=== PATIENT | female | born 1955 | race Caucasian/White ===

== ENCOUNTER 2018-12-02 06:29 | Inpatient (IN) | payer MEDICARE, MEDICAID, SELFPAY ==
[2018-12-02] VITALS (39 sets, daily range): BP systolic 108–224; BP diastolic 66–92; PULSE 63–85; RESP 4–31; TEMP 36.4–36.7; O2SAT 89–99
--- NOTE | 2018-12-02 06:34 | W.ED.GENAD ---
Discharge Plan Disposition Patient Disposition: [facility] INPATIENT Condition: Stable Discharge Details Chief Complaint: SOB Clinical Impression: COPD exacerbation, Hypoxia, Community acquired pneumonia Reason For Visit: PNEUMONIA, COPD, HAMZAH Admit Date/Time: 12/02/18 09:19 Admit Provider: Ryne Tony Attending Provider: Ryne Tony Primary Care Provider: Chacha Wilson ED Provider: Abner Doshi Discharge Instructions Referrals: August Inman [OSTEOPATHIC DOCTOR] - Discharge Data Discharge Date/Time-TO BE ENTERED AT DEPARTURE: 12/02/18 10:05 Medical Decision Making <Vini Gatica MD - Last Filed: 12/05/18 15:11> 63 yo female with hx of copd and continued smoker, who is currently on methadone, who comes in with shortness of breath worsening since yesterday along with productive cough. Denies fevers, chest pain or recent travel or surgeries. She called [facility] and they state she was cyanotic and had oxygen saturations in the 40's on their arrival. She was placed on cpap and given duoneb and on arrival she is tachypneic to the high 20's but appears more comfortable at this time, able to speak in 2-3 word sentences. She has diminished breath sounds at the bases bilateral with apical wheezing bilaterally, suspect copd exacerbation and will treat with nebs and steroids and given increased cough will cover for copd exacerbation and CAP with levofloxacin. She has no jvd, peripheral edema so doubt chf. No evidence of dvt and clinical picture fits with copd so doubt PE at this time. Has no chest pain so doubt acs at this time. pt appearas much better, speaking in 5 word sentences and requesting to come off bipap, will trial her off of this. She has been hypertensie here ,hasn't had her BP med this AM so will order this here. Patient will be signed out to oncoming provider pending lab work and ultimate disposition. Differential Diagnosis copd, pna, acs, chf Lab Data Lab results reviewed: Yes I reviewed the patient's lab results. ECG Data Attestation: I personally reviewed and interpreted this ECG (s) as follows: Prior ECG tracings: available for review Interpretation: sinus rhythm, rate of 80, pr 196, LBBB, left axis, no acute ischemic changes when compared to old ekg <Abner Doshi DO - Last Filed: 12/02/18 09:23> The case is signed out to me my my colleague Dr. Justin Gatica. Patient has been doing well, at time of signout we are pending x-ray results. Clinically x-ray appears to show both a right and left lower lobe infiltrate. And especially in conjunction with her clinical picture I do feel that she certainly fits for COPD exacerbation with pneumonia. The patient does have a prolonged QTC, and so I have canceled the Levaquin that was initially started. And we will transition to a aztreonam, vancomycin and doxycycline as at this time do not feel that she is best fit for simple coverage which is doxycycline. However I do feel that if she improves well this can be quickly titrated down over the next 24-48 hours. Patient's oxygen saturation is notably stabilized. She is feeling improved at this time. I did contact Dr. Tony and discussed the case with him, he agrees with the assessment and plan. Patient will be admitted to [facility] with telemetry for further medical management of COPD exacerbation and pneumonia. I have extensively reviewed the treatment plan with the patient. I have addressed all patient concerns at this time. I have also discussed the plan with the admitting physician and they agree with the current assessment and plan and have agreed to assume responsibility for the patient. All parties demonstrate verbal understanding and agreement with our assessment and plan at this time. HPI <Vini Gatica MD - Last Filed: 12/05/18 15:11> General Mode of arrival: EMS. Date/Time Provider Initiated Documentation: 12/02/18 06:33. Information obtained by: patient. History of Present Illness 63 year old F presents to the emergency department with the chief complaint of shortness of breath, described as severe, Patient started experiencing this day(s) (2) and it has been constant. No relieving factors improve symptom(s), No exacerbating factors reported . Patient notes cough. Patient did receive the following treatments prior to arrival, other (duoneb with ems) Related Data Home Medications Medication Instructions Recorded Confirmed atorvastatin [Lipitor] 10 mg PO DAILY 06/21/17 12/02/18 hydroxyzine HCl 50 mg PO Q8H PRN PRN 06/21/17 12/02/18 methylphenidate HCl [Methylin] 10 mg PO DAILY 06/21/17 12/02/18 metoprolol tartrate 25 mg PO BID 06/21/17 12/02/18 Spiriva with HandiHaler 1 cap INHALATION DAILY #1 marilin 06/24/17 12/02/18 albuterol sulfate [Proventil HFA] 2 puff INHALATION Q4H PRN PRN #1 06/24/17 12/02/18 inh fluticasone-salmeterol [Advair 14 puff INHALATION BID #1 marilin 06/24/17 12/02/18 250/50 Diskus] levothyroxine 25 mcg PO DAILY@0600 #90 tab 06/24/17 12/02/18 gabapentin 100 mg PO TID 12/02/18 12/02/18 methadone 85 mg PO DAILY 12/02/18 12/02/18 Previous Rx's Medication Instructions Recorded Spiriva with HandiHaler 1 cap INHALATION DAILY #1 marilin 06/24/17 albuterol sulfate [Proventil HFA] 2 puff INHALATION Q4H PRN PRN #1 06/24/17 inh fluticasone-salmeterol [Advair 14 puff INHALATION BID #1 marilin 06/24/17 250/50 Diskus] levothyroxine 25 mcg PO DAILY@0600 #90 tab 06/24/17 Allergies Allergy/AdvReac Type Severity Reaction Status Date / Time Penicillins Allergy Unverified 12/02/18 07:13 Review of Systems <Vini Gatica MD - Last Filed: 12/05/18 15:11> Review of Systems All systems reviewed & are unremarkable except as noted in HPI and below Constitutional Denies chills, Denies fever(s) and Denies weakness ENT Denies change in voice Cardiovascular Denies chest pain Gastrointestinal Denies abdominal pain, Denies nausea and Denies vomiting Genitourinary Denies dysuria Musculoskeletal Denies joint swelling Integumentary/Breasts Denies rash Neurologic Denies weakness PFSH <Vini Gatica MD - Last Filed: 12/05/18 15:11> Social History Smoking and Tabacco status: Current every day Exam <Vini Gatica MD - Last Filed: 12/05/18 15:11> Const General: acute distress respiratory Orientation: alert HENMT Head: normal to inspection Ears: external ears normal General nose exam: external nose normal Mouth: moist mucous membranes Eyes General: appearance normal, both eyes and all related structures Neck Neck: normal visual inspection Resp Effort & Inspection: audible wheezes Cardio Rate: regular rate Skin General skin exam: no rashes or lesions noted Neuro General: alert and oriented x3 Extrem General: normal to inspection Psych Mental Status: mental status grossly normal
[2018-12-02] MEDS: Albuterol/Ipratropium 3 ML UPD VIAL UPD ×2 (06:51→18:55)
[2018-12-02] MEDS: Normal Saline 1,000 ML 1000 ML IV (06:52)
[2018-12-02] MEDS: methylPREDNISolone SUCC 125 MG VIAL IVP (06:52)
[2018-12-02 06:58] LABS: Abs Immature Grans 0.17 k/cumm (0.0-0.09); Absolute Basophil Count 0.07 k/cumm (0.0-0.2); Absolute Eosinophil Count 0.19 k/cumm (0.0-0.7); Absolute Lymphocyte Count 5.02 k/cumm (1.2-3.4); Absolute Monocyte Count 0.62 k/cumm (0.11-0.7); Absolute Neutrophil Count 4.44 k/cumm (1.2-6.7); Basophils % 0.7; Eosinophils % 1.8; HCT 37.2 % (36.0-46.0); HGB 11.7 g/dL (12.0-15.5); Immature Grans % 1.6; Lymphocytes % 47.8; Mean Corp. HGB Concentration 31.5 g/dL (32.0-36.0); Mean Corpuscular Hemoglobin 27.6 pg (27.0-33.0); Mean Corpuscular Volume 87.7 fL (80-95); Mean Platelet Volume 11.4 fL (8.0-11.0); Monocytes % 5.9; Neutrophils % 42.2; Platelet Count 261 x1000/uL (130-400); RBC 4.24 m/cumm (4.00-5.20); RBC Distribution Width 14.3 % (11.7-14.6); White Blood Cell Count 10.51 k/cumm (4.4-10.8)
[2018-12-02 07:15] LABS: PTT Activated 20.5 sec (21.0-31.4); Prothrombin Time 9.8 sec (9.3-11.0)
[2018-12-02 07:22] LABS: ALT 69 U/L (12-78); AST 61 U/L (15-37); Alkaline Phosphatase 179 U/L (46-116); Anion Gap 17.5 mmol/L (3-11); BUN 16 mg/dL (7-18); Bilirubin, Total 0.4 mg/dL (0.2-1.0); CO2 21.5 mmol/L (21.0-32.0); CREATININE 1.64 mg/dL (0.55-1.02); Calcium 8.5 mg/dL (8.5-10.1); Chloride 102 mmol/L (98-107); Estimated GFR 31.85 (mL/min/1.73m2); Glucose 323 mg/dL (70-100); NT-proBNP 2386 pg/mL; Potassium 4.2 mmol/L (3.5-5.1); Sodium 141 mmol/L (136-145); Total Protein 7.3 g/dL (6.4-8.2); Troponin I 0.03 ng/mL (0.00-0.06)
[2018-12-02 07:28] LABS: Diff Comment Agrees w/ Instrument
[2018-12-02] MEDS: Metoprolol 25 MG TAB PO ×2 (07:30→19:14)
[2018-12-02] MEDS: LEVOFLOXACIN 750 MG/150 ML BAG 100 MG IVPB (07:32)
[2018-12-02] MEDS: Methadone Liquid 10 MG/ML 85 MG PO (07:36)
--- NOTE | 2018-12-02 07:55 | DI.VRAD_ITS ---
EXAM: XR Chest, 1 View EXAM DATE/TIME: 12/02/2018 6:35 AM CLINICAL HISTORY: 63 years old, female; Signs and symptoms; Other: SOB TECHNIQUE: XR of the chest, 1 view. COMPARISON: CR PORTABLE CHEST ONE VIEW 06/21/2017 2:33 PM FINDINGS: Lungs: New patchy consolidations at the lung bases which may be pneumonia or edema. Pleural space: Unremarkable. No pleural effusion. No pneumothorax. Heart/Mediastinum: Atherosclerotic disease. Mild cardiomegaly, stable. Bones/joints: Unremarkable. IMPRESSION: New patchy consolidations at the lung bases which may be pneumonia or edema. Dictated and Authenticated by: Maryjane De Souza MD. Ordering:AMRQUISE Martini MD
[2018-12-02] MEDS: DOXYCYCLINE 100 MG in Normal Saline 100 ML IVPB ×2 (08:35→19:14)
[2018-12-02] MEDS: AZTREONAM 2,000 MG in Normal Saline 100 ML 200 MG IVPB (08:53)
--- NOTE | 2018-12-02 09:02 | DI.RAD_ITS ---
SYMPTOM/DIAGNOSIS: SOB PORTABLE AP CHEST: Comparison is made with 06/21/17. The heart is enlarged, unchanged. Leads and oxygen tubing are seen over the chest. There are increased interstitial markings which may indicate pulmonary edema. No focal consolidation or effusion is visible. IMPRESSION: The findings are consistent with mild CHF.
[2018-12-02] MEDS: Normal Saline 1,000 ML 150 ML IV ×2 (11:38→19:14)
[2018-12-02] MEDS: methylPREDNISolone SUCC 125 MG VIAL 60 MG IVP ×2 (11:39→19:14)
[2018-12-02] MEDS: hydrOXYzine HCL 50 MG TAB PO ×2 (11:39→20:06)
[2018-12-02] MEDS: Heparin 5,000 UNITS/ML VIAL 5000 UNITS SC ×2 (11:39→19:15)
[2018-12-02] MEDS: Normal Saline Flush 10 ML SYR IVP (11:40)
--- NOTE | 2018-12-02 12:09 | W.PM.HP.N ---
Date of service: 12/02/18 Time of Service: 12:09 Assessment and Plan (1) Acute respiratory failure with hypoxia: Current visit: Yes Status: Acute multifactorial with COPD exacerbation and pneumonia, symptoms markedly improved with duonebs, IV steroids and bipap. Admit to med/surg on telemetry under hospitalist services. will be treated with doxycycline and ceftriaxone. will continue with scheduled duonebs, albuterol as needed, guaifenesin. has been weaned off bipap, will continue oxygen by nasal canula, will wean as able. will continue IV steroids with taper as able. (2) Community acquired pneumonia: Current visit: Yes Status: Acute treatment with ceftriaxone and doxycycline day 15. see #1 (3) Hypertension: Current visit: Yes Status: Chronic did not take her am medications. received home dose of lopressor in the ED. will continue to monitor, continue home medications and adjust medications as needed. (4) Chronic pain: Current visit: Yes Status: Chronic stable, will continue home methadone, gabapentin. no dose changes anticipated (5) Hypothyroidism: Current visit: Yes Status: Chronic stable, continue synthroid (6) HAMZAH (acute kidney injury): Current visit: Yes Status: Acute likely pre-renal. will provide IV fluids overnight. recheck kidney functions in the am. renally dose medications and avoid nephrotoxic drugs. (7) Hyperglycemia: Current visit: Yes Status: Acute blood sugars elevated on admission with glucose over 300. will add hemoglobin A1C to admission labs, diabetic diet and sliding scale coverage ac/hs. anticipate blood sugars to be elevated while on steroids. (8) DVT prophylaxis: Current visit: Yes Status: Acute heparin in setting of HAMZAH. shayy stockings (9) Discharge planning issues: Current visit: Yes Status: Acute anticipate home with no services once medically stable. (10) Tobacco abuse counseling: Current visit: Yes Status: Acute patient reports to smoking 1 pack per day. discussed risk of ongoing tobacco abuse including and not limited to worsening respiratory status, risk of malignancy. states she is motivated to quit. requesting nicotine inhaler while hospitalized. will further consult respiratory for smoking cessation education and assistance. History of Present Illness Chief Complaint: shortness of breath Narrative: 63 yo female with hx of copd and continued smoker, who is currently on methadone, who presents to the emergency department with complaints of shortness of breath worsening since yesterday along with productive cough. She denies fevers, chest pain or recent travel or surgeries. She called EMS and they report she was cyanotic and had oxygen saturations in the 40's on their arrival. She was placed on cpap and given duoneb and on arrival to the ED she was tachypneic to the high 20's but appeared more comfortable, able to speak in 2-3 word sentences. She had diminished breath sounds at the bases bilateral with apical wheezing bilaterally. Clinically x-ray appeared to show both a right and left lower lobe infiltrate, and in conjunction with her clinical picture she was diagnosed with COPD exacerbation and pneumonia. Due to her prolonged QTc she was started on doxycycline and ceftriaxone. She was given solumedrol 125 mg IV. She will be admitted to med/surg on telemetry for inpatient management. Her symptoms and oxygen saturations have stabilized and she has been weaned off bipap and maintaining sats in the 90's on 2 liters. She was also noted to be hypertensive but had not taken her am dose of lopressor. She was administered 25 mg oral lopressor. Review of Systems Constitutional Denies fever(s) and Denies headache(s) ENT Denies dizziness and Denies headache(s) Cardiovascular Denies chest pain, Denies irregular heart rhythm and Reports dyspnea Respiratory Reports cough, Reports dyspnea and Reports wheezing Gastrointestinal Denies abdominal pain Neurologic Denies confusion, Denies dizziness and Denies headache(s) Psychiatric Denies confusion Allergic/Immunologic Reports wheezing PFSH Social History Smoking and Tabacco status: Current every day Meds Home Medications Medication Instructions Recorded Confirmed Type atorvastatin [Lipitor] 10 mg PO DAILY 06/21/17 12/02/18 History hydroxyzine HCl 50 mg PO Q8H PRN PRN 06/21/17 12/02/18 History methylphenidate HCl [Methylin] 10 mg PO DAILY 06/21/17 12/02/18 History metoprolol tartrate 25 mg PO BID 06/21/17 12/02/18 History Spiriva with HandiHaler 1 cap INHALATION DAILY #1 marilin 06/24/17 12/02/18 Rx albuterol sulfate [Proventil HFA] 2 puff INHALATION Q4H PRN PRN #1 06/24/17 12/02/18 Rx inh fluticasone-salmeterol [Advair 14 puff INHALATION BID #1 marilin 06/24/17 12/02/18 Rx 250/50 Diskus] levothyroxine 25 mcg PO DAILY@0600 #90 tab 06/24/17 12/02/18 Rx gabapentin 100 mg PO TID 12/02/18 12/02/18 History methadone 85 mg PO DAILY 12/02/18 12/02/18 History Allergies Allergy/AdvReac Type Severity Reaction Status Date / Time Penicillins Allergy Unverified 12/02/18 07:13 Exam Const General: cooperative, comfortable and no acute distress Nutritional Appearance: overweight Orientation: alert and oriented x3 HENMT Head: normal to inspection, normocephalic and atraumatic Mouth: oral mucosa abnormal (slightly dry, no exudates) Chest Chest: normal inspection of the chest Resp Effort & Inspection: normal respiratory effort and able to speak in complete sentences Auscultation: wheezes (throughout) expiratory wheezes Cardio Rate: regular rate Rhythm: regular rhythm GI Inspection: distended Palpation: soft Auscultation: normal bowel sounds Skin General skin exam: no rashes or lesions noted Neuro General: alert, awake and oriented x3 Cognition: normal cognition Speech: speech normal Motor: muscle tone normal throughout Extrem General: normal to inspection and full ROM Psych Appearance: grossly normal Affect: normal affect Attitude: cooperative Results Labs : 12/02/18 06:40 12/02/18 06:40 Laboratory Results - last 24 hr 12/02/18 12/02/18 12/02/18 06:40 06:40 06:40 WBC 10.51 RBC 4.24 Hgb 11.7 L Hct 37.2 MCV 87.7 MCH 27.6 MCHC 31.5 L RDW 14.3 Plt Count 261 MPV 11.4 H Immature Gran % 1.6 Neutrophils % 42.2 Lymphocytes % 47.8 Monocytes % 5.9 Eosinophils % 1.8 Basophils % 0.7 Absolute Neutrophils 4.44 Absolute Lymphocytes 5.02 H Absolute Monocytes 0.62 Absolute Eosinophils 0.19 Absolute Basophils 0.07 Differential Comment Agrees w/ instrument PT 9.8 INR 1.0 APTT 20.5 L Sodium 141 Potassium 4.2 Chloride 102 Carbon Dioxide 21.5 Anion Gap 17.5 H BUN 16 Creatinine 1.64 H Estimated GFR/1.73 m2 31.85 Glucose 323 H Calcium 8.5 Total Bilirubin 0.4 AST 61 H ALT 69 Alkaline Phosphatase 179 H Troponin I 0.03 NT-Pro-B Natriuret Pep 2386 H Total Protein 7.3 Albumin 3.0 L Last Vital Signs Temp 36.7 C 12/02/18 10:32 Pulse 75 12/02/18 10:32 Resp 20 12/02/18 10:32 BP 199/89 H 12/02/18 10:32 Pulse Ox 93 L 12/02/18 10:32
[2018-12-02] MEDS: Gabapentin 100 MG CAP PO ×2 (14:05→19:14)
[2018-12-02] MEDS: Benzonatate 100 MG CAP PO ×2 (14:05→19:14)
[2018-12-02 16:00] LABS: Hemoglobin A1C 6.2 % (4.5-6.2)
[2018-12-02] MEDS: Insulin Aspart 300 UNITS/3 ML PEN SC (17:03)
[2018-12-02] MEDS: Budesonide 0.5 MG/2 ML UPD VIAL UPD (21:22)
[2018-12-03] VITALS (17 sets, daily range): BP systolic 98–109; BP diastolic 58–73; PULSE 64–78; RESP 1–19; TEMP 36.4–37.4; O2SAT 95–99
[2018-12-03] MEDS: Normal Saline 1,000 ML 150 ML IV ×2 (01:58→09:57)
[2018-12-03] MEDS: Heparin 5,000 UNITS/ML VIAL 5000 UNITS SC ×3 (03:30→19:19)
[2018-12-03] MEDS: methylPREDNISolone SUCC 125 MG VIAL 60 MG IVP ×2 (03:30→12:09)
[2018-12-03] MEDS: Levothyroxine 25 MCG TAB PO (05:53)
[2018-12-03] MEDS: Acetaminophen 325 MG TAB PO ×3 (05:53→17:43)
[2018-12-03 07:28] LABS: Abs Immature Grans 0.02 k/cumm (0.0-0.09); Absolute Basophil Count 0.01 k/cumm (0.0-0.2); Absolute Lymphocyte Count 1.12 k/cumm (1.2-3.4); Absolute Monocyte Count 0.28 k/cumm (0.11-0.7); Absolute Neutrophil Count 8.38 k/cumm (1.2-6.7); Basophils % 0.1; HCT 31.9 % (36.0-46.0); HGB 10.2 g/dL (12.0-15.5); Immature Grans % 0.2; Lymphocytes % 11.4; Mean Corpuscular Hemoglobin 27.3 pg (27.0-33.0); Mean Corpuscular Volume 85.3 fL (80-95); Mean Platelet Volume 11.9 fL (8.0-11.0); Monocytes % 2.9; Neutrophils % 85.4; Platelet Count 182 x1000/uL (130-400); RBC 3.74 m/cumm (4.00-5.20); RBC Distribution Width 14.2 % (11.7-14.6); White Blood Cell Count 9.81 k/cumm (4.4-10.8)
[2018-12-03 07:36] LABS: Anion Gap 8.2 mmol/L (3-11); BUN 20 mg/dL (7-18); CO2 27.8 mmol/L (21.0-32.0); CREATININE 1.03 mg/dL (0.55-1.02); Calcium 8.6 mg/dL (8.5-10.1); Chloride 104 mmol/L (98-107); Estimated GFR 54.48 (mL/min/1.73m2); Glucose 155 mg/dL (70-100); Magnesium 1.5 mg/dL (1.8-2.4); Potassium 3.8 mmol/L (3.5-5.1); Sodium 140 mmol/L (136-145)
[2018-12-03] MEDS: Methylphenidate 10 MG TAB PO (07:50)
[2018-12-03] MEDS: Atorvastatin 10 MG TAB PO (07:50)
[2018-12-03] MEDS: Gabapentin 100 MG CAP PO ×3 (07:50→19:19)
[2018-12-03] MEDS: Metoprolol 25 MG TAB PO ×2 (07:50→19:19)
[2018-12-03] MEDS: Benzonatate 100 MG CAP PO ×3 (07:50→19:19)
[2018-12-03] MEDS: Insulin Aspart 300 UNITS/3 ML PEN SC ×3 (07:50→17:03)
[2018-12-03] MEDS: DOXYCYCLINE 100 MG in Normal Saline 100 ML IVPB ×2 (07:50→19:19)
[2018-12-03] MEDS: Methadone Liquid 10 MG/ML 85 MG PO (07:51)
[2018-12-03] MEDS: Albuterol/Ipratropium 3 ML UPD VIAL UPD ×4 (09:05→19:19)
[2018-12-03] MEDS: Budesonide 0.5 MG/2 ML UPD VIAL UPD ×2 (09:11→21:40)
[2018-12-03] MEDS: MAGNESIUM SULFATE 4 GM/100 ML BAG IVPB (11:04)
--- NOTE | 2018-12-03 11:41 | PDOC.CMIN ---
- If Service Date Differs Date of service: 12/03/18 Time of Service: 11:41 Care Management Initial Assess REASON FOR HOSPITALIZATION:: Pneumonia, COPD PAST MEDICAL HISTORY/PAST SURGICAL HISTORY:: Hypothyroidism, Chornic pain, Hypertension PREVIOUS FUNCTIONAL STATUS/SOCIAL/FAMILY SUPPORTS:: Carolin resides with her daughter Emma, and her SO Zander at the [facility] in [facility]. She states that she was residing in [place], and roughly a year ago moved to [facility]. Carolin was renting a room in a trailer, however states that she has been residing with her daughter at the hotel for the past 5 months. Carolin reports being independent at baseline, and is able to Manage ADL's. She states that she does not drive, and uses [facility] for transportation. CURRENT FUNCTIONAL STATUS:: Currently Carolin is lying in bed when this creative writer visits. She is pleasant and receptive to discussion. ADVANCE DIRECTIVES:: None on file Has patient been provided with information about the portal?: Yes Did the patient sign up for the portal?: No CODE STATUS:: Full Code INSURANCE COVERAGE / FINANCIAL ISSUES:: Medicare, Medicaid CURRENT HOME/COMMUNITY SERVICES/EQUIPMENT:: Currently Carolin has no services or medical equipment in the community. PRIMARY CARE PHYSICIAN:: Chacha Wilson POTENTIAL DISCHARGE NEEDS:: F/U appointment with PCP PATIENT/FAMILY EDUCATION NEEDS:: Review DC instructions, any limitations, and ongoing DC planning discussion. Discuss 'Ask Me Three' ANTICIPATED BARRIERS TO DISCHARGE:: None identified at this time. TRANSPORTATION:: [facility] PLAN:: Carolin to return home with no anticipated services once medically cleared. She will F/U with PCP and plan of care as prescribed. [facility] to transport when ready.
--- NOTE | 2018-12-03 11:46 | INITIAL_ITS ---
- If Service Date Differs Date of service: 12/03/18 Time of Service: 11:41 Care Management Initial Assess REASON FOR HOSPITALIZATION:: Pneumonia, COPD PAST MEDICAL HISTORY/PAST SURGICAL HISTORY:: Hypothyroidism, Chornic pain, Hypertension PREVIOUS FUNCTIONAL STATUS/SOCIAL/FAMILY SUPPORTS:: Carolin resides with her daughter Emma, and her SO Zander at the [facility]. She states that she was residing in [place], and roughly a year ago moved to [facility]. Carolin was renting a room in a trailer, however states that she has been residing with her daughter at the hotel for the past 5 months. Caroiln rep orts being independent at baseline, and is able to Manage ADL's. She states that she does not drive, and uses [facility] for transportation. CURRENT FUNCTIONAL STATUS:: Currently Carolin is lying in bed when this health underwriter visits. She is pleasant and receptive to discussion. ADVANCE DIRECTIVES:: None on file Has patient been provided with information about the portal?: Yes Did the patient sign up for the portal?: No CODE STATUS:: Full Code INSURANCE COVERAGE / FINANCIAL ISSUES:: Medicare, Medicaid CURRENT HOME/COMMUNITY SERVICES/EQUIPMENT:: Currently Carolin has no services or medical equipment in the community. PRIMARY CARE PHYSICIAN:: Chacha Wilson POTENTIAL DISCHARGE NEEDS:: F/U appointment with PCP PATIENT/FAMILY EDUCATION NEEDS:: Review DC instructions, any limitations, and ongoing DC planning discussion. Discuss 'Ask Me Three' ANTICIPATED BARRIERS TO DISCHARGE:: None identified at this time. TRANSPORTATION:: [facility] PLAN:: Carolin to return home with no anticipated services once medically cleared. She will F/U with PCP and plan of care as prescribed. [facility] to transport when ready.
--- NOTE | 2018-12-03 12:05 | PHARADMIT ---
Admission Pharmacy Clinical Review PNEUMONIA, COPD, HAMZAH Code Status Full Code Current Weight Wgt- 62 kg Renally Cleared and Narrow Therapeutic Index Meds CrCl~ 41.1 mL/min Meds-OK QTc Value / Action Taken QTc-497 BP Control, Fever BP- 109/73 Tmax- 37.4C Electrolytes reviewed Na- 140 K+3.8 Mag-1.5 DVT Prophylaxis Heparin SC Opiate Usage / Scheduled Bowel Regimen Ordered Yes Yes Plt/SCr for Heparin / Enoxaparin Plts-182 SCr-1.03 INR for Warfarin inr-1.0 H/H stable, WBC/Bands H&H- 10.2/31.9 WBC- 9.81 Antibiotic appropriateness Rocephin, Doxycycline IV Cultures and Sensitivities Blood-No growth/24hrs Surgical ABX d/c within 24 hr na DM control / Insulin Dosing BG-155 AuD8y-3.2 Aspart Heart Failure (Check EF%) (NABIL's, B-Block, Diuretics) Lopressor, IV to PO Switch No Home Meds Reviewed Yes Home Meds Not Ordered AdvJerry lawleriva Comments Receives daily Methadone Solution (8.5mL)
[2018-12-03] MEDS: Normal Saline Flush 10 ML SYR IVP (12:09)
[2018-12-03] MEDS: Ibuprofen 400 MG TAB PO ×2 (13:07→17:42)
[2018-12-03] MEDS: Lidocaine 5% Patch 1 PATCH TP (13:07)
--- NOTE | 2018-12-03 15:21 | PGE_ITS ---
Date of Service Date of service: 12/03/18 Time of Service: 15:19 Assessment and Plan (1) Acute respiratory failure with hypoxia: Current visit: Yes Status: Acute multifactorial with COPD exacerbation and pneumonia as well as a likely component of diastolic CHF. Improved/resolving, currently on room air. Continue treatment of infection with doxycycline and ceftriaxone, steroids, nebs, antitussives. D/c IVF and add lasix. Repeat echo. (2) Community acquired pneumonia: Current visit: Yes Status: Acute treatment with ceftriaxone and doxycycline day 2/5. see #1. Obtain sputum culture. (3) COPD with acute exacerbation: Current visit: Yes Status: Acute As above (4) Acute diastolic CHF (congestive heart failure): Current visit: Yes Status: Acute D/C IVF. Obtain echo. Monitor on tele. Monitor I/O's and daily weights. Check pro BNP (5) Hypertension: Current visit: Yes Status: Chronic Normotensive. IV hydralazine d/c'ed. (6) Chronic pain: Current visit: Yes Status: Chronic Continue home methadone, gabapentin. I added a lidoderm patch and prn ibuprofen as the patient reports back pain today. We also added an aqua K pack. (7) Hypothyroidism: Current visit: Yes Status: Chronic stable, continue synthroid (8) HAMZAH (acute kidney injury): Current visit: Yes Status: Acute Resolving. At this point, the risks of continuing IVF outweight the benefits, so IVF have been stopped; giving one time dose of PO lasix. (9) Hyperglycemia: Current visit: Yes Status: Acute A1c indicative of prediabetes. Continue SSI. Diabetes education ordered. (10) Prediabetes: Current visit: Yes Status: Acute As above (11) DVT prophylaxis: Current visit: Yes Status: Acute heparin in setting of HAMZAH. shayy stockings (12) Discharge planning issues: Current visit: Yes Status: Acute anticipate home with no services once medically stable. (13) Tobacco abuse counseling: Current visit: Yes Status: Acute Tobacco cessation advised. Nicotine inhaler while hospitalized. Subjective Interval history since last seen: States she feels better, specifically, about her breathing. Her cough is productive of brownish sputum. She thinks she is getting too much IVF. She denies dizziness, chest pain, nausea, vomiting. Exam Narrative Exam Narrative: General: very pleasant middle-aged female, laying c omfortably in bed at about a 30 degree angle, not short of breath HEENT: EOMI, MMM Heart: RRR, no m/r/g Lungs: quiet rhonchi and rales on expiration B GI: abdomen is soft, nontender, nondistended Extremities no e/c/c BLE's, +1 pedal pulses bilaterally, wearing TEDs Objective Objective Clinical Data: Abnormal lab results 12/03/18 12/03/18 Range/Units 06:35 06:35 RBC 3.74 L (4.00-5.20) m/cumm Hgb 10.2 L (12.0-15.5) g/dL Hct 31.9 L (36.0-46.0) % MPV 11.9 H (8.0-11.0) fL Absolute Neutrophils 8.38 H (1.2-6.7) k/cumm Absolute Lymphocytes 1.12 L (1.2-3.4) k/cumm BUN 20 H (7-18) mg/dL Creatinine 1.03 H D (0.55-1.02) mg/dL Glucose 155 H D (70-100) mg/dL Magnesium 1.5 L (1.8-2.4) mg/dL Vital Signs Temperature 36.4 C L 12/03/18 11:55 Temperature Source Tympanic 12/03/18 11:55 Pulse 68 12/03/18 11:55 Pulse Rhythm Regular 12/02/18 20:53 Pulse 66 12/02/18 09:40 Respiratory Rate 18 12/03/18 11:55 Respiratory Effort Non-Labored 12/02/18 20:53 Respiratory Depth Normal 12/02/18 20:53 Respiratory Pattern Normal 12/02/18 20:53 Blood Pressure 98/58 L 12/03/18 11:55 Blood Pressure Mean 94 12/02/18 09:31 Blood Pressure Position Supine 12/02/18 06:45 Pulse Oximetry 97 12/03/18 11:55 Oxygen Delivery Method Room Air 12/03/18 11:55 Oxygen Flow Rate 0 12/03/18 11:55 Pain Level 5 12/03/18 14:07 Comment 12/03/18 10:30 Intake & Output 12/02/18 12/03/18 12/03/18 23:59 11:59 23:59 Intake Total 2727.5 / 4631.667 2392.5 / 3250.0 857.5 / 3250.0 Output Total 225 / 875 Balance 2502.5 / 3756.667 2392.5 / 3250.0 857.5 / 3250.0 Intake: IV 1147.5 / 2691.667 2152.5 / 2610.0 457.5 / 2610.0 Oral 1580 / 1940 240 / 640 400 / 640 Output: Urine 225 / 875 Other: Urine Color Yellow Urine Appearance Clear Urine Odor Normal Comment UOP x 1 Voiding Methods Toilet Toilet Laboratory Results WBC 9.81 k/cumm (4.4-10.8) 12/03/18 06:35 RBC 3.74 m/cumm (4.00-5.20) L 12/03/18 06:35 Hgb 10.2 g/dL (12.0-15.5) L 12/03/18 06:35 Hct 31.9 % (36.0-46.0) L 12/03/18 06:35 MCV 85.3 fL (80-95) 12/03/18 06:35 MCH 27.3 pg (27.0-33.0) 12/03/18 06:35 MCHC 32.0 g/dL (32.0-36.0) 12/03/18 06:35 RDW 14.2 % (11.7-14.6) 12/03/18 06:35 Plt Count 182 x1000/uL (130-400) 12/03/18 06:35 MPV 11.9 fL (8.0-11.0) H 12/03/18 06:35 Immature Gran % 0.2 12/03/18 06:35 Neutrophils % 85.4 12/03/18 06:35 Lymphocytes % 11.4 12/03/18 06:35 Monocytes % 2.9 12/03/18 06:35 Eosinophils % 0.0 12/03/18 06:35 Basophils % 0.1 12/03/18 06:35 Absolute Neutrophils 8.38 k/cumm (1.2-6.7) H 12/03/18 06:35 Absolute Lymphocytes 1.12 k/cumm (1.2-3.4) L 12/03/18 06:35 Absolute Monocytes 0.28 k/cumm (0.11-0.7) 12/03/18 06:35 Absolute Eosinophils 0.00 k/cumm (0.0-0.7) 12/03/18 06:35 Absolute Basophils 0.01 k/cumm (0.0-0.2) 12/03/18 06:35 Differential Comment Agrees w/ instrument 12/02/18 06:40 PT 9.8 sec (9.3-11.0) 12/02/18 06:40 INR 1.0 (0.9-1.1) 12/02/18 06:40 APTT 20.5 sec (21.0-31.4) L 12/02/18 06:40 Sodium 140 mmol/L (136-145) 12/03/18 06:35 Potassium 3.8 mmol/L (3.5-5.1) 12/03/18 06:35 Chloride 104 mmol/L (98-107) 12/03/18 06:35 Carbon Dioxide 27.8 mmol/L (21.0-32.0) 12/03/18 06:35 Anion Gap 8.2 mmol/L (3-11) 12/03/18 06:35 BUN 20 mg/dL (7-18) H 12/03/18 06:35 Creatinine 1.03 mg/dL (0.55-1.02) H D 12/03/18 06:35 Estimated GFR/1.73 m2 54.48 (mL/min/1.73m2) 12/03/18 06:35 Glucose 155 mg/dL (70-100) H D 12/03/18 06:35 Hemoglobin A1c 6.2 % (4.5-6.2) 12/02/18 06:40 Calcium 8.6 mg/dL (8.5-10.1) 12/03/18 06:35 Magnesium 1.5 mg/dL (1.8-2.4) L 12/03/18 06:35 Total Bilirubin 0.4 mg/dL (0.2-1.0) 12/02/18 06:40 AST 61 U/L (15-37) H 12/02/18 06:40 ALT 69 U/L (12-78) 12/02/18 06:40 Alkaline Phosphatase 179 U/L (46-116) H 12/02/18 06:40 Troponin I 0.03 ng/mL (0.00-0.06) 12/02/18 06:40 NT-Pro-B Natriuret Pep 2386 pg/mL (-299) H 12/02/18 06:40 Total Protein 7.3 g/dL (6.4-8.2) 12/02/18 06:40 Albumin 3.0 g/dL (3.4-5.0) L 12/02/18 06:40
[2018-12-03] MEDS: Furosemide 20 MG TAB PO (15:40)
[2018-12-03 15:57] LABS: NT-proBNP 8785 pg/mL
[2018-12-03 16:08] LABS: Troponin I 0.14 ng/mL (0.00-0.06)
[2018-12-03] MEDS: methylPREDNISolone SUCC 125 MG VIAL 40 MG IVP (19:19)
[2018-12-03] MEDS: Patch Removal 1 EACH TP (23:32)
[2018-12-04] VITALS (17 sets, daily range): BP systolic 98–149; BP diastolic 64–87; PULSE 51–74; RESP 1–19; TEMP 36–37.2; O2SAT 93–100
[2018-12-04] MEDS: Heparin 5,000 UNITS/ML VIAL 5000 UNITS SC ×3 (03:47→19:47)
[2018-12-04] MEDS: methylPREDNISolone SUCC 125 MG VIAL 40 MG IVP ×3 (03:47→19:46)
[2018-12-04] MEDS: Levothyroxine 25 MCG TAB PO (05:20)
[2018-12-04] MEDS: Ibuprofen 400 MG TAB PO ×2 (05:20→14:51)
[2018-12-04 07:02] LABS: HCT 32.7 % (36.0-46.0); HGB 10.8 g/dL (12.0-15.5); Mean Corpuscular Hemoglobin 28.1 pg (27.0-33.0); Mean Corpuscular Volume 85.2 fL (80-95); Mean Platelet Volume 11.8 fL (8.0-11.0); Platelet Count 212 x1000/uL (130-400); RBC 3.84 m/cumm (4.00-5.20); RBC Distribution Width 14.4 % (11.7-14.6); White Blood Cell Count 12.35 k/cumm (4.4-10.8)
[2018-12-04 07:42] LABS: Anion Gap 9.4 mmol/L (3-11); BUN 28 mg/dL (7-18); CO2 27.6 mmol/L (21.0-32.0); CREATININE 1.13 mg/dL (0.55-1.02); Chloride 102 mmol/L (98-107); Cholesterol 192 mg/dL (50-200); Estimated GFR 48.95 (mL/min/1.73m2); Glucose 145 mg/dL (70-100); HDL Cholesterol 46 mg/dL (40-60); LDL CHOLESTEROL 122 mg/dL (<100); Magnesium 2.1 mg/dL (1.8-2.4); Potassium 3.1 mmol/L (3.5-5.1); Sodium 139 mmol/L (136-145); Triglyceride 193 mg/dL (30-150)
[2018-12-04] MEDS: Polyethylene Glycol 3350 17 GM PACKET PO (08:44)
[2018-12-04] MEDS: Methadone Liquid 10 MG/ML 85 MG PO (08:44)
[2018-12-04] MEDS: Gabapentin 100 MG CAP PO ×3 (08:45→19:47)
[2018-12-04] MEDS: Benzonatate 100 MG CAP PO ×3 (08:45→19:47)
[2018-12-04] MEDS: Atorvastatin 10 MG TAB PO (08:45)
[2018-12-04] MEDS: Docusate Sodium 100 MG CAP PO ×2 (08:45→19:52)
[2018-12-04] MEDS: DOXYCYCLINE 100 MG in Normal Saline 100 ML IVPB ×2 (08:45→19:52)
[2018-12-04] MEDS: Methylphenidate 10 MG TAB PO (08:45)
[2018-12-04] MEDS: Metoprolol 25 MG TAB PO ×2 (08:45→19:47)
[2018-12-04] MEDS: Normal Saline 500 ML 200 ML IV (08:45)
[2018-12-04] MEDS: Acetaminophen 325 MG TAB PO ×2 (08:46→14:51)
[2018-12-04] MEDS: Aspirin 81 MG CHEW PO (08:46)
[2018-12-04] MEDS: Insulin Aspart 300 UNITS/3 ML PEN SC ×2 (08:46→12:29)
[2018-12-04] MEDS: hydrOXYzine HCL 50 MG TAB PO (09:19)
[2018-12-04] MEDS: Albuterol/Ipratropium 3 ML UPD VIAL UPD ×4 (09:24→19:46)
[2018-12-04] MEDS: Budesonide 0.5 MG/2 ML UPD VIAL UPD ×2 (09:33→21:55)
[2018-12-04] MEDS: Potassium Chloride 20 MEQ TABCR 40 MEQ PO ×2 (11:01→19:47)
[2018-12-04] MEDS: Furosemide 20 MG/2 ML VIAL IVP (11:01)
[2018-12-04] MEDS: Normal Saline Flush 10 ML SYR IVP ×3 (11:02→19:47)
[2018-12-04] MEDS: Lidocaine 5% Patch 1 PATCH TP (12:29)
--- NOTE | 2018-12-04 13:31 | PDOC.CMPRO ---
- If Service Date Differs Date of service: 12/04/18 Time of Service: 13:32 Care Management Progress Note S/O: Carolin is sitting up in bed this morning, she is pleasant and receptive to discussion. Carolin states that she is feeling alright this morning. She states that her daughter may be in to visit her, however it is difficult as they do not have transportation at home other than [facility]. No change in DC plan at this time. A: 63 y/o female admitted 12/02/18 for pneumonia, COPD P: Carolin will return to the [facility] when medically cleared. She will F/U with PCP and plan of care as prescribed. Carolin to transport via [facility] when ready.
--- NOTE | 2018-12-04 17:53 | W.PM.PROGNOT ---
Date of Service Date of service: 12/04/18 Time of Service: 16:40 Assessment and Plan (1) Acute respiratory failure with hypoxia: Current visit: Yes Status: Acute multifactorial with COPD exacerbation and pneumonia as well as a likely component of diastolic CHF. Resolved, currently on room air. Continue treatment of infection with doxycycline and ceftriaxone, weaning of steroids, nebs, antitussives. Continue lasix. Repeat echo tomorrow. May need a stress test as outpatient. (2) Community acquired pneumonia: Current visit: Yes Status: Acute treatment with ceftriaxone and doxycycline day 3/5. see #1. (3) COPD with acute exacerbation: Current visit: Yes Status: Acute Improved. Decrease steroids. (4) Acute diastolic CHF (congestive heart failure): Current visit: Yes Status: Acute Obtain echo. Monitor on tele. Monitor I/O's and daily weights. May need a stress test. (5) Hypertension: Current visit: Yes Status: Chronic Normotensive. IV hydralazine d/c'ed. (6) Chronic pain: Current visit: Yes Status: Chronic Hold methadone in light of QT prolongation (obtaining official EKG), continue gabapentin, lidoderm patch and prn ibuprofen, aqua K pack. (7) Hypothyroidism: Current visit: Yes Status: Chronic stable, continue synthroid (8) HAMZAH (acute kidney injury): Current visit: Yes Status: Acute resolved/stable. Monitor while diuresing. (9) Hyperglycemia: Current visit: Yes Status: Acute A1c indicative of prediabetes. Continue SSI. Diabetes education ordered. (10) Prediabetes: Current visit: Yes Status: Acute As above (11) DVT prophylaxis: Current visit: Yes Status: Acute heparin in setting of HAMZAH. shayy stockings (12) Discharge planning issues: Current visit: Yes Status: Acute anticipate home with no services once medically stable. (13) Tobacco abuse counseling: Current visit: Yes Status: Acute Tobacco cessation advised. Nicotine inhaler while hospitalized. Subjective Interval history since last seen: Feels a lot better today and thinks it's because she is off of IV fluids. Denies dizziness, chest pain, nausea, vomiting. Breathing is better and cough is almost none. Borderline QT prolongation was again reported on tele. Exam Narrative Exam Narrative: General: very pleasant middle-aged female, laying comfortably in bed, no shortness of breath HEENT: EOMI, MMM Heart: RRR, no m/r/g Lungs: CTAB GI: abdomen is soft, nontender, nondistended Extremities no e/c/c BLE's, +1 pedal pulses bilaterally, wearing TEDs Objective Objective Clinical Data: Abnormal lab results 12/04/18 12/04/18 Range/Units 06:30 06:30 WBC 12.35 H (4.4-10.8) k/cumm RBC 3.84 L (4.00-5.20) m/cumm Hgb 10.8 L (12.0-15.5) g/dL Hct 32.7 L (36.0-46.0) % MPV 11.8 H (8.0-11.0) fL Potassium 3.1 L (3.5-5.1) mmol/L BUN 28 H (7-18) mg/dL Creatinine 1.13 H (0.55-1.02) mg/dL Glucose 145 H (70-100) mg/dL Troponin I 0.10 H* (0.00-0.06) ng/mL Triglycerides 193 H (30-150) mg/dL LDL Cholesterol Direct 122 H (<100) mg/dL Vital Signs Temperature 37.1 C 12/04/18 16:07 Temperature Source Tympanic 12/04/18 16:07 Pulse 69 12/04/18 16:07 Pulse Rhythm Regular 12/03/18 20:34 Pulse 66 12/02/18 09:40 Respiratory Rate 18 12/04/18 16:07 Respiratory Effort Non-Labored 12/03/18 20:34 Respiratory Depth Normal 12/03/18 20:34 Respiratory Pattern Normal 12/03/18 20:34 Blood Pressure 107/64 12/04/18 16:07 Blood Pressure Mean 94 12/02/18 09:31 Blood Pressure Position Supine 12/02/18 06:45 Pulse Oximetry 93 L 12/04/18 16:07 Oxygen Delivery Method Room Air 12/04/18 16:07 Oxygen Flow Rate 0 12/04/18 16:07 Pain Level 8 12/04/18 14:51 Comment 12/03/18 10:30 Intake & Output 12/03/18 12/04/18 12/04/18 23:59 11:59 23:59 Intake Total 1689.167 / 4081.667 1013.333 / 2063.333 1050 / 2062.333 Output Total 1650 / 1650 2875 / 4275 1400 / 4275 Balance 39.167 / 2431.667 -1861.667 / -2211.667 -350 / -2211.667 Weight 63.8 kg Intake: IV 809.167 / 2961.667 223.333 / 243.333 20 / 243.333 Oral 880 / 1120 790 / 1820 1030 / 1820 Output: Urine 1650 / 1650 2875 / 4275 1400 / 4275 Other: Urine Color Yellow Yellow Yellow Urine Appearance Clear Clear Clear Urine Odor None None None Comment Void x3 in the toilet thus far throughout the day. RN unsure if pt. missed the hat or if [employer] accidentally forgot to document urine amount. Pt. informed that the RN wants to have pt. void in the hat and then ring so that the RN can measure urine output. Pt. agreed to do so. Void x1 in the toilet. Void x1 in the toilet. Voiding Methods Toilet Toilet Toilet Laboratory Results WBC 12.35 k/cumm (4.4-10.8) H 12/04/18 06:30 RBC 3.84 m/cumm (4.00-5.20) L 12/04/18 06:30 Hgb 10.8 g/dL (12.0-15.5) L 12/04/18 06:30 Hct 32.7 % (36.0-46.0) L 12/04/18 06:30 MCV 85.2 fL (80-95) 12/04/18 06:30 MCH 28.1 pg (27.0-33.0) 12/04/18 06:30 MCHC 33.0 g/dL (32.0-36.0) 12/04/18 06:30 RDW 14.4 % (11.7-14.6) 12/04/18 06:30 Plt Count 212 x1000/uL (130-400) 12/04/18 06:30 MPV 11.8 fL (8.0-11.0) H 12/04/18 06:30 Immature Gran % 0.2 12/03/18 06:35 Neutrophils % 85.4 12/03/18 06:35 Lymphocytes % 11.4 12/03/18 06:35 Monocytes % 2.9 12/03/18 06:35 Eosinophils % 0.0 12/03/18 06:35 Basophils % 0.1 12/03/18 06:35 Absolute Neutrophils 8.38 k/cumm (1.2-6.7) H 12/03/18 06:35 Absolute Lymphocytes 1.12 k/cumm (1.2-3.4) L 12/03/18 06:35 Absolute Monocytes 0.28 k/cumm (0.11-0.7) 12/03/18 06:35 Absolute Eosinophils 0.00 k/cumm (0.0-0.7) 12/03/18 06:35 Absolute Basophils 0.01 k/cumm (0.0-0.2) 12/03/18 06:35 Differential Comment Agrees w/ instrument 12/02/18 06:40 PT 9.8 sec (9.3-11.0) 12/02/18 06:40 INR 1.0 (0.9-1.1) 12/02/18 06:40 APTT 20.5 sec (21.0-31.4) L 12/02/18 06:40 Sodium 139 mmol/L (136-145) 12/04/18 06:30 Potassium 3.1 mmol/L (3.5-5.1) L 12/04/18 06:30 Chloride 102 mmol/L (98-107) 12/04/18 06:30 Carbon Dioxide 27.6 mmol/L (21.0-32.0) 12/04/18 06:30 Anion Gap 9.4 mmol/L (3-11) 12/04/18 06:30 BUN 28 mg/dL (7-18) H 12/04/18 06:30 Creatinine 1.13 mg/dL (0.55-1.02) H 12/04/18 06:30 Estimated GFR/1.73 m2 48.95 (mL/min/1.73m2) 12/04/18 06:30 Glucose 145 mg/dL (70-100) H 12/04/18 06:30 Hemoglobin A1c 6.2 % (4.5-6.2) 12/02/18 06:40 Calcium 9.0 mg/dL (8.5-10.1) 12/04/18 06:30 Magnesium 2.1 mg/dL (1.8-2.4) 12/04/18 06:30 Total Bilirubin 0.4 mg/dL (0.2-1.0) 12/02/18 06:40 AST 61 U/L (15-37) H 12/02/18 06:40 ALT 69 U/L (12-78) 12/02/18 06:40 Alkaline Phosphatase 179 U/L (46-116) H 12/02/18 06:40 Troponin I 0.10 ng/mL (0.00-0.06) H* 12/04/18 06:30 NT-Pro-B Natriuret Pep 8785 pg/mL (-299) H 12/03/18 06:35 Total Protein 7.3 g/dL (6.4-8.2) 12/02/18 06:40 Albumin 3.0 g/dL (3.4-5.0) L 12/02/18 06:40 Triglycerides 193 mg/dL (30-150) H 12/04/18 06:30 Total Cholesterol 192 mg/dL (50-200) 12/04/18 06:30 LDL Cholesterol Direct 122 mg/dL (<100) H 12/04/18 06:30 HDL Cholesterol 46 mg/dL (40-60) 12/04/18 06:30
[2018-12-04] MEDS: Patch Removal 1 EACH TP (23:01)
[2018-12-05] VITALS (11 sets, daily range): BP systolic 122–130; BP diastolic 75–88; PULSE 58–74; RESP 1–20; TEMP 36.6–37.1; O2SAT 94–100
[2018-12-05] MEDS: Heparin 5,000 UNITS/ML VIAL 5000 UNITS SC ×3 (03:19→20:06)
[2018-12-05] MEDS: Acetaminophen 325 MG TAB PO (03:22)
[2018-12-05] MEDS: hydrOXYzine HCL 50 MG TAB PO (03:22)
[2018-12-05] MEDS: Ibuprofen 400 MG TAB PO (03:24)
[2018-12-05] MEDS: Levothyroxine 25 MCG TAB PO (05:39)
[2018-12-05] MEDS: Normal Saline Flush 10 ML SYR IVP ×3 (05:40→20:05)
[2018-12-05] MEDS: methylPREDNISolone SUCC 125 MG VIAL 40 MG IVP ×2 (05:40→17:15)
[2018-12-05 07:11] LABS: Abs Immature Grans 0.12 k/cumm (0.0-0.09); Absolute Basophil Count 0.01 k/cumm (0.0-0.2); Absolute Lymphocyte Count 1.61 k/cumm (1.2-3.4); Absolute Monocyte Count 0.69 k/cumm (0.11-0.7); Absolute Neutrophil Count 9.92 k/cumm (1.2-6.7); Basophils % 0.1; HCT 34.1 % (36.0-46.0); HGB 11.1 g/dL (12.0-15.5); Mean Corp. HGB Concentration 32.6 g/dL (32.0-36.0); Mean Corpuscular Hemoglobin 27.6 pg (27.0-33.0); Mean Corpuscular Volume 84.8 fL (80-95); Mean Platelet Volume 11.7 fL (8.0-11.0); Monocytes % 5.6; Neutrophils % 80.3; Platelet Count 208 x1000/uL (130-400); RBC 4.02 m/cumm (4.00-5.20); RBC Distribution Width 14.7 % (11.7-14.6); White Blood Cell Count 12.35 k/cumm (4.4-10.8)
[2018-12-05 07:22] LABS: BUN 30 mg/dL (7-18); CREATININE 1.17 mg/dL (0.55-1.02); Calcium 8.7 mg/dL (8.5-10.1); Chloride 101 mmol/L (98-107); Estimated GFR 47.03 (mL/min/1.73m2); Glucose 167 mg/dL (70-100); Magnesium 1.8 mg/dL (1.8-2.4); Sodium 139 mmol/L (136-145)
--- NOTE | 2018-12-05 08:30 | MERGE_ITS ---
*[facility]* *[facility]* [address] [place] [address] Date of study: 12/05/2018 Transthoracic Echocardiography M-mode, complete 2D, complete spectral Doppler, and color Doppler *STUDY CONCLUSIONS* Summary: 1. Left ventricle: The cavity size was normal. Systolic function was mildly reduced. The estimated ejection fraction was 45-50%. Diffuse hypokinesis. Findings consistent with diastolic dysfunction. Doppler parameters are consistent with high ventricular filling pressure. 2. Aortic valve: There was mild regurgitation. 3. Mitral valve: There was moderate to severe regurgitation, with multiple jets directed posteriorly. L wave noted. 4. Left atrium: The atrium was mildly dilated. 5. Right ventricle: The cavity size was normal. Wall thickness was normal. Systolic function was normal. 6. Right atrium: The atrium was mildly dilated. 7. Atrial septum: No defect or patent foramen ovale was identified. 8. Pulmonary arteries: Pulmonary systolic pressure was in the range of 35mm Hg to 45mm Hg. 9. Inferior vena cava: The vessel was patent and normal in size. The respirophasic diameter changes were in the normal range (greater than or equal to 50%), consistent with normal central venous pressure. *PATIENT PRESENTATION* Height: 149.9cm ((59in) ) S/D Pressure: 128 / 83 Weight: 63.5kg ((139.7lb) ) BSA: 1.65m^2 Test start time: 09:20 AM. Test stop time: 10:15 AM. PERFORMING Unknown CONSULTING Chacha Wilson PERFORMING [facility] DIELECTRIC EMBOSSING MACHINE OPERATOR RT Fletcher (R)(CT), [facility] ORDERING Jaen Angelavishal RollinsBurt rawlsvishal Johnson *PROCEDURE DATA* Procedure information: The patient was identified by two identifiers. This study was interpreted by [facility]. Pertinent images and digital data are archived for permanent storage and are available for subsequent review. Comparison was made to the study of 06/22/2017. Study status: Routine. Transthoracic echocardiography. M-mode, complete 2D, complete spectral Doppler, and color Doppler. A Transthoracic Echocardiogram was performed. Scanning was performed from the parasternal, apical, subcostal, and suprasternal notch acoustic windows. Images were obtained using an [id number] cardiac ultrasound machine. Image quality was adequate. Study completion: The patient tolerated the procedure well. History: PMH: CHF. *CARDIAC ANATOMY* Left ventricle: The cavity size was normal. Systolic function was mildly reduced. The estimated ejection fraction was 45-50%. Diffuse hypokinesis. The tissue Doppler parameters were normal. Findings consistent with diastolic dysfunction. Doppler parameters are consistent with high ventricular filling pressure. Aortic valve: Trileaflet. Doppler: There was no stenosis. There was mild regurgitation. VTI ratio of LVOT to aortic valve: 0.69. Valve area (VTI): 2cm^2. Indexed valve area (VTI): 1.2cm^2/m^2. Peak velocity ratio of LVOT to aortic valve: 0.63. Valve area (Vmax): 1.8cm^2. Indexed valve area (Vmax): 1.1cm^2/m^2. Mean velocity ratio of LVOT to aortic valve: 0.78. Valve area (Vmean): 2.2cm^2. Indexed valve area (Vmean): 1.4cm^2/m^2. Mean gradient (S): 6.7mm Hg. Peak gradient (S): 15.7mm Hg. Aorta: Aortic root: The aortic root was normal in size. Ascending aorta: The ascending aorta was normal in size. Mitral valve: No echocardiographic evidence for prolapse. There was nothing to suggest chordal rupture or a flail leaflet. Doppler: There was no evidence for stenosis. There was moderate to severe regurgitation, with multiple jets directed posteriorly. Valve area by pressure half-time: 5.5cm^2. Indexed valve area by pressure half-time: 3.3cm^2/m^2. Peak gradient (D): 4.9mm Hg. Left atrium: The atrium was mildly dilated. Atrial septum: No defect or patent foramen ovale was identified. Right ventricle: The cavity size was normal. Wall thickness was normal. Systolic function was normal. Pulmonic valve: Doppler: There was no evidence for stenosis. There was mild regurgitation. Peak gradient (S): 8.1mm Hg. Tricuspid valve: Doppler: There was mild regurgitation. Pulmonary artery: Poorly visualized. Pulmonary systolic pressure was in the range of 35mm Hg to 45mm Hg. Right atrium: The atrium was mildly dilated. Pericardium: There was no pericardial effusion. Systemic veins: Inferior vena cava: Well visualized. The vessel was patent and normal in size. The respirophasic diameter changes were in the normal range (greater than or equal to 50%), consistent with normal central venous pressure. Measurements Left ventricle Value 06/22/2017 Reference LV ID, ED, PLAX 5.1 cm 4.7 3.5 - 6.0 LV ID, ES, PLAX 3.9 cm 3.3 2.1 - 4.0 LV PW thickness, ED, PLAX 0.9 cm 0.8 LV end-diastolic volume, 112 ml 94 1-p A2C LV ejection fraction, 1-p 49 % 65 A2C LV end-diastolic volume, 107 ml 78 1-p A4C LV ejection fraction, 1-p 53 % 57 A4C LV e', lateral 0.068 m/sec LV E/e', lateral 16 LV e', medial 0.054 m/sec LV E/e', medial 21 LV e', average 0.061 m/sec LV E/e', average 18 Ventricular septum Value 06/22/2017 Reference IVS thickness, ED, PLAX 1.1 cm 1.1 LVOT Value 06/22/2017 Reference LVOT ID, A-P 1.9 cm 1.9 LVOT area 2.9 cm^2 2.8 LVOT peak velocity, S 1.25 m/sec 1.29 LVOT mean velocity, S 0.93 m/sec LVOT VTI, S 29.1 cm 26.2 LVOT peak gradient, S 6.3 mm Hg 6.6 LVOT mean gradient, S 3.8 mm Hg 3.1 Stroke volume (SV), LVOT 84 ml DP Stroke index (SV/bsa), 51 ml/m^2 LVOT DP Aortic valve Value 06/22/2017 Reference Aortic valve peak 2 m/sec velocity, S Aortic valve mean 1.2 m/sec velocity, S Aortic valve VTI, S 42.0 cm Aortic mean gradient, S 6.7 mm Hg 9 Aortic peak gradient, S 15.7 mm Hg 24 VTI ratio, LVOT/AV 0.69 Aortic valve area, VTI 2 cm^2 1.7 Velocity ratio, peak, 0.63 0.52 LVOT/AV Aortic valve area, peak 1.8 cm^2 1.5 velocity Velocity ratio, mean, 0.78 LVOT/AV Aortic valve area, mean 2.2 cm^2 velocity Aortic valve area/bsa, 1.4 cm^2/m^2 mean velocity Aorta Value 06/22/2017 Reference Aortic root ID, ED 2.5 cm 2.5 Ascending aorta ID, A-P, S 2.6 cm 2.6 Left atrium Value 06/22/2017 Reference LA ID, A-P, ES 3.5 cm LA ID/bsa, A-P 2.1 cm/m^2 <=2.2 LA area, ES, A4C (H) 23.5 cm^2 17.8 8.8 - 23.4 LA area, ES, A2C 18 cm^2 LA volume/bsa, ES, 1-p A4C 53 ml/m^2 33 LA volume, ES, 2-p 65 ml LA volume/bsa, ES, 2-p 40 ml/m^2 LA/aortic root ratio 1.43 Mitral valve Value 06/22/2017 Reference Mitral E-wave peak 1.1 m/sec 1.05 velocity Mitral A-wave peak 0.79 m/sec 1.1 velocity Mitral deceleration time (L) 138 ms 150 - 230 Mitral pressure half-time 40 ms 48 Mitral peak gradient, D 4.9 mm Hg 4.4 Mitral E/A ratio, peak 1.4 0.96 Mitral valve area, PHT, DP 5.5 cm^2 4.6 Tricuspid valve Value 06/22/2017 Reference Tricuspid regurg peak 3 m/sec 2.9 velocity Tricuspid peak RV-RA 35.2 mm Hg 33.7 gradient Right atrium Value 06/22/2017 Reference RA area, ES, A4C (H) 19.6 cm^2 16 8.3 - 19.5 Pulmonic valve Value 06/22/2017 Reference Pulmonic peak gradient, S 8.1 mm Hg 2.4 Legend: (L) and (H) anastacia values outside specified reference range. I have personally reviewed the images and have reviewed and edited the reported findings. Electronically signed by Vini De Los Santos MD 12/05/2018 10:52
[2018-12-05] MEDS: Gabapentin 100 MG CAP PO ×3 (09:09→20:06)
[2018-12-05] MEDS: Insulin Aspart 300 UNITS/3 ML PEN SC ×3 (09:09→17:15)
[2018-12-05] MEDS: Benzonatate 100 MG CAP PO ×3 (09:10→20:06)
[2018-12-05] MEDS: DOXYCYCLINE 100 MG in Normal Saline 100 ML IVPB ×2 (09:10→20:01)
[2018-12-05] MEDS: Potassium Chloride 20 MEQ TABCR 40 MEQ PO (09:10)
[2018-12-05] MEDS: Aspirin 81 MG CHEW PO (09:10)
[2018-12-05] MEDS: Furosemide 20 MG TAB PO (09:10)
[2018-12-05] MEDS: Metoprolol 25 MG TAB PO ×2 (09:10→20:06)
[2018-12-05] MEDS: Methylphenidate 10 MG TAB PO (09:10)
[2018-12-05] MEDS: Lidocaine 5% Patch 1 PATCH TP (12:11)
[2018-12-05] MEDS: Albuterol/Ipratropium 3 ML UPD VIAL UPD ×2 (13:24→17:39)
[2018-12-05] MEDS: Budesonide 0.5 MG/2 ML UPD VIAL UPD ×2 (13:40→22:23)
--- NOTE | 2018-12-05 14:46 | PDOC.CMPRO ---
- If Service Date Differs Date of service: 12/05/18 Time of Service: 14:46 Care Management Progress Note S/O: Carolin is lying in bed this morning, pleasant and receptive to discussion. Carolin states that she is feeling okay as of this morning. She is scheduled to have an Echo and Stress test this admission. Carolin continues to require telemetry at this time. A: 63 y/o female admitted 12/02/18 for pneumonia, COPD P: Carolin will return to the [facility] when medically cleared. She will F/U with PCP and plan of care as prescribed. Carolin to transport via [facility] when ready.
[2018-12-05] MEDS: Methadone Liquid 10 MG/ML 85 MG PO (15:12)
--- NOTE | 2018-12-05 15:12 | CHAPLAIN ---
Carolin was in bed when I visited. She was pleasant, but not interested in further conversation.
--- NOTE | 2018-12-05 18:41 | PGE_ITS ---
Date of Service Date of service: 12/05/18 Time of Service: 15:30 Assessment and Plan (1) QT prolongation: Current visit: Yes Status: Acute better after discontinuing hydroxyzine and holding methadone. Patient would like for us to occasional caregiver her methadone one more try without hydroxyzine, which we will do on telemetry. (2) Acute respiratory failure with hypoxia: Current visit: Yes Status: Acute multifactorial with COPD exacerbation and pneumonia as well as acute CHF, both mild systolic and diastolic - EF is 45-50% on echo. Resolved, currently on room air. Continue treatment of infection with doxycycline and ceftriaxone, weaning of steroids, nebs, antitussives. Continue lasix. Will need a stress test once QT prolongation resolves. (3) Community acquired pneumonia: Current visit: Yes Status: Acute treatment with ceftriaxone and doxycycline day 4/. see #1. (4) COPD with acute exacerbation: Current visit: Yes Status: Acute Improved. Transition steroids to PO. (5) Acute diastolic CHF (congestive heart failure): Current visit: Yes Status: Acute Both systolic (EF 45-50%) and diastolic. Will need a stress test - either as inpatient or outpatient. (6) Hypertension: Current visit: Yes Status: Chronic Normotensive. IV hydralazine d/c'ed. (7) Chronic pain: Current visit: Yes Status: Chronic Resume methadone with careful monitoring of QT prolongation on tele, continue gabapentin, lidoderm patch and prn ibuprofen, aqua K pack. (8) Hypothyroidism: Current visit: Yes Status: Chronic stable, continue synthroid (9) HAMZAH (acute kidney injury): Current visit: Yes Status: Acute resolved/stable. Monitor while diuresing. (10) Hyperglycemia: Current visit: Yes Status: Acute A1c indicative of prediabetes. Continue SSI. Diabetes education ordered. (11) Prediabetes: Current visit: Yes Status: Acute As above (12) DVT prophylaxis: Current visit: Yes Status: Acute heparin in setting of HAMZAH. shayy stockings (13) Discharge planning issues: Current visit: Yes Status: Acute anticipate home with no services once medically stable. May need an inpatient stress test on 01/07. (14) Tobacco abuse counseling: Current visit: Yes Status: Acute Tobacco cessation advised. Nicotine inhaler while hospitalized. Subjective Interval history since last seen: Feels a little upset because her methadone was held today because of QT prolongation, which resolved by the am of her EKG. We spoke about the fact that both methadone and hydroxyzine can cause QT prolongation. I told her she can't be on both. She agreed to trying methadone again without hydroxyzine to see if it causes QT prolongation and she accepts that we might have to stop methadone completely. She just wants to make sure that we communicate with the [facility] about any changes we make to her regimen and that her pain symptoms are not being ignored. She denies dizziness, chest pain, her breathing/cough are much better, she denies nausea/vomiting. Exam Narrative Exam Narrative: General: very pleasant middle-aged female, tearful, but consolabe in bed, no shortness of breath HEENT: EOMI, MMM Heart: RRR, no m/r/g Lungs: CTAB GI: abdomen is soft, nontender, nondistended Extremities no e/c/c BLE's, +1 pedal pulses bilaterally, wearing TEDs Objective Objective Clinical Data: Abnormal lab results 12/05/18 12/05/18 Range/Units 06:48 06:48 WBC 12.35 H (4.4-10.8) k/cumm Hgb 11.1 L (12.0-15.5) g/dL Hct 34.1 L (36.0-46.0) % RDW 14.7 H (11.7-14.6) % MPV 11.7 H (8.0-11.0) fL Absolute Neutrophils 9.92 H (1.2-6.7) k/cumm BUN 30 H (7-18) mg/dL Creatinine 1.17 H (0.55-1.02) mg/dL Glucose 167 H (70-100) mg/dL Vital Signs Temperature 37.1 C 12/05/18 16:10 Temperature Source Tympanic 12/05/18 16:10 Pulse 64 12/05/18 16:10 Pulse Rhythm Regular 12/05/18 16:53 Pulse 66 12/02/18 09:40 Respiratory Rate 18 12/05/18 16:10 Respiratory Effort 12/05/18 16:53 Respiratory Depth Normal 12/05/18 16:53 Respiratory Pattern Normal 12/05/18 16:53 Blood Pressure 130/88 12/05/18 16:10 Blood Pressure Mean 94 12/02/18 09:31 Blood Pressure Position Supine 12/02/18 06:45 Pulse Oximetry 94 L 12/05/18 16:10 Oxygen Delivery Method Room Air 12/05/18 16:10 Oxygen Flow Rate 0 12/05/18 16:10 Pain Level 8 12/05/18 11:50 Comment 12/03/18 10:30 Intake & Output 12/04/18 12/05/18 12/05/18 23:59 11:59 23:59 Intake Total 1760 / 2773.333 350 / 590 240 / 590 Output Total 1750 / 4625 300 / 300 Balance 10 / -1851.667 50 / 290 240 / 290 Weight 63 kg Intake: IV 130 / 353.333 100 / 100 Oral 1630 / 2420 250 / 490 240 / 490 Output: Urine 1750 / 4625 300 / 300 Other: Urine Color Yellow Straw Urine Appearance Clear Clear Clear Urine Odor None Comment Void x1 in the toilet. Voiding Methods Toilet Toilet Laboratory Results WBC 12.35 k/cumm (4.4-10.8) H 12/05/18 06:48 RBC 4.02 m/cumm (4.00-5.20) 12/05/18 06:48 Hgb 11.1 g/dL (12.0-15.5) L 12/05/18 06:48 Hct 34.1 % (36.0-46.0) L 12/05/18 06:48 MCV 84.8 fL (80-95) 12/05/18 06:48 MCH 27.6 pg (27.0-33.0) 12/05/18 06:48 MCHC 32.6 g/dL (32.0-36.0) 12/05/18 06:48 RDW 14.7 % (11.7-14.6) H 12/05/18 06:48 Plt Count 208 x1000/uL (130-400) 12/05/18 06:48 MPV 11.7 fL (8.0-11.0) H 12/05/18 06:48 Immature Gran % 1.0 12/05/18 06:48 Neutrophils % 80.3 12/05/18 06:48 Lymphocytes % 13.0 12/05/18 06:48 Monocytes % 5.6 12/05/18 06:48 Eosinophils % 0.0 12/05/18 06:48 Basophils % 0.1 12/05/18 06:48 Absolute Neutrophils 9.92 k/cumm (1.2-6.7) H 12/05/18 06:48 Absolute Lymphocytes 1.61 k/cumm (1.2-3.4) 12/05/18 06:48 Absolute Monocytes 0.69 k/cumm (0.11-0.7) 12/05/18 06:48 Absolute Eosinophils 0.00 k/cumm (0.0-0.7) 12/05/18 06:48 Absolute Basophils 0.01 k/cumm (0.0-0.2) 12/05/18 06:48 Differential Comment Agrees w/ instrument 12/02/18 06:40 PT 9.8 sec (9.3-11.0) 12/02/18 06:40 INR 1.0 (0.9-1.1) 12/02/18 06:40 APTT 20.5 sec (21.0-31.4) L 12/02/18 06:40 Sodium 139 mmol/L (136-145) 12/05/18 06:48 Potassium 4.0 mmol/L (3.5-5.1) D 12/05/18 06:48 Chloride 101 mmol/L (98-107) 12/05/18 06:48 Carbon Dioxide 28.0 mmol/L (21.0-32.0) 12/05/18 06:48 Anion Gap 10.0 mmol/L (3-11) 12/05/18 06:48 BUN 30 mg/dL (7-18) H 12/05/18 06:48 Creatinine 1.17 mg/dL (0.55-1.02) H 12/05/18 06:48 Estimated GFR/1.73 m2 47.03 (mL/min/1.73m2) 12/05/18 06:48 Glucose 167 mg/dL (70-100) H 12/05/18 06:48 Hemoglobin A1c 6.2 % (4.5-6.2) 12/02/18 06:40 Calcium 8.7 mg/dL (8.5-10.1) 12/05/18 06:48 Magnesium 1.8 mg/dL (1.8-2.4) 12/05/18 06:48 Total Bilirubin 0.4 mg/dL (0.2-1.0) 12/02/18 06:40 AST 61 U/L (15-37) H 12/02/18 06:40 ALT 69 U/L (12-78) 12/02/18 06:40 Alkaline Phosphatase 179 U/L (46-116) H 12/02/18 06:40 Troponin I 0.10 ng/mL (0.00-0.06) H* 12/04/18 06:30 NT-Pro-B Natriuret Pep 8785 pg/mL (-299) H 12/03/18 06:35 Total Protein 7.3 g/dL (6.4-8.2) 12/02/18 06:40 Albumin 3.0 g/dL (3.4-5.0) L 12/02/18 06:40 Triglycerides 193 mg/dL (30-150) H 12/04/18 06:30 Total Cholesterol 192 mg/dL (50-200) 12/04/18 06:30 LDL Cholesterol Direct 122 mg/dL (<100) H 12/04/18 06:30 HDL Cholesterol 46 mg/dL (40-60) 12/04/18 06:30 Echo: 1. Left ventricle: The cavity size was normal. Systolic function was mildly reduced. The estimated ejection fraction was 45-50%. Diffuse hypokinesis. Findings consistent with diastolic dysfunction. Doppler parameters are consistent with high ventricular filling pressure. 2. Aortic valve: There was mild regurgitation. 3. Mitral valve: There was moderate to severe regurgitation, with multiple jets directed posteriorly. L wave noted. 4. Left atrium: The atrium was mildly dilated. 5. Right ventricle: The cavity size was normal. Wall thickness was normal. Systolic function was normal. 6. Right atrium: The atrium was mildly dilated. 7. Atrial septum: No defect or patent foramen ovale was identified. 8. Pulmonary arteries: Pulmonary systolic pressure was in the range of 35mm Hg to 45mm Hg. 9. Inferior vena cava: The vessel was patent and normal in size. The respirophasic diameter changes were in the normal range (greater than or equal to 50%), consistent with normal central venous pressure.
[2018-12-05] MEDS: Atorvastatin 20 MG TAB PO (22:23)
[2018-12-06] VITALS (12 sets, daily range): BP systolic 111–137; BP diastolic 67–97; PULSE 57–68; RESP 16–18; TEMP 36.4–37.1; O2SAT 95–100
[2018-12-06] MEDS: Patch Removal 1 EACH TP ×2 (00:11→23:45)
[2018-12-06] MEDS: Docusate Sodium 100 MG CAP PO (03:40)
[2018-12-06] MEDS: Heparin 5,000 UNITS/ML VIAL 5000 UNITS SC ×3 (03:40→20:22)
[2018-12-06] MEDS: Ibuprofen 400 MG TAB PO ×2 (05:57→12:09)
[2018-12-06] MEDS: Acetaminophen 325 MG TAB PO ×2 (05:57→12:08)
[2018-12-06] MEDS: Levothyroxine 25 MCG TAB PO (05:57)
[2018-12-06 07:50] LABS: Abs Immature Grans 0.24 k/cumm (0.0-0.09); Absolute Basophil Count 0.01 k/cumm (0.0-0.2); Absolute Neutrophil Count 9.42 k/cumm (1.2-6.7); Basophils % 0.1; HCT 37.1 % (36.0-46.0); HGB 12.1 g/dL (12.0-15.5); Immature Grans % 1.8; Lymphocytes % 17.9; Mean Corp. HGB Concentration 32.6 g/dL (32.0-36.0); Mean Corpuscular Hemoglobin 27.5 pg (27.0-33.0); Mean Corpuscular Volume 84.3 fL (80-95); Mean Platelet Volume 11.7 fL (8.0-11.0); Monocytes % 8.9; Neutrophils % 71.3; Platelet Count 206 x1000/uL (130-400); RBC Distribution Width 14.5 % (11.7-14.6); White Blood Cell Count 13.21 k/cumm (4.4-10.8)
[2018-12-06 07:58] LABS: Absolute Lymphocyte Count 2.36 k/cumm (1.2-3.4); Absolute Monocyte Count 1.18 k/cumm (0.11-0.7)
[2018-12-06] MEDS: DOXYCYCLINE 100 MG in Normal Saline 100 ML IVPB (07:58)
[2018-12-06] MEDS: Methadone Liquid 10 MG/ML 85 MG PO (07:59)
[2018-12-06] MEDS: Methylphenidate 10 MG TAB PO (07:59)
[2018-12-06] MEDS: predniSONE 20 MG TAB 40 MG PO ×2 (08:00→20:22)
[2018-12-06] MEDS: Gabapentin 100 MG CAP PO ×2 (08:00→13:40)
[2018-12-06] MEDS: Metoprolol 25 MG TAB PO ×2 (08:00→20:23)
[2018-12-06] MEDS: Benzonatate 100 MG CAP PO ×3 (08:00→20:22)
[2018-12-06] MEDS: Aspirin 81 MG CHEW PO (08:00)
[2018-12-06] MEDS: Furosemide 20 MG TAB PO (08:00)
[2018-12-06 08:14] LABS: Anion Gap 7.9 mmol/L (3-11); BUN 35 mg/dL (7-18); CO2 32.1 mmol/L (21.0-32.0); CREATININE 1.07 mg/dL (0.55-1.02); Calcium 9.3 mg/dL (8.5-10.1); Chloride 98 mmol/L (98-107); Estimated GFR 52.13 (mL/min/1.73m2); Glucose 119 mg/dL (70-100); Magnesium 1.6 mg/dL (1.8-2.4); Potassium 4.4 mmol/L (3.5-5.1); Sodium 138 mmol/L (136-145)
[2018-12-06] MEDS: Albuterol/Ipratropium 3 ML UPD VIAL UPD ×4 (09:01→21:17)
--- NOTE | 2018-12-06 09:38 | PDOC.CMPRO ---
Care Management Progress Note S/O: Per MD, Carolin will remain inpatient while awaiting MPI stress test scheduled for tomorrow; 12/07/18. Carolin remains on telemetry at this time and was having an updraft when CM entered her room. CM will continue to follow. A: 63 y/o female admitted 12/02/18 for pneumonia, COPD P: Carolin will return to the [facility] when medically cleared. She will follow up with her PCP and plan of care as prescribed. She will transport via [facility] when ready.
[2018-12-06] MEDS: Budesonide 0.5 MG/2 ML UPD VIAL UPD (10:30)
[2018-12-06] MEDS: MAGNESIUM SULFATE 2 GM/50 ML BAG IVPB (11:41)
[2018-12-06] MEDS: Insulin Aspart 300 UNITS/3 ML PEN SC ×2 (12:09→17:01)
[2018-12-06] MEDS: Lidocaine 5% Patch 1 PATCH TP (12:09)
--- NOTE | 2018-12-06 18:20 | W.PM.PROGNOT ---
Date of Service Date of service: 12/06/18 Time of Service: 15:00 Assessment and Plan (1) QT prolongation: Current visit: Yes Status: Acute better after discontinuing hydroxyzine; tolerating methadone Monitor on tele until stress test completed. Repeat EKG in am. (2) Acute respiratory failure with hypoxia: Current visit: Yes Status: Acute multifactorial with COPD exacerbation and pneumonia as well as acute CHF, both mild systolic and diastolic - EF is 45-50% on echo. Resolved, currently on room air. Antibiotics finished today, and steroids were transitioned to PO. Continue nebs, antitussives. Continue lasix. Planned for stress test tomorrow - but will discuss with cardiology if, given her LBBB, a cardiac cath is not indicated. (3) Community acquired pneumonia: Current visit: Yes Status: Acute Finished antibiotic therapy. (4) COPD with acute exacerbation: Current visit: Yes Status: Acute Improved. Continue PO steroids. (5) Acute diastolic CHF (congestive heart failure): Current visit: Yes Status: Acute Both systolic (EF 45-50%) and diastolic. Planned for stress test tomorrow. (6) Hypertension: Current visit: Yes Status: Chronic Normotensive. IV hydralazine d/c'ed. (7) Chronic pain: Current visit: Yes Status: Chronic Continue methadone, increase gabapentin, continue lidoderm patch and prn ibuprofen, aqua K pack. (8) Hypothyroidism: Current visit: Yes Status: Chronic stable, continue synthroid (9) HAMZAH (acute kidney injury): Current visit: Yes Status: Acute resolved/stable. Monitor while diuresing. (10) Hyperglycemia: Current visit: Yes Status: Acute A1c indicative of prediabetes. Continue SSI. Diabetes education ordered. (11) Prediabetes: Current visit: Yes Status: Acute As above (12) DVT prophylaxis: Current visit: Yes Status: Acute heparin in setting of HAMZAH. shayy stockings (13) Discharge planning issues: Current visit: Yes Status: Acute anticipate home with no services once medically stable. Likely discharge home tomorrow if nuclear stress test is negative (14) Tobacco abuse counseling: Current visit: Yes Status: Acute Tobacco cessation advised. Nicotine inhaler while hospitalized. Subjective Interval history since last seen: Ms Lake says she is doing better. She thinks she may have had a prior stress test at the [facility], but she is not sure. Regardless, she has not had any recent chest pain, her breathing and leg swelling are getting there. Denies dizziness, nausea, vomiting. Her QTc interval has remained under 500 msec with methadone on board. In discussion as to how to manage her anxiety now that she can't be on hydroxyzine, the patient verbalizes interest in having her gabapentin increased. Exam Narrative Exam Narrative: General: very pleasant middle-aged female, calm, looks comfortable, not short of breath HEENT: EOMI, MMM Heart: RRR, no m/r/g Lungs: CTAB GI: abdomen is soft, nontender, nondistended Extremities no e/c/c BLE's, +1 pedal pulses bilaterally, wearing TEDs Objective Objective Clinical Data: Abnormal lab results 12/06/18 12/06/18 Range/Units 07:28 07:28 WBC 13.21 H (4.4-10.8) k/cumm MPV 11.7 H (8.0-11.0) fL Absolute Neutrophils 9.42 H (1.2-6.7) k/cumm Absolute Monocytes 1.18 H (0.11-0.7) k/cumm Carbon Dioxide 32.1 H (21.0-32.0) mmol/L BUN 35 H (7-18) mg/dL Creatinine 1.07 H (0.55-1.02) mg/dL Glucose 119 H (70-100) mg/dL Magnesium 1.6 L (1.8-2.4) mg/dL Vital Signs Temperature 37.0 C 12/06/18 16:00 Temperature Source Tympanic 12/06/18 16:00 Pulse 57 L 12/06/18 16:00 Pulse Rhythm Regular 12/06/18 07:55 Pulse 66 12/02/18 09:40 Respiratory Rate 18 12/06/18 16:00 Respiratory Effort Non-Labored 12/06/18 07:55 Respiratory Depth Normal 12/06/18 07:55 Respiratory Pattern Normal 12/06/18 07:55 Blood Pressure 111/67 12/06/18 16:00 Blood Pressure Mean 94 12/02/18 09:31 Blood Pressure Position Supine 12/02/18 06:45 Pulse Oximetry 95 12/06/18 16:00 Oxygen Delivery Method Room Air 12/06/18 16:00 Oxygen Flow Rate 0 12/06/18 16:00 Pain Level 8 12/06/18 12:09 Comment 12/06/18 11:55 Intake & Output 12/05/18 12/06/18 12/06/18 23:59 11:59 23:59 Intake Total 750 / 1100 440 / 440 Output Total 900 / 1200 725 / 2325 1600 / 2325 Balance -150 / -100 -285 / -1885 -1600 / -1885 Weight 64.3 kg Intake: IV 150 / 250 120 / 120 Oral 600 / 850 320 / 320 Output: Urine 900 / 1200 725 / 2325 1600 / 2325 Other: Urine Color Yellow Pale Yellow Urine Appearance Clear Clear Clear Urine Odor Normal None Normal Comment Ind in room Voiding Methods Toilet Toilet Toilet Laboratory Results WBC 13.21 k/cumm (4.4-10.8) H 12/06/18 07:28 RBC 4.40 m/cumm (4.00-5.20) 12/06/18 07:28 Hgb 12.1 g/dL (12.0-15.5) 12/06/18 07:28 Hct 37.1 % (36.0-46.0) 12/06/18 07:28 MCV 84.3 fL (80-95) 12/06/18 07:28 MCH 27.5 pg (27.0-33.0) 12/06/18 07:28 MCHC 32.6 g/dL (32.0-36.0) 12/06/18 07:28 RDW 14.5 % (11.7-14.6) 12/06/18 07:28 Plt Count 206 x1000/uL (130-400) 12/06/18 07:28 MPV 11.7 fL (8.0-11.0) H 12/06/18 07:28 Immature Gran % 1.8 12/06/18 07:28 Neutrophils % 71.3 12/06/18 07:28 Lymphocytes % 17.9 12/06/18 07:28 Monocytes % 8.9 12/06/18 07:28 Eosinophils % 0.0 12/06/18 07:28 Basophils % 0.1 12/06/18 07:28 Absolute Neutrophils 9.42 k/cumm (1.2-6.7) H 12/06/18 07:28 Absolute Lymphocytes 2.36 k/cumm (1.2-3.4) 12/06/18 07:28 Absolute Monocytes 1.18 k/cumm (0.11-0.7) H 12/06/18 07:28 Absolute Eosinophils 0.00 k/cumm (0.0-0.7) 12/06/18 07:28 Absolute Basophils 0.01 k/cumm (0.0-0.2) 12/06/18 07:28 Differential Comment Agrees w/ instrument 12/02/18 06:40 PT 9.8 sec (9.3-11.0) 12/02/18 06:40 INR 1.0 (0.9-1.1) 12/02/18 06:40 APTT 20.5 sec (21.0-31.4) L 12/02/18 06:40 Sodium 138 mmol/L (136-145) 12/06/18 07:28 Potassium 4.4 mmol/L (3.5-5.1) 12/06/18 07:28 Chloride 98 mmol/L (98-107) 12/06/18 07:28 Carbon Dioxide 32.1 mmol/L (21.0-32.0) H 12/06/18 07:28 Anion Gap 7.9 mmol/L (3-11) 12/06/18 07:28 BUN 35 mg/dL (7-18) H 12/06/18 07:28 Creatinine 1.07 mg/dL (0.55-1.02) H 12/06/18 07:28 Estimated GFR/1.73 m2 52.13 (mL/min/1.73m2) 12/06/18 07:28 Glucose 119 mg/dL (70-100) H 12/06/18 07:28 Hemoglobin A1c 6.2 % (4.5-6.2) 12/02/18 06:40 Calcium 9.3 mg/dL (8.5-10.1) 12/06/18 07:28 Magnesium 1.6 mg/dL (1.8-2.4) L 12/06/18 07:28 Total Bilirubin 0.4 mg/dL (0.2-1.0) 12/02/18 06:40 AST 61 U/L (15-37) H 12/02/18 06:40 ALT 69 U/L (12-78) 12/02/18 06:40 Alkaline Phosphatase 179 U/L (46-116) H 12/02/18 06:40 Troponin I 0.10 ng/mL (0.00-0.06) H* 12/04/18 06:30 NT-Pro-B Natriuret Pep 8785 pg/mL (-299) H 12/03/18 06:35 Total Protein 7.3 g/dL (6.4-8.2) 12/02/18 06:40 Albumin 3.0 g/dL (3.4-5.0) L 12/02/18 06:40 Triglycerides 193 mg/dL (30-150) H 12/04/18 06:30 Total Cholesterol 192 mg/dL (50-200) 12/04/18 06:30 LDL Cholesterol Direct 122 mg/dL (<100) H 12/04/18 06:30 HDL Cholesterol 46 mg/dL (40-60) 12/04/18 06:30
[2018-12-06] MEDS: Gabapentin 100 MG CAP 200 MG PO (20:22)
[2018-12-06] MEDS: Atorvastatin 20 MG TAB PO (21:18)
[2018-12-06] MEDS: Magnesium Chloride 64 MG TABCR PO (21:19)
[2018-12-07] VITALS (13 sets, daily range): BP systolic 110–145; BP diastolic 77–93; PULSE 56–69; RESP 16–20; TEMP 36.3–36.9; O2SAT 92–100
[2018-12-07] MEDS: Heparin 5,000 UNITS/ML VIAL 5000 UNITS SC ×3 (04:01→20:49)
[2018-12-07] MEDS: Acetaminophen 325 MG TAB PO (04:14)
[2018-12-07] MEDS: Ibuprofen 400 MG TAB PO ×2 (04:15→15:48)
[2018-12-07] MEDS: Levothyroxine 25 MCG TAB PO (06:06)
[2018-12-07 07:40] LABS: Abs Immature Grans 0.29 k/cumm (0.0-0.09); HCT 40.2 % (36.0-46.0); HGB 13.2 g/dL (12.0-15.5); Mean Corp. HGB Concentration 32.8 g/dL (32.0-36.0); Mean Corpuscular Hemoglobin 27.6 pg (27.0-33.0); Mean Corpuscular Volume 83.9 fL (80-95); Mean Platelet Volume 11.6 fL (8.0-11.0); Platelet Count 182 x1000/uL (130-400); RBC 4.79 m/cumm (4.00-5.20); RBC Distribution Width 14.4 % (11.7-14.6); White Blood Cell Count 11.29 k/cumm (4.4-10.8)
[2018-12-07 07:49] LABS: Anion Gap 8.3 mmol/L (3-11); BUN 39 mg/dL (7-18); CO2 27.7 mmol/L (21.0-32.0); CREATININE 1.03 mg/dL (0.55-1.02); Calcium 9.1 mg/dL (8.5-10.1); Chloride 99 mmol/L (98-107); Estimated GFR 54.48 (mL/min/1.73m2); Glucose 148 mg/dL (70-100); Potassium 4.8 mmol/L (3.5-5.1); Sodium 135 mmol/L (136-145)
[2018-12-07] MEDS: Methylphenidate 10 MG TAB PO (08:05)
[2018-12-07] MEDS: Aspirin 81 MG CHEW PO (08:06)
[2018-12-07] MEDS: Benzonatate 100 MG CAP PO ×3 (08:06→20:51)
[2018-12-07] MEDS: Metoprolol 25 MG TAB PO ×2 (08:06→20:51)
[2018-12-07] MEDS: Gabapentin 100 MG CAP 200 MG PO ×2 (08:06→13:00)
[2018-12-07] MEDS: Furosemide 20 MG TAB PO (08:06)
[2018-12-07] MEDS: predniSONE 20 MG TAB 40 MG PO (08:06)
[2018-12-07] MEDS: Methadone Liquid 10 MG/ML 85 MG PO (08:07)
[2018-12-07 08:19] LABS: Absolute Lymphocyte Count 2.03 k/cumm (1.2-3.4); Absolute Monocyte Count 0.79 k/cumm (0.11-0.7); Absolute Neutrophil Count 8.24 k/cumm (1.2-6.7); Diff Comment Manual Differential; Polychromasia Present
--- NOTE | 2018-12-07 08:53 | W.CARDCONSUL ---
Date of service: 12/07/18 Time of Service: 08:53 Assessment and Plan (1) Troponin level elevated: Current visit: Yes Status: Acute Doubt that troponin elevation is due to myocardial infarction. Clinically no evidence of ongoing ischemia. Old left bundle branch block. LVEF is mildly reduced compared to 2017, most likely due to septal dysfunction due to bundle branch block. Mitral regurgitation is in the range of moderate to severe worse compared to 2017. Mitral valve leaflets show myxomatous degeneration; there is no evidence of annular dilatation or mitral valve prolapse. I did not hear MR on physical exam today. No evidence of heart failure. Good blood pressure. Proceed with pharmacological stress test. If more than moderate ischemia consider coronary angiogram. Continue statin and beta-taya at current dosage. History of Present Illness Chief Complaint: Shortness of breath Narrative: 63-year-old woman with tobacco smoking, COPD, chronic pain on methadone, hypothyroidism, hypertension, hyperlipidemia. Currently admitted because of acute hypoxic respiratory failure. Respiratory failure was thought to be a combination of COPD exacerabtion and heart failure. Chest x-ray did not reveal focal infiltrates but diffuse interstitial markings consistent with pulmonary edema. She turned around quicly with BIPAP. Patient thinks that her current respiratory failure is due to the combination of hydroxyzine and methadone. Echocardiogram notable for LVEF of 45-50%, moderate to severe functional mitral regurgitation and mild pulmonary hypertension in the range of 35-40 mmHg; 2017 LVEF 55-60% and mild mitral regurgitation. EKG was notable for left bundle branch block which dates back as far as 2013. Troponin peaked at 0.14, nt-pro BNP ~ 8,000. Patient is a rather sedentary but performs light to moderate housework without cardiopulmonary limitations. She denies chest pain, shortness of breath, PND, edema, syncope, claudication, focal deficits, bleeding, GI or symptoms. Available records including laboratory reviewed. X-rays, EKGs and echocardiogram independently visualized. Allergies and medications reviewed. [facility] reviewed; pertinent history as mentioned HPI. Consults Consult date: 12/07/18 Requesting physician: Angela Lara Review of Systems Review of Systems ROS: 10 point ROS was performed; all pertinent positives as mentioned in HPI, all others negative. [facility] Social History Smoking and Tabacco status: Current every day Exam Narrative Exam Narrative: General: pleasant, no acute distress HEENT: Anicteric, mucus membranes moist Neck: Supple, normal JVP, brisk carotid upstrokes, no bruits Chest: Non-tender Lungs: Clear to auscultation bilaterally, no crackles or wheezes Cardiac: Regular rate, regular rhythm, normal S1S2, no murmurs Abdomen: Soft, non-tender, bowel sounds present Extremities: No clubbing, cyanosis or edema, equal pulses in all 4 extremities Skin: Warm and dry, no rashes Neuro: Alert and oriented x3, grossly intact Results Last Vital Signs Temp 36.4 C L 12/07/18 08:17 Pulse 60 12/07/18 08:17 Resp 20 12/07/18 08:17 BP 144/88 H 12/07/18 08:17 Pulse Ox 97 12/07/18 08:17 Labs : 12/07/18 07:15 12/07/18 07:15 Laboratory Results - last 24 hr 12/07/18 12/07/18 07:15 07:15 WBC 11.29 H RBC 4.79 Hgb 13.2 Hct 40.2 MCV 83.9 MCH 27.6 MCHC 32.8 RDW 14.4 Plt Count 182 MPV 11.6 H Immature Gran % See Differential Neutrophils % 71.0 Band Neutrophils % 2.0 Lymphocytes % 18.0 Monocytes % 7.0 Eosinophils % 0.0 Basophils % 0.0 Myelocytes % 2.0 Absolute Neutrophils 8.24 H Absolute Lymphocytes 2.03 Absolute Monocytes 0.79 H Absolute Eosinophils 0.00 Absolute Basophils 0.00 Differential Comment Manual differential RBC Morphology See below Polychromasia Present Sodium 135 L Potassium 4.8 Chloride 99 Carbon Dioxide 27.7 Anion Gap 8.3 BUN 39 H Creatinine 1.03 H Estimated GFR/1.73 m2 54.48 Glucose 148 H Calcium 9.1 Magnesium 2.0
--- NOTE | 2018-12-07 08:56 | CCONE_ITS ---
Date of service: 12/07/18 Time of Service: 08:53 Assessment and Plan (1) Troponin level elevated: Current visit: Yes Status: Acute Doubt that troponin elevation is due to myocardial infarction. Clinically no evidence of ongoing ischemia. Old left bundle branch block. LVEF is mildly reduced compared to 2017, most likely due to septal dysfunction due to bundle branch block. Mitral regurgitation is in the range of moderate to severe worse compared to 2017. Mitral valve leaflets show myxomatous degeneration; there is no evidence of annular dilatation or mitral valve prolapse. I did not hear MR on physical exam today. No evidence of heart failure. Good blood pressure. Proceed with pharmacological stress test. If more than moderate ischemia consider coronary angiogram. Continue statin and beta-taya at current dosage. History of Present Illness Chief Complaint: Shortness of breath Narrative: 63-year-old woman with tobacco smoking, COPD, chronic pain on methadone, hypothyroidism, hypertension, hyperlipidemia. Currently admitted because of acute hypoxic respiratory failure. Respiratory failure was thought to be a combination of COPD exacerabtion and heart failure. Chest x-ray did not reveal focal infiltrates but diffuse interstitial markings consistent with pulmonary edema. She turned around quicly with BIPAP. Patient thinks that her current respiratory failure is due to the combination of hydroxyzine and methadone. Echocardiogram notable for LVEF of 45-50%, moderate to severe functional mitral regurgitation and mild pulmonary hypertension in the range of 35-40 mmHg; 2017 L VEF 55-60% and mild mitral regurgitation. EKG was notable for left bundle branch block which dates back as far as 2013. Troponin peaked at 0.14, nt-pro BNP ~ 8,000. Patient is a rather sedentary but performs light to moderate housework without cardiopulmonary limitations. She denies chest pain, shortness of breath, PND, edema, syncope, claudication, focal deficits, bleeding, GI or symptoms. Available records including laboratory reviewed. X-rays, EKGs and echocardiogram independently visualized. Allergies and medications reviewed. [facility] reviewed; pertinent history as mentioned HPI. Consults Consult date: 12/07/18 Requesting physician: Angela Lara Review of Systems Review of Systems ROS: 10 point ROS was performed; all pertinent positives as mentioned in HPI, all others negative. [facility] Social History Smoking and Tabacco status: Current every day Exam Narrative Exam Narrative: General: pleasant, no acute distress HEENT: Anicteric, mucus membranes moist Neck: Supple, normal JVP, brisk carotid upstrokes, no bruits Chest: Non-tender Lungs: Clear to auscultation bilaterally, no crackles or wheezes Cardiac: Regular rate, regular rhythm, normal S1S2, no murmurs Abdomen: Soft, non-tender, bowel sounds present Extremities: No clubbing, cyanosis or edema, equal pulses in all 4 extremities Skin: Warm and dry, no rashes Neuro: Alert and oriented x3, grossly intact Results Last Vital Signs Temp 36.4 C L 12/07/18 08:17 Pulse 60 12/07/18 08:17 Resp 20 12/07/18 08:17 BP 144/88 H 12/07/18 08:17 Pulse Ox 97 12/07/18 08:17 Labs : 12/07/18 07:15 12/07/18 07:15 Laboratory Results - last 24 hr 12/07/18 12/07/18 07:15 07:15 WBC 11.29 H RBC 4.79 Hgb 13.2 Hct 40.2 MCV 83.9 MCH 27.6 MCHC 32.8 RDW 14.4 Plt Count 182 MPV 11.6 H Immature Gran % See Differential Neutrophils % 71.0 Band Neutrophils % 2.0 Lymphocytes % 18.0 Monocytes % 7.0 Eosinophils % 0.0 Basophils % 0.0 Myelocytes % 2.0 Absolute Neutrophils 8.24 H Absolute Lymphocytes 2.03 Absolute Monocytes 0.79 H Absolute Eosinophils 0.00 Absolute Basophils 0.00 Differential Comment Manual differential RBC Morphology See below Polychromasia Present Sodium 135 L Potassium 4.8 Chloride 99 Carbon Dioxide 27.7 Anion Gap 8.3 BUN 39 H Creatinine 1.03 H Estimated GFR/1.73 m2 54.48 Glucose 148 H Calcium 9.1 Magnesium 2.0
[2018-12-07] MEDS: Albuterol/Ipratropium 3 ML UPD VIAL UPD ×3 (09:30→17:47)
[2018-12-07] MEDS: Budesonide 0.5 MG/2 ML UPD VIAL UPD (09:30)
--- NOTE | 2018-12-07 10:08 | CMPROGNOTE_ITS ---
- If Service Date Differs Date of service: 12/07/18 Time of Service: 10:08 Care Management Progress Note S/O: Carolin is sitting in her bed when this functional tester typewriters visits this morning, she is pleasant and receptive to discussion. Carolin continues to require telemetry monitoring at this time,and is scheduled to have a stress test while inpatient. No change in DC plan. A: 63 y/o female admitted 12/02/18 for pneumonia, COPD P: Carolin will return to the [facility] when medically cleared. She will follow up with her PCP and plan of care as prescribed. She will transport via [facility] when ready.
[2018-12-07] MEDS: Magnesium Chloride 64 MG TABCR PO ×2 (10:15→21:42)
[2018-12-07] MEDS: Lidocaine 5% Patch 1 PATCH TP (12:09)
[2018-12-07] MEDS: Insulin Aspart 300 UNITS/3 ML PEN SC ×2 (12:10→17:12)
--- NOTE | 2018-12-07 19:36 | W.PM.PROGNOT ---
Date of Service Date of service: 12/07/18 Time of Service: 15:45 Assessment and Plan (1) QT prolongation: Current visit: Yes Status: Acute better after discontinuing hydroxyzine; tolerating methadone Monitor on tele until stress test completed. (2) Acute respiratory failure with hypoxia: Current visit: Yes Status: Acute multifactorial with COPD exacerbation and pneumonia as well as acute CHF, both mild systolic and diastolic - EF is 45-50% on echo. Resolved, currently on room air. Continue steroid taper. Continue nebs, antitussives. Continue lasix. Planned for stress test tomorrow. (3) Community acquired pneumonia: Current visit: Yes Status: Acute Finished antibiotic therapy. (4) COPD with acute exacerbation: Current visit: Yes Status: Acute Essentially resolved. Finishing steroid taper. (5) Acute diastolic CHF (congestive heart failure): Current visit: Yes Status: Acute Both systolic (EF 45-50%) and diastolic. Planned for stress test tomorrow. (6) Hypertension: Current visit: Yes Status: Chronic Normotensive. IV hydralazine d/c'ed. (7) Chronic pain: Current visit: Yes Status: Chronic Continue methadone, increase gabapentin, continue lidoderm patch and prn ibuprofen, aqua K pack. (8) Hypothyroidism: Current visit: Yes Status: Chronic stable, continue synthroid (9) HAMZAH (acute kidney injury): Current visit: Yes Status: Acute resolved/stable. Monitor while diuresing. (10) Hyperglycemia: Current visit: Yes Status: Acute A1c indicative of prediabetes. Continue SSI. Diabetes education ordered. (11) Prediabetes: Current visit: Yes Status: Acute As above (12) DVT prophylaxis: Current visit: Yes Status: Acute heparin in setting of HAMZAH. shayy stockings (13) Discharge planning issues: Current visit: Yes Status: Acute anticipate home with no services once medically stable. Likely discharge home tomorrow if nuclear stress test is negative (14) Tobacco abuse counseling: Current visit: Yes Status: Acute Tobacco cessation advised. Nicotine inhaler while hospitalized. Subjective Interval history since last seen: Ms Lake states she feels well, denying dizziness, chest pain, shortness of breath, nausea, vomiting. Scheduling wilson, she was unable to be fitted in to have the MPI today, so it is planned for tomorrow. She states the neurontin dose feels a little bit better, but that she was actually taking 300 mg doses at home. Exam Narrative Exam Narrative: General: very pleasant middle-aged female, calm, looks comfortable, not short of breath HEENT: EOMI, MMM Heart: RRR, no m/r/g Lungs: CTAB GI: abdomen is soft, nontender, nondistended Extremities no e/c/c BLE's, +1 pedal pulses bilaterally Objective Objective Clinical Data: Abnormal lab results 12/07/18 12/07/18 Range/Units 07:15 07:15 WBC 11.29 H (4.4-10.8) k/cumm MPV 11.6 H (8.0-11.0) fL Absolute Neutrophils 8.24 H (1.2-6.7) k/cumm Absolute Monocytes 0.79 H (0.11-0.7) k/cumm Sodium 135 L (136-145) mmol/L BUN 39 H (7-18) mg/dL Creatinine 1.03 H (0.55-1.02) mg/dL Glucose 148 H (70-100) mg/dL Vital Signs Temperature 36.7 C 12/07/18 15:58 Temperature Source Tympanic 12/07/18 15:58 Pulse 66 12/07/18 15:58 Pulse Rhythm Regular 12/07/18 15:50 Pulse 66 12/02/18 09:40 Respiratory Rate 18 12/07/18 15:58 Respiratory Effort Non-Labored 12/07/18 15:50 Respiratory Depth Normal 12/07/18 15:50 Respiratory Pattern Normal 12/07/18 15:50 Blood Pressure 116/82 12/07/18 15:58 Blood Pressure Mean 94 12/02/18 09:31 Blood Pressure Position Supine 12/02/18 06:45 Pulse Oximetry 96 12/07/18 15:58 Oxygen Delivery Method Room Air 12/07/18 15:58 Oxygen Flow Rate 0 12/07/18 15:58 Pain Level 9 12/07/18 08:07 Comment 12/07/18 04:00 Intake & Output 12/06/18 12/07/18 12/07/18 23:59 11:59 23:59 Intake Total 260 / 700 240 / 360 120 / 360 Output Total 1900 / 2625 1100 / 1100 Balance -1640 / -1925 -860 / -740 120 / -740 Weight 61.7 kg Intake: IV 20 / 140 20 / 20 Oral 240 / 560 240 / 340 100 / 340 Output: Urine 1900 / 2625 1100 / 1100 Other: Urine Color Yellow Yellow Urine Appearance Clear Clear Clear Urine Odor Normal Normal Voiding Methods Toilet Toilet Laboratory Results WBC 11.29 k/cumm (4.4-10.8) H 12/07/18 07:15 RBC 4.79 m/cumm (4.00-5.20) 12/07/18 07:15 Hgb 13.2 g/dL (12.0-15.5) 12/07/18 07:15 Hct 40.2 % (36.0-46.0) 12/07/18 07:15 MCV 83.9 fL (80-95) 12/07/18 07:15 MCH 27.6 pg (27.0-33.0) 12/07/18 07:15 MCHC 32.8 g/dL (32.0-36.0) 12/07/18 07:15 RDW 14.4 % (11.7-14.6) 12/07/18 07:15 Plt Count 182 x1000/uL (130-400) 12/07/18 07:15 MPV 11.6 fL (8.0-11.0) H 12/07/18 07:15 Immature Gran % See Differential 12/07/18 07:15 Neutrophils % 71.0 12/07/18 07:15 Band Neutrophils % 2.0 % 12/07/18 07:15 Lymphocytes % 18.0 12/07/18 07:15 Monocytes % 7.0 12/07/18 07:15 Eosinophils % 0.0 12/07/18 07:15 Basophils % 0.0 12/07/18 07:15 Myelocytes % 2.0 % 12/07/18 07:15 Absolute Neutrophils 8.24 k/cumm (1.2-6.7) H 12/07/18 07:15 Absolute Lymphocytes 2.03 k/cumm (1.2-3.4) 12/07/18 07:15 Absolute Monocytes 0.79 k/cumm (0.11-0.7) H 12/07/18 07:15 Absolute Eosinophils 0.00 k/cumm (0.0-0.7) 12/07/18 07:15 Absolute Basophils 0.00 k/cumm (0.0-0.2) 12/07/18 07:15 Differential Comment Manual differential 12/07/18 07:15 RBC Morphology See below 12/07/18 07:15 Polychromasia Present 12/07/18 07:15 PT 9.8 sec (9.3-11.0) 12/02/18 06:40 INR 1.0 (0.9-1.1) 12/02/18 06:40 APTT 20.5 sec (21.0-31.4) L 12/02/18 06:40 Sodium 135 mmol/L (136-145) L 12/07/18 07:15 Potassium 4.8 mmol/L (3.5-5.1) 12/07/18 07:15 Chloride 99 mmol/L (98-107) 12/07/18 07:15 Carbon Dioxide 27.7 mmol/L (21.0-32.0) 12/07/18 07:15 Anion Gap 8.3 mmol/L (3-11) 12/07/18 07:15 BUN 39 mg/dL (7-18) H 12/07/18 07:15 Creatinine 1.03 mg/dL (0.55-1.02) H 12/07/18 07:15 Estimated GFR/1.73 m2 54.48 (mL/min/1.73m2) 12/07/18 07:15 Glucose 148 mg/dL (70-100) H 12/07/18 07:15 Hemoglobin A1c 6.2 % (4.5-6.2) 12/02/18 06:40 Calcium 9.1 mg/dL (8.5-10.1) 12/07/18 07:15 Magnesium 2.0 mg/dL (1.8-2.4) 12/07/18 07:15 Total Bilirubin 0.4 mg/dL (0.2-1.0) 12/02/18 06:40 AST 61 U/L (15-37) H 12/02/18 06:40 ALT 69 U/L (12-78) 12/02/18 06:40 Alkaline Phosphatase 179 U/L (46-116) H 12/02/18 06:40 Troponin I 0.10 ng/mL (0.00-0.06) H* 12/04/18 06:30 NT-Pro-B Natriuret Pep 8785 pg/mL (-299) H 12/03/18 06:35 Total Protein 7.3 g/dL (6.4-8.2) 12/02/18 06:40 Albumin 3.0 g/dL (3.4-5.0) L 12/02/18 06:40 Triglycerides 193 mg/dL (30-150) H 12/04/18 06:30 Total Cholesterol 192 mg/dL (50-200) 12/04/18 06:30 LDL Cholesterol Direct 122 mg/dL (<100) H 12/04/18 06:30 HDL Cholesterol 46 mg/dL (40-60) 12/04/18 06:30
[2018-12-07] MEDS: Gabapentin 100 MG CAP 300 MG PO (20:50)
[2018-12-07] MEDS: predniSONE 20 MG TAB PO (20:51)
[2018-12-07] MEDS: Atorvastatin 20 MG TAB PO (21:42)
[2018-12-07] MEDS: Patch Removal 1 EACH TP (23:37)
[2018-12-08] VITALS (9 sets, daily range): BP systolic 96–122; BP diastolic 66–80; PULSE 54–86; RESP 16–18; TEMP 36.5–37.4; O2SAT 94–99
[2018-12-08] MEDS: Heparin 5,000 UNITS/ML VIAL 5000 UNITS SC ×3 (03:21→19:56)
[2018-12-08] MEDS: Levothyroxine 25 MCG TAB PO (05:13)
[2018-12-08] MEDS: Methadone Liquid 10 MG/ML 85 MG PO (09:08)
[2018-12-08] MEDS: Albuterol/Ipratropium 3 ML UPD VIAL UPD ×3 (09:11→17:33)
[2018-12-08] MEDS: Budesonide 0.5 MG/2 ML UPD VIAL UPD ×2 (09:23→21:08)
--- NOTE | 2018-12-08 09:46 | W.INDIABCONS ---
Date of service: 12/08/18 Time of Service: 09:47 Diabetes Inpatient Consult DESCRIPTION/ASSESSMENT: Appreciate diabetes consult for Carolin Lake who is hospitalized iwth respiratory failure and pneumonia. She is experiencing hyperglycemia secondary to steroid administration. She does not carry the diagnosis of diabetes otherwise. Blood sugars recently 120-200, mostly less than 176mg/dl receiving moderate insulin correction. INTERVENTION: Met with Carolin and discussed possibility of pre-diabetes when not on steroids. She denies awareness of this. Discussed efforts to prevent progression to diabetes with food and physical activity. Blood sugars otherwise adequately managed if treatment is short term. PLAN: Will follow blood sugars. She will follow up with her PCP for any diabetes related concerns Time Spent in Nutritional Counseling and Treatment: 10 minutes face to face inpatient
--- NOTE | 2018-12-08 09:57 | DM INPTCON_ITS ---
Date of service: 12/08/18 Time of Service: 09:47 Diabetes Inpatient Consult DESCRIPTION/ASSESSMENT: Appreciate diabetes consult for Carolin Lake who is hospitalized iwth respiratory failure and pneumonia. She is experiencing hyperglycemia secondary to steroid administration. She does not carry the diagnosis of diabetes otherwise. Blood sugars recently 120-200, mostly less than 176mg/dl receiving moderate insulin correction. INTERVENTION: Met with Carolin and discussed possibility of pre-diabetes when not on steroids. She denies awareness of this. Discussed efforts to prevent progression to diabetes with food and physical activity. Blood sugars otherwise adequately managed if treatment is short term. PLAN: Will follow blood sugars. She will follow up with her PCP for any diab etes related concerns Time Spent in Nutritional Counseling and Treatment: 10 minutes face to face inpatient
[2018-12-08] MEDS: Regadenoson 0.4 MG/5 ML SYR IVP (10:45)
--- NOTE | 2018-12-08 11:39 | MERGEMPI_ITS ---
*[facility]* *[facility]* [address] [place] [address] Myocardial Perfusion Imaging - SPECT Regadenoson Date of study: 12/08/2018 *PATIENT PRESENTATION* Height: 149.9cm (59in) Blood Pressure: Weight: 61.4kg (135lb) BSA: 1.62m^2 Referring physician: Angela Lara Ordering physician: Angela Lara Impressions: Abnormal study after pharmacologic stress. Summary: 1. Myocardial perfusion imaging: There is a moderate sized, moderately intense, fixed defect involving the apical anterior, apical, and apical lateral wall(s). . 2. The calculated left ventricular ejection fraction after stress: 30%. LV global systolic function is moderately reduced. Diffuse left ventricular regional motion abnormalities. 3. Stress ECG conclusions: The stress ECG is indeterminate due to baseline left bundle branch block. 4. Stress: The patient experienced no chest pain during stress. Indication: R94.31. History: REASON FOR VISIT: THIS IS AN INPATIENT HERE WITH ACUTE RESPIRATORY FAILURE WITH HYPOXIA RELATED TO COPD EXACERBATION, COMMUNITY ACQUIRED PNEUMONIA, INDETERMINANT TROPONIN WELL ACUTE CHF. PMH: COPD. Risk factors: ACTIVE SMOKER FOR 47 YEARS. 1 PACK A DAY SMOKER. Family history of coronary artery disease. Current tobacco use. Hypertension. Diabetes mellitus. Dyslipidemia. Imaging Technique: Protocol: Regadenoson. Acquisition: Gated SPECT; 1 day - rest/stress. The patient was imaged in the supine position. Attenuation correction used. Isotope administration: - Rest. Tc[99m]-sestamibi. Dose: 11.4mCi. Injection time: 09:15 AM. Injection to stress time: 00:45. - Stress. Tc[99m]-sestamibi. Dose: 32.3mCi. Injection time: 11:00 AM. 1-2 min before end of exercise Baseline ECG: SINUS RHYTHM. LBBB. HR 63 BPM. Stress protocol: +--------+--+ + + !Stage !HR!BP (mmHg) !Comments ! +--------+--+ + + !Baseline!63!122/90 (101)! ! +--------+--+ + + !1 min !89!126/98 (107)!Inject Regadenoson.! +--------+--+ + + !3 min !81!120/80 (93) ! ! +--------+--+ + + !6 min !71!124/82 (96) ! ! +--------+--+ + + * Stress results: The rate-pressure product for the peak heart rate and blood pressure was 89428eq Hg/min. The patient experienced no chest pain during stress. Stress ECG: STRESS TEST ENDED IN 6 MINUTES & 49 SECONDS. PT EXPERIENCED NO SIGNIFICANT SIDE EFFECTS FROM LEXISCAN. NORMAL HEART RATE AND BLOOD PRESSURE RESPONSE TO LEXISCAN INJECTION NO ECTOPY NO ANGINA The stress ECG is indeterminate due to baseline left bundle branch block. Myocardial perfusion: Imaging information: gated. Left ventricular size is normal. There is a moderate sized, moderately intense, fixed defect involving the apical anterior, apical, and apical lateral wall(s). . Ventricular Function (Wall Motion): The calculated left ventricular ejection fraction after stress: 30%. LV global systolic function is moderately reduced. Diffuse left ventricular regional motion abnormalities. Right ventricular function is normal. Study data: Jonny Christy MD supervised and was readily available during the procedure. This study was interpreted by [facility]. Study status: Routine. Consent: The risks, benefits, and alternatives to the procedure were explained to the patient and informed consent was obtained. Procedure: Initial setup. A baseline ECG was recorded. Surface ECG leads and manual cuff blood pressure measurements were monitored. Heart sounds: Normal. Lung sounds: Normal. Regadenoson stress test. Stress testing was performed, with regadenoson by intravenous bolus, for a total dose of 0.4mgover 10.00sec, followed by a 5ml saline flush. The infusion was terminated due to per protocol. The patient was unable to exercise due to left bundle branch block. Study completion: All catheters inserted during the procedure were removed. The patient tolerated the procedure well and was discharged from the lab. Discharge: The patient left the laboratory in stable condition. Birthdate: Patient birthdate: 1955. Sex: Gender: female. Study date: Study date: 12/08/2018. Study time: 00:01 AM. Signature Documentation: - The imaging portion of this study was interpreted by [employer] Member Jonny Christy MD. - The Stress ECG portion of this study was interpreted by Jonny Christy MD. Electronically signed by Jonny Christy 12/08/2018 18:38
[2018-12-08] MEDS: Metoprolol 25 MG TAB PO ×2 (12:53→19:56)
[2018-12-08] MEDS: Furosemide 20 MG TAB PO (12:53)
[2018-12-08] MEDS: Methylphenidate 10 MG TAB PO (12:53)
[2018-12-08] MEDS: predniSONE 20 MG TAB PO (12:53)
[2018-12-08] MEDS: Magnesium Chloride 64 MG TABCR PO ×2 (12:53→21:08)
[2018-12-08] MEDS: Lidocaine 5% Patch 1 PATCH TP (12:54)
--- NOTE | 2018-12-08 13:43 | PDOC.CMDIS ---
- If Service Date Differs Date of service: 12/08/18 Time of Service: 13:43 LACE Index Scoring Tool - Questions: Length of Stay (in days): 4 - 6 Acuity (Admit via E.D.?): Yes E.D. Visits: 1 - Answers: Total Score: 8 Risk of Readmission: Low Risk Care Management Discharge Reason for Hospitalization: Pneumonia, COPD Discharge Plan: Carolin will return home today with no services. She will F/U with PCP and plan of care as prescribed. Carolin will transport via [facility] at time of DC. Patient/Family Education Needs: Review DC instructions, any limitations, and discuss 'Ask Me Three' Services Needed at Discharge: Transportation (RCT)
[2018-12-08] MEDS: Benzonatate 100 MG CAP PO ×2 (13:54→19:56)
[2018-12-08] MEDS: Gabapentin 100 MG CAP 300 MG PO ×2 (13:54→19:56)
[2018-12-08] MEDS: Aspirin 81 MG CHEW PO (13:54)
--- NOTE | 2018-12-08 14:03 | CMDISCH_ITS ---
- If Service Date Differs Date of service: 12/08/18 Time of Service: 13:43 LACE Index Scoring Tool - Questions: Length of Stay (in days): 4 - 6 Acuity (Admit via E.D.?): Yes E.D. Visits: 1 - Answers: Total Score: 8 Risk of Readmission: Low Risk Care Management Discharge Reason for Hospitalization: Pneumonia, COPD Discharge Plan: Carolin will return home today with no services. She will F/U with PCP and plan of care as prescribed. Carolin will transport via [facility] at time of DC. Patient/Family Education Needs: Review DC instructions, any limitations, and discuss 'Ask Me Three' Services Needed at Discharge: Transportation (RCT)
--- NOTE | 2018-12-08 16:57 | W.PM.DS.N ---
Date of service: 12/09/18 Time of Service: 11:40 DS: Diagnosis Discharge Diagnosis (1) QT prolongation: Status: Acute (2) Acute respiratory failure with hypoxia: Status: Acute (3) Community acquired pneumonia: Status: Acute (4) COPD with acute exacerbation: Status: Acute (5) Acute diastolic CHF (congestive heart failure): Status: Acute (6) Hypertension: Status: Chronic (7) Chronic pain: Status: Chronic (8) Hypothyroidism: Status: Chronic (9) HAMZAH (acute kidney injury): Status: Acute (10) Hyperglycemia: Status: Acute (11) Prediabetes: Status: Acute (12) Tobacco abuse counseling: Status: Acute (13) Abnormal stress test: Status: Acute Discharge Plan Disposition Patient Disposition: HOME Condition: Stable Discharge Details Chief Complaint: SOB Reason For Visit: PNEUMONIA, COPD, HAMZAH Admit Date/Time: 12/02/18 09:19 Admit Provider: Ryne Tony Attending Provider: Ryne Tony Primary Care Provider: Chacha Wilson ED Provider: Abner Doshi Hospital Course Hospital Course: Carolin Lake is a 63 year old female with past medical history significant for COPD, active smoker, on chronic methadone treatment who presented to the ED with reports of progressively worsening shortness of breath and productive cough. She was transported via EMS who reported that she was cyanotic with oxygen saturations in the 40's on their arrival. She was tachypneic upon presentation and chest x-ray showed both a right and left lower lobe infiltrate. She was admitted to the Med/surg floor for further observation and management. She was treated for pneumonia and COPD exacerbation with doxycycline and ceftriaxone, she was given IV steroids and nebulizer treatments. She was also found to have a component of CHF and was given Lasix, with improvement in her respiratory status. She went on to have an Echocardiogram which showed CHF with both systolic and diastolic dysfunction with an LVEF of 45-50%. Her breathing improved to baseline. However, she was noted on admission to have elevated troponin at 0.14-0.10. She denied chest pain. She was seen by Dr. Campos, Cardiology who did not feel that the troponin elevation was due to myocardial infarction. She did not have evidence of ongoing ischemia. He notes that her echocardiogram shows worsening LVEF as compared to 2017,most likely due to septal dysfunction due to bundle branch block. Mitral regurgitation is in the range of moderate to severe worse compared to 2017. Mitral valve leaflets show myxomatous degeneration; there is no evidence of annular dilatation or mitral valve prolapse. He recommended proceeding with pharmacological stress test and continue statin and beta-taya at current doses. She went on to have a Stress test which was abnormal. There was a moderate sized, moderately intense, fixed defect involving the apical anterior, apical, and apical lateral wall(s). The calculated left ventricular ejection fraction after stress: 30%. LV global systolic function is moderately reduced. Diffuse left ventricular regional motion abnormalities. The stress ECG was indeterminate due to baseline left bundle branch block. The patient experienced no chest pain during stress. Dr. Lara was able to discuss the findings with Dr. Ashford, Cardiology, who recommended outpatient follow up. He did not feel she needed inpatient transfer for cardiac catheterization. She was initially hypertensive, however, her blood pressure improved by the time of discharge. She had an acute kidney injury which resolved. Her Hgb A1c was indicative of prediabetes, this will need follow up as an outpatient. Of note, she was found to have prolonged QTc. Her Hydroxyzine has been discontinued, her Gabapentin dose was increased. She was monitored on telemetry, she remained in normal sinus rhythm with rates in the 60s with a left bundle branch block. Her QTc improved, she had an EKG on the morning of discharge that showed a QTc of 472. She remained on her usual dose of methadone. She is discharged home in improved condition. She completed a full course of antibiotics. She will be discharged home on oral Lasix, continued beta taya, aspirin and a statin. She will taper off prednisone after discharge. She will follow up with her PCP as scheduled. She will follow up with cardiology as scheduled to determine next steps. Home Meds and New Rx's Prescriptions: New lidocaine [Lidoderm] 5 % Adhesive Patch,Medicated 1 patch topical DAILY@1200 Qty: 7 RF: 0 aspirin 81 mg Tablet,Chewable 81 mg PO DAILY Qty: 30 RF: 0 furosemide 20 mg Tablet 20 mg PO DAILY Qty: 30 RF: 0 prednisone 10 mg tablet 10 mg PO DAILY Qty: 4 RF: 0 Continued methadone 10 MG/ML concentrate 85 mg PO DAILY RF: 0 atorvastatin [Lipitor] 10 MG tablet 10 mg PO DAILY RF: 0 methylphenidate HCl [Methylin] 5 MG tablet 10 mg PO DAILY RF: 0 metoprolol tartrate 25 MG tablet 25 mg PO BID RF: 0 levothyroxine 25 MCG tablet 25 mcg PO DAILY@0600 Qty: 90 RF: 0 albuterol sulfate [Proventil HFA] 200 PUFF HFA aerosol inhaler 2 puff Inhalation Q4H PRN PRNQty: 1 RF: 0 Advair Diskus 1 EACH blister with device 14 puff Inhalation BID Qty: 1 RF: 1 Spiriva with HandiHaler 30 CAP capsule, w/inhalation device 1 cap Inhalation DAILY Qty: 1 RF: 1 Changed gabapentin 100 mg Capsule 300 mg PO TID Qty: 60 RF: 0 Discontinued hydroxyzine HCl 50 MG tablet 50 mg PO Q8H PRN PRNRF: 0 Discharge Instructions Instructions: Heart Failure (DC), Heart Healthy Diet (DC) Additional Instructions: Taper off of prednisone: take 2 tablets tomorrow morning, then take one tablet daily x2 days. Take medications as prescribed. Follow up with your PCP and cardiology as scheduled. Avoid strenuous activity. Take care! Stand Alone Forms: Nursing Discharge Form Referrals: August Inman [OSTEOPATHIC DOCTOR] - 12/22/18 4:30 pm Activity:: avoid strenuous activity. Equipment/Supplies:: No Equipment Needed Diet:: Heart Healthy diet. Discharge Orders Discharge Orders: Discharge Order (Routine); Ordered 12/09/18 Ordered By: Caroline Moss Exam Narrative Exam Narrative: General: very pleasant middle-aged female, sitting up in bed, appears comfortable, in NAD. HEENT: normocephalic, atraumatic, pupils equal and round, EOMI, mucous membranes moist. Neck: supple, no JVD. Heart: regular rate and rhythm, no murmur. Lungs: respirations even and unlabored, lung sounds clear throughout. GI: normoactive bowel sounds, abdomen is soft, nontender, nondistended Extremities: no clubbing, cyanosis or edmea, pedal pulses palpable. DS: Data Vitals/I&O Vitals and I&O: Vital Signs Temperature 37.4 C 12/08/18 15:57 Temperature Source Tympanic 12/08/18 15:57 Pulse 58 L 12/08/18 15:57 Pulse Rhythm Regular 12/08/18 00:18 Pulse 66 12/02/18 09:40 Respiratory Rate 18 12/08/18 15:57 Respiratory Effort Non-Labored 12/08/18 00:18 Respiratory Depth Normal 12/08/18 00:18 Respiratory Pattern Normal 12/08/18 00:18 Blood Pressure 96/66 L 12/08/18 15:57 Blood Pressure Mean 94 12/02/18 09:31 Blood Pressure Position Supine 12/02/18 06:45 Pulse Oximetry 94 L 12/08/18 15:57 Oxygen Delivery Method Room Air 12/08/18 15:57 Oxygen Flow Rate 0 12/08/18 15:57 Pain Level 9 12/07/18 08:07 Comment 12/07/18 04:00 Intake & Output 12/07/18 12/08/18 12/08/18 23:59 11:59 23:59 Intake Total 360 / 600 450 / 450 Output Total 400 / 1500 Balance -40 / -900 450 / 450 Weight 61.4 kg Intake: IV 20 / 20 Oral 340 / 580 450 / 450 Output: Urine 400 / 1500 Other: Urine Color Yellow Urine Appearance Clear Clear Urine Odor Normal Comment voids in toilet Voiding Methods Toilet Completed studies during hospitalization [Text1]: 12/02/18: PORTABLE AP CHEST: Comparison is made with 06/21/17. The heart is enlarged, unchanged. Leads and oxygen tubing are seen over the chest. There are increased interstitial markings which may indicate pulmonary edema. No focal consolidation or effusion is visible. IMPRESSION: The findings are consistent with mild CHF. Date of study: 12/05/2018 Transthoracic Echocardiography M-mode, complete 2D, complete spectral Doppler, and color Doppler *STUDY CONCLUSIONS* Summary: 1. Left ventricle: The cavity size was normal. Systolic function was mildly reduced. The estimated ejection fraction was 45-50%. Diffuse hypokinesis. Findings consistent with diastolic dysfunction. Doppler parameters are consistent with high ventricular filling pressure. 2. Aortic valve: There was mild regurgitation. 3. Mitral valve: There was moderate to severe regurgitation, with multiple jets directed posteriorly. L wave noted. 4. Left atrium: The atrium was mildly dilated. 5. Right ventricle: The cavity size was normal. Wall thickness was normal. Systolic function was normal. 6. Right atrium: The atrium was mildly dilated. 7. Atrial septum: No defect or patent foramen ovale was identified. 8. Pulmonary arteries: Pulmonary systolic pressure was in the range of 35mm Hg to 45mm Hg. 9. Inferior vena cava: The vessel was patent and normal in size. The respirophasic diameter changes were in the normal range (greater than or equal to 50%), consistent with normal central venous pressure. 12/08/18: Impressions: Abnormal study after pharmacologic stress. Summary: 1. Myocardial perfusion imaging: There is a moderate sized, moderately intense, fixed defect involving the apical anterior, apical, and apical lateral wall(s). . 2. The calculated left ventricular ejection fraction after stress: 30%. LV global systolic function is moderately reduced. Diffuse left ventricular regional motion abnormalities. 3. Stress ECG conclusions: The stress ECG is indeterminate due to baseline left bundle branch block. 4. Stress: The patient experienced no chest pain during stress. [facility] Medical History Abnormal stress test (Acute) Troponin level elevated (Acute) QT prolongation (Acute) Prediabetes (Acute) COPD with acute exacerbation (Acute) Acute diastolic CHF (congestive heart failure) (Acute) Tobacco abuse counseling (Acute) Hyperglycemia (Acute) Acute respiratory failure with hypoxia (Acute) HAMZAH (acute kidney injury) (Acute) Hypothyroidism (Chronic) Chronic pain (Chronic) Hypertension (Chronic) Community acquired pneumonia (Acute) Social History Smoking and Tabacco status: Current every day
--- NOTE | 2018-12-08 17:32 | W.PM.PROGNOT ---
Date of Service Date of service: 12/08/18 Time of Service: 17:33 Assessment and Plan (1) QT prolongation: Current visit: Yes Status: Acute Improved after discontinuing hydroxyzine, tolerating methadone. Has been in NSR with rates in the 60s on telemetry. Continue to monitor on tele. Stress test pending. (2) Acute respiratory failure with hypoxia: Current visit: Yes Status: Acute multifactorial with COPD exacerbation and pneumonia as well as acute CHF, both mild systolic and diastolic - EF is 45-50% on echo. Resolved, currently on room air. Continue steroid taper. Continue nebs, antitussives. Continue lasix. Stress test today with results pending. (3) Community acquired pneumonia: Current visit: Yes Status: Acute Resolved. Completed antibiotic course. (4) COPD with acute exacerbation: Current visit: Yes Status: Acute Essentially resolved. Continue to taper steroids. (5) Acute diastolic CHF (congestive heart failure): Current visit: Yes Status: Acute Both systolic (EF 45-50%) and diastolic. Stress test pending. Continue lasix. (6) Hypertension: Current visit: Yes Status: Chronic Blood pressure within acceptable range. Continue to monitor. (7) Chronic pain: Current visit: Yes Status: Chronic Continue methadone, gabapentin, lidoderm patch and prn ibuprofen, aqua K pack. (8) Hypothyroidism: Current visit: Yes Status: Chronic continue synthroid (9) HAMZAH (acute kidney injury): Current visit: Yes Status: Acute resolved. (10) Hyperglycemia: Current visit: Yes Status: Acute A1c indicative of prediabetes. Blood glucose acceptable. Continue SSI. Diabetes education. (11) Prediabetes: Current visit: Yes Status: Acute as above. (12) DVT prophylaxis: Current visit: Yes Status: Acute Heparin and TEDs. (13) Discharge planning issues: Current visit: Yes Status: Acute Likely for discharge home. Stress test pending. (14) Tobacco abuse counseling: Current visit: Yes Status: Acute Continue to encourage smoking cessation. Subjective Interval history since last seen: Carolin is feeling better today. She denies shortness of breath, cough, wheezing, no chest pain/pressure, palpitations. She denies any problems with her stress test, she feels that it went well. She is eating and drinking and tolerating her diet. She denies dizziness, nausea, vomiting, diarrhea, dysuria. She was likely for discharge today, however, we have been unable to obtain the results of the stress test from cardiology. She will remain in-house overnight, likely for discharge tomorrow pending results of the stress test. Exam Narrative Exam Narrative: General: very pleasant middle-aged female, sitting up in bed, appears comfortable, in NAD. HEENT: normocephalic, atraumatic, pupils equal and round, EOMI, mucous membranes moist. Neck: supple, no JVD. Heart: regular rate and rhythm, no murmur. Lungs: respirations even and unlabored, lung sounds clear throughout. GI: normoactive bowel sounds, abdomen is soft, nontender, nondistended Extremities: no clubbing, cyanosis or edmea, pedal pulses palpable. Objective Objective Clinical Data: Vital Signs Temperature 37.4 C 12/08/18 15:57 Temperature Source Tympanic 12/08/18 15:57 Pulse 58 L 12/08/18 15:57 Pulse Rhythm Regular 12/08/18 16:55 Pulse 66 12/02/18 09:40 Respiratory Rate 18 12/08/18 15:57 Respiratory Effort 12/08/18 16:55 Respiratory Depth Normal 12/08/18 16:55 Respiratory Pattern Normal 12/08/18 16:55 Blood Pressure 96/66 L 12/08/18 15:57 Blood Pressure Mean 94 12/02/18 09:31 Blood Pressure Position Supine 12/02/18 06:45 Pulse Oximetry 94 L 12/08/18 15:57 Oxygen Delivery Method Room Air 12/08/18 15:57 Oxygen Flow Rate 0 12/08/18 15:57 Pain Level 9 12/07/18 08:07 Comment 12/07/18 04:00 Intake & Output 12/07/18 12/08/18 12/08/18 23:59 11:59 23:59 Intake Total 360 / 600 450 / 450 Output Total 400 / 1500 Balance -40 / -900 450 / 450 Weight 61.4 kg Intake: IV Oral 340 / 580 450 / 450 Output: Urine 400 / 1500 Other: Urine Color Yellow Urine Appearance Clear Clear Clear Urine Odor Normal Comment voids in toilet Voiding Methods Toilet Laboratory Results WBC 11.29 k/cumm (4.4-10.8) H 12/07/18 07:15 RBC 4.79 m/cumm (4.00-5.20) 12/07/18 07:15 Hgb 13.2 g/dL (12.0-15.5) 12/07/18 07:15 Hct 40.2 % (36.0-46.0) 12/07/18 07:15 MCV 83.9 fL (80-95) 12/07/18 07:15 MCH 27.6 pg (27.0-33.0) 12/07/18 07:15 MCHC 32.8 g/dL (32.0-36.0) 12/07/18 07:15 RDW 14.4 % (11.7-14.6) 12/07/18 07:15 Plt Count 182 x1000/uL (130-400) 12/07/18 07:15 MPV 11.6 fL (8.0-11.0) H 12/07/18 07:15 Immature Gran % See Differential 12/07/18 07:15 Neutrophils % 71.0 12/07/18 07:15 Band Neutrophils % 2.0 % 12/07/18 07:15 Lymphocytes % 18.0 12/07/18 07:15 Monocytes % 7.0 12/07/18 07:15 Eosinophils % 0.0 12/07/18 07:15 Basophils % 0.0 12/07/18 07:15 Myelocytes % 2.0 % 12/07/18 07:15 Absolute Neutrophils 8.24 k/cumm (1.2-6.7) H 12/07/18 07:15 Absolute Lymphocytes 2.03 k/cumm (1.2-3.4) 12/07/18 07:15 Absolute Monocytes 0.79 k/cumm (0.11-0.7) H 12/07/18 07:15 Absolute Eosinophils 0.00 k/cumm (0.0-0.7) 12/07/18 07:15 Absolute Basophils 0.00 k/cumm (0.0-0.2) 12/07/18 07:15 Differential Comment Manual differential 12/07/18 07:15 RBC Morphology See below 12/07/18 07:15 Polychromasia Present 12/07/18 07:15 PT 9.8 sec (9.3-11.0) 12/02/18 06:40 INR 1.0 (0.9-1.1) 12/02/18 06:40 APTT 20.5 sec (21.0-31.4) L 12/02/18 06:40 Sodium 135 mmol/L (136-145) L 12/07/18 07:15 Potassium 4.8 mmol/L (3.5-5.1) 12/07/18 07:15 Chloride 99 mmol/L (98-107) 12/07/18 07:15 Carbon Dioxide 27.7 mmol/L (21.0-32.0) 12/07/18 07:15 Anion Gap 8.3 mmol/L (3-11) 12/07/18 07:15 BUN 39 mg/dL (7-18) H 12/07/18 07:15 Creatinine 1.03 mg/dL (0.55-1.02) H 12/07/18 07:15 Estimated GFR/1.73 m2 54.48 (mL/min/1.73m2) 12/07/18 07:15 Glucose 148 mg/dL (70-100) H 12/07/18 07:15 Hemoglobin A1c 6.2 % (4.5-6.2) 12/02/18 06:40 Calcium 9.1 mg/dL (8.5-10.1) 12/07/18 07:15 Magnesium 2.0 mg/dL (1.8-2.4) 12/07/18 07:15 Total Bilirubin 0.4 mg/dL (0.2-1.0) 12/02/18 06:40 AST 61 U/L (15-37) H 12/02/18 06:40 ALT 69 U/L (12-78) 12/02/18 06:40 Alkaline Phosphatase 179 U/L (46-116) H 12/02/18 06:40 Troponin I 0.10 ng/mL (0.00-0.06) H* 12/04/18 06:30 NT-Pro-B Natriuret Pep 8785 pg/mL (-299) H 12/03/18 06:35 Total Protein 7.3 g/dL (6.4-8.2) 12/02/18 06:40 Albumin 3.0 g/dL (3.4-5.0) L 12/02/18 06:40 Triglycerides 193 mg/dL (30-150) H 12/04/18 06:30 Total Cholesterol 192 mg/dL (50-200) 12/04/18 06:30 LDL Cholesterol Direct 122 mg/dL (<100) H 12/04/18 06:30 HDL Cholesterol 46 mg/dL (40-60) 12/04/18 06:30
[2018-12-08] MEDS: Atorvastatin 20 MG TAB PO (21:08)
[2018-12-08] MEDS: Patch Removal 1 EACH TP (23:34)
[2018-12-09] VITALS (7 sets, daily range): BP systolic 91–131; BP diastolic 64–80; PULSE 51–81; RESP 17–20; TEMP 36.1–37.2; O2SAT 95–98
[2018-12-09] MEDS: Mylanta Suspension 30 ML CUP PO (03:18)
[2018-12-09] MEDS: Heparin 5,000 UNITS/ML VIAL 5000 UNITS SC ×2 (03:19→12:39)
[2018-12-09] MEDS: Levothyroxine 25 MCG TAB PO (05:10)
[2018-12-09 07:28] LABS: HCT 40.8 % (36.0-46.0); HGB 13.3 g/dL (12.0-15.5); Mean Corp. HGB Concentration 32.6 g/dL (32.0-36.0); Mean Corpuscular Hemoglobin 27.6 pg (27.0-33.0); Mean Corpuscular Volume 84.6 fL (80-95); Mean Platelet Volume 11.8 fL (8.0-11.0); Platelet Count 196 x1000/uL (130-400); RBC 4.82 m/cumm (4.00-5.20); RBC Distribution Width 14.5 % (11.7-14.6); White Blood Cell Count 13.11 k/cumm (4.4-10.8)
[2018-12-09] MEDS: Aspirin 81 MG CHEW PO (08:34)
[2018-12-09] MEDS: Gabapentin 100 MG CAP 300 MG PO (08:34)
[2018-12-09] MEDS: Methylphenidate 10 MG TAB PO (08:34)
[2018-12-09] MEDS: Benzonatate 100 MG CAP PO (08:35)
[2018-12-09] MEDS: predniSONE 20 MG TAB PO (08:35)
[2018-12-09] MEDS: Metoprolol 25 MG TAB PO (08:35)
[2018-12-09] MEDS: Furosemide 20 MG TAB PO (08:35)
[2018-12-09] MEDS: Methadone Liquid 10 MG/ML 85 MG PO (08:36)
[2018-12-09] MEDS: Magnesium Chloride 64 MG TABCR PO (09:56)
[2018-12-09] MEDS: Budesonide 0.5 MG/2 ML UPD VIAL UPD (10:18)
[2018-12-09 10:44] LABS: Anion Gap 7.2 mmol/L (3-11); BUN 43 mg/dL (7-18); CO2 33.8 mmol/L (21.0-32.0); CREATININE 1.14 mg/dL (0.55-1.02); Calcium 9.4 mg/dL (8.5-10.1); Chloride 99 mmol/L (98-107); Estimated GFR 48.46 (mL/min/1.73m2); Glucose 80 mg/dL (70-100); Magnesium 2.4 mg/dL (1.8-2.4); Potassium 3.5 mmol/L (3.5-5.1); Sodium 140 mmol/L (136-145)
[2018-12-09 11:02] LABS: Troponin I < 0.02 ng/mL (0.00-0.06)
[2018-12-09] MEDS: Insulin Aspart 300 UNITS/3 ML PEN SC (12:39)
[2018-12-09] MEDS: Lidocaine 5% Patch 1 PATCH TP (12:40)
--- NOTE | 2018-12-09 14:06 | PDOC.CMDIS ---
- If Service Date Differs Date of service: 12/09/18 Time of Service: 14:06 LACE Index Scoring Tool - Questions: Length of Stay (in days): 4 - 6 Acuity (Admit via E.D.?): Yes E.D. Visits: 1 - Answers: Total Score: 8 Risk of Readmission: Low Risk Care Management Discharge Reason for Hospitalization: Pneumonia, COPD Discharge Plan: Carolin will return home today with no services. SHe will F/U with PCP and plan of care as prescribed. Carolin to transport via [facility], [facility] has arranged tranpsort for [id number] which Jorge, [employer], is aware of. Patient/Family Education Needs: Review DC instructions, any limitations, and discuss ''Ask Me Three Services Needed at Discharge: Transportation (RCT)
== END 2018-12-09 13:48 | disposition home or self-care (01) | DRG 193 ==
LOC: ER 09:53 → MS 10:30
PROVIDERS: Emergency Medicine; Nurse Practitioner; Nurse Practitioner Acute Care; Admitting Provider Internal Medicine; Emergency Provider Student in an Organized Health Care Education/Training Program; PCP Family Medicine; Visit Provider Internal Medicine
DX: J18.1 Lobar pneumonia, unspecified organism (principal); J96.01 Acute respiratory failure with hypoxia; I50.43 Acute on chronic combined systolic (congestive) and diastolic (congestive) heart failure; J44.0 Chronic obstructive pulmonary disease with (acute) lower respiratory infection; N17.9 Acute kidney failure, unspecified; J44.1 Chronic obstructive pulmonary disease with (acute) exacerbation; I45.81 Long QT syndrome; R74.8 Abnormal levels of other serum enzymes; F17.210 Nicotine dependence, cigarettes, uncomplicated; I11.0 Hypertensive heart disease with heart failure; G89.29 Other chronic pain; Z79.891 Long term (current) use of opiate analgesic; E03.9 Hypothyroidism, unspecified; R73.03 Prediabetes; Z71.6 Tobacco abuse counseling; I44.7 Left bundle-branch block, unspecified; I08.0 Rheumatic disorders of both mitral and aortic valves; I27.20 Pulmonary hypertension, unspecified
CPT/HCPCS: 36415; 78452; 80048; 80053; 80061; 83721; 85027; 87040; 93005; 93016; 93018; 93306; 94640; 96361; 96365; 96367; 96368; 96375; 99223; 99232; 99239; 99254; 99285; 71045; 83036; 83735; 83880; 84484; 85025; 85610; 85730; 93010; 93017; J0696; J1644; J1941; J1956; J2785; J2930; J3475; J3490; J7512; J7620; J7626

== ENCOUNTER → 2018-12-07 07:38 | Outpatient (BNVA) | payer MEDICARE, MEDICAID, SELFPAY | PROVIDERS: PCP Family Medicine; Visit Provider Student in an Organized Health Care Education/Training Program | DX: R69 Illness, unspecified (principal) ==

== ENCOUNTER → 2019-06-30 13:44 | Outpatient (BNVA) | payer MEDICARE, MEDICAID, SELFPAY | PROVIDERS: PCP Family Medicine; Referring Provider Family Medicine; Visit Provider Internal Medicine Cardiovascular Disease | DX: I34.0 Nonrheumatic mitral (valve) insufficiency (principal); R94.39 Abnormal result of other cardiovascular function study; I10 Essential (primary) hypertension | CPT/HCPCS: 99204; 99215 ==

== ENCOUNTER 2019-07-28 08:43 | Outpatient (CLI) | payer MEDICARE, MEDICAID, SELFPAY ==
[2019-07-28 10:03] LABS: TSH 2.77 uIU/mL (0.36-3.74)
== END 2019-07-28 09:03 ==
PROVIDERS: PCP Family Medicine; Visit Provider Family Medicine
DX: E03.9 Hypothyroidism, unspecified (principal)
CPT/HCPCS: 36415; 84443

== ENCOUNTER 2019-09-04 10:46 | Emergency (ER) | payer MEDICARE, MEDICAID, SELFPAY ==
[2019-09-04 10:51] VITALS: BP 198/77; PULSE 109; RESP 20; TEMP 36.6; O2SAT 97
--- NOTE | 2019-09-04 10:56 | ED.GENADUL_ITS ---
Discharge Plan Disposition Patient Disposition: AGAINST MEDICAL ADVICE Discharge Details Chief Complaint: RespSymp Clinical Impression: Cough Primary Care Provider: August Inman ED Provider: Bindu Valdes Home Meds and New Rx's Prescriptions: Continued Incruse Ellipta 62.5 mcg/actuation blister with device 1 inh IH DAILY RF: 0 losartan 50 mg tablet 50 mg PO DAILY 90 Days Qty: 90 RF: 3 methadone 10 MG/ML concentrate 85 mg PO DAILY RF: 0 aspirin 81 mg Tablet,Chewable 81 mg PO DAILY Qty: 30 RF: 0 furosemide 20 mg Tablet 20 mg PO DAILY Qty: 30 RF: 0 gabapentin 100 mg Capsule 300 mg PO TID Qty: 60 RF: 0 atorvastatin [Lipitor] 10 MG tablet 10 mg PO DAILY RF: 0 levothyroxine 25 MCG tablet 25 mcg PO DAILY@0600 Qty: 90 RF: 0 albuterol sulfate [Proventil HFA] 200 PUFF HFA aerosol inhaler 2 puff Inhalation Q4H PRN PRNQty: 1 RF: 0 No Action potassium chloride 10 mEq capsule, extended release 10 meq PO DAILY Qty: 30 RF: 0 doxycycline hyclate 100 mg tablet 100 mg PO BID Qty: 19 RF: 0 prednisone 20 mg tablet 60 mg PO DAILY Qty: 12 RF: 0 Discharge Instructions Instructions: Acute Cough (ED) Additional Instructions: You have elected to leave the emergency department AGAINST MEDICAL ADVICE. The risks of doing so are or permanent disability as we discussed. You may return to the emergency department anytime if you change your mind. Please return immediately to the emergency department he develop any new or worsening symptoms or if you become otherwise concerned. It is extremely important that you call soon as possible to make an appointment to be seen in follow-up for this visit by your primary care doctor. Referrals: August Inman [Primary Care Provider] - Discharge Data Discharge Date/Time-TO BE ENTERED AT DEPARTURE: 09/04/19 11:29 Medical Decision Making Carolin Lake is a 64-year-old woman with a history of COPD, hypertension, QT prolongation, CHF who presented to the emergency department with 9 days of nasal congestion, productive cough, and mild increased from baseline in exertional shortness of breath that she noticed today while walking up the hill to the emergency department from the [facility]. On exam patient appears chronically ill but acutely nontoxic appearing. Tachycardia resolved on exam. Mild expiratory wheeze bilaterally throughout, no rales or rhonchi, normal work of breathing. No lower extremity edema or posterior calf tenderness palpation. Suspect pneumonia versus influenza versus COPD exacerbation. Plan for DuoNeb, flu swab, chest x-ray. Screening EKG performed for initial tachycardia, shows known left bundle branch block. Patient reports significant improvement after DuoNeb. Flu swab negative. Patient has not yet undergone chest x-ray, but states that she would like to leave the emergency department. Patient states that she feels much better, wants to go to methadone clinic to get her dose she was unable to go this morning and will be unable to go later this afternoon. Patient states that she plans to return to the emergency department to complete her evaluation. I had a lengthy discussion with patient regarding risks of leaving the emergency department AGAINST MEDICAL ADVICE without undergoing full evaluation and treatment, including or permanent disability. Patient verbalized understanding the risk and continue to wish to leave the emergency department at this time. I had a lengthy discussion with the patient regarding return to emergency department precautions, that she may return to the emergency department at any point, and importance of outpatient follow-up. Patient verbalized understanding the plan was amenable. All questions were answered. Patient was discharged AMA and walked out of the emergency department without issue. Medical Records Medical records reviewed: Yes I reviewed the patient's medical records. ECG Data Attestation: I personally reviewed and interpreted this ECG (s) as follows: Interpretation: EKG shows sinus rhythm at 96, known left bundle branch block and left axis, no STEMI, nondiagnostic EKG HPI General Mode of arrival: ambulatory . Date/Time Provider Initiated Documentation: 09/04/19 10:56 . Limitations to Documentation: no limitations . Information obtained by: patient, RN notes reviewed and old records reviewed . HPI Narrative: Carolin Lake is a 64 y/o woman with history of COPD, hypertension, CHF, QT prolongation presenting to the emergency department with cough. Patient reports that for the past 9 days she has had cough and cold symptoms. She reports that she has had nasal congestion, cough increased from her baseline productive of yellow sputum, and somewhat decreased appetite. She reports that she noticed increased shortness of breath from baseline while walking to the emergency department from the [facility] where she receives her methadone, but she states that she has otherwise not noticed much increase in her exertional shortness of breath. She denies orthopnea and PND. Patient reports that she has had no pain, fevers, vomiting, diarrhea, rash, numbness, weakness. Patient reports that she has been drinking plenty of fluids. She states that she has been using her albuterol inhaler regularly at home since onset of symptoms, which does relieve her cough somewhat. Patient states that she has not received the flu vaccine this year. No recent travel. Related Data Home Medications Medication Instructions Recorded Confirmed atorvastatin [Lipitor] 10 mg PO DAILY 06/21/17 09/04/19 albuterol sulfate [Proventil HFA] 2 puff INHALATION Q4H PRN PRN #1 06/24/17 09/04/19 inh levothyroxine 25 mcg PO DAILY@0600 #90 tab 06/24/17 09/04/19 methadone 85 mg PO DAILY 12/02/18 09/04/19 aspirin 81 mg PO DAILY #30 tab 12/09/18 09/04/19 furosemide 20 mg PO DAILY #30 tab 12/09/18 09/04/19 gabapentin 300 mg PO TID #60 cap 12/09/18 09/04/19 losartan 50 mg tablet 50 mg PO DAILY 90 Days #90 tab 06/30/19 09/04/19 umeclidinium 62.5 mcg/actuation 1 inh IH DAILY 06/30/19 09/04/19 blister powder for inhalation doxycycline hyclate 100 mg PO BID #19 tab 09/04/19 potassium chloride 10 meq PO DAILY #30 cap 09/04/19 prednisone 60 mg PO DAILY #12 tab 09/04/19 Previous Rx's Medication Instructions Recorded albuterol sulfate [Proventil HFA] 2 puff INHALATION Q4H PRN PRN #1 06/24/17 inh levothyroxine 25 mcg PO DAILY@0600 #90 tab 06/24/17 aspirin 81 mg PO DAILY #30 tab 12/09/18 furosemide 20 mg PO DAILY #30 tab 12/09/18 gabapentin 300 mg PO TID #60 cap 12/09/18 losartan 50 mg tablet 50 mg PO DAILY 90 Days #90 tab 06/30/19 doxycycline hyclate 100 mg PO BID #19 tab 09/04/19 potassium chloride 10 meq PO DAILY #30 cap 09/04/19 prednisone 60 mg PO DAILY #12 tab 09/04/19 Allergies Allergy/AdvReac Type Severity Reaction Status Date / Time Penicillins Allergy Unverified 09/04/19 12:07 General Stated Complaint: RespSymp JAYCE: 3 Review of Systems Narrative: Constitutional: denies fevers Eyes: denies eye pain ENT: denies ear pain, dental pain, sore throat, reports nasal congestion Cardiovascular: denies chest pain, edema Respiratory: Reports cough, shortness of breath with exertion increased from baseline GI: denies abdominal pain, vomiting, diarrhea : denies flank pain MSK: denies back pain, neck pain, arthralgias, myalgias Skin: denies rash Neuro: denies headaches, numbness, weakness PFSH Medical History Abnormal stress test (Acute) Acute diastolic CHF (congestive heart failure) (Acute) Acute respiratory failure with hypoxia (Acute) HAMZAH (acute kidney injury) (Acute) Chronic pain (Chronic) Community acquired pneumonia (Acute) COPD with acute exacerbation (Acute) Hyperglycemia (Acute) Hypertension (Chronic) Hypothyroidism (Chronic) Prediabetes (Acute) QT prolongation (Acute) Tobacco abuse counseling (Acute) Troponin level elevated (Acute) Social History Smoking/Tobacco Use Status: Current every day Tobacco Type: cigarettes Smoking packs per day: 1 Smoking cigarettes per day: 20.0 Years smoked: 46 Smoking pack- years: 46.00 Quit status: considering quitting Counseling given: provider counseling, support medications, support program and other Alcohol Intake: never Details: did not have influenza vaccine for this season 09/21 Current gender identity: female Do you feel safe at home: Yes Do you feel safe in your relationship?: Yes Exam Narrative Exam Narrative: Constitutional: Somewhat chronically ill-appearing but acutely non-toxic, pleasant, conversing normally HENT: head atraumatic/normocephalic/normal inspection, mucous membranes moist Eyes: conjunctiva normal, sclera normal, pupils 3mm b/l Neck: no stridor, normal ROM, trachea midline Chest: normal inspection Resp: normal work of breathing, mild expiratory wheeze bilaterally throughout, no rales/rhonchi Cardio: normal rate, normal rhythm, no murmur appreciated Back: normal inspection, no rash Skin: warm, dry, normal color, no rash Neuro: alert, not altered, grossly non-focal, normal tone Ext: no edema, no posterior calf tenderness to palpation Psych: normal mood, normal affect, normal behavior Course Vital Signs Vital signs: Vital Signs Temperature 36.6 C 09/04/19 10:51 Pulse 109 H 09/04/19 10:51 Respiratory Rate 20 09/04/19 10:51 Blood Pressure 198/77 H 09/04/19 10:51 Pulse Oximetry 97 09/04/19 10:51 Temperature 36.6 C 09/04/19 10:51 Temperature Source Skin 09/04/19 10:51 Pulse 109 H 09/04/19 10:51 Respiratory Rate 20 09/04/19 10:51 Blood Pressure 198/77 H 09/04/19 10:51 Blood Pressure Position Sitting 09/04/19 10:51 Pulse Oximetry 97 09/04/19 10:51 Oxygen Delivery Method Room Air 09/04/19 10:51 Oxygen Flow Rate 0 09/04/19 10:51 Pain Level 9 09/04/19 10:51 Comment took BP medication this morning 09/04/19 10:51
[2019-09-04] MEDS: Albuterol/Ipratropium 3 ML UPD VIAL UPD (11:10)
== END 2019-09-04 11:29 | disposition left against medical advice (07) ==
LOC: ER 11:56
PROVIDERS: Emergency Provider Student in an Organized Health Care Education/Training Program; PCP Family Medicine
DX: R05 Cough (principal); R00.0 Tachycardia, unspecified; Z53.29 Procedure and treatment not carried out because of patient's decision for other reasons; J44.9 Chronic obstructive pulmonary disease, unspecified; I11.0 Hypertensive heart disease with heart failure; I50.31 Acute diastolic (congestive) heart failure; F17.210 Nicotine dependence, cigarettes, uncomplicated; E87.6 Hypokalemia; E87.2 Acidosis; R09.81 Nasal congestion; I50.9 Heart failure, unspecified; I42.9 Cardiomyopathy, unspecified
CPT/HCPCS: 36415; 80053; 87449; 93005; 94640; 99283; 99284; 71046; 83605; 83880; 84443; 84484; 85025; 93010; 99285; J7512; J7620

== ENCOUNTER 2019-09-04 12:00 | Emergency (ER) | payer MEDICARE, MEDICAID, SELFPAY ==
[2019-09-04] VITALS (11 sets, daily range): BP systolic 84–212; BP diastolic 56–76; PULSE 68–91; RESP 13–22; TEMP 36.5; O2SAT 86–97
--- NOTE | 2019-09-04 12:16 | DI.RAD_ITS ---
EXAM: XR CHEST 2V PA LATERAL INDICATION: cough. COMPARISON: XR PORTABLE CHEST AP from 12/02/2018 TECHNIQUE: 2D digital imaging was performed. FINDINGS: The heart size and pulmonary vasculature are within normal limits. The lungs are hyperinflated with flattened diaphragms consistent with underlying COPD. No focal consolidating infiltrates are present . No effusions or pneumothoraces are identified. Age-appropriate degenerative changes are seen in t he spine. IMPRESSION: 1. COPD. 2. No acute pulmonary process.
[2019-09-04 12:57] LABS: Abs Immature Grans 0.07 k/cumm (0.0-0.09); Absolute Basophil Count 0.04 k/cumm (0.0-0.2); Absolute Eosinophil Count 0.13 k/cumm (0.0-0.7); Absolute Lymphocyte Count 2.26 k/cumm (1.2-3.4); Absolute Monocyte Count 0.83 k/cumm (0.11-0.7); Absolute Neutrophil Count 6.02 k/cumm (1.2-6.7); Basophils % 0.4; Eosinophils % 1.4; HCT 34.2 % (36.0-46.0); HGB 11.7 g/dL (12.0-15.5); Immature Grans % 0.7; Lymphocytes % 24.2; Mean Corp. HGB Concentration 34.2 g/dL (32.0-36.0); Mean Corpuscular Hemoglobin 30.6 pg (27.0-33.0); Mean Corpuscular Volume 89.5 fL (80-95); Mean Platelet Volume 10.9 fL (8.0-11.0); Monocytes % 8.9; Neutrophils % 64.4; Platelet Count 219 x1000/uL (130-400); RBC 3.82 m/cumm (4.00-5.20); RBC Distribution Width 13.9 % (11.7-14.6); White Blood Cell Count 9.35 k/cumm (4.4-10.8)
[2019-09-04 13:00] LABS: Lactate 2.1 mmol/L (0.6-1.4)
--- NOTE | 2019-09-04 13:04 | W.ED.FU ---
Follow Up Plan: Carolin Lake is a 64 y/o woman with history of hypothyroidism, hypertension, COPD, CHF who presented to the emergency department with cough. Please see initial history and physical from today, patient briefly left the emergency department AGAINST MEDICAL ADVICE with plan to return which she has now done. Patient states complaint and symptoms are exactly the same as when she arrived to her prior visit earlier today. Patient placed on care management list to change PCP.
[2019-09-04 13:24] LABS: ALT 42 U/L (14-59); AST 24 U/L (15-37); Albumin 3.6 g/dL (3.4-5.0); Alkaline Phosphatase 159 U/L (46-116); Anion Gap 15.2 mmol/L (3-11); BUN 15 mg/dL (7-18); Bilirubin, Total 0.4 mg/dL (0.2-1.0); CO2 24.8 mmol/L (21.0-32.0); CREATININE 1.34 mg/dL (0.55-1.02); Calcium 9.1 mg/dL (8.5-10.1); Chloride 101 mmol/L (98-107); Estimated GFR 40.08 (mL/min/1.73m2); Glucose 143 mg/dL (74-106); NT-proBNP 929 pg/mL (<300); Sodium 141 mmol/L (136-145); Total Protein 8.1 g/dL (6.4-8.2)
[2019-09-04 13:27] LABS: Potassium 2.8 mmol/L (3.5-5.1)
[2019-09-04 13:28] LABS: Troponin I < 0.05 ng/Ml (<0.06)
[2019-09-04] MEDS: predniSONE 20 MG TAB 60 MG PO (13:50)
[2019-09-04] MEDS: Doxycycline Hyclate 100 MG CAP PO (13:50)
[2019-09-04] MEDS: Potassium Chloride 20 MEQ TABCR 40 MEQ PO (13:51)
[2019-09-04 14:09] LABS: TSH (W/Ref FT4) 2.76 uIU/mL (0.36-3.74)
--- NOTE | 2019-09-18 10:57 | ED.GENADUL_ITS ---
Discharge Plan Disposition Patient Disposition: AGAINST MEDICAL ADVICE Condition: Stable Discharge Details Chief Complaint: RespSymp Clinical Impression: Cough, Hypokalemia, Asymmetric blood pressures Primary Care Provider: August Inman ED Provider: Bindu Valdes Home Meds and New Rx's Prescriptions: New potassium chloride 10 mEq capsule, extended release 10 meq PO DAILY Qty: 30 RF: 0 Continued Incruse Ellipta 62.5 mcg/actuation blister with device 1 inh IH DAILY RF: 0 losartan 50 mg tablet 50 mg PO DAILY 90 Days Qty: 90 RF: 3 methadone 10 MG/ML concentrate 85 mg PO DAILY RF: 0 aspirin 81 mg Tablet,Chewable 81 mg PO DAILY Qty: 30 RF: 0 furosemide 20 mg Tablet 20 mg PO DAILY Qty: 30 RF: 0 gabapentin 100 mg Capsule 300 mg PO TID Qty: 60 RF: 0 atorvastatin [Lipitor] 10 MG tablet 10 mg PO DAILY RF: 0 levothyroxine 25 MCG tablet 25 mcg PO DAILY@0600 Qty: 90 RF: 0 albuterol sulfate [Proventil HFA] 200 PUFF HFA aerosol inhaler 2 puff Inhalation Q4H PRN PRNQty: 1 RF: 0 Discontinued potassium chloride 10 mEq tablet extended release 10 meq PO DAILY RF: 0 Discharge Instructions Instructions: Hypokalemia (ED), Acute Cough (ED) Additional Instructions: Please return immediately to the emergency department if you develop any new or worsening symptoms or, if your condition does not improve as expected, or if you become otherwise concerned. It is extremely important that you call as soon as possible to make an appointment to be seen in follow-up for this visit by a primary care doctor. Referrals: August Inman [Primary Care Provider] - Discharge Data Discharge Date/Time-TO BE ENTERED AT DEPARTURE: 09/04/19 14:07 Medical Decision Making Carolin Lake is a 64-year-old woman with a history of COPD, CHF, QT prolongation, hypertension who presented to the emergency department with cough. On exam patient is somewhat chronically ill but acutely nontoxic appearing. Lungs clear to auscultation. Normal work of breathing. Concern for COPD exacerbation, pneumonia, metabolic/lyte derangement. Possible CHF, doubt ACS. Exam/is not consistent with sepsis, pulmonary embolism, acute aortic pathology. Patient also with significant blood pressure discrepancy in left arm versus right arm. Upon record review this is been present chronically and was noted at an earlier cardiology visit. Patient also reports that it has been that way forever, that is completely normal for me. Plan for EKG, chest x-ray, screening labs, flu swab. Labs show mild anemia at 11.7, hypokalemia at 2.8, elevated anion gap, elevated lactate at 2.1, BNP elevated at 976, troponin negative. Given patient's lab abnormalities, I have concern for possible occult pneumonia, and I recommended CT chest for further evaluation in addition to admission for IV fluid hydration, IV potassium, continued monitoring given history of significant cardiopulmonary disease. Patient refused any further evaluation, and states that she wishes to leave the emergency department at this time. I had a lengthy discussion with the patient regarding risks of leaving the emergency department without full evaluation and treatment, including risk of or permanent disability. Patient verbalized understanding of the risks and continued to refuse any further testing in the emergency department or admission to the hospital. Patient had decision-making capacity at time of refusal. Plan for p.o. potassium, p.o. doxycycline, p.o. prednisone. I had a lengthy discussion with Patient regarding return to emergency department precautions, that she may return to the emergency department anytime she changes her mind, home care, and importance of outpatient follow-up. Pt verbalizes understanding of the plan and is amenable. Patient discharged to home with clear plan for outpatient follow- up. All questions were answered. Medical Records Medical records reviewed: Yes I reviewed the patient's medical records. Imaging Data Radiologic Study: Attestation: I personally reviewed and interpreted this imaging study as follows: Radiologist's impression: EXAM: XR CHEST 2V PA LATERAL INDICATION: cough. COMPARISON: XR PORTABLE CHEST AP from 12/02/2018 TECHNIQUE: 2D digital imaging was performed. FINDINGS: The heart size and pulmonary vasculature are within normal limits. The lungs are hyperinflated with flattened diaphragms consistent with underlying COPD. No focal consolidating infiltrates are present. No effusions or pneumothoraces are identified. Age-appropriate degenerative changes are seen in the spine. IMPRESSION: 1. COPD. 2. No acute pulmonary process. Lab Data Lab results reviewed: Yes I reviewed the patient's lab results. Labs: Laboratory Tests Range/Units 09/04/19 09/04/19 09/04/19 12:45 12:45 12:45 WBC (4.4-10.8) k/cumm 9.35 RBC (4.00-5.20) m/cumm 3.82 L Hgb (12.0-15.5) g/dL 11.7 L Hct (36.0-46.0) % 34.2 L MCV (80-95) fL 89.5 MCH (27.0-33.0) pg 30.6 MCHC (32.0-36.0) g/dL 34.2 RDW (11.7-14.6) % 13.9 Plt Count (130-400) x1000/uL 219 MPV (8.0-11.0) fL 10.9 Immature Gran % 0.7 Neutrophils % 64.4 Lymphocytes % 24.2 Monocytes % 8.9 Eosinophils % 1.4 Basophils % 0.4 Absolute Neutrophils (1.2-6.7) k/cumm 6.02 Absolute Lymphocytes (1.2-3.4) k/cumm 2.26 Absolute Monocytes (0.11-0.7) k/cumm 0.83 H Absolute Eosinophils (0.0-0.7) k/cumm 0.13 Absolute Basophils (0.0-0.2) k/cumm 0.04 Sodium (136-145) mmol/L 141 Potassium (3.5-5.1) mmol/L 2.8 L* Chloride (98-107) mmol/L 101 Carbon Dioxide (21.0-32.0) mmol/L 24.8 Anion Gap (3-11) mmol/L 15.2 H BUN (7-18) mg/dL 15 Creatinine (0.55-1.02) mg/dL 1.34 H Estimated GFR/1.73 m2 (mL/min/1.73m2) 40.08 Glucose (74-106) mg/dL 143 H Lactate (0.6-1.4) mmol/L 2.1 H* Calcium (8.5-10.1) mg/dL 9.1 Total Bilirubin (0.2-1.0) mg/dL 0.4 AST (15-37) U/L 24 ALT (14-59) U/L 42 Alkaline Phosphatase (46-116) U/L 159 H Troponin I (<0.06) ng/Ml < 0.05 NT-Pro-B Natriuret Pep (<300) pg/mL 929 Total Protein (6.4-8.2) g/dL 8.1 Albumin (3.4-5.0) g/dL 3.6 TSH (0.36-3.74) uIU/mL Range/Units 09/04/19 09/04/19 12:45 15:27 WBC (4.4-10.8) k/cumm RBC (4.00-5.20) m/cumm Hgb (12.0-15.5) g/dL Hct (36.0-46.0) % MCV (80-95) fL MCH (27.0-33.0) pg MCHC (32.0-36.0) g/dL RDW (11.7-14.6) % Plt Count (130-400) x1000/uL MPV (8.0-11.0) fL Immature Gran % Neutrophils % Lymphocytes % Monocytes % Eosinophils % Basophils % Absolute Neutrophils (1.2-6.7) k/cumm Absolute Lymphocytes (1.2-3.4) k/cumm Absolute Monocytes (0.11-0.7) k/cumm Absolute Eosinophils (0.0-0.7) k/cumm Absolute Basophils (0.0-0.2) k/cumm Sodium (136-145) mmol/L Potassium (3.5-5.1) mmol/L Chloride (98-107) mmol/L Carbon Dioxide (21.0-32.0) mmol/L Anion Gap (3-11) mmol/L BUN (7-18) mg/dL Creatinine (0.55-1.02) mg/dL Estimated GFR/1.73 m2 (mL/min/1.73m2) Glucose (74-106) mg/dL Lactate (0.6-1.4) mmol/L Calcium (8.5-10.1) mg/dL Total Bilirubin (0.2-1.0) mg/dL AST (15-37) U/L ALT (14-59) U/L Alkaline Phosphatase (46-116) U/L Troponin I (<0.06) ng/Ml Cancelled NT-Pro-B Natriuret Pep (<300) pg/mL Total Protein (6.4-8.2) g/dL Albumin (3.4-5.0) g/dL TSH (0.36-3.74) uIU/mL 2.76 ECG Data Interpretation: EKG shows sinus rhythm at 96, left axis, left bundle branch block present on prior, does not meet Sgarbossa criteria for STEMI, nondiagnostic EKG HPI General Mode of arrival: ambulatory . Date/Time Provider Initiated Documentation: 09/04/19 12:04 . Limitations to Documentation: no limitations . Information obtained by: patient, RN notes reviewed and old records reviewed . HPI Narrative: Carolin Lake is a 64-year-old woman with a history of COPD, hypertension, CHF, QT prolongation presenting to the emergency department with cough. Patient was seen here earlier today for this complaint, patient stated at that visit that she needed to leave to walk down the hill to the [facility], and stated that she would return directly after. She was discharged AMA. Patient has now returned to the emergency department as stated, returned directly to here after going from here directly to [facility]. Patient reports that her symptoms are exactly the same as when she presented here at the initial visit today, and she has had no change in her symptoms. Patient again reports same HPI as prior visit today without additions or changes: for the past 9 days she has had cough and cold symptoms. She reports that she has had nasal conge stion, cough increased from her baseline productive of yellow sputum, and somewhat decreased appetite. She reports that she noticed increased shortness of breath from baseline while walking to the emergency department from the [facility] where she receives her methadone, but she states that she has otherwise not noticed much increase in her exertional shortness of breath. She denies orthopnea and PND. Patient reports that she has had no pain, fevers, vomiting, diarrhea, rash, numbness, weakness. Patient reports that she has been drinking plenty of fluids. She states that she has been using her albuterol inhaler regularly at home since onset of symptoms, which does relieve her cough somewhat. Patient states that she has not received the flu vaccine this year. No recent travel. Related Data Home Medications Medication Instructions Recorded Confirmed atorvastatin [Lipitor] 10 mg PO DAILY 06/21/17 09/24/19 albuterol sulfate [Proventil HFA] 2 puff INHALATION Q4H PRN PRN #1 06/24/17 09/24/19 inh levothyroxine 25 mcg PO DAILY@0600 #90 tab 06/24/17 09/24/19 methadone 85 mg PO DAILY 12/02/18 09/24/19 aspirin 81 mg PO DAILY #30 tab 12/09/18 09/24/19 furosemide 20 mg PO DAILY #30 tab 12/09/18 09/24/19 gabapentin 300 mg PO TID #60 cap 12/09/18 09/24/19 losartan 50 mg tablet 50 mg PO DAILY 90 Days #90 tab 06/30/19 09/24/19 umeclidinium 62.5 mcg/actuation 1 inh IH DAILY 06/30/19 09/24/19 blister powder for inhalation potassium chloride 10 meq PO DAILY #30 cap 09/04/19 09/24/19 Previous Rx's Medication Instructions Recorded albuterol sulfate [Proventil HFA] 2 puff INHALATION Q4H PRN PRN #1 06/24/17 inh levothyroxine 25 mcg PO DAILY@0600 #90 tab 06/24/17 aspirin 81 mg PO DAILY #30 tab 12/09/18 furosemide 20 mg PO DAILY #30 tab 12/09/18 gabapentin 300 mg PO TID #60 cap 12/09/18 losartan 50 mg tablet 50 mg PO DAILY 90 Days #90 tab 06/30/19 potassium chloride 10 meq PO DAILY #30 cap 09/04/19 Allergies Allergy/AdvReac Type Severity Reaction Status Date / Time Penicillins Allergy Unverified 09/24/19 20:50 General Stated Complaint: RespSymp JAYCE: 4 Review of Systems Narrative: Constitutional: denies fevers Eyes: denies eye pain ENT: denies ear pain, dental pain, sore throat, reports nasal congestion Cardiovascular: denies chest pain, edema Respiratory: Reports mild exertional SOB, cough GI: denies abdominal pain, vomiting, diarrhea : denies flank pain MSK: denies back pain, neck pain, arthralgias, myalgias Skin: denies rash Neuro: denies headaches, numbness, weakness [facility] Medical History Abnormal stress test (Acute) Acute diastolic CHF (congestive heart failure) (Resolved) Acute respiratory failure with hypoxia (Acute) HAMZAH (acute kidney injury) (Acute) Cardiomyopathy (Acute ~12/2018) Chronic pain (Chronic) Community acquired pneumonia (Acute) COPD with acute exacerbation (Acute) Hyperglycemia (Resolved) Hypertension (Chronic) Hypothyroidism (Chronic) Prediabetes (Acute) QT prolongation (Acute) Tobacco abuse counseling (Acute) Troponin level elevated (Resolved) Social History Smoking/Tobacco Use Status: Current every day Tobacco Type: cigarettes Smoking packs per day: 1 Smoking cigarettes per day: 20.0 Years smoked: 46 Smoking pack- years: 46.00 Quit status: considering quitting Counseling given: provider counseling, support medications, support program and other Alcohol Intake: never Details: did not have influenza vaccine for this season 09/21 Current gender identity: female Do you feel safe at home: Yes Do you feel safe in your relationship?: Yes Exam Narrative Exam Narrative: Exam Narrative: Constitutional: Somewhat chronically ill- appearing but acutely non-toxic, pleasant, conversing normally HENT: head atraumatic/normocephalic/normal inspection, mucous membranes moist Eyes: conjunctiva normal, sclera normal, pupils 3mm b/l Neck: no stridor, normal ROM, trachea midline Chest: normal inspection Resp: normal work of breathing, lungs clear to auscultation throughout without wheeze/rales/rhonchi Cardio: normal rate, normal rhythm, no murmur appreciated Back: normal inspection, no rash Skin: warm, dry, normal color, no rash Neuro: alert, not altered, grossly non-focal, normal tone Ext: no edema, no posterior calf tenderness to palpation Psych: normal mood, normal affect, normal behavior Course Vital Signs Vital signs: Vital Signs Temperature 36.5 C 09/04/19 12:04 Pulse 91 H 09/04/19 12:04 Respiratory Rate 18 09/04/19 12:04 Blood Pressure 84/56 L 09/04/19 12:04 Pulse Oximetry 97 09/04/19 12:04 Temperature 36.5 C 09/04/19 12:04 Temperature Source Skin 09/04/19 12:04 Pulse 71 09/04/19 13:10 Pulse 75 09/04/19 13:20 Respiratory Rate 13 09/04/19 13:20 Respiratory Effort 09/04/19 12:20 Respiratory Depth Normal 09/04/19 12:20 Blood Pressure 88/74 L 09/04/19 13:48 Blood Pressure Mean 58 09/04/19 13:10 Blood Pressure Position Sitting 09/04/19 12:04 Pulse Oximetry 92 L 09/04/19 13:20 Oxygen Delivery Method Room Air 09/04/19 12:04 Oxygen Flow Rate 0 09/04/19 12:04 Pain Level 9 09/04/19 12:04 Lab/Test Results Lab/Test Results: Laboratory Tests Range/Units 09/04/19 09/04/19 09/04/19 12:45 12:45 12:45 WBC (4.4-10.8) k/cumm 9.35 RBC (4.00-5.20) m/cumm 3.82 L Hgb (12.0-15.5) g/dL 11.7 L Hct (36.0-46.0) % 34.2 L MCV (80-95) fL 89.5 MCH (27.0-33.0) pg 30.6 MCHC (32.0-36.0) g/dL 34.2 RDW (11.7-14.6) % 13.9 Plt Count (130-400) x1000/uL 219 MPV (8.0-11.0) fL 10.9 Immature Gran % 0.7 Neutrophils % 64.4 Lymphocytes % 24.2 Monocytes % 8.9 Eosinophils % 1.4 Basophils % 0.4 Absolute Neutrophils (1.2-6.7) k/cumm 6.02 Absolute Lymphocytes (1.2-3.4) k/cumm 2.26 Absolute Monocytes (0.11-0.7) k/cumm 0.83 H Absolute Eosinophils (0.0-0.7) k/cumm 0.13 Absolute Basophils (0.0-0.2) k/cumm 0.04 Sodium (136-145) mmol/L 141 Potassium (3.5-5.1) mmol/L 2.8 L* Chloride (98-107) mmol/L 101 Carbon Dioxide (21.0-32.0) mmol/L 24.8 Anion Gap (3-11) mmol/L 15.2 H BUN (7-18) mg/dL 15 Creatinine (0.55-1.02) mg/dL 1.34 H Estimated GFR/1.73 m2 (mL/min/1.73m2) 40.08 Glucose (74-106) mg/dL 143 H Lactate (0.6-1.4) mmol/L 2.1 H* Calcium (8.5-10.1) mg/dL 9.1 Total Bilirubin (0.2-1.0) mg/dL 0.4 AST (15-37) U/L 24 ALT (14-59) U/L 42 Alkaline Phosphatase (46-116) U/L 159 H Troponin I (<0.06) ng/Ml < 0.05 NT-Pro-B Natriuret Pep (<300) pg/mL 929 Total Protein (6.4-8.2) g/dL 8.1 Albumin (3.4-5.0) g/dL 3.6 TSH (0.36-3.74) uIU/mL Range/Units 09/04/19 09/04/19 12:45 15:27 WBC (4.4-10.8) k/cumm RBC (4.00-5.20) m/cumm Hgb (12.0-15.5) g/dL Hct (36.0-46.0) % MCV (80-95) fL MCH (27.0-33.0) pg MCHC (32.0-36.0) g/dL RDW (11.7-14.6) % Plt Count (130-400) x1000/uL MPV (8.0-11.0) fL Immature Gran % Neutrophils % Lymphocytes % Monocytes % Eosinophils % Basophils % Absolute Neutrophils (1.2-6.7) k/cumm Absolute Lymphocytes (1.2-3.4) k/cumm Absolute Monocytes (0.11-0.7) k/cumm Absolute Eosinophils (0.0-0.7) k/cumm Absolute Basophils (0.0-0.2) k/cumm Sodium (136-145) mmol/L Potassium (3.5-5.1) mmol/L Chloride (98-107) mmol/L Carbon Dioxide (21.0-32.0) mmol/L Anion Gap (3-11) mmol/L BUN (7-18) mg/dL Creatinine (0.55-1.02) mg/dL Estimated GFR/1.73 m2 (mL/min/1.73m2) Glucose (74-106) mg/dL Lactate (0.6-1.4) mmol/L Calcium (8.5-10.1) mg/dL Total Bilirubin (0.2-1.0) mg/dL AST (15-37) U/L ALT (14-59) U/L Alkaline Phosphatase (46-116) U/L Troponin I (<0.06) ng/Ml Cancelled NT-Pro-B Natriuret Pep (<300) pg/mL Total Protein (6.4-8.2) g/dL Albumin (3.4-5.0) g/dL TSH (0.36-3.74) uIU/mL 2.76
== END 2019-09-04 14:07 | disposition left against medical advice (07) ==
PROVIDERS: Emergency Provider Student in an Organized Health Care Education/Training Program; PCP Family Medicine
DX: E87.6 Hypokalemia (principal); R05 Cough; E87.2 Acidosis; R09.81 Nasal congestion; J44.9 Chronic obstructive pulmonary disease, unspecified; F17.210 Nicotine dependence, cigarettes, uncomplicated; I11.0 Hypertensive heart disease with heart failure; I50.9 Heart failure, unspecified; I42.9 Cardiomyopathy, unspecified; Z53.29 Procedure and treatment not carried out because of patient's decision for other reasons
CPT/HCPCS: 36415; 80053; 99284; 71046; 83605; 83880; 84443; 84484; 85025; 99285; J7512

== ENCOUNTER 2019-09-24 20:21 | Inpatient (IN) | payer MEDICARE, MEDICAID, SELFPAY ==
[2019-09-24] VITALS (34 sets, daily range): BP systolic 60–248; BP diastolic 38–105; PULSE 84–113; RESP 4–36; TEMP 36.1; O2SAT 64–98
--- NOTE | 2019-09-24 20:33 | DI.RAD_ITS ---
EXAM: XR PORTABLE CHEST AP INDICATION: shortness of breath. COMPARISON: PORTABLE CHEST ONE VIEW from 06/21/2017 XR CHEST 2V PA LATERAL from 09/04/2019 TECHNIQUE: 2D digital imaging was performed. FINDINGS: The heart size and pulmonary vasculature are within normal limits. No pleural effusion or pneumothor ax is identified. There is mildly prominent interstitial lung markings present. This may be due to technique. An interstitial infiltrate or edema cannot be excluded. No focal consolidating infiltrat e is present. The opacity seen in the right lung base medially is unchanged compared to the prior ex amination and likely reflects a fat pad. Degenerative changes are seen in the spine. IMPRESSION: 1. Question increased interstitial markings. This may be secondary to pulmonary edema or mild inters titial pneumonia. Please correlate clinically. 2. Opacity seen in the right lung base medially which may represent a fat pad. If there is continued concern, a CT scan of the chest should be considered to exclude a pulmonary nodule.
--- NOTE | 2019-09-24 20:35 | W.ED.GENAD ---
Discharge Plan Disposition Patient Disposition: [facility] INPATIENT Condition: Stable Discharge Details Chief Complaint: SOB Clinical Impression: Hypoxia, COPD exacerbation Primary Care Provider: August Inman ED Provider: Vini Gatica Home Meds and New Rx's Prescriptions: No Action Incruse Ellipta 62.5 mcg/actuation blister with device 1 inh IH DAILY RF: 0 losartan 50 mg tablet 50 mg PO DAILY 90 Days Qty: 90 RF: 3 methadone 10 MG/ML concentrate 85 mg PO DAILY RF: 0 aspirin 81 mg Tablet,Chewable 81 mg PO DAILY Qty: 30 RF: 0 furosemide 20 mg Tablet 20 mg PO DAILY Qty: 30 RF: 0 gabapentin 100 mg Capsule 300 mg PO TID Qty: 60 RF: 0 potassium chloride 10 mEq capsule, extended release 10 meq PO DAILY Qty: 30 RF: 0 doxycycline hyclate 100 mg tablet 100 mg PO BID Qty: 19 RF: 0 prednisone 20 mg tablet 60 mg PO DAILY Qty: 12 RF: 0 atorvastatin [Lipitor] 10 MG tablet 10 mg PO DAILY RF: 0 levothyroxine 25 MCG tablet 25 mcg PO DAILY@0600 Qty: 90 RF: 0 albuterol sulfate [Proventil HFA] 200 PUFF HFA aerosol inhaler 2 puff Inhalation Q4H PRN PRNQty: 1 RF: 0 Medical Decision Making 64 yo female with hx of copd, cad, htn, who comes in with cc of worsening shortness of breath. She arrives in distress only able to say 1 word sentences. She says no when I ask if she has had any chest pain or pressure. She was seen a week ago and left ama from the ED and states her shortness of breath has been worsening since then. She arrives with o2 saturations on room air of 60%, hypertensive, bedside u/s shows no significant b lines in lungs and no pericardial effusion. She has diminished air entry bilaterally. Suspect copd exacerbation, placed on bipap and will give nebs and steroids and cxr and obtain ecg and lab work. pt having some anxiety with the bipap so will give ativan she is tolerating bipap well and is speaking in 3-4 sentences now and states she does feel better. Xray shows possible interstital pneumonia vs pulmonary edema, will tx with dose of lasix and abx. Spoke with Dr. Connell who accepts for admission Differential Diagnosis Differential Diagnosis: copd, pneumonia, acs Medical Records Medical records reviewed: Yes I reviewed the patient's medical records. Imaging Data Radiologic Study: Attestation: I personally reviewed and interpreted this imaging study as follows: Imaging: X-Ray Radiologist's impression: IMPRESSION: 1. Slightly increased interstitial lung markings could be secondary to mild pulmonary edema versus mild interstitial pneumonia. Correlate with clinical findings. No pleural effusion or pneumothorax. 2. Nodular opacity in the right lower lung which could represent a prominent fat pad. However a CT scan is recommended to exclude a pulmonary nodule in this region. Lab Data Lab results reviewed: Yes I reviewed the patient's lab results. ECG Data Attestation: I personally reviewed and interpreted this ECG (s) as follows: Prior ECG tracings: available for review Interpretation: sinus tachycardia, rate 110, lbbb, no acute st t wave ischemic changes compared to ekg of 09/04 HPI General Mode of arrival: wheelchair. Date/Time Provider Initiated Documentation: 09/24/19 20:22. Limitations to Documentation: no limitations. Information obtained by: patient. History of Present Illness 64 year old F presents to the emergency department with the chief complaint of shortness of breath, described as moderate, and it has been constant. No relieving factors improve symptom(s), No exacerbating factors reported . Patient did receive the following treatments prior to arrival, none Related Data Home Medications Medication Instructions Recorded Confirmed atorvastatin [Lipitor] 10 mg PO DAILY 06/21/17 09/04/19 albuterol sulfate [Proventil HFA] 2 puff INHALATION Q4H PRN PRN #1 06/24/17 09/04/19 inh levothyroxine 25 mcg PO DAILY@0600 #90 tab 06/24/17 09/04/19 methadone 85 mg PO DAILY 12/02/18 09/04/19 aspirin 81 mg PO DAILY #30 tab 12/09/18 09/04/19 furosemide 20 mg PO DAILY #30 tab 12/09/18 09/04/19 gabapentin 300 mg PO TID #60 cap 12/09/18 09/04/19 losartan 50 mg tablet 50 mg PO DAILY 90 Days #90 tab 06/30/19 09/04/19 umeclidinium 62.5 mcg/actuation 1 inh IH DAILY 06/30/19 09/04/19 blister powder for inhalation doxycycline hyclate 100 mg PO BID #19 tab 09/04/19 potassium chloride 10 meq PO DAILY #30 cap 09/04/19 prednisone 60 mg PO DAILY #12 tab 09/04/19 Previous Rx's Medication Instructions Recorded albuterol sulfate [Proventil HFA] 2 puff INHALATION Q4H PRN PRN #1 06/24/17 inh levothyroxine 25 mcg PO DAILY@0600 #90 tab 06/24/17 aspirin 81 mg PO DAILY #30 tab 12/09/18 furosemide 20 mg PO DAILY #30 tab 12/09/18 gabapentin 300 mg PO TID #60 cap 12/09/18 losartan 50 mg tablet 50 mg PO DAILY 90 Days #90 tab 06/30/19 doxycycline hyclate 100 mg PO BID #19 tab 09/04/19 potassium chloride 10 meq PO DAILY #30 cap 09/04/19 prednisone 60 mg PO DAILY #12 tab 09/04/19 Allergies Allergy/AdvReac Type Severity Reaction Status Date / Time Penicillins Allergy Unverified 09/24/19 20:50 General JAYCE: 4 Review of Systems All systems reviewed & are unremarkable except as noted in HPI and below Constitutional Constitutional: Denies chills, Denies fever(s) and Denies weakness Gastrointestinal Gastrointestinal: Denies abdominal pain, Denies nausea and Denies vomiting Musculoskeletal Musculoskeletal: Denies joint swelling Neurologic Neurologic: Denies weakness ON LICENSE OF [facility] Social History Smoking/Tobacco Use Status: Current every day Tobacco Type: cigarettes Smoking packs per day: 1 Smoking cigarettes per day: 20.0 Years smoked: 46 Smoking pack-years: 46.00 Quit status: considering quitting Counseling given: provider counseling, support medications, support program and other Alcohol Intake: never Details: did not have influenza vaccine for this season 09/21 Current gender identity: female Do you feel safe at home: Yes Do you feel safe in your relationship?: Yes Exam Const General: in distress Orientation: alert HENMT Head: normal to inspection Ears: external ears normal General nose exam: external nose normal Mouth: moist mucous membranes Eyes General: appearance normal, both eyes and all related structures Neck Neck: normal visual inspection Resp Effort & Inspection: no tracheal deviation and uses accessory muscles Cardio Rate: regular rate Skin General skin exam: no rashes or lesions noted Neuro General: alert and oriented x3 Extrem General: normal to inspection Psych Mental Status: mental status grossly normal Critical Care Time Critical Care Time Critical Care Time: Yes Total Critical Care Time: 45 (minutes) Attestation: time spent monitoring hemodynamics, lab review and frequent reassessments in patient with hypoxic respiratory failure requiring bipap and potential to deteriorate at any time
[2019-09-24] MEDS: Albuterol/Ipratropium 3 ML UPD VIAL UPD (20:38)
[2019-09-24 20:41] LABS: Abs Immature Grans 0.06 k/cumm (0.0-0.09); Absolute Basophil Count 0.11 k/cumm (0.0-0.2); Absolute Lymphocyte Count 5.71 k/cumm (1.2-3.4); Absolute Monocyte Count 1.05 k/cumm (0.11-0.7); Basophils % 0.8; Eosinophils % 4.3; HCT 40.7 % (36.0-46.0); HGB 13.1 g/dL (12.0-15.5); Immature Grans % 0.4; Lymphocytes % 40.9; Mean Corp. HGB Concentration 32.2 g/dL (32.0-36.0); Mean Corpuscular Hemoglobin 30.5 pg (27.0-33.0); Mean Corpuscular Volume 94.9 fL (80-95); Mean Platelet Volume 11.6 fL (8.0-11.0); Monocytes % 7.5; Neutrophils % 46.1; Platelet Count 234 x1000/uL (130-400); RBC 4.29 m/cumm (4.00-5.20); RBC Distribution Width 14.1 % (11.7-14.6); White Blood Cell Count 13.95 k/cumm (4.4-10.8)
[2019-09-24 20:43] LABS: Absolute Neutrophil Count 6.43 k/cumm (1.2-6.7)
[2019-09-24] MEDS: methylPREDNISolone SUCC 125 MG VIAL IVP (20:46)
[2019-09-24] MEDS: Ondansetron 4 MG/2 ML VIAL (20:46)
[2019-09-24 20:53] LABS: PTT Activated 21.9 sec (21.0-31.4); Prothrombin Time 9.9 sec (9.3-11.0)
[2019-09-24 20:55] LABS: ALT 35 U/L (14-59); AST 21 U/L (15-37); Alkaline Phosphatase 134 U/L (46-116); Anion Gap 20.5 mmol/L (3-11); BUN 17 mg/dL (7-18); Bilirubin, Total 0.2 mg/dL (0.2-1.0); CO2 21.5 mmol/L (21.0-32.0); CREATININE 1.53 mg/dL (0.55-1.02); Calcium 9.5 mg/dL (8.5-10.1); Chloride 100 mmol/L (98-107); Estimated GFR 34.39 (mL/min/1.73m2); Glucose 172 mg/dL (74-106); Lipase 97 U/L (73-393); Magnesium 2.3 mg/dL (1.8-2.4); Sodium 142 mmol/L (136-145); Total Protein 8.3 g/dL (6.4-8.2)
[2019-09-24 20:56] LABS: Troponin I < 0.05 ng/Ml (<0.06)
[2019-09-24 21:04] LABS: Diff Comment Agrees w/ Instrument; NT-proBNP 579 pg/mL (<300); RBC Morphology Normal
[2019-09-24] MEDS: Albuterol/Ipratropium 3 ML UPD VIAL (21:05)
[2019-09-24 21:07] LABS: HCO3 (Venous) 20 mmol/L (22-28); O2 Sat (Venous) 81 % (70-80); TCO2 (Venous) 19 mmol/L (22-29); pCO2 (Venous) 52 mm/Hg (34-47); pH (Venous) 7.19 (7.32-7.43); pO2 (Venous) 55 mm/Hg (28-44)
--- NOTE | 2019-09-24 21:07 | DI.VRAD_ITS ---
PROCEDURE INFORMATION: Exam: XR Chest, 1 View Exam date and time: 09/24/2019 8:45 PM Age: 64 years old Clinical indication: Shortness of breath; Patient HX: SOB TECHNIQUE: Imaging protocol: XR of the chest Views: 1 view. COMPARISON: CR XR CHEST 2V PA LATERAL 09/04/2019 12:16 PM FINDINGS: Lungs: Slightly prominent interstitial lung markings are noted, which could represent mild edema versus mild interstitial pneumonia. No large consolidation. Small nodular opacity in the right lower lobe may represent prominent fat pad in this region. Pleural space: Unremarkable. No pleural effusion. No pneumothorax. Heart/Mediastinum: Unremarkable. No cardiomegaly. Bones/joints: Unremarkable. IMPRESSION: 1. Slightly increased interstitial lung markings could be secondary to mild pulmonary edema versus mild interstitial pneumonia. Correlate with clinical findings. No pleural effusion or pneumothorax. 2. Nodular opacity in the right lower lung which could represent a prominent fat pad. However a CT scan is recommended to exclude a pulmonary nodule in this region. Dictated and Authenticated by: Karla Clark MD. Ordering:MARQUISE Martini MD
[2019-09-24 21:09] LABS: BE (Venous) -8.4 mmol/L (-3-3)
[2019-09-24] MEDS: POTASSIUM CHLORIDE 20 MEQ/100 ML BAG 50 MEQ IVPB ×2 (21:12→22:00)
[2019-09-24] MEDS: LORazepam 2 MG/ML VIAL 0.5 MG IVP (21:21)
[2019-09-24] MEDS: Furosemide 40 MG/4 ML VIAL IVP (21:22)
[2019-09-24] MEDS: levoFLOXacin 750 MG/150 ML BAG 100 MG IVPB (21:23)
[2019-09-24 21:34] LABS: HCO3 23 mmol/L (22-28); pCO2 52 mmHg (34-47); pH 7.25 (7.35-7.45); pO2 60 mmHg (83-108); sO2 87 % (94-98); tCO2 22 mmol/L (22-29)
[2019-09-24 21:36] LABS: BE -4.4 mmol/L (-3-3); FIO2 30% %; Site Left Radial
--- NOTE | 2019-09-24 21:43 | NUR.NOTE ---
Nursing Note: BP cuff moved to Right arm for comfort as IV's are infusing in Left arm. Per previous history notes/BP is noted to read higher in left arm than right arm.
[2019-09-24 22:43] LABS: Lactate 3.1 mmol/L (0.6-1.4)
--- NOTE | 2019-09-24 22:48 | HPE_ITS ---
Date of service: 09/24/19 Time of Service: 22:48 Assessment and Plan Assessment and plan (1) Community acquired pneumonia: Status: Acute Assessment and plan: Patient has severe community-acquired pneumonia superimposed upon her COPD causing her acute on chronic respiratory acidosis as well as a metabolic lactic acidosis. She is at increased risk for sepsis and respiratory failure. She seems to be responding to the treatment begun in the emergency department which included multiple DuoNeb aerosol treatments along with IV corticosteroids and noninvasive positive pressure ventilation. For tonight I will keep her n.p.o. and continue BiPAP with titration to keep her saturation above 90% while trying to improve her ventilation and reduce her PCO2. I will monitor through the night with serial BMPs and VBG's. I will continue to treat her with IV corticosteroids and broad-spectrum IV antibiotics. She has been started on Levaquin 750 mg IV in the ER at this will be continued at renal adjusted doses. I am going to add cefepime because of her underlying structural lung disease and the severity of her pneumonia. She has an allergy to penicillin but cannot tell me what her reaction is to this. During her previous admission in December 2018 she was on ceftriaxone without any ill effect. Qualifiers: Laterality: unspecified laterality Qualified Code(s): J18.9 - Pne umonia, unspecified organism (2) HAMZAH (acute kidney injury): Status: Acute Assessment and plan: She has acute renal injury probably due to sepsis and continued use of her Lasix and losartan and decreased oral intake causing diminished intravascular volume. While she has a known cardiomyopathy with a le ft ventricular ejection fraction of 45 to 50% as of December 05, 2018. She does not appear to be in acute congestive heart failure. She has no rales and no JVD on physical exam. She had no pleural effusion and minimal B-lines on lung ultrasound. Furthermore on [id number] echocardiography the RV is not dilated and the IVC has greater than 50% respirophasic change. She did receive a dose of Lasix in the ER on the presumption that she had some acute congestive failure based upon an elevated proBNP of 579. However when she was in acute congestive heart failure in December her proBNP was between 2300 and 8700. I will continue gentle IV fluid hydration overnight with monitoring of her urine output and serial BMPs. In the morning the day hospitalist can reassess her volume status and determine if she needs further IV fluids. (3) Hypertension: Status: Chronic Assessment and plan: Patient presented in severe hypertension probably due to her respiratory extremis. Her blood pressures have calm down with the use of BiPAP and a one-time dose of Lasix given in the emergency department. For now, to keep her n.p.o. overnight while she is on the BiPAP. In the morning she can resume her oral antihypertensives. Qualifiers: Hypertension type: essential hypertension Qualified Code(s): I10 - Essential (primary) hypertension (4) Hypokalemia: Status: Acute Assessment and plan: Patient has hypokalemia probably secondary to her continued use of oral Lasix in the setting of decreased oral intake. This is particularly concerning since she has a anion gap metabolic acidosis. Normally she should be hyperkalemic in the setting of metabolic acidosis. I have ordered a couple boluses of potassium of 20 mill equivalents each over 2 hours. A repeat her BMP and have added supplemental potassium to her maintenance IV. (5) Chronic pain: Status: Chronic Assessment and plan: We will check with [facility] in the morning as to her daily dose of methadone. Once she is off the BiPAP mask and can take pills safely she will be given her daily dose of methadone. Qualifiers: Chronic pain type: chronic pain syndrome Qualified Code(s): G89.4 - Chronic pain syndrome (6) Hypothyroidism: Status: Chronic Assessment and plan: We will resume her oral levothyroxine in the morning once she is off the BiPAP mask. Qualifiers: Hypothyroidism type: acquired Qualified Code(s): E03.9 - Hypothyroidism, unspecified (7) Subclavian arterial stenosis: Status: Suspected Assessment and plan: Note: patient has significant discrepancies in BP readings between her right arm and left arm with the left being higher than the right. Furthermore she has markedly dimished pulses in the right wrist and over the right brachial artery. I could not find this documented in her chart but this would explain the one time documented low bp in the ER. The patient herself seems to know about this discrepancy. This can and should be followed up as an outpatient and for monitoring or adjusting her HTN meds all BP should be taken in the left arm. History of Present Illness History of Present Illness Chief Complaint: shortness of breath Narrative: 64-year-old female smoker with a history of COPD, essential hypertension, cardiomyopathy with heart failure with reduced ejection fraction as well as diastolic dysfunction, possible coronary artery disease, hypothyroidism, chronic pain syndrome for which she is on methadone treatment now presents emergency department with several days of increasing shortness of breath associated with a cough productive of purulent yellow sputum no hemoptysis no fever or rigors. Cabrera villasenor had been seen by the emergency department 1 week prior but left AGAINST MEDICAL ADVICE. On arrival to emergency department she was in respiratory extremis with tachypnea at 35 breaths/min and hypoxemic reportedly her oxygen saturation was in the low 50% although the lowest documented reading I can see is 88% on room air. She was very hypertensive with a systolic blood pressure 231 over di astolic pressure 95 and tachycardic a heart rate of 106 bpm. Diagnostic work-up included chest x-ray imaging that demonstrated increased interstitial lung markings felt to be secondary to either mild pulmonary edema versus mild interstitial pneumonia. No pleural effusions or pneumothorax are seen. Nodular opacity right lower lung was seen and felt to be due to fat pad but a follow-up CT scan is recommended. Her EKG demonstrated sinus tachycardia rate of 109 bpm with a chronic left bundle branch block pattern with concordant ST-T wave changes similar to her prior ECGs from September 04, 2019 and December 09, 2018 except that her rate is now sinus tachycardia. Laboratory findings include a leukocytosis of 13,950 which is new compared to her CBC from September 04, 2019. There does not appear to be an increase in her neutrophils but there is a lymphocytosis of 5700. CMP demonstrated a hypokalemia of 3.0 and increased anion gap of 20.5 and elevated creatinine 1.53 and glucose of 172. LFTs were essentially normal. Her blood lactate level is elevated at 3.1 and her troponin I level is less than 0.05 and a repeat level 2 hours later is 0.05. Procalcitonin 0.1. Her venous blood gas demonstrated pH 7.19 and a PCO2 of 52 and a PO2 of 55. After being given multiple DuoNeb aerosol treatments, Solu- Medrol and Levaquin and treatment with BiPAP at 10/5 cm and FiO2 of 30% her ABG demonstrated pH 7.25 and a PCO2 of 52 and a PO2 of 60 with an oxygen saturation 87%. Patient is now admitted to the intensive care unit for treatment of acute on chronic respiratory failure secondary to community-acquired pneumonia superimposed on COPD, acute kidney injury and acute lactic acidosis and hypok alemia. Patient did state that she wants to be a full resuscitation in the event of acute cardiac arrest or acute respiratory failure necessitating intubation and invasive mechanical ventilation. Review of Systems All systems reviewed & are unremarkable except as noted in HPI and below COUNT INCLUDES THE [facility] Medical History (Updated 09/25/19 @ 01:04 by Jeffery Connell) Abnormal stress test (Acute) Acute diastolic CHF (congestive heart failure) (Resolved) Acute respiratory failure with hypoxia (Acute) HAMZAH (acute kidney injury) (Acute) Cardiomyopathy (Acute ~12/2018) Chronic pain (Chronic) Community acquired pneumonia (Acute) COPD with acute exacerbation (Acute) Hyperglycemia (Resolved) Hypertension (Chronic) Hypothyroidism (Chronic) Prediabetes (Acute) QT prolongation (Acute) Tobacco abuse counseling (Acute) Troponin level elevated (Resolved) Social History Smoking/Tobacco Use Status: Current every day Tobacco Type: cigarettes Smoking packs per day: 1 Smoking cigarettes per day: 20.0 Years smoked: 46 Smoking pack- years: 46.00 Quit status: considering quitting Counseling given: provider counseling, support medications, support program and other Alcohol Intake: never Details: did not have influenza vaccine for this season 09/21 Current gender identity: female Do you feel safe at home: Yes Do you feel safe in your relationship?: Yes Meds Home Medications and Allergies Home Medications Medication Instructions Recorded Confirmed Type atorvastatin [Lipitor] 10 mg PO DAILY 06/21/17 09/24/19 History albuterol sulfate [Proventil HFA] 2 puff INHALATION Q4H PRN PRN #1 06/24/17 09/24/19 Rx inh levothyroxine 25 mcg PO DAILY@0600 #90 tab 06/24/17 09/24/19 Rx methadone 85 mg PO DAILY 12/02/18 09/24/19 History aspirin 81 mg PO DAILY #30 tab 12/09/18 09/24/19 Rx furosemide 20 mg PO DAILY #30 tab 12/09/18 09/24/19 Rx gabapentin 300 mg PO TID #60 cap 12/09/18 09/24/19 Rx losartan 50 mg tablet 50 mg PO DAILY 90 Days #90 tab 06/30/19 09/24/19 Rx umeclidinium 62.5 mcg/actuation 1 inh IH DAILY 06/30/19 09/24/19 History blister powder for inhalation potassium chloride 10 meq PO DAILY #30 cap 09/04/19 09/24/19 Rx Allergies Allergy/AdvReac Type Severity Reaction Status Date / Time Penicillins Allergy Unverified 09/24/19 20:50 Exam Narrative Exam Narrative: Middle-aged female who is lying in bed in semi-wing position currently in no acute respiratory distress. She is tolerating BiPAP mask well not using accessory respiratory muscles. Neck is supple without JVD normal carotid pulses no bruits Lungs reveal scattered end expiratory wheezes no rhonchi or rales. Heart is tachycardic but regular no appreciable murmur rub or gallop Abdomen is obese soft slightly distended nontender without palpable masses no bruits no organomegaly. Extremities without edema or calf tenderness. She has some slight mottling of the skin over the knees. Feet are cool but dry. Pulses in the right wrist and right brachial are barely palpable. She has normal pulses in the left wrist and left brachial artery. Genitalia and rectal exam deferred. Neurologic exam she is somewhat somnolent but awakens easily. When awake she answers questions appropriately and is oriented to person place time circumstance. She has no focal motor or sensory deficits no focal cranial nerve deficits. She has no tremors but does have increased myoclonus. Results Imaging Chest x-ray: image reviewed (Increased interstitial markings bilaterally. No pleural effusions no segmental or lobar consolidation. No cardiomegaly) EKG: image reviewed Labs Result diagrams: 09/24/19 20:34 09/24/19 20:34 Labs: Laboratory Results - last 24 hr 09/24/19 09/24/19 09/24/19 20:34 20:34 20:34 WBC 13.95 H RBC 4.29 Hgb 13.1 Hct 40.7 MCV 94.9 MCH 30.5 MCHC 32.2 RDW 14.1 Plt Count 234 MPV 11.6 H Immature Gran % 0.4 Neutrophils % 46.1 Lymphocytes % 40.9 Monocytes % 7.5 Eosinophils % 4.3 Basophils % 0.8 Absolute Neutrophils 6.43 Absolute Lymphocytes 5.71 H Absolute Monocytes 1.05 H Absolute Eosinophils 0.60 Absolute Basophils 0.11 Differential Comment Agrees w/ instrument RBC Morphology Normal PT INR APTT Sample Site pCO2 pO2 O2 Saturation ABG pH ABG HCO3 ABG Total CO2 ABG Base Excess VBG pH VBG pCO2 VBG pO2 VBG HCO3 VBG Total CO2 VBG O2 Saturation VBG Base Excess Oxygen Liter Flow FiO2 Sodium 142 Potassium 3.0 L Chloride 100 Carbon Dioxide 21.5 Anion Gap 20.5 H BUN 17 Creatinine 1.53 H Estimated GFR/1.73 m2 34.39 Glucose 172 H Lactate Calcium 9.5 Magnesium 2.3 Total Bilirubin 0.2 AST 21 ALT 35 Alkaline Phosphatase 134 H Troponin I < 0.05 NT-Pro-B Natriuret Pep 579 Total Protein 8.3 H Albumin 4.0 Lipase 97 09/24/19 09/24/19 09/24/19 20:34 21:00 21:18 WBC RBC Hgb Hct MCV MCH MCHC RDW Plt Count MPV Immature Gran % Neutrophils % Lymphocytes % Monocytes % Eosinophils % Basophils % Absolute Neutrophils Absolute Lymphocytes Absolute Monocytes Absolute Eosinophils Absolute Basophils Differential Comment RBC Morphology PT 9.9 INR 1.0 APTT 21.9 Sample Site Left radial pCO2 52 H pO2 60 L O2 Saturation 87 L ABG pH 7.25 L ABG HCO3 23 ABG Total CO2 22 ABG Base Excess -4.4 L VBG pH 7.19 L VBG pCO2 52 H VBG pO2 55 H VBG HCO3 20 L VBG Total CO2 19 L VBG O2 Saturation 81 H VBG Base Excess -8.4 L Oxygen Liter Flow Bipap 10/5 FiO2 30% Sodium Potassium Chloride Carbon Dioxide Anion Gap BUN Creatinine Estimated GFR/1.73 m2 Glucose Lactate Calcium Magnesium Total Bilirubin AST ALT Alkaline Phosphatase Troponin I NT-Pro-B Natriuret Pep Total Protein Albumin Lipase 09/24/19 22:38 WBC RBC Hgb Hct MCV MCH MCHC RDW Plt Count MPV Immature Gran % Neutrophils % Lymphocytes % Monocytes % Eosinophils % Basophils % Absolute Neutrophils Absolute Lymphocytes Absolute Monocytes Absolute Eosinophils Absolute Basophils Differential Comment RBC Morphology PT INR APTT Sample Site pCO2 pO2 O2 Saturation ABG pH ABG HCO3 ABG Total CO2 ABG Base Excess VBG pH VBG pCO2 VBG pO2 VBG HCO3 VBG Total CO2 VBG O2 Saturation VBG Base Excess Oxygen Liter Flow FiO2 Sodium Potassium Chloride Carbon Dioxide Anion Gap BUN Creatinine Estimated GFR/1.73 m2 Glucose Lactate 3.1 H* Calcium Magnesium Total Bilirubin AST ALT Alkaline Phosphatase Troponin I NT-Pro-B Natriuret Pep Total Protein Albumin Lipase Last Vital Signs Temp 36.1 C L 09/24/19 20:24 Pulse 101 H 09/24/19 22:07 Resp 12 09/24/19 22:20 BP 110/78 09/24/19 22:07 Pulse Ox 91 L 09/24/19 22:20
[2019-09-24 22:57] LABS: Troponin I 0.05 ng/Ml (<0.06)
[2019-09-24 23:11] LABS: Bilirubin Negative (Negative); Blood Small (Negative); Clarity Clear (Clear); Glucose 100 mg/dL (Negative); Ketones Negative (Negative); Leukocyte Esterase Negative (Negative); Nitrite Positive (Negative); Specific Gravity 1.015 (1.005-1.025); Urobilinogen 0.2 EU/dL (Up TO 0.2); pH 5.5 (5-8)
[2019-09-24 23:17] LABS: Procalcitonin 0.1 ng/mL
[2019-09-24 23:18] LABS: Bacteria Many HPF (Negative); C & S Indicated? Yes; Casts Negative LPF (Negative); Crystals Negative HPF (Negative); Epithelial Cells Few HPF (Negative); Mucus Negative (Negative)
[2019-09-25] VITALS (138 sets, daily range): BP systolic 86–196; BP diastolic 25–85; PULSE 66–115; RESP 2–247; TEMP 36–37.8; O2SAT 85–100
[2019-09-25 00:49] LABS: BE (Venous) -1.2 mmol/L (-3-3); HCO3 (Venous) 25 mmol/L (22-28); O2 Sat (Venous) 93 % (70-80); TCO2 (Venous) 24 mmol/L (22-29); pCO2 (Venous) 54 mm/Hg (34-47); pH (Venous) 7.29 (7.32-7.43); pO2 (Venous) 76 mm/Hg (28-44)
[2019-09-25 01:10] LABS: Anion Gap 12.3 mmol/L (3-11); BUN 18 mg/dL (7-18); CO2 25.7 mmol/L (21.0-32.0); CREATININE 1.33 mg/dL (0.55-1.02); Calcium 8.2 mg/dL (8.5-10.1); Chloride 101 mmol/L (98-107); Estimated GFR 40.43 (mL/min/1.73m2); Glucose 157 mg/dL (74-106); Potassium 3.4 mmol/L (3.5-5.1); Sodium 139 mmol/L (136-145)
[2019-09-25 01:12] LABS: Troponin I 0.08 ng/Ml (<0.06)
[2019-09-25] MEDS: POTASSIUM CHLORIDE 20 MEQ/100 ML BAG 50 MEQ IVPB (03:45)
[2019-09-25] MEDS: POTASSIUM CHLORIDE/0.9% NACL 1,000 ML 75 MEQ IV (03:46)
[2019-09-25] MEDS: methylPREDNISolone SUCC 125 MG VIAL 80 MG IVP (04:30)
[2019-09-25 06:38] LABS: Abs Immature Grans 0.03 k/cumm (0.0-0.09); Absolute Eosinophil Count 0.02 k/cumm (0.0-0.7); Absolute Monocyte Count 0.06 k/cumm (0.11-0.7); Absolute Neutrophil Count 5.82 k/cumm (1.2-6.7); Eosinophils % 0.3; HCT 35.5 % (36.0-46.0); HGB 11.6 g/dL (12.0-15.5); Immature Grans % 0.5; Lactate 4.6 mmol/L (0.6-1.4); Lymphocytes % 9.2; Mean Corp. HGB Concentration 32.7 g/dL (32.0-36.0); Mean Corpuscular Hemoglobin 29.8 pg (27.0-33.0); Mean Corpuscular Volume 91.3 fL (80-95); Mean Platelet Volume 11.8 fL (8.0-11.0); Monocytes % 0.9; Neutrophils % 89.1; Platelet Count 143 x1000/uL (130-400); RBC 3.89 m/cumm (4.00-5.20); RBC Distribution Width 14.2 % (11.7-14.6); White Blood Cell Count 6.53 k/cumm (4.4-10.8)
[2019-09-25 07:03] LABS: Troponin I 0.14 ng/Ml (<0.06)
[2019-09-25 07:08] LABS: ALT 44 U/L (14-59); AST 44 U/L (15-37); Albumin 3.4 g/dL (3.4-5.0); Alkaline Phosphatase 115 U/L (46-116); Anion Gap 13.1 mmol/L (3-11); BUN 19 mg/dL (7-18); Bilirubin, Total 0.3 mg/dL (0.2-1.0); CO2 23.9 mmol/L (21.0-32.0); CREATININE 1.45 mg/dL (0.55-1.02); Calcium 8.5 mg/dL (8.5-10.1); Chloride 102 mmol/L (98-107); Estimated GFR 36.59 (mL/min/1.73m2); Glucose 178 mg/dL (74-106); Potassium 4.5 mmol/L (3.5-5.1); Sodium 139 mmol/L (136-145); Total Protein 7.5 g/dL (6.4-8.2)
[2019-09-25] MEDS: Albuterol/Ipratropium 3 ML UPD VIAL UPD (07:36)
--- NOTE | 2019-09-25 08:23 | PGE_ITS ---
Date of Service Date of service: 09/25/19 Time of Service: 08:24 Assessment and Plan Assessment and plan (1) Acute on chronic respiratory failure with hypoxia and hypercapnia: Status: Acute Assessment and plan: Already improved. Off BiPAP. It appears that this could be multifactorial -due to acute exacerbation of COPD, +/- CAP. At this time, there is also evidence of fluid overload/acute exacerbation of chronic systolic and diastolic CHF (EF 50-55%). Will d/c IVF, diurese gently, continue steroids, but switch to PO. Continue bronchodilators, antibiotics. (2) Acute exacerbation of chronic obstructive pulmonary disease (COPD): Status: Acute Assessment and plan: As above (3) Community acquired pneumonia: Status: Acute Assessment and plan: D/c levofloxacin due to QT prolongation. Substitute with doxycycline; continue cefepime. Patient is unable to produce a sputum sample today. Qualifiers: Laterality: unspecified laterality Qualified Code(s): J18.9 - Pneumonia, unspecified organism (4) Demand ischemia: Status: Acute Assessment and plan: Evaluated by cardiology - assistance appreciated. At this point, recommendation is to continue treatment of underlying illness and to follow up with cardiology as outpatient. Continue asa/statin. (5) QT prolongation: Status: Acute Assessment and plan: LIkely due to interaction of levofloxacin and methadone. Hold methadone today (Offer percocet for pain relief temporarily). Co ntinue to monitor in the ICU. No arrhythmias so far. (6) HAMZAH (acute kidney injury): Status: Acute Assessment and plan: Clinically, she is fluid overloaded this morning. IVF d/c'ed. Monitor kidney function off IVF and after the gentle dose of lasix. Hold losartan. (7) Hypertension: Status: Chronic Assessment and plan: Severe hypertension on presentation in setting of respiratory distress. BP is much better at this point. Would continue to hold losartan in setting of HAMZAH. D/c IVF, however. Qualifiers: Hypertension type: essential hypertension Qualified Code(s): I10 - Essential (primary) hypertension (8) Hypokalemia: Status: Resolved Assessment and plan: Recheck in am. (9) Chronic pain: Status: Chronic Assessment and plan: Methadone dose confirmed with [facility] - however, it has to be held due to QTc prolongation. Offer prn percocet for today. Qualifiers: Chronic pain type: chronic pain syndrome Qualified Code(s): G89.4 - Chronic pain syndrome (10) Hypothyroidism: Status: Chronic Assessment and plan: TSH at goal. Continue current dose of synthroid. Qualifiers: Hypothyroidism type: acquired Qualified Code(s): E03.9 - Hypothyroidism, unspecified (11) Subclavian arterial stenosis: Status: Suspected Assessment and plan: BP should be taken in the left arm. (12) Prediabetes: Status: Chronic Assessment and plan: Cover with SSI while on steroids. (13) Tobacco abuse counseling: Status: Acute Assessment and plan: offer nicotrol (14) Abnormal stress test: Status: Acute Assessment and plan: Follow up with cardiology as outpatient. (15) Mitral regurgitation: Status: Chronic Assessment and plan: Follow up with cardiology as outpatient. Qualifiers: Cardiac valve disease etiology: nonrheumatic Qualified Code(s): I34.0 - Nonrheumatic mitral (valve) insufficiency (16) Cardiomyopathy: Status: Acute Assessment and plan: In acute CHF. D/c IVF; diurese gently. Monitor I/O's and daily weights. (17) Lactic acidosis: Status: Acute Assessment and plan: In setting of hypoxia/respiratory distress/beta agonist use. Decrease frequency of duonebs. Monitor in the ICU. Recheck in am. I do not think this lactic acidosis reflects sepsis. (18) DVT prophylaxis: Status: Acute Assessment and plan: lovenox (19) Discharge planning issues: Status: Acute Assessment and plan: Full code. Keep in ICU Subjective Subjective Interval history since last seen: Patient states her breathing feels back to normal today. She is craving nicotine and requests nicotrol inhaler. Her pain is uncontrolled - methadone is on hold due to QT prolongation. Off BiPAP since 6 am. 2L 97%. 93% on RA. No chest pain, dizziness, shortness of breath, nausea, vomiting. No arrhythmias, but does have QT prolongation (0.41). Seen by cardiology - no acute changes to medical therapy recommended, but will need outpatient follow up with cardiology. Exam Narrative Exam Narrative: General: Pleasant middle-aged female, appears slightly diaphoretic/anxious, laying comfortably in bed, A&OX3, on room air, no respiratory distress noted HEENT: EOMI, MMM Heart: RRR, mildly tachycardic, +GONSALO Lungs: quiet rales B Abdomen: abdomen is soft, nontender, nondistended Extremities: no e/c/c BLE's Objective Objective Clinical Data: Abnormal lab results 09/24/19 09/24/19 09/24/19 Range/Units 20:34 20:34 21:00 WBC 13.95 H (4.4-10.8) k/cumm RBC (4.00-5.20) m/cumm Hgb (12.0-15.5) g/dL Hct (36.0-46.0) % MPV 11.6 H (8.0-11.0) fL Absolute Lymphocytes 5.71 H (1.2-3.4) k/cumm Absolute Monocytes 1.05 H (0.11-0.7) k/cumm pCO2 (34-47) mmHg pO2 (83-108) mmHg O2 Saturation (94-98) % ABG pH (7.35-7.45) ABG Base Excess (-3-3) mmol/L VBG pH 7.19 L (7.32-7.43) VBG pCO2 52 H (34-47) mm/Hg VBG pO2 55 H (28-44) mm/Hg VBG HCO3 20 L (22-28) mmol/L VBG Total CO2 19 L (22-29) mmol/L VBG O2 Saturation 81 H (70-80) % VBG Base Excess -8.4 L (-3-3) mmol/L Potassium 3.0 L (3.5-5.1) mmol/L Anion Gap 20.5 H (3-11) mmol/L BUN (7-18) mg/dL Creatinine 1.53 H (0.55-1.02) mg/dL Glucose 172 H (74-106) mg/dL Lactate (0.6-1.4) mmol/L Calcium (8.5-10.1) mg/dL AST (15-37) U/L Alkaline Phosphatase 134 H (46-116) U/L Troponin I (<0.06) ng/Ml Total Protein 8.3 H (6.4-8.2) g/dL Urine Protein (Negative) mg/dL Urine Blood (Negative) Urine Nitrite (Negative) Urine RBC (0-2) HPF 09/24/19 09/24/19 09/24/19 Range/Units 21:18 22:38 22:57 WBC (4.4-10.8) k/cumm RBC (4.00-5.20) m/cumm Hgb (12.0-15.5) g/dL Hct (36.0-46.0) % MPV (8.0-11.0) fL Absolute Lymphocytes (1.2-3.4) k/cumm Absolute Monocytes (0.11-0.7) k/cumm pCO2 52 H (34-47) mmHg pO2 60 L (83-108) mmHg O2 Saturation 87 L (94-98) % ABG pH 7.25 L (7.35-7.45) ABG Base Excess -4.4 L (-3-3) mmol/L VBG pH (7.32-7.43) VBG pCO2 (34-47) mm/Hg VBG pO2 (28-44) mm/Hg VBG HCO3 (22-28) mmol/L VBG Total CO2 (22-29) mmol/L VBG O2 Saturation (70-80) % VBG Base Excess (-3-3) mmol/L Potassium (3.5-5.1) mmol/L Anion Gap (3-11) mmol/L BUN (7-18) mg/dL Creatinine (0.55-1.02) mg/dL Glucose (74-106) mg/dL Lactate 3.1 H* (0.6-1.4) mmol/L Calcium (8.5-10.1) mg/dL AST (15-37) U/L Alkaline Phosphatase (46-116) U/L Troponin I (<0.06) ng/Ml Total Protein (6.4-8.2) g/dL Urine Protein Trace H (Negative) mg/dL Urine Blood Small H (Negative) Urine Nitrite Positive H (Negative) Urine RBC 3-5 H (0-2) HPF 09/25/19 09/25/19 09/25/19 Range/Units 00:40 00:40 06:32 WBC (4.4-10.8) k/cumm RBC (4.00-5.20) m/cumm Hgb (12.0-15.5) g/dL Hct (36.0-46.0) % MPV (8.0-11.0) fL Absolute Lymphocytes (1.2-3.4) k/cumm Absolute Monocytes (0.11-0.7) k/cumm pCO2 (34-47) mmHg pO2 (83-108) mmHg O2 Saturation (94-98) % ABG pH (7.35-7.45) ABG Base Excess (-3-3) mmol/L VBG pH 7.29 L (7.32-7.43) VBG pCO2 54 H (34-47) mm/Hg VBG pO2 76 H (28-44) mm/Hg VBG HCO3 (22-28) mmol/L VBG Total CO2 (22-29) mmol/L VBG O2 Saturation 93 H (70-80) % VBG Base Excess (-3-3) mmol/L Potassium 3.4 L (3.5-5.1) mmol/L Anion Gap 12.3 H 13.1 H (3-11) mmol/L BUN 19 H (7-18) mg/dL Creatinine 1.33 H 1.45 H (0.55-1.02) mg/dL Glucose 157 H 178 H (74-106) mg/dL Lactate (0.6-1.4) mmol/L Calcium 8.2 L (8.5-10.1) mg/dL AST 44 H (15-37) U/L Alkaline Phosphatase (46-116) U/L Troponin I 0.08 H* (<0.06) ng/Ml Total Protein (6.4-8.2) g/dL Urine Protein (Negative) mg/dL Urine Blood (Negative) Urine Nitrite (Negative) Urine RBC (0-2) HPF 09/25/19 09/25/19 09/25/19 Range/Units 06:32 06:32 06:32 WBC (4.4-10.8) k/cumm RBC 3.89 L (4.00-5.20) m/cumm Hgb 11.6 L (12.0-15.5) g/dL Hct 35.5 L (36.0-46.0) % MPV 11.8 H (8.0-11.0) fL Absolute Lymphocytes 0.60 L (1.2-3.4) k/cumm Absolute Monocytes 0.06 L (0.11-0.7) k/cumm pCO2 (34-47) mmHg pO2 (83-108) mmHg O2 Saturation (94-98) % ABG pH (7.35-7.45) ABG Base Excess (-3-3) mmol/L VBG pH (7.32-7.43) VBG pCO2 (34-47) mm/Hg VBG pO2 (28-44) mm/Hg VBG HCO3 (22-28) mmol/L VBG Total CO2 (22-29) mmol/L VBG O2 Saturation (70-80) % VBG Base Excess (-3-3) mmol/L Potassium (3.5-5.1) mmol/L Anion Gap (3-11) mmol/L BUN (7-18) mg/dL Creatinine (0.55-1.02) mg/dL Glucose (74-106) mg/dL Lactate 4.6 H* (0.6-1.4) mmol/L Calcium (8.5-10.1) mg/dL AST (15-37) U/L Alkaline Phosphatase (46-116) U/L Troponin I 0.14 H* (<0.06) ng/Ml Total Protein (6.4-8.2) g/dL Urine Protein (Negative) mg/dL Urine Blood (Negative) Urine Nitrite (Negative) Urine RBC (0-2) HPF Vital Signs Temperature 37.4 C 09/25/19 07:59 Temperature Source Temporal Artery Scan 09/25/19 07:59 Pulse 104 H 09/25/19 08:06 Pulse 98 H 09/25/19 06:10 Respiratory Rate 247 H 09/25/19 08:06 Respiratory Effort Labored 09/25/19 07:59 Respiratory Depth Shallow 09/25/19 07:59 Respiratory Pattern Normal 09/25/19 07:59 Blood Pressure 156/63 H 09/25/19 07:59 Blood Pressure Mean 94 09/25/19 07:59 Blood Pressure Position Supine 09/25/19 07:59 Pulse Oximetry 92 L 09/25/19 08:09 Oxygen Delivery Method Room Air 09/25/19 08:09 Oxygen Flow Rate 0 09/25/19 08:09 Fraction of Inspired Oxygen (FIO2) 35 09/25/19 05:02 Pain Level 0 09/25/19 07:59 Intake & Output 1209/24/19 09/25/19 11:59 23:59 11:59 Intake Total 350 / 350 Output Total 750 / 750 Balance -400 / -400 Weight 63.503 kg 63 kg Intake: IV 350 / 350 Output: Urine 750 / 750 Other: Urine Color Light Caryl Urine Appearance Clear Urine Odor None Comment after IV lasix in ED Voiding Methods Bedside Commode Laboratory Results WBC 6.53 k/cumm (4.4-10.8) D 09/25/19 06:32 RBC 3.89 m/cumm (4.00-5.20) L 09/25/19 06:32 Hgb 11.6 g/dL (12.0-15.5) L 09/25/19 06:32 Hct 35.5 % (36.0-46.0) L 09/25/19 06:32 MCV 91.3 fL (80-95) D 09/25/19 06:32 MCH 29.8 pg (27.0-33.0) 09/25/19 06:32 MCHC 32.7 g/dL (32.0-36.0) 09/25/19 06:32 RDW 14.2 % (11.7-14.6) 09/25/19 06:32 Plt Count 143 x1000/uL (130-400) 09/25/19 06:32 MPV 11.8 fL (8.0-11.0) H 09/25/19 06:32 Immature Gran % 0.5 09/25/19 06:32 Neutrophils % 89.1 09/25/19 06:32 Lymphocytes % 9.2 09/25/19 06:32 Monocytes % 0.9 09/25/19 06:32 Eosinophils % 0.3 09/25/19 06:32 Basophils % 0.0 09/25/19 06:32 Absolute Neutrophils 5.82 k/cumm (1.2-6.7) 09/25/19 06:32 Absolute Lymphocytes 0.60 k/cumm (1.2-3.4) L 09/25/19 06:32 Absolute Monocytes 0.06 k/cumm (0.11-0.7) L 09/25/19 06:32 Absolute Eosinophils 0.02 k/cumm (0.0-0.7) 09/25/19 06:32 Absolute Basophils 0.00 k/cumm (0.0-0.2) 09/25/19 06:32 Differential Comment Agrees w/ instrument 09/24/19 20:34 RBC Morphology Normal 09/24/19 20:34 PT 9.9 sec (9.3-11.0) 09/24/19 20:34 INR 1.0 (0.9-1.1) 09/24/19 20:34 APTT 21.9 sec (21.0-31.4) 09/24/19 20:34 Sample Site Left radial 09/24/19 21:18 pCO2 52 mmHg (34-47) H 09/24/19 21:18 pO2 60 mmHg (83-108) L 09/24/19 21:18 O2 Saturation 87 % (94-98) L 09/24/19 21:18 ABG pH 7.25 (7.35-7.45) L 09/24/19 21:18 ABG HCO3 23 mmol/L (22-28) 09/24/19 21:18 ABG Total CO2 22 mmol/L (22-29) 09/24/19 21:18 ABG Base Excess -4.4 mmol/L (-3-3) L 09/24/19 21:18 VBG pH 7.29 (7.32-7.43) L 09/25/19 00:40 VBG pCO2 54 mm/Hg (34-47) H 09/25/19 00:40 VBG pO2 76 mm/Hg (28-44) H 09/25/19 00:40 VBG HCO3 25 mmol/L (22-28) 09/25/19 00:40 VBG Total CO2 24 mmol/L (22-29) 09/25/19 00:40 VBG O2 Saturation 93 % (70-80) H 09/25/19 00:40 VBG Base Excess -1.2 mmol/L (-3-3) 09/25/19 00:40 Oxygen Liter Flow Bipap 10/5 L 09/24/19 21:18 FiO2 30% % 09/24/19 21:18 Sodium 139 mmol/L (136-145) 09/25/19 06:32 Potassium 4.5 mmol/L (3.5-5.1) D 09/25/19 06:32 Chloride 102 mmol/L (98-107) 09/25/19 06:32 Carbon Dioxide 23.9 mmol/L (21.0-32.0) 09/25/19 06:32 Anion Gap 13.1 mmol/L (3-11) H 09/25/19 06:32 BUN 19 mg/dL (7-18) H 09/25/19 06:32 Creatinine 1.45 mg/dL (0.55-1.02) H 09/25/19 06:32 Estimated GFR/1.73 m2 36.59 (mL/min/1.73m2) 09/25/19 06:32 Glucose 178 mg/dL (74-106) H 09/25/19 06:32 Lactate 4.6 mmol/L (0.6-1.4) H* 09/25/19 06:32 Calcium 8.5 mg/dL (8.5-10.1) 09/25/19 06:32 Magnesium 2.3 mg/dL (1.8-2.4) 09/24/19 20:34 Total Bilirubin 0.3 mg/dL (0.2-1.0) 09/25/19 06:32 AST 44 U/L (15-37) H 09/25/19 06:32 ALT 44 U/L (14-59) 09/25/19 06:32 Alkaline Phosphatase 115 U/L (46-116) 09/25/19 06:32 Troponin I 0.14 ng/Ml (<0.06) H* 09/25/19 06:32 NT-Pro-B Natriuret Pep 579 pg/mL (<300) 09/24/19 20:34 Total Protein 7.5 g/dL (6.4-8.2) 09/25/19 06:32 Albumin 3.4 g/dL (3.4-5.0) 09/25/19 06:32 Lipase 97 U/L (73-393) 09/24/19 20:34 Procalcitonin 0.1 ng/mL 09/24/19 22:38 TSH 1.30 uIU/mL (0.36-3.74) 09/25/19 06:32 Urine Color Yellow (Yellow) 09/24/19 22:57 Urine Clarity Clear (Clear) 09/24/19 22:57 Urine pH 5.5 (5-8) 09/24/19 22:57 Ur Specific [place] 1.015 (1.005-1.025) 09/24/19 22:57 Urine Protein Trace mg/dL (Negative) H 09/24/19 22:57 Urine Ketones Negative mg/dL (Negative) 09/24/19 22:57 Urine Blood Small (Negative) H 09/24/19 22:57 Urine Nitrite Positive (Negative) H 09/24/19 22:57 Urine Bilirubin Negative (Negative) 09/24/19 22:57 Urine Urobilinogen 0.2 EU/dL (Up TO 0.2) 09/24/19 22:57 Ur Leukocyte Esterase Negative (Negative) 09/24/19 22:57 Urine RBC 3-5 HPF (0-2) H 09/24/19 22:57 Urine WBC 5-10 HPF (0-5) 09/24/19 22:57 Ur Epithelial Cells Few HPF (Negative) 09/24/19 22:57 Urine Crystals Negative HPF (Negative) 09/24/19 22:57 Urine Bacteria Many HPF (Negative) 09/24/19 22:57 Urine Casts Negative LPF (Negative) 09/24/19 22:57 Urine Mucus Negative (Negative) 09/24/19 22:57 Ur Culture Indicated? Yes 09/24/19 22:57 Urine Glucose 100 mg/dL (Negative) 09/24/19 22:57
[2019-09-25] MEDS: Aspirin 325 MG TAB PO (08:46)
[2019-09-25] MEDS: Pantoprazole 40 MG VIAL IVP (08:47)
[2019-09-25] MEDS: Normal Saline Flush 10 ML SYR IVP (08:48)
[2019-09-25] MEDS: Enoxaparin 30 MG/0.3 ML SYR SC (08:48)
[2019-09-25] MEDS: Insulin Aspart 300 UNITS/3 ML PEN SC ×3 (08:49→22:19)
--- NOTE | 2019-09-25 09:00 | DI.US_ITS ---
APPROVED REPORT EXAM: Comprehensive 2D, Doppler, and color-flow Echocardiogram Patient Location: In-Patient Department Helper: Concetta Washington RDCS (AE) Rhythm: BBB Indications: abnormal troponin, evaluate RV/ LV function. hx cardiomyopathy Conclusion Mild concentric LVH, EF is 50-55% septal motion consistent with LBBB Left atrium is moderately dilated' Thickened mitral leaflets with mild regurgitation Aortic valve is mildly sclerotic Wall motion Left Ventricle The left ventricle is normal size. Left ventricular systolic function is borderline. Borderline left ventricular hypertrophy. Paradoxical septal motion consistent with conduction abnormality. elevated f illing pressures. LVEF is 50-55%. Right Ventricle Right ventricle is grossly normal in size. The right ventricular systolic function appears normal. Atria Left atrium is moderately dilated. The right atrium size is normal. Aortic Valve Aortic valve is probably trileaflet. Aortic valve leaflets are mildly thickened. Aortic sclerosis wit hout stenosis. No aortic regurgitation is present. Mitral Valve Mitral valve leaflets are thickened. Mild mitral regurgitation. Tricuspid Valve Tricuspid valve is grossly normal in structure and function. trivial tricuspid regurgitation. Pulmonic Valve Mild pulmonic regurgitation. Great Vessels Aortic root is normal in size. Ascending aorta is normal in caliber. IVC is normal in size and collap ses >50% with inspiration. Pericardium No pericardial effusion. 2D Dimensions IVSd 1.15 cm F: 0.6-1.0 LV EDV A2C 105.40 mL PWd 1.00 cm F: 0.6 - 1.0 LV EDV A4C 74.30 mL LVDd 4.80 cm F: 3.8 - 5.2 LA Volume Index A2C 40.03 mL/m2 LVDs 3.75 cm F: 2.2 - 3.5 LA Volume Index A4C 43.11 mL/m2 Aortic Root 2.40 cm F: 2.7 - 3.3 LA Volume Index Biplane 43.31 mL/m2 RA Area A4C 16.09 cm2 LA Area A4C 20.63 cm2 LVOT 1.80 cm (M/F) 1.5-2.5 LA Area A2C 19.07 cm2 Ascending Aorta 2.42 cm F: 2.3 - 3.1 EF AP4 56.39 % LVEF (Teich) 43.51 % EF AP2 40.13 % LVEF (Bear's) 46.00 % F: 54 - 74 EF BP 46.00 % LV Volume 73.54 mL F: 46 - 106 LV Volume Index 46.54 mL/m2 F: 29 - 61 FS 21.45 % LV Diastology E/A Ratio 0.7 MED E' 0.07 (>0.07 m/s) LV E/e MED 15.10 (<14) LAT E' 0.09 (>0.1 m/s) LV E/e LAT 11.80 (<14) Aortic Valve LVOT Area 2.65 cm2 LVOT Vmax 1.62 m/s LVOT Mean Jose Antonio. 1.04 m/s LVOT Peak Gr. 10.5 mmHg LVOT Mean Gr. 5.1 mmHg AoV Area/ BSA (Vmax) 0.94 cm2/m2 LVOT VTI 0.267 m AoV Vmax 2.88 (0.5-1.3 m/s) DIANDRA Mean Jose Antonio. Index 0.89 cm2/m2 AoV Mean Jose Antonio. 1.96 m/s AoV Peak Grad 33.2 mmHg AoV Mean Grad 17.4 (<5 mmHg) AoV VTI 0.499 (0.18-0.25 m) VTI Ratio 0.54 AoV Area VTI 1.44 (2.5-4.5 cm2) AoV Area/ BSA (VTI) 0.91 cm/m2 Mitral Valve MV E Max Jose Antonio. 1.05 (0.4-1.3 m/s) MVA VTI 6.11 (4.0-6.0 cm2) MV A Velocity 1.55 (0.4-1.3 m/s) E/A Ratio 0.68 Tricuspid Valve TR P. Velocity 2.82 m/s TV Regurg Vmax 2.82 m/s RAP Estimate 3.00 mmHg RVSP 35.00 mmHg TR P. Gradient 31.85 mmHg
[2019-09-25 10:32] LABS: Lactate 4.2 mmol/L (0.6-1.4)
[2019-09-25 10:53] LABS: Troponin I 0.15 ng/Ml (<0.06)
--- NOTE | 2019-09-25 10:55 | W.NUTCONSULT ---
Date of service: 09/25/19 Time of Service: 10:55 Nutritional Consult ASSESSMENT: 63 year old female s/p emergency visit for SOB, PNA with acute respiratory failure, HAMZAH, CHF, preDm, COPD. BMI indicates mild overweight status. Following Heart Healthy Diet and diet advanced today. Met with pt, reports great appetite prior to admission and no food insecurity in home. Currently not considered at nutritional risk. MONITORING AND EVALUATION: will monitor po intake and weight trends Time Spent in Nutritional Counseling and Treatment: 15 min spent face to face
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
[2019-09-25] MEDS: oxyCODONE 5 mg/Acetaminophen 325 mg TAB 2 TAB PO ×3 (12:44→21:41)
--- NOTE | 2019-09-25 13:27 | PDOC.CMIN ---
- If Service Date Differs Date of service: 09/25/19 Time of Service: 13:27 Care Management Initial Assess REASON FOR HOSPITALIZATION:: community acquired pneumonia PAST MEDICAL HISTORY/PAST SURGICAL HISTORY:: Medical History (Updated 09/25/19 @ 01:04 by Jeffery Connell). Abnormal stress test (Acute). Acute diastolic CHF (congestive heart failure) (Resolved). Acute respiratory failure with hypoxia (Acute). HAMZAH (acute kidney injury) (Acute). Cardiomyopathy (Acute ~12/2018). Chronic pain (Chronic). Community acquired pneumonia (Acute). COPD with acute exacerbation (Acute). Hyperglycemia (Resolved). Hypertension (Chronic). Hypothyroidism (Chronic). Prediabetes (Acute). QT prolongation (Acute). Tobacco abuse counseling (Acute). Troponin level elevated (Resolved) PREVIOUS FUNCTIONAL STATUS/SOCIAL/FAMILY SUPPORTS:: Concepcion lives with her daughter Emma in an apartment in [facility]. She is currently on disability and is unable to work. Concepcion is independent with all care and activities and continues to drive. Concepcion attends the [facility] substance abuse program for medication and individual and group support. CURRENT FUNCTIONAL STATUS:: Concepcion was sitting up in bed when CM came to see her. She seemed a bit hesitant to talk at first but quickly engaged. Concepcion stated she is feeling much better than when she was admitted. She also stated she does not feel she will need any additional resources when she leaves. ADVANCE DIRECTIVES:: provided with a copy of [place] state AD forms Has patient been provided with information about the portal?: Yes Did the patient sign up for the portal?: No CODE STATUS:: Full Code INSURANCE COVERAGE / FINANCIAL ISSUES:: Medicare. Medicaid CURRENT HOME/COMMUNITY SERVICES/EQUIPMENT:: attends [facility] PRIMARY [facility] PHYSICIAN:: August Inman POTENTIAL DISCHARGE NEEDS:: follow up with PCP and discharge plan of care PATIENT/FAMILY EDUCATION NEEDS:: Discharge plan, limitations, follow up, ASK Me Three ANTICIPATED BARRIERS TO DISCHARGE:: none TRANSPORTATION:: via private vehicle with family PLAN:: Concepcion will be likely discharged home with no new services. She will follow up with her PCP and discharge plan of care. CM will continue to support patient, family and discharge planning needs.
[2019-09-25] MEDS: Furosemide 20 MG/2 ML VIAL IVP (13:46)
[2019-09-25] MEDS: Normal Saline 500 ML 30 ML IV (13:49)
[2019-09-25] MEDS: DOXYCYCLINE 100 MG in Normal Saline 100 ML IVPB ×2 (14:02→23:25)
[2019-09-25 14:18] LABS: Lactate 2.6 mmol/L (0.6-1.4)
--- NOTE | 2019-09-25 14:19 | PHARADMIT ---
Admission Pharmacy Clinical Review COPD EXACERBATION, HYPOXIA Code Status Full Code Current Weight Wgt-63 kg Renally Cleared and Narrow Therapeutic Index Meds CrCl~ 28.8 mL/min Meds-OK QTc Value / Action Taken QTc- 498 ^ 511 BP Control, Fever BP-152/67 Tmax-37.8C Electrolytes reviewed Na-139 K+4.5 Mag-2.3 DVT Prophylaxis Lovenox Opiate Usage / Scheduled Bowel Regimen Ordered Methadone (on HOLD until QTc decreases, Levaquin stopped) Plt/SCr for Heparin / Enoxaparin Plts-143 SCr-1.45 INR for Warfarin inr-1.0 H/H stable, WBC/Bands H&H- 11.6/35.5 WBC-6.53 Antibiotic appropriateness Cefepime, Doxycycline, Cultures and Sensitivities Urine-Gram Neg fernando, Blood -pending Surgical ABX d/c within 24 hr na DM control / Insulin Dosing BG-178 Aspart, Heart Failure (Check EF%) (NABIL's, B-Block, Diuretics) none IV to PO Switch no Home Meds Reviewed Yes Home Meds Not Ordered Atorvastatin, IncruseElipta, Losartan, Levothyroxine, Gabapentin, Lasix, Comments SYMBICORT CANCELLED,LEVAQUIN dc'd DUE TO HIGH QTc in patient taking Methadone Troponins elevated <0.05 ^ 0.05 ^0.08 ^ 0.14 ^ 0.15
--- NOTE | 2019-09-25 14:51 | CHAPLAIN ---
Carolin was in bed when I visited. She was pleasant, but not interested in further conversation. I explained my role and offered support.
--- NOTE | 2019-09-25 15:08 | W.INDIABCONS ---
Date of service: 09/25/19 Time of Service: 15:08 Diabetes Inpatient Consult DESCRIPTION/ASSESSMENT: Appreciate diabetes consult for Carolin Lake who is hospitalized with pneumonia. BMI 28 No current A1c available but 12/20 A1c 6.2. Blood sugars this hospitalization She was seen by RD for nutrition. Reports she is a sweets eater, sandwich for lunch as her first meal; does not have meals on wheels. She is not interested in making changes to her food choices at this time despite encouragement from Patient Supervisor Pumping and RD. Blood sugars here 156-190mg/dl choosing her usual foods and taking 60mg Prednisone daily. She is on a sensitive insulin correction scale. INTERVENTION: No intervention suggested at this time. She is assessed as pre-contemplation stage based on RD for making lifestyle changes to prevent type 2 diabetes. PLAN: A1c may be helpful if concern for diabetes diagnosis Will continue to encourage healthy food choices both for blood sugar control and overall health Time Spent in Nutritional Counseling and Treatment: 0 minutes face to face
[2019-09-25 16:35] LABS: Legionella Ag Detection Urine Negative (Negative)
[2019-09-25] MEDS: Gabapentin 100 MG CAP 300 MG PO (19:58)
[2019-09-26] VITALS (23 sets, daily range): BP systolic 104–196; BP diastolic 41–91; PULSE 65–96; RESP 11–26; TEMP 36.8–36.9; O2SAT 89–99
[2019-09-26] MEDS: Levothyroxine 25 MCG TAB PO (06:09)
[2019-09-26] MEDS: oxyCODONE 5 mg/Acetaminophen 325 mg TAB 2 TAB PO ×2 (06:11→10:12)
[2019-09-26 06:42] LABS: Lactate 1.2 mmol/L (0.6-1.4)
[2019-09-26 06:52] LABS: Abs Immature Grans 0.06 k/cumm (0.0-0.09); Absolute Lymphocyte Count 1.97 k/cumm (1.2-3.4); Absolute Neutrophil Count 13.77 k/cumm (1.2-6.7); BUN 22 mg/dL (7-18); CREATININE 1.18 mg/dL (0.55-1.02); Calcium 8.9 mg/dL (8.5-10.1); Chloride 102 mmol/L (98-107); Eosinophils % 0.1; Estimated GFR 46.41 (mL/min/1.73m2); Glucose 122 mg/dL (74-106); HCT 36.2 % (36.0-46.0); HGB 11.9 g/dL (12.0-15.5); Immature Grans % 0.4; Lymphocytes % 11.7; Magnesium 1.8 mg/dL (1.8-2.4); Mean Corp. HGB Concentration 32.9 g/dL (32.0-36.0); Mean Corpuscular Hemoglobin 29.8 pg (27.0-33.0); Mean Corpuscular Volume 90.7 fL (80-95); Mean Platelet Volume 11.5 fL (8.0-11.0); Monocytes % 5.9; Neutrophils % 81.9; Platelet Count 203 x1000/uL (130-400); Potassium 4.4 mmol/L (3.5-5.1); RBC 3.99 m/cumm (4.00-5.20); RBC Distribution Width 14.3 % (11.7-14.6); Sodium 138 mmol/L (136-145); White Blood Cell Count 16.81 k/cumm (4.4-10.8)
[2019-09-26 07:22] LABS: Absolute Eosinophil Count 0.02 k/cumm (0.0-0.7); Absolute Monocyte Count 0.99 k/cumm (0.11-0.7)
[2019-09-26] MEDS: Pantoprazole 40 MG VIAL IVP (08:05)
[2019-09-26] MEDS: Enoxaparin 30 MG/0.3 ML SYR SC (08:05)
[2019-09-26] MEDS: predniSONE 20 MG TAB 60 MG PO (08:06)
[2019-09-26] MEDS: Normal Saline Flush 10 ML SYR IVP (08:06)
[2019-09-26] MEDS: Furosemide 20 MG TAB PO (08:07)
[2019-09-26] MEDS: Potassium Chloride 10 MEQ CAPCR PO (08:07)
[2019-09-26] MEDS: Gabapentin 100 MG CAP 300 MG PO (08:07)
[2019-09-26] MEDS: Aspirin E.C. 81 MG TABEC PO (08:08)
[2019-09-26 08:14] LABS: Troponin I 0.08 ng/Ml (<0.06)
--- NOTE | 2019-09-26 08:35 | W.PM.PROGNOT ---
Subjective Subjective Interval history since last seen: Reports feeling uncomfortable - would like methadone. Restless. Hot/cold/antsy, 8/10 pain. BP elevated. Objective Objective Clinical Data: Abnormal lab results 09/25/19 09/25/19 09/25/19 Range/Units 10:20 10:20 14:00 WBC (4.4-10.8) k/cumm RBC (4.00-5.20) m/cumm Hgb (12.0-15.5) g/dL MPV (8.0-11.0) fL Absolute Neutrophils (1.2-6.7) k/cumm Absolute Monocytes (0.11-0.7) k/cumm BUN (7-18) mg/dL Creatinine (0.55-1.02) mg/dL Glucose (74-106) mg/dL Lactate 4.2 H* 2.6 H* (0.6-1.4) mmol/L Troponin I 0.15 H* (<0.06) ng/Ml 09/26/19 09/26/19 09/26/19 Range/Units 06:25 06:25 06:25 WBC 16.81 H D (4.4-10.8) k/cumm RBC 3.99 L (4.00-5.20) m/cumm Hgb 11.9 L (12.0-15.5) g/dL MPV 11.5 H (8.0-11.0) fL Absolute Neutrophils 13.77 H (1.2-6.7) k/cumm Absolute Monocytes 0.99 H (0.11-0.7) k/cumm BUN 22 H (7-18) mg/dL Creatinine 1.18 H (0.55-1.02) mg/dL Glucose 122 H (74-106) mg/dL Lactate (0.6-1.4) mmol/L Troponin I 0.08 H* (<0.06) ng/Ml Vital Signs Temperature 36.8 C 09/26/19 07:58 Temperature Source Temporal Artery Scan 09/26/19 07:58 Pulse 78 09/26/19 04:00 Pulse 82 09/26/19 07:00 Respiratory Rate 18 09/26/19 07:58 Respiratory Effort Non-Labored 09/26/19 07:58 Respiratory Depth Shallow 09/26/19 07:58 Respiratory Pattern Normal 09/26/19 07:58 Blood Pressure 166/74 H 09/26/19 04:00 Blood Pressure Mean 97 09/26/19 04:00 Blood Pressure Position Supine 09/26/19 07:58 Pulse Oximetry 96 09/26/19 06:00 Oxygen Delivery Method Room Air 09/26/19 07:58 Oxygen Flow Rate 0 09/26/19 07:58 Fraction of Inspired Oxygen (FIO2) 35 09/25/19 09:45 Pain Level 8 09/26/19 07:58 Intake & Output 09/25/19 09/25/19 09/26/19 11:59 23:59 11:59 Intake Total 350 / 1600.5 1250.5 / 1600.5 100 / 100 Output Total 1200 / 2600 1400 / 2600 1125 / 1125 Balance -850 / -999.5 -149.5 / -999.5 -1025 / -1025 Weight 63 kg 54 kg Intake: IV 350 / 1300.5 950.5 / 1300.5 100 / 100 Oral 300 / 300 Output: Urine 1200 / 2600 1400 / 2600 1125 / 1125 Other: Urine Color Pale Yellow Yellow Yellow Urine Appearance Clear Clear Clear Urine Odor None Normal None Comment after IV lasix in ED voiding to bedside commode at this time. Multiple voids. Voiding Methods Bedside Commode Bedside Commode Laboratory Results WBC 16.81 k/cumm (4.4-10.8) H D 09/26/19 06:25 RBC 3.99 m/cumm (4.00-5.20) L 09/26/19 06:25 Hgb 11.9 g/dL (12.0-15.5) L 09/26/19 06:25 Hct 36.2 % (36.0-46.0) 09/26/19 06:25 MCV 90.7 fL (80-95) 09/26/19 06:25 MCH 29.8 pg (27.0-33.0) 09/26/19 06:25 MCHC 32.9 g/dL (32.0-36.0) 09/26/19 06:25 RDW 14.3 % (11.7-14.6) 09/26/19 06:25 Plt Count 203 x1000/uL (130-400) 09/26/19 06:25 MPV 11.5 fL (8.0-11.0) H 09/26/19 06:25 Immature Gran % 0.4 09/26/19 06:25 Neutrophils % 81.9 09/26/19 06:25 Lymphocytes % 11.7 09/26/19 06:25 Monocytes % 5.9 09/26/19 06:25 Eosinophils % 0.1 09/26/19 06:25 Basophils % 0.0 09/26/19 06:25 Absolute Neutrophils 13.77 k/cumm (1.2-6.7) H 09/26/19 06:25 Absolute Lymphocytes 1.97 k/cumm (1.2-3.4) 09/26/19 06:25 Absolute Monocytes 0.99 k/cumm (0.11-0.7) H 09/26/19 06:25 Absolute Eosinophils 0.02 k/cumm (0.0-0.7) 09/26/19 06:25 Absolute Basophils 0.00 k/cumm (0.0-0.2) 09/26/19 06:25 Differential Comment Agrees w/ instrument 09/24/19 20:34 RBC Morphology Normal 09/24/19 20:34 PT 9.9 sec (9.3-11.0) 09/24/19 20:34 INR 1.0 (0.9-1.1) 09/24/19 20:34 APTT 21.9 sec (21.0-31.4) 09/24/19 20:34 Sample Site Left radial 09/24/19 21:18 pCO2 52 mmHg (34-47) H 09/24/19 21:18 pO2 60 mmHg (83-108) L 09/24/19 21:18 O2 Saturation 87 % (94-98) L 09/24/19 21:18 ABG pH 7.25 (7.35-7.45) L 09/24/19 21:18 ABG HCO3 23 mmol/L (22-28) 09/24/19 21:18 ABG Total CO2 22 mmol/L (22-29) 09/24/19 21:18 ABG Base Excess -4.4 mmol/L (-3-3) L 09/24/19 21:18 VBG pH 7.29 (7.32-7.43) L 09/25/19 00:40 VBG pCO2 54 mm/Hg (34-47) H 09/25/19 00:40 VBG pO2 76 mm/Hg (28-44) H 09/25/19 00:40 VBG HCO3 25 mmol/L (22-28) 09/25/19 00:40 VBG Total CO2 24 mmol/L (22-29) 09/25/19 00:40 VBG O2 Saturation 93 % (70-80) H 09/25/19 00:40 VBG Base Excess -1.2 mmol/L (-3-3) 09/25/19 00:40 Oxygen Liter Flow Bipap 10/5 L 09/24/19 21:18 FiO2 30% % 09/24/19 21:18 Sodium 138 mmol/L (136-145) 09/26/19 06:25 Potassium 4.4 mmol/L (3.5-5.1) 09/26/19 06:25 Chloride 102 mmol/L (98-107) 09/26/19 06:25 Carbon Dioxide 27.0 mmol/L (21.0-32.0) 09/26/19 06:25 Anion Gap 9.0 mmol/L (3-11) 09/26/19 06:25 BUN 22 mg/dL (7-18) H 09/26/19 06:25 Creatinine 1.18 mg/dL (0.55-1.02) H 09/26/19 06:25 Estimated GFR/1.73 m2 46.41 (mL/min/1.73m2) 09/26/19 06:25 Glucose 122 mg/dL (74-106) H 09/26/19 06:25 Lactate 1.2 mmol/L (0.6-1.4) 09/26/19 06:25 Calcium 8.9 mg/dL (8.5-10.1) 09/26/19 06:25 Magnesium 1.8 mg/dL (1.8-2.4) 09/26/19 06:25 Total Bilirubin 0.3 mg/dL (0.2-1.0) 09/25/19 06:32 AST 44 U/L (15-37) H 09/25/19 06:32 ALT 44 U/L (14-59) 09/25/19 06:32 Alkaline Phosphatase 115 U/L (46-116) 09/25/19 06:32 Troponin I 0.08 ng/Ml (<0.06) H* 09/26/19 06:25 NT-Pro-B Natriuret Pep 579 pg/mL (<300) 09/24/19 20:34 Total Protein 7.5 g/dL (6.4-8.2) 09/25/19 06:32 Albumin 3.4 g/dL (3.4-5.0) 09/25/19 06:32 Lipase 97 U/L (73-393) 09/24/19 20:34 Procalcitonin 0.1 ng/mL 09/24/19 22:38 TSH 1.30 uIU/mL (0.36-3.74) 09/25/19 06:32 Urine Color Yellow (Yellow) 09/24/19 22:57 Urine Clarity Clear (Clear) 09/24/19 22:57 Urine pH 5.5 (5-8) 09/24/19 22:57 Ur Specific [place] 1.015 (1.005-1.025) 09/24/19 22:57 Urine Protein Trace mg/dL (Negative) H 09/24/19 22:57 Urine Ketones Negative mg/dL (Negative) 09/24/19 22:57 Urine Blood Small (Negative) H 09/24/19 22:57 Urine Nitrite Positive (Negative) H 09/24/19 22:57 Urine Bilirubin Negative (Negative) 09/24/19 22:57 Urine Urobilinogen 0.2 EU/dL (Up TO 0.2) 09/24/19 22:57 Ur Leukocyte Esterase Negative (Negative) 09/24/19 22:57 Urine RBC 3-5 HPF (0-2) H 09/24/19 22:57 Urine WBC 5-10 HPF (0-5) 09/24/19 22:57 Ur Epithelial Cells Few HPF (Negative) 09/24/19 22:57 Urine Crystals Negative HPF (Negative) 09/24/19 22:57 Urine Bacteria Many HPF (Negative) 09/24/19 22:57 Urine Casts Negative LPF (Negative) 09/24/19 22:57 Urine Mucus Negative (Negative) 09/24/19 22:57 Ur Culture Indicated? Yes 09/24/19 22:57 Urine Glucose 100 mg/dL (Negative) 09/24/19 22:57
--- NOTE | 2019-09-26 10:30 | NUR.NOTE ---
Addendum entered by Ann-Marie Hernandez 09/26/19 11:34: I went in the patient's room around 09[address] Dr[address] Lara is still concerned about the patient's QT prolongation. Dr. Lara does not want to re-start the methadone now and ordered clonopin to help with withdrawal symptoms and BP control. The patient was agreeable to try the clonopin and the Oxycodone/APAP. I came in the room around 1015 to give the patient her clonopin and percocet. The patient refused the clonopin because she did not want to mix it with the methadone. The patient realized that [facility] is closed tomorrow and that she needed to get a dose in the lock bag for tomorrow. The patient became agitated and wanted to leave A to go get her methadone. Dr. Lara was notified and she is currently working on finding a substitute for the Methadone given the prolonged QT. The patient was preparing to leave as Dr. Lara came in and decided to D/C the patient and leave [facility] and cardiology to handle the Methadone. Taxi arrangements were made for the patient and funding provided. Patient was given a lock bag from [employer] and I reviewed the medication list. Original Note: Nursing Note:
--- NOTE | 2019-09-26 10:38 | W.PM.DS.N ---
Date of service: 09/26/19 Time of Service: 10:38 DS: Diagnosis Discharge Diagnosis (1) Acute on chronic respiratory failure with hypoxia and hypercapnia: Status: Acute (2) Acute exacerbation of chronic obstructive pulmonary disease (COPD): Status: Acute (3) Community acquired pneumonia: Status: Acute (4) Demand ischemia: Status: Acute (5) QT prolongation: Status: Acute (6) HAMZAH (acute kidney injury): Status: Acute (7) Hypertension: Status: Chronic (8) Hypokalemia: Status: Resolved (9) Chronic pain: Status: Chronic (10) Hypothyroidism: Status: Chronic (11) Subclavian arterial stenosis: Status: Suspected (12) Prediabetes: Status: Chronic (13) Tobacco abuse counseling: Status: Acute (14) Abnormal stress test: Status: Acute (15) Mitral regurgitation: Status: Chronic (16) Cardiomyopathy: Status: Acute Asessment and Plan: EF 50-55% (17) Lactic acidosis: Status: Acute (18) Asymptomatic bacteriuria: Status: Acute Discharge Plan Disposition Patient Disposition: HOME Condition: Stable Discharge Details Chief Complaint: SOB Clinical Impression: Hypoxia, COPD exacerbation Reason For Visit: COPD EXACERBATION, HYPOXIA Admit Date/Time: 09/24/19 21:18 Admit Provider: Jeffery Connell Attending Provider: Jeffery Connell Primary Care Provider: August Inman ED Provider: Vini Gatica [facility] Course Hospital Course: Ms Lake is a 64 year old female with PMHx of non-oxygen dependent COPD, prior episodes of hypoxic hypercapnic respiratory failure in setting of COPD exacerbation, ongoing tobacco abuse, CAD with an abnormal stress test (fixed defects), chronic LBBB, and chronic pain on methadone with prior documented QT prolongation, who was admitted to [facility] ICU on 09/24/19 in acute exacerbation of COPD and suspected pneumonia (CAP) resulting in acute/recurrent hypoxic hypercapnic respiratory failure requiring BiPAP. The patient improved drastically with IV antibiotics, systemic steroids, nebulizer treatments and was able to be weaned off of BiPAP to room air on Day 2. The patient's hypoxia did result in demand ischemia with elevated troponins not representing a true ACS, as evaluated by cardiology, but she will need outpatient cardiology follow up. Finally, the patient's QTc has been prolonged for her age/heart rate on this hospitalization. QT was 0.410 (should be 0.360), QTc of 0.48 (normal should be below 0.47 for women). This could be complicated by the fact that 48 hours ago the patient got a dose of levofloxacin; however, the patient has had QT prolongation documented on prior admissions. I have contacted [facility] and informed them of this finding - I defer further medication management to [facility]. At this time, I am discharging Ms Lake home on 2 more days of doxycycline/cefpodoxime, a short steroid taper, and follow up with her PCP. Care for patient as well as completion of her discharge summary on day of discharge took 45 minutes. Home Meds and New Rx's Prescriptions: New prednisone 20 mg Tablet See Rx Instructions .ROUTE .COMPLEX Qty: 6 RF: 0 Nicotrol 10 mg Cartridge 30 cartridge inhalation Q2H PRN PRNQty: 60 RF: 0 cefpodoxime 200 mg tablet 200 mg PO BID Qty: 5 RF: 0 doxycycline hyclate 100 mg tablet 100 mg PO BID Qty: 5 RF: 0 pantoprazole [Protonix] 40 mg tablet,delayed release (DR/EC) 40 mg PO DAILY Qty: 7 RF: 0 guaifenesin [Mucinex] 600 mg tablet extended release 12hr 600 mg PO BID PRN PRN (Reason: cough) Qty: 10 RF: 0 benzonatate [Tessalon Perles] 100 mg capsule 100 mg PO BID PRN (Reason: cough) Qty: 10 RF: 0 Continued Incruse Ellipta 62.5 mcg/actuation blister with device 1 inh IH DAILY RF: 0 losartan 50 mg tablet 50 mg PO DAILY 90 Days Qty: 90 RF: 3 aspirin 81 mg Tablet,Chewable 81 mg PO DAILY Qty: 30 RF: 0 furosemide 20 mg Tablet 20 mg PO DAILY Qty: 30 RF: 0 gabapentin 100 mg Capsule 300 mg PO TID Qty: 60 RF: 0 potassium chloride 10 mEq capsule, extended release 10 meq PO DAILY Qty: 30 RF: 0 atorvastatin [Lipitor] 10 MG tablet 10 mg PO DAILY RF: 0 levothyroxine 25 MCG tablet 25 mcg PO DAILY@0600 Qty: 90 RF: 0 albuterol sulfate [Proventil HFA] 200 PUFF HFA aerosol inhaler 2 puff Inhalation Q4H PRN PRNQty: 1 RF: 0 No Action methadone 10 MG/ML concentrate 85 mg PO DAILY RF: 0 Discharge Instructions Instructions: Doxycycline (By mouth), Prednisone (By mouth), Cefpodoxime Proxetil (By mouth), Pantoprazole (By mouth) Additional Instructions: Finish your antibiotics and steroids as prescribed. Return to the hospital with any fever, bleeding, chest pain, or shortness of breath. Follow up with [facility] for your methadone management. Referrals: August Inman [Primary Care Provider] - Dipak Cabral MD [MD CONSULTING PHYSICIAN] - (LBBB/abnormal stress test; QT prolongation) Activity:: Activity as Tolerated Equipment/Supplies:: No Equipment Needed Diet:: Low Sodium Discharge Orders Discharge Orders: Discharge Order (Routine); Ordered 09/26/19 Ordered By: Angela Lara DS: Summary Status at Discharge Functional status at discharge: independent ambulation Overall status at discharge: patient is back to baseline Mental Status: mental status grossly normal Speech and Movement: speech and movement normal Mood: anxious mood Affect: anxious affect Exam Narrative Exam Narrative: General: Pleasant middle-aged female, anxious, ambulating in the hallways without oxygen with no tachypnea; able to speak in lengthy sentences with no shortness of breath. HEENT: EOMI, MMM Heart: RRR, +GONSALO Lungs: coarse breath sounds B, but much improved from yesterday Abdomen: abdomen is soft, nontender, nondistended Extremities: no e/c/c BLE's Psych Mental Status: mental status grossly normal Speech and Movement: speech and movement normal Mood: anxious mood Affect: anxious affect DS: Data Vitals/I&O Vitals and I&O: Vital Signs Temperature 36.8 C 09/26/19 07:58 Temperature Source Temporal Artery Scan 09/26/19 07:58 Pulse 77 09/26/19 07:55 Pulse 85 09/26/19 08:00 Respiratory Rate 19 09/26/19 08:00 Respiratory Effort Non-Labored 09/26/19 07:58 Respiratory Depth Shallow 09/26/19 07:58 Respiratory Pattern Normal 09/26/19 07:58 Blood Pressure 189/91 H 09/26/19 07:55 Blood Pressure Mean 115 09/26/19 07:55 Blood Pressure Position Supine 09/26/19 07:58 Pulse Oximetry 96 09/26/19 08:00 Oxygen Delivery Method Room Air 09/26/19 07:58 Oxygen Flow Rate 0 09/26/19 07:58 Fraction of Inspired Oxygen (FIO2) 35 09/25/19 09:45 Pain Level 8 09/26/19 10:12 Intake & Output 09/25/19 09/25/19 09/26/19 11:59 23:59 11:59 Intake Total 350 / 1600.5 1250.5 / 1600.5 240 / 240 Output Total 1200 / 2600 1400 / 2600 1500 / 1500 Balance -850 / -999.5 -149.5 / -999.5 -1260 / -1260 Weight 63 kg 54 kg Intake: IV 350 / 1300.5 950.5 / 1300.5 120 / 120 Oral 300 / 300 120 / 120 Output: Urine 1200 / 2600 1400 / 2600 1500 / 1500 Other: Urine Color Pale Yellow Yellow Yellow Urine Appearance Clear Clear Clear Urine Odor None Normal Normal Comment after IV lasix in ED voiding to bedside commode at this time. Pt up to commode independently to void Voiding Methods Bedside Commode Bedside Commode Data Completed and Pending Completed studies during hospitalization [Text1]: CXR: 09/24/19: 1. Question increased interstitial markings. This may be secondary to pulmonary edema or mild interstitial pneumonia. Please correlate clinically. 2. Opacity seen in the right lung base medially which may represent a fat pad. If there is continued concern, a CT scan of the chest should be considered to exclude a pulmonary nodule. Echo 09/25/19: Mild concentric LVH, EF is 50-55% septal motion consistent with LBBB Left atrium is moderately dilated' Thickened mitral leaflets with mild regurgitation Aortic valve is mildly sclerotic Labs on day of discharge: Labs from last 24 hours 09/26/19 09/26/19 09/26/19 06:25 06:25 06:25 WBC 16.81 H D RBC 3.99 L Hgb 11.9 L Hct 36.2 MCV 90.7 MCH 29.8 MCHC 32.9 RDW 14.3 Plt Count 203 MPV 11.5 H Immature Gran % 0.4 Neutrophils % 81.9 Lymphocytes % 11.7 Monocytes % 5.9 Eosinophils % 0.1 Basophils % 0.0 Absolute Neutrophils 13.77 H Absolute Lymphocytes 1.97 Absolute Monocytes 0.99 H Absolute Eosinophils 0.02 Absolute Basophils 0.00 Sodium Potassium Chloride Carbon Dioxide Anion Gap BUN Creatinine Estimated GFR/1.73 m2 Glucose Lactate 1.2 Calcium Magnesium Troponin I 0.08 H* Urine Legionella Ag M. pneumoniae Source M. pneumoniae (PCR) Ur Strep pneumoniae Ag 09/26/19 09/25/19 09/25/19 06:25 14:00 12:30 WBC RBC Hgb Hct MCV MCH MCHC RDW Plt Count MPV Immature Gran % Neutrophils % Lymphocytes % Monocytes % Eosinophils % Basophils % Absolute Neutrophils Absolute Lymphocytes Absolute Monocytes Absolute Eosinophils Absolute Basophils Sodium 138 Potassium 4.4 Chloride 102 Carbon Dioxide 27.0 Anion Gap 9.0 BUN 22 H Creatinine 1.18 H Estimated GFR/1.73 m2 46.41 Glucose 122 H Lactate 2.6 H* Calcium 8.9 Magnesium 1.8 Troponin I Urine Legionella Ag M. pneumoniae Source M. pneumoniae (PCR) Ur Strep pneumoniae Ag Pending 09/25/19 09/25/19 09/24/19 10:32 10:20 22:57 WBC RBC Hgb Hct MCV MCH MCHC RDW Plt Count MPV Immature Gran % Neutrophils % Lymphocytes % Monocytes % Eosinophils % Basophils % Absolute Neutrophils Absolute Lymphocytes Absolute Monocytes Absolute Eosinophils Absolute Basophils Sodium Potassium Chloride Carbon Dioxide Anion Gap BUN Creatinine Estimated GFR/1.73 m2 Glucose Lactate Calcium Magnesium Troponin I 0.15 H* Urine Legionella Ag Negative M. pneumoniae Source Pending M. pneumoniae (PCR) Pending Ur Strep pneumoniae Ag Preliminary micro results at discharge 09/24/19 22:57 Urine Culture - Preliminary Urine - Reflex from Ua Escherichia coli 09/24/19 21:24 Blood Culture - Preliminary Blood NO GROWTH 24 HOURS 09/24/19 21:17 Blood Culture - Preliminary Blood NO GROWTH 24 HOURS PFSH Social History Smoking/Tobacco Use Status: Current every day Tobacco Type: cigarettes Smoking packs per day: 1 Smoking cigarettes per day: 20.0 Years smoked: 46 Smoking pack-years: 46.00 Quit status: considering quitting Counseling given: provider counseling, support medications, support program and other Alcohol Intake: never Details: did not have influenza vaccine for this season 09/21 Current gender identity: female Do you feel safe at home: Yes Do you feel safe in your relationship?: Yes
--- NOTE | 2019-09-26 13:05 | PDOC.CMDIS ---
- If Service Date Differs Date of service: 09/26/19 Time of Service: 13:05 LACE Index Scoring Tool - Questions: Length of Stay (in days): 2 Acuity (Admit via E.D.?): Yes Comorbidities: Congestive Heart Failure E.D. Visits: 3 - Answers: Total Score: 10 Risk of Readmission: High Risk Care Management Discharge Reason for Hospitalization: community acquired pneumonia Discharge Plan: Carolin is being discharged home. She will resume services at [facility] and will follow up with her PCP and cardiology as directed. Family is transporting Carolin home via private vehicle. Patient/Family Education Needs: Nursing will review discharge instructions with Carolin re medications and follow-up appointments. Carolin is able to verbalize reason for hospitalization and how to manage care at home.
[2019-09-26 18:47] LABS: Streptococcus Pneumoniae Ag, U Negative (Negative)
[2019-09-27 00:40] LABS: Mycoplasma Pneumoniae PCR Negative; Specimen source NASAL
== END 2019-09-26 11:30 | disposition home or self-care (01) | DRG 189 ==
LOC: ER 21:37 → ICU 22:46
PROVIDERS: Admitting Provider Internal Medicine; Emergency Provider Emergency Medicine; PCP Family Medicine; Visit Provider Internal Medicine
DX: J96.22 Acute and chronic respiratory failure with hypercapnia (principal); J18.9 Pneumonia, unspecified organism; J44.1 Chronic obstructive pulmonary disease with (acute) exacerbation; I24.8 Other forms of acute ischemic heart disease; N17.9 Acute kidney failure, unspecified; I42.9 Cardiomyopathy, unspecified; E87.2 Acidosis; J44.0 Chronic obstructive pulmonary disease with (acute) lower respiratory infection; I50.42 Chronic combined systolic (congestive) and diastolic (congestive) heart failure; J96.21 Acute and chronic respiratory failure with hypoxia; I10 Essential (primary) hypertension; R94.31 Abnormal electrocardiogram [ECG] [EKG]; E87.6 Hypokalemia; G89.29 Other chronic pain; E03.9 Hypothyroidism, unspecified; I77.1 Stricture of artery; R73.03 Prediabetes; Z71.6 Tobacco abuse counseling; F17.210 Nicotine dependence, cigarettes, uncomplicated; I25.10 Atherosclerotic heart disease of native coronary artery without angina pectoris; R94.39 Abnormal result of other cardiovascular function study; I34.0 Nonrheumatic mitral (valve) insufficiency; R82.71 Bacteriuria; Z79.891 Long term (current) use of opiate analgesic; Z71.3 Dietary counseling and surveillance
CPT/HCPCS: 36415; 80048; 80053; 82805; 83690; 84145; 87040; 87077; 87449; 93005; 93306; 94618; 94640; 96365; 96368; 96375; 99220; 99222; 99233; 99239; 99291; 36600; 71045; 81003; 81015; 83605; 83735; 83880; 84443; 84484; 85025; 85610; 85730; 87086; 87186; 87450; 87581; 93010; 94660; J1650; J1940; J1941; J1956; J2060; J2405; J2930; J3480; J7512; J7620

== ENCOUNTER → 2019-09-25 10:01 | Outpatient (BNVA) | payer MEDICARE, MEDICAID, SELFPAY | PROVIDERS: PCP Family Medicine; Referring Provider Family Medicine; Visit Provider Internal Medicine Cardiovascular Disease | DX: R69 Illness, unspecified (principal) | CPT/HCPCS: 99253 ==

== ENCOUNTER 2019-10-15 22:15 | Emergency (ER) | payer MEDICARE, MEDICAID, SELFPAY ==
[2019-10-15 22:15] VITALS: BP 219/66; PULSE 107; RESP 24; TEMP 36.4; O2SAT 95
--- NOTE | 2019-10-15 22:21 | ED.GENADUL_ITS ---
Discharge Plan Disposition Patient Disposition: HOME Condition: Stable Discharge Details Chief Complaint: SOB Clinical Impression: COPD with acute exacerbation, Hypokalemia Primary Care Provider: August Inman ED Provider: Vini Gatica Home Meds and New Rx's Prescriptions: New doxycycline hyclate 100 mg tablet 100 mg PO BID Qty: 14 RF: 0 prednisone 20 mg tablet 60 mg PO DAILY 5 Days Qty: 15 RF: 0 Continued Incruse Ellipta 62.5 mcg/actuation blister with device 1 inh IH DAILY RF: 0 losartan 50 mg tablet 50 mg PO DAILY 90 Days Qty: 90 RF: 3 methadone 10 MG/ML concentrate 85 mg PO DAILY RF: 0 aspirin 81 mg Tablet,Chewable 81 mg PO DAILY Qty: 30 RF: 0 furosemide 20 mg Tablet 20 mg PO DAILY Qty: 30 RF: 0 gabapentin 100 mg Capsule 300 mg PO TID Qty: 60 RF: 0 potassium chloride 10 mEq capsule, extended release 10 meq PO DAILY Qty: 30 RF: 0 Nicotrol 10 mg Cartridge 30 cartridge inhalation Q2H PRN PRNQty: 60 RF: 0 atorvastatin [Lipitor] 10 MG tablet 10 mg PO DAILY RF: 0 levothyroxine 25 MCG tablet 25 mcg PO DAILY@0600 Qty: 90 RF: 0 albuterol sulfate [Proventil HFA] 200 PUFF HFA aerosol inhaler 2 puff Inhalation Q4H PRN PRNQty: 1 RF: 0 Discharge Instructions Instructions: Hypokalemia (ED), COPD (Chronic Obstructive Pulmonary Disease) (ED) Additional Instructions: follow up with your primary care provider within 1 week try to increase the amount of potassium in your diet and increase your potassium chloride to 20meq daily and have this rechecked with your primary care provider if you feel more ill or have worsening shortness of breath return to the emergency department Medical Decision Making 64 yo female with hx of copd, cardiomyopathy, htn, chronic pain on methadone, who comes in with chief complaint of shortness of breath slowly worsening over several days. EMs arrived and felt she was wheezing so gave her 2 duonebs and she states she feels better on arrival. She has had a dry cough, denies fevers, chills, chest pain or pressure. She has wheezing in both lungs in all lung bravo and on bedside u/s does have b lines in both lung bravo as well. Suspect mix of copd and pulmonary edema, will treat with lasix, steroids and duoneb and obtian cxr. Has no evidence of dvt and exam/hx more consistent with chf and copd so doubt PE. No chest pain or pressure so doubt acs at this time. pt feels much better, o2 saturation on room air 90% which she states is baseline. I did recommend admision but she declined and has capcaity to make her own decisions. Her labs did show mild anion gap acidosis likely from dehydration and also K of 2.9. Will have her f/u with pcp within a week and advised to have this rechecked. Will d/c on steroids and abx. Return precautions given Differential Diagnosis Differential Diagnosis: chf, copd, pulmonary edema Medical Records Medical records reviewed: Yes I reviewed the patient's medical records. Imaging Data Radiologic Study: Attestation: I personally reviewed and interpreted this imaging study as follows: Imaging: X-Ray Radiologist's impression: IMPRESSION: No acute findings. Lab Data Lab results reviewed: Yes I reviewed the patient's lab results. HPI General Mode of arrival: EMS . Date/Time Provider Initiated Documentation: 10/15/19 22:19 . Limitations to Documentation: no limitations . Information obtained by: patient . History of Present Illness 64 year old F presents to the emergency department with the chief complaint of shortness of breath, described as moderate, Patient started experiencing this day(s) (4) and it has been constant. No relieving factors improve symptom(s), No exacerbating factors reported . Patient notes cough. Patient did receive the following treatments prior to arrival, none Related Data Home Medications Medication Instructions Recorded Confirmed atorvastatin [Lipitor] 10 mg PO DAILY 06/21/17 10/15/19 albuterol sulfate [Proventil HFA] 2 puff INHALATION Q4H PRN PRN #1 06/24/17 10/15/19 inh levothyroxine 25 mcg PO DAILY@0600 #90 tab 06/24/17 10/15/19 methadone 85 mg PO DAILY 12/02/18 10/15/19 aspirin 81 mg PO DAILY #30 tab 12/09/18 10/15/19 furosemide 20 mg PO DAILY #30 tab 12/09/18 10/15/19 gabapentin 300 mg PO TID #60 cap 12/09/18 10/15/19 losartan 50 mg tablet 50 mg PO DAILY 90 Days #90 tab 06/30/19 10/15/19 umeclidinium 62.5 mcg/actuation 1 inh IH DAILY 06/30/19 10/15/19 blister powder for inhalation potassium chloride 10 meq PO DAILY #30 cap 09/04/19 10/15/19 Nicotrol 30 cartridge INHALATION Q2H PRN 09/26/19 10/15/19 PRN #60 ea doxycycline hyclate 100 mg PO BID #14 tab 10/15/19 prednisone 60 mg PO DAILY 5 Days #15 tab 10/15/19 Previous Rx's Medication Instructions Recorded albuterol sulfate [Proventil HFA] 2 puff INHALATION Q4H PRN PRN #1 06/24/17 inh levothyroxine 25 mcg PO DAILY@0600 #90 tab 06/24/17 aspirin 81 mg PO DAILY #30 tab 12/09/18 furosemide 20 mg PO DAILY #30 tab 12/09/18 gabapentin 300 mg PO TID #60 cap 12/09/18 losartan 50 mg tablet 50 mg PO DAILY 90 Days #90 tab 06/30/19 potassium chloride 10 meq PO DAILY #30 cap 09/04/19 Nicotrol 30 cartridge INHALATION Q2H PRN 09/26/19 PRN #60 ea doxycycline hyclate 100 mg PO BID #14 tab 10/15/19 prednisone 60 mg PO DAILY 5 Days #15 tab 10/15/19 Allergies Allergy/AdvReac Type Severity Reaction Status Date / Time Penicillins Allergy Unverified 10/15/19 22:22 General Stated Complaint: SOB JAYCE: 2 Review of Systems All systems reviewed & are unremarkable except as noted in HPI and below Constitutional Constitutional: Denies chills and Denies fever(s) ENT Ears, Nose, Mouth, and Throat: Denies change in voice Cardiovascular Cardiovascular: Denies chest pain Gastrointestinal Gastrointestinal: Denies abdominal pain, Denies nausea and Denies vomiting Genitourinary Genitourinary: Denies dysuria Musculoskeletal Musculoskeletal: Denies joint swelling Integumentary/Breasts Skin/Breast: Denies rash Psychiatric Psychiatric: Denies depression [facility] Social History Smoking/Tobacco Use Status: Current every day Tobacco Type: cigarettes Smoking packs per day: 1 Smoking cigarettes per day: 20.0 Years smoked: 46 Smoking pack- years: 46.00 Quit status: considering quitting Counseling given: provider counseling, support medications, support program and other Alcohol Intake: never Drug use: Never Substance use type: does not use Current gender identity: female Do you feel safe at home: Yes Do you feel safe in your relationship?: Yes Exam Const General: no acute distress Orientation: alert HENMT Head: normal to inspection Ears: external ears normal General nose exam: external nose normal Mouth: moist mucous membranes Eyes General: appearance normal, both eyes and all related structures Neck Neck: normal visual inspection Resp Effort & Inspection: normal respiratory effort and able to speak in complete sentences Cardio Rate: regular rate Skin General skin exam: no rashes or lesions noted Neuro General: alert and oriented x3 Extrem General: normal to inspection Psych Mental Status: mental status grossly normal Course Vital Signs Vital signs: Vital Signs Temperature 36.4 C L 10/15/19 22:15 Pulse 107 H 10/15/19 22:15 Respiratory Rate 24 10/15/19 22:15 Blood Pressure 219/66 H 10/15/19 22:15 Pulse Oximetry 95 10/15/19 22:15 Temperature 36.4 C L 10/15/19 22:15 Temperature Source Skin 10/15/19 22:15 Pulse 107 H 10/15/19 22:15 Respiratory Rate 24 10/15/19 22:15 Blood Pressure 219/66 H 10/15/19 22:15 Pulse Oximetry 95 10/15/19 22:15 Pain Level 0 10/15/19 22:15
[2019-10-15 22:33] VITALS: RESP 20
--- NOTE | 2019-10-15 22:41 | DI.RAD_ITS ---
EXAM: XR PORTABLE CHEST AP CLINICAL HISTORY: shortness of breath. TECHNIQUE: 2D digital imaging was performed. COMPARISON: XR PORTABLE CHEST AP from 09/24/2019 FINDINGS: LUNGS: Clear. No pleural abnormality seen. HEART: Normal. MEDIASTINUM: Normal. OTHER FINDINGS: Degenerative changes in the spine. IMPRESSION: No acute pulmonary findings.
[2019-10-15 22:42] VITALS: PULSE 88; RESP 20; RESP 4; RESP 7; O2SAT 99
[2019-10-15] MEDS: methylPREDNISolone SUCC 125 MG VIAL IVP (22:42)
[2019-10-15] MEDS: Furosemide 40 MG/4 ML VIAL IVP (22:42)
[2019-10-15] MEDS: Albuterol/Ipratropium 3 ML UPD VIAL UPD (22:42)
[2019-10-15] MEDS: Normal Saline Flush 10 ML SYR IVP (22:43)
--- NOTE | 2019-10-15 22:49 | DI.VRAD_ITS ---
PROCEDURE INFORMATION: Exam: XR Chest, 1 View Exam date and time: 10/15/2019 10:21 PM Age: 64 years old Clinical indication: Shortness of breath; Patient HX: SOB for a few days, HX of copd TECHNIQUE: Imaging protocol: XR of the chest Views: 1 view. COMPARISON: XR PORTABLE CHEST AP 09/24/2019 8:33 PM FINDINGS: Lungs: Hyperinflation, unchanged. No consolidation. Pleural space: Unremarkable. No pleural effusion. No pneumothorax. Heart/Mediastinum: Unremarkable. No cardiomegaly. Bones/joints: Unremarkable. IMPRESSION: No acute findings. Dictated and Authenticated by: Jorge Valerio MD. Ordering:MARQUISE Martini MD
[2019-10-15 22:58] VITALS: BP 194/59; PULSE 78; RESP 24; O2SAT 96
[2019-10-15 22:59] LABS: Abs Immature Grans 0.05 k/cumm (0.0-0.09); Absolute Basophil Count 0.05 k/cumm (0.0-0.2); Absolute Eosinophil Count 0.43 k/cumm (0.0-0.7); Absolute Lymphocyte Count 2.44 k/cumm (1.2-3.4); Absolute Monocyte Count 0.61 k/cumm (0.11-0.7); Absolute Neutrophil Count 4.72 k/cumm (1.2-6.7); Basophils % 0.6; Eosinophils % 5.2; HCT 34.2 % (36.0-46.0); HGB 11.4 g/dL (12.0-15.5); Immature Grans % 0.6 %; Lymphocytes % 29.4; Mean Corp. HGB Concentration 33.3 g/dL (32.0-36.0); Mean Corpuscular Hemoglobin 30.2 pg (27.0-33.0); Mean Corpuscular Volume 90.5 fL (80-95); Mean Platelet Volume 11.8 fL (8.0-11.0); Monocytes % 7.3; Neutrophils % 56.9; Platelet Count 160 x1000/uL (130-400); RBC 3.78 m/cumm (4.00-5.20); RBC Distribution Width 14.6 % (11.7-14.6)
[2019-10-15 23:14] LABS: Prothrombin Time 9.6 sec (9.3-11.0)
[2019-10-15 23:17] LABS: ALT 48 U/L (14-59); AST 38 U/L (15-37); Albumin 3.5 g/dL (3.4-5.0); Alkaline Phosphatase 102 U/L (46-116); Anion Gap 15.4 mmol/L (3-11); BUN 14 mg/dL (7-18); Bilirubin, Total 0.3 mg/dL (0.2-1.0); CO2 24.6 mmol/L (21.0-32.0); CREATININE 1.21 mg/dL (0.55-1.02); Chloride 103 mmol/L (98-107); Estimated GFR 45.09 (mL/min/1.73m2); Glucose 207 mg/dL (74-106); Sodium 143 mmol/L (136-145)
[2019-10-15 23:21] LABS: Potassium 2.9 mmol/L (3.5-5.1)
[2019-10-15] MEDS: Potassium Chloride 20 MEQ TABCR 40 MEQ PO (23:26)
[2019-10-15 23:36] VITALS: BP 185/59; PULSE 98; RESP 20; O2SAT 91
[2019-10-15 23:41] LABS: PTT Activated 16.1 sec (21.0-31.4)
[2019-10-15] MEDS: Doxycycline Hyclate 100 MG CAP PO (23:42)
--- NOTE | 2019-10-18 09:36 | CMPROGNOTE_ITS ---
- If Service Date Differs Date of service: 10/18/19 Time of Service: 09:37 Care Management Progress Note S/O: CM attempted to reach patient to assist in establishing care with a local provider vs following up with her own PCP. Recommended by that she have an appointment within a week from ED visit. CM left a voicemail on identified answering machine with a request call back. CM contacted [facility] patient is not on their new patient list and they have not received a request for transfer of care. P:CM left a voicemail will await return phone call from the patient. CM did contact primary care provider and confirmed that appointment is scheduled for 10/19/2019 at 1530.
== END 2019-10-16 00:25 | disposition home or self-care (01) ==
LOC: ER 10-16 00:25
PROVIDERS: Emergency Provider Emergency Medicine; PCP Family Medicine
DX: J44.1 Chronic obstructive pulmonary disease with (acute) exacerbation (principal); E87.6 Hypokalemia; I42.9 Cardiomyopathy, unspecified; I10 Essential (primary) hypertension; F17.210 Nicotine dependence, cigarettes, uncomplicated
CPT/HCPCS: 36415; 80053; 87449; 94640; 96374; 96375; 99284; 71045; 85025; 85610; 85730; J1940; J2930; J7620

== ENCOUNTER 2019-10-31 05:53 | Emergency (ER) | payer MEDICARE, MEDICAID, SELFPAY ==
[2019-10-31] MEDS: predniSONE 20 MG TAB 60 MG PO (06:00)
--- NOTE | 2019-10-31 06:04 | ED.GENADUL_ITS ---
Discharge Plan Disposition Patient Disposition: HOME Condition: Good Discharge Details Chief Complaint: SOB Clinical Impression: COPD with exacerbation Primary Care Provider: August Inman ED Provider: Richar Martinez Home Meds and New Rx's Prescriptions: New prednisone 10 mg tablet See Rx Instructions .ROUTE .COMPLEX Qty: 30 RF: 0 Continued Incruse Ellipta 62.5 mcg/actuation blister with device 1 inh IH DAILY RF: 0 losartan 50 mg tablet 50 mg PO DAILY 90 Days Qty: 90 RF: 3 methadone 10 MG/ML concentrate 85 mg PO DAILY RF: 0 aspirin 81 mg Tablet,Chewable 81 mg PO DAILY Qty: 30 RF: 0 furosemide 20 mg Tablet 20 mg PO DAILY Qty: 30 RF: 0 gabapentin 100 mg Capsule 300 mg PO TID Qty: 60 RF: 0 potassium chloride 10 mEq capsule, extended release 10 meq PO DAILY Qty: 30 RF: 0 Nicotrol 10 mg Cartridge 30 cartridge inhalation Q2H PRN PRNQty: 60 RF: 0 atorvastatin [Lipitor] 10 MG tablet 10 mg PO DAILY RF: 0 levothyroxine 25 MCG tablet 25 mcg PO DAILY@0600 Qty: 90 RF: 0 albuterol sulfate [Proventil HFA] 200 PUFF HFA aerosol inhaler 2 puff Inhalation Q4H PRN PRNQty: 1 RF: 0 Discharge Instructions Instructions: COPD (Chronic Obstructive Pulmonary Disease) (ED), How to Use a Metered-Dose Inhaler and a Spacer (ED) Additional Instructions: Please use your inhaler with spacer every 4-6 hours for wheezing and shortness of breath. Take prednisone as directed. Follow-up with primary care next week for reevaluation. Return to the ED if you develop fever, increasing shortness of breath, chest pain, other concerns or problems. Referrals: August Inman [Primary Care Provider] - Medical Decision Making Patient with COPD exacerbation. Chest x-ray done just couple weeks ago negative for pneumonia. She has no fever. She has no focal breath sounds chest diffuse wheezing. Will restart steroids and provide taper. Will give DuoNeb and albuterol. EKG shows an old left bundle branch block but nothing acute. No labs at this point. Patient still with some wheezing but feels much better. No longer feeling dyspneic at all. Does not have a spacer to use with her albuterol inhaler so we will provide 1. We will put on a prednisone taper as opposed to a burst. We will have her contact primary care for follow-up. Return to ED for fever, increasing shortness of breath, chest pain, other concerns or problems. Medical Records Medical records reviewed: Yes I reviewed the patient's medical records. ECG Data Attestation: I personally reviewed and interpreted this ECG (s) as follows: Prior ECG tracings: available for review Interpretation: Sinus rhythm at a rate of 93 with left bundle branch block and left axis present. No change from previous. HPI General Mode of arrival: ambulatory . Date/Time Provider Initiated Documentation: 10/31/19 06:03 . Limitations to Documentation: no limitations . Information obtained by: patient, RN notes reviewed and old records reviewed . HPI Narrative: Patient presents to ED with complaint of cough and increasing shortness of breath. Patient has history of COPD. She continues to smoke although she is trying to cut back. She was recently started on Breo once finished with prednisone that she was placed on her last ED visit a few weeks ago. She denies fever. She denies pain. She has a little runny nose. Mostly just cough and shortness of breath as well as anxiety. Related Data Home Medications Medication Instructions Recorded Confirmed atorvastatin [Lipitor] 10 mg PO DAILY 06/21/17 10/31/19 albuterol sulfate [Proventil HFA] 2 puff INHALATION Q4H PRN PRN #1 06/24/17 10/31/19 inh levothyroxine 25 mcg PO DAILY@0600 #90 tab 06/24/17 10/31/19 methadone 85 mg PO DAILY 12/02/18 10/31/19 aspirin 81 mg PO DAILY #30 tab 12/09/18 10/31/19 furosemide 20 mg PO DAILY #30 tab 12/09/18 10/31/19 gabapentin 300 mg PO TID #60 cap 12/09/18 10/31/19 losartan 50 mg tablet 50 mg PO DAILY 90 Days #90 tab 06/30/19 10/31/19 umeclidinium 62.5 mcg/actuation 1 inh IH DAILY 06/30/19 10/31/19 blister powder for inhalation potassium chloride 10 meq PO DAILY #30 cap 09/04/19 10/31/19 Nicotrol 30 cartridge INHALATION Q2H PRN 09/26/19 10/31/19 PRN #60 ea prednisone See Rx Instructions .ROUTE 10/31/19 .COMPLEX #30 tab Previous Rx's Medication Instructions Recorded albuterol sulfate [Proventil HFA] 2 puff INHALATION Q4H PRN PRN #1 06/24/17 inh levothyroxine 25 mcg PO DAILY@0600 #90 tab 06/24/17 aspirin 81 mg PO DAILY #30 tab 12/09/18 furosemide 20 mg PO DAILY #30 tab 12/09/18 gabapentin 300 mg PO TID #60 cap 12/09/18 losartan 50 mg tablet 50 mg PO DAILY 90 Days #90 tab 06/30/19 potassium chloride 10 meq PO DAILY #30 cap 09/04/19 Nicotrol 30 cartridge INHALATION Q2H PRN 09/26/19 PRN #60 ea prednisone See Rx Instructions .ROUTE 10/31/19 .COMPLEX #30 tab Allergies Allergy/AdvReac Type Severity Reaction Status Date / Time Penicillins Allergy Unverified 10/31/19 07:24 General JAYCE: 2 Review of Systems Narrative: As documented in HPI otherwise negative as below. Const: no fever, chills, weakness Resp: cough, SOB; no pleuritic pain CV: no CP, diaphoresis, edema, syncope GI: no abdominal pain, nausea, vomiting, diarrhea Neuro: no headache, numbness, focal weakness, confusion PFSH Medical History Acute diastolic CHF (congestive heart failure) (Resolved) Acute respiratory failure with hypoxia (Acute) Cardiomyopathy (Acute ~12/2018) Chronic pain (Chronic) COPD (chronic obstructive pulmonary disease) (Chronic) Hyperglycemia (Resolved) Hypertension (Chronic) Hypothyroidism (Chronic) Prediabetes (Chronic) QT prolongation (Acute) Social History Smoking/Tobacco Use Status: Current, status unknown Tobacco Type: cigarettes Smoking packs per day: 1 Smoking cigarettes per day: 20.0 Years smoked: 46 Smoking pack-years: 46.00 Quit status: considering quitting Counseling given: provider counseling, support medications, support program and other Alcohol Intake: never Drug use: Never Substance use type: does not use Current gender identity: female Do you feel safe at home: Yes Do you feel safe in your relationship?: Yes Exam Narrative Exam Narrative: Vitals: Afebrile. Elevated blood pressure. Normal room air pulse oximetry. Const: WDWN anxioius female in NAD. HEENT: NC/AT. Normal facial exam. Eyes: Normal conjunctiva and sclera. Neck: Supple. Trachea midline. Lungs: Normal respiratory effort. Lungs with diffuse wheezing throughout. Cor: RRR without murmur/gallop. Good radial pulses. Neuro: A+O x 3. CN grossly in tact. Good strength and no focal deficit. Ext: No C/C/E. No deformity or tenderness. Skin: Warm and dry without rash.
[2019-10-31] MEDS: Albuterol 2.5 MG/3 ML INH SOLN VIAL UPD (06:46)
[2019-10-31 07:05] VITALS: RESP 4
[2019-10-31] MEDS: Albuterol/Ipratropium 3 ML UPD VIAL UPD (07:05)
[2019-10-31 07:18] VITALS: BP 200/99; PULSE 102; RESP 22; RESP 24; TEMP 36.8; O2SAT 92
[2019-10-31 07:22] VITALS: BP 180/78; PULSE 84; RESP 18; TEMP 36.9; O2SAT 95
[2019-10-31] MEDS: Inhaler, Assist Device 1 EACH MC (07:24)
[2019-10-31 17:56] VITALS: BP 180/78; PULSE 84; RESP 18; TEMP 36.9; O2SAT 95
== END 2019-10-31 08:04 | disposition home or self-care (01) ==
PROVIDERS: Emergency Provider Emergency Medicine; PCP Family Medicine
DX: J44.1 Chronic obstructive pulmonary disease with (acute) exacerbation (principal); F17.210 Nicotine dependence, cigarettes, uncomplicated; I10 Essential (primary) hypertension
CPT/HCPCS: 93005; 94640; 99284; 93010; J7512; J7613; J7620

== ENCOUNTER 2019-11-01 04:26 | Inpatient (IN) | payer MEDICARE, MEDICAID, SELFPAY ==
[2019-11-01] VITALS (18 sets, daily range): BP systolic 125–191; BP diastolic 51–99; PULSE 68–90; RESP 4–26; TEMP 36.2–37.2; O2SAT 90–100
--- NOTE | 2019-11-01 04:42 | W.ED.GENAD ---
Discharge Plan Disposition Patient Disposition: [facility] INPATIENT Condition: Poor Discharge Details Chief Complaint: SOB Clinical Impression: COPD with acute exacerbation Primary Care Provider: August Inman ED Provider: Richar Martinez Home Meds and New Rx's Prescriptions: No Action Incruse Ellipta 62.5 mcg/actuation blister with device 1 inh IH DAILY RF: 0 losartan 50 mg tablet 50 mg PO DAILY 90 Days Qty: 90 RF: 3 methadone 10 MG/ML concentrate 85 mg PO DAILY RF: 0 aspirin 81 mg Tablet,Chewable 81 mg PO DAILY Qty: 30 RF: 0 furosemide 20 mg Tablet 20 mg PO DAILY Qty: 30 RF: 0 gabapentin 100 mg Capsule 300 mg PO TID Qty: 60 RF: 0 potassium chloride 10 mEq capsule, extended release 10 meq PO DAILY Qty: 30 RF: 0 Nicotrol 10 mg Cartridge 30 cartridge inhalation Q2H PRN PRNQty: 60 RF: 0 atorvastatin [Lipitor] 10 MG tablet 10 mg PO DAILY RF: 0 levothyroxine 25 MCG tablet 25 mcg PO DAILY@0600 Qty: 90 RF: 0 albuterol sulfate [Proventil HFA] 200 PUFF HFA aerosol inhaler 2 puff Inhalation Q4H PRN PRNQty: 1 RF: 0 prednisone 10 mg tablet See Rx Instructions .ROUTE .COMPLEX Qty: 30 RF: 0 Medical Decision Making Patient appears worse this morning than yesterday morning. She did receive a DuoNeb in route. She also reports using her albuterol inhaler prior to calling EMS. With her recent treatment with steroid burst and antibiotics and subsequent worsening symptomatology she probably requires admission at this point. Will get EKG, labs, chest x-ray. Will treat with IV steroids, nebulizers, p.o. Levaquin. Will discuss with hospitalist once labs return. Patient room air ABG shows a pH of 7.46 with a PCO2 of 38 and a PO2 of 51. She seems to have a respiratory alkalosis from her tachypnea and no evidence of respiratory failure at this point. Chemistry significant for some worsening kidney function so we will start some fluids. Potassium and magnesium both a little low. Glucose a little high. Liver function remains normal. Troponin is negative. White count is normal. EKG shows a left bundle branch block which is old and unchanged. Chest x-ray shows nothing acute. A and P is elevated but may be related to right heart strain due to COPD and pulmonary hypertension. There was no evidence of fluid overload on chest x-ray. Medical Records Medical records reviewed: Yes I reviewed the patient's medical records. Lab Data Lab results reviewed: Yes I reviewed the patient's lab results. ECG Data Attestation: I personally reviewed and interpreted this ECG (s) as follows: Interpretation: . Normal sinus rhythm at 85. Left bundle branch block with left axis. No acute ST changes. HPI General Mode of arrival: EMS. Date/Time Provider Initiated Documentation: 11/01/19 04:35. Limitations to Documentation: no limitations. Information obtained by: patient. HPI Narrative: Patient presents by EMS with difficulty breathing and wheezing. Patient seen by me yesterday for same. She did better with a couple of treatments. She was started on steroid taper. She was given a spacer to use with her albuterol inhaler. She returns with continued shortness of breath, wheezing and felt that she was worse this morning. She denies smoking but she smells of cigarette smoke. Reports that her family smokes around her. She denies fever. She denies chest pain. She was seen here couple of weeks ago and put on prednisone and doxycycline. She is now been here twice with continued and worsening symptoms. Related Data Home Medications Medication Instructions Recorded Confirmed atorvastatin [Lipitor] 10 mg PO DAILY 06/21/17 11/01/19 albuterol sulfate [Proventil HFA] 2 puff INHALATION Q4H PRN PRN #1 06/24/17 11/01/19 inh levothyroxine 25 mcg PO DAILY@0600 #90 tab 06/24/17 11/01/19 methadone 85 mg PO DAILY 12/02/18 11/01/19 aspirin 81 mg PO DAILY #30 tab 12/09/18 11/01/19 furosemide 20 mg PO DAILY #30 tab 12/09/18 11/01/19 gabapentin 300 mg PO TID #60 cap 12/09/18 11/01/19 losartan 50 mg tablet 50 mg PO DAILY 90 Days #90 tab 06/30/19 11/01/19 umeclidinium 62.5 mcg/actuation 1 inh IH DAILY 06/30/19 11/01/19 blister powder for inhalation potassium chloride 10 meq PO DAILY #30 cap 09/04/19 11/01/19 Nicotrol 30 cartridge INHALATION Q2H PRN 12/24/19 01/28/20 PRN #60 ea prednisone See Rx Instructions .ROUTE 10/31/19 .COMPLEX #30 tab Previous Rx's Medication Instructions Recorded albuterol sulfate [Proventil HFA] 2 puff INHALATION Q4H PRN PRN #1 06/24/17 inh levothyroxine 25 mcg PO DAILY@0600 #90 tab 06/24/17 aspirin 81 mg PO DAILY #30 tab 12/09/18 furosemide 20 mg PO DAILY #30 tab 12/09/18 gabapentin 300 mg PO TID #60 cap 12/09/18 losartan 50 mg tablet 50 mg PO DAILY 90 Days #90 tab 06/30/19 potassium chloride 10 meq PO DAILY #30 cap 09/04/19 Nicotrol 30 cartridge INHALATION Q2H PRN 09/26/19 PRN #60 ea prednisone See Rx Instructions .ROUTE 10/31/19 .COMPLEX #30 tab Allergies Allergy/AdvReac Type Severity Reaction Status Date / Time Penicillins Allergy Unverified 10/31/19 07:24 General JAYCE: 3 Review of Systems Narrative: 07/17 Review of Systems completed and is negative except as stated above in HPI (Systems reviewed: Const, Eyes, ENT, Resp, CV, GI, , MSK, Skin, Neuro) PFSH Social History Smoking/Tobacco Use Status: Current, status unknown Tobacco Type: cigarettes Smoking packs per day: 1 Smoking cigarettes per day: 20.0 Years smoked: 46 Smoking pack-years: 46.00 Quit status: considering quitting Counseling given: provider counseling, support medications, support program and other Alcohol Intake: never Drug use: Never Substance use type: does not use Current gender identity: female Do you feel safe at home: Yes Do you feel safe in your relationship?: Yes Exam Narrative Exam Narrative: Vitals: Afebrile. Tachypneic and hypertensive. Normal heart rate. Normal room air pulse ox. Const: Middle age female who appears anxious and in mild respiratory distress. HEENT: NC/AT. Normal facial exam. Eyes: Normal conjunctiva and sclera. Neck: Supple. Trachea midline. Lungs: Tachypneic with mild respiratory distress. Lungs with diffuse wheezing throughout. Cor: RRR without murmur/gallop. Good radial pulses. GI: Soft. NT/ND. No guarding or rebound. Neuro: A+O x 3. Normal speech, mentation, gait. Cranial nerves II - XII grossly intact. No gross motor or sensory deficit. Ext: No C/C/E. Skin: Warm and dry without rash.
--- NOTE | 2019-11-01 04:43 | DI.RAD_ITS ---
EXAM: XR CHEST 2V PA LATERAL INDICATION: cough/SOB. COMPARISON: XR PORTABLE CHEST AP from 10/15/2019 TECHNIQUE: 2D digital imaging was performed. FINDINGS: The heart size is within normal limits. The lungs appear clear. No infiltrate, effusion or pulmonar y edema is seen. IMPRESSION: Negative chest x-ray.
[2019-11-01 05:03] LABS: Abs Immature Grans 0.04 k/cumm (0.0-0.09); Absolute Basophil Count 0.03 k/cumm (0.0-0.2); Absolute Eosinophil Count 0.02 k/cumm (0.0-0.7); Absolute Lymphocyte Count 1.31 k/cumm (1.2-3.4); Absolute Monocyte Count 0.55 k/cumm (0.11-0.7); Absolute Neutrophil Count 8.25 k/cumm (1.2-6.7); Basophils % 0.3; Eosinophils % 0.2; HCT 36.1 % (36.0-46.0); HGB 11.9 g/dL (12.0-15.5); Immature Grans % 0.4 %; Lymphocytes % 12.8; Mean Corpuscular Hemoglobin 29.5 pg (27.0-33.0); Mean Corpuscular Volume 89.6 fL (80-95); Mean Platelet Volume 11.5 fL (8.0-11.0); Monocytes % 5.4; Neutrophils % 80.9; Platelet Count 160 x1000/uL (130-400); RBC 4.03 m/cumm (4.00-5.20); RBC Distribution Width 14.6 % (11.7-14.6)
[2019-11-01 05:20] LABS: BE 3.4 mmol/L (-3-3); HCO3 27 mmol/L (22-28); pCO2 38 mmHg (34-47); pH 7.46 (7.35-7.45); pO2 51 mmHg (83-108); sO2 86 % (94-98); tCO2 25 mmol/L (22-29)
[2019-11-01] MEDS: Albuterol 2.5 MG/3 ML INH SOLN VIAL 5 MG UPD (05:20)
[2019-11-01] MEDS: methylPREDNISolone SUCC 125 MG VIAL IVP (05:20)
[2019-11-01] MEDS: levoFLOXacin 500 MG, levoFLOXacin 250 MG 750 MG PO (05:20)
[2019-11-01 05:21] LABS: Site Left Radial
[2019-11-01] MEDS: Normal Saline Flush 10 ML SYR IVP (05:21)
[2019-11-01 05:22] LABS: ALT 43 U/L (14-59); AST 24 U/L (15-37); Albumin 3.4 g/dL (3.4-5.0); Alkaline Phosphatase 99 U/L (46-116); Anion Gap 14.1 mmol/L (3-11); BUN 25 mg/dL (7-18); Bilirubin, Total 0.6 mg/dL (0.2-1.0); CO2 26.9 mmol/L (21.0-32.0); Calcium 9.1 mg/dL (8.5-10.1); Chloride 97 mmol/L (98-107); Estimated GFR 35.19 (mL/min/1.73m2); Glucose 222 mg/dL (74-106); Magnesium 1.7 mg/dL (1.8-2.4); Potassium 3.4 mmol/L (3.5-5.1); Sodium 138 mmol/L (136-145); Total Protein 7.2 g/dL (6.4-8.2); Troponin I < 0.05 ng/Ml (<0.06)
[2019-11-01 05:28] LABS: NT-proBNP 3295 pg/mL (<300)
[2019-11-01] MEDS: Lactated Ringers 1,000 ML 125 ML IV (05:32)
--- NOTE | 2019-11-01 06:15 | DI.VRAD_ITS ---
PROCEDURE INFORMATION: Exam: XR Chest, 2 Views Exam date and time: 11/01/2019 4:48 AM Age: 64 years old Clinical indication: Cough and shortness of breath and wheezing; Patient HX: Cough, SOB , copd TECHNIQUE: Imaging protocol: XR of the chest Views: 2 views. COMPARISON: XR PORTABLE CHEST AP 10/15/2019 10:40 PM FINDINGS: Lungs: Mild interstitial prominence/peribronchial thickening redemonstrated No consolidation. Pleural space: Unremarkable. No pleural effusion. No pneumothorax. Heart/Mediastinum: Unremarkable. No cardiomegaly. Bones/joints: Unremarkable. IMPRESSION: No radiographic evidence for pneumonia Mild bronchitis cannot be completely excluded Dictated and Authenticated by: Arian Kovacs MD. Ordering:BRUNO Mcqueen MD
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
[2019-11-01 08:54] LABS: Procalcitonin 0.2 ng/mL
[2019-11-01] MEDS: MAGNESIUM SULFATE 2 GM/50 ML BAG IVPB (09:10)
[2019-11-01] MEDS: Gabapentin 100 MG CAP 300 MG PO ×2 (09:13→13:48)
[2019-11-01] MEDS: Furosemide 20 MG TAB PO (09:15)
[2019-11-01] MEDS: Losartan 50 MG TAB PO (09:15)
[2019-11-01] MEDS: Potassium Chloride 10 MEQ CAPCR PO (09:15)
[2019-11-01] MEDS: Aspirin 81 MG CHEW PO (09:21)
[2019-11-01] MEDS: Methadone Liquid 10 MG/ML 80 MG PO (09:36)
[2019-11-01] MEDS: Enoxaparin 30 MG/0.3 ML SYR SC (09:36)
[2019-11-01] MEDS: methylPREDNISolone SUCC 125 MG VIAL 80 MG IVP ×2 (13:48→22:27)
--- NOTE | 2019-11-01 13:53 | PHARADMIT ---
Admission Pharmacy Clinical Review COPD Exacerbation, HAMZAH Code Status Full Code Current Weight 57.9 kg Renally Cleared and Narrow Therapeutic Index Meds CrCl 27.9ml/min QTc Value / Action Taken QTc 487, Methadone (chronic), received one dose of levaquin in the ER but not continued by hospitalist -- MD is aware of prolonged QTc BP Control, Fever BP 159/69 (as high as 191/99), afebrile Electrolytes reviewed Na 138, K+ 3.4, Mag 1.7 DVT Prophylaxis 30mg lmwh (adjusted dose per crcl) Opiate Usage / Scheduled Bowel Regimen Ordered Methadone 80mg daily Plt/SCr for Heparin / Enoxaparin Plt 160, Scr 1.5 INR for Warfarin H/H stable, WBC/Bands H/H 11.9/36.1, WBC 10.2 Antibiotic appropriateness n/a Cultures and Sensitivities Surgical ABX d/c within 24 hr DM control / Insulin Dosing BG 222 (no hx DM, is receiving steroids) Heart Failure (Check EF%) (NABIL's, B-Block, Diuretics) furosemide, losartan, IV to PO Switch Home Meds Reviewed yes, all ok Home Meds Not Ordered Incruse ellipta inh (nebs ordered) Comments Abx were not continued as patient was afebrile, insignificant sputum production, chest xray does not show pneumonia Procalcitonin came back 0.2 ng/ml - no need for abx Mild HAMZAH on chronic... continued lasix and losartan (home meds) -- monitor kidney function
[2019-11-01] MEDS: Albuterol/Ipratropium 3 ML UPD VIAL UPD ×2 (14:33→20:13)
[2019-11-01] MEDS: Gabapentin 100 MG CAP 400 MG PO (19:49)
[2019-11-01] MEDS: Budesonide/Formoterol 160/4.5 6 GM 60 PUFF INH IH (19:52)
[2019-11-01] MEDS: Atorvastatin 10 MG TAB PO (20:13)
[2019-11-02] VITALS (13 sets, daily range): BP systolic 134–194; BP diastolic 62–78; PULSE 84–103; RESP 4–20; TEMP 36.1–37.2; O2SAT 92–100
[2019-11-02] MEDS: Levothyroxine 25 MCG TAB PO (06:09)
[2019-11-02] MEDS: methylPREDNISolone SUCC 125 MG VIAL 80 MG IVP ×2 (06:09→14:27)
[2019-11-02] MEDS: Normal Saline Flush 10 ML SYR IVP ×2 (06:30→14:28)
[2019-11-02 07:40] LABS: BUN 25 mg/dL (7-18); CREATININE 1.21 mg/dL (0.55-1.02); Calcium 9.1 mg/dL (8.5-10.1); Chloride 100 mmol/L (98-107); Estimated GFR 45.09 (mL/min/1.73m2); Glucose 150 mg/dL (74-106); Magnesium 2.1 mg/dL (1.8-2.4); Potassium 3.8 mmol/L (3.5-5.1); Sodium 138 mmol/L (136-145)
[2019-11-02] MEDS: Albuterol/Ipratropium 3 ML UPD VIAL UPD ×4 (08:12→19:12)
[2019-11-02] MEDS: Budesonide/Formoterol 160/4.5 6 GM 60 PUFF INH IH ×2 (08:13→19:13)
[2019-11-02] MEDS: Gabapentin 100 MG CAP 400 MG PO ×3 (08:54→19:34)
[2019-11-02] MEDS: Furosemide 20 MG TAB PO (08:55)
[2019-11-02] MEDS: Potassium Chloride 10 MEQ CAPCR PO (08:56)
[2019-11-02] MEDS: Aspirin 81 MG CHEW PO (08:56)
[2019-11-02] MEDS: Losartan 50 MG TAB PO (08:56)
[2019-11-02] MEDS: Methadone Liquid 10 MG/ML 80 MG PO (08:57)
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
--- NOTE | 2019-11-02 10:31 | W.NUTCONSULT ---
Date of service: 11/02/19 Time of Service: 10:31 Nutritional Consult ASSESSMENT: 64 year old female wtih CHF, COPD, prediabetes. BMI wnl for age. Following regular meal plan with excellent intake. Not considered at nutritional risk at this time. Time Spent in Nutritional Counseling and Treatment: 0 time spent face to face
[2019-11-02] MEDS: Nicotine 7 MG/24 HR PATCH TD (10:46)
[2019-11-02] MEDS: Enoxaparin 30 MG/0.3 ML SYR SC (10:48)
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
[2019-11-02] MEDS: predniSONE 20 MG TAB 40 MG PO (16:52)
[2019-11-02] MEDS: Atorvastatin 10 MG TAB PO (19:12)
[2019-11-03] MEDS: Albuterol 2.5 MG/3 ML INH SOLN VIAL UPD (03:45)
[2019-11-03 04:15] VITALS: RESP 4
[2019-11-03 04:37] VITALS: BP 205/93; PULSE 97; RESP 20; TEMP 36.7; O2SAT 96
[2019-11-03 05:09] VITALS: BP 210/86
[2019-11-03] MEDS: Levothyroxine 25 MCG TAB PO (05:36)
[2019-11-03 08:00] VITALS: BP 190/92; PULSE 83; RESP 18; TEMP 36.8; O2SAT 97
[2019-11-03] MEDS: Gabapentin 100 MG CAP 400 MG PO (08:14)
[2019-11-03] MEDS: predniSONE 20 MG TAB 40 MG PO (08:14)
[2019-11-03] MEDS: Losartan 50 MG TAB PO (08:15)
[2019-11-03] MEDS: Potassium Chloride 10 MEQ CAPCR PO (08:15)
[2019-11-03] MEDS: Furosemide 20 MG TAB PO (08:15)
[2019-11-03] MEDS: Acetaminophen 325 MG TAB PO (08:15)
[2019-11-03] MEDS: Nicotine 7 MG/24 HR PATCH TD (08:15)
[2019-11-03] MEDS: Aspirin 81 MG CHEW PO (08:15)
[2019-11-03] MEDS: Normal Saline Flush 10 ML SYR IVP (08:16)
[2019-11-03] MEDS: Methadone Liquid 10 MG/ML 80 MG PO (08:16)
[2019-11-03] MEDS: Patch Removal 1 EACH TD (08:26)
[2019-11-03 11:01] VITALS: PULSE 86; RESP 18; RESP 4; O2SAT 99
[2019-11-03] MEDS: Albuterol/Ipratropium 3 ML UPD VIAL UPD (11:01)
[2019-11-03 11:07] VITALS: PULSE 89; RESP 18; O2SAT 100
[2019-11-03] MEDS: Budesonide/Formoterol 160/4.5 6 GM 60 PUFF INH IH (11:07)
--- NOTE | 2019-11-03 12:54 | DSE_ITS ---
Date of service: 11/03/19 Time of Service: 12:55 DS: Diagnosis Discharge Diagnosis (1) COPD with acute exacerbation: Start date: 11/03/19 Start time: 12:55 Status: Acute Asessment and Plan: Improving. No change in sputum at this time. Wheezing intermittently. Oxygen level 100% on RA. D/C home with nebulizer, steroid taper. (2) Cardiomyopathy: Start date: 11/03/19 Start time: 12:56 Status: Acute (3) Tobacco abuse counseling: Start date: 11/03/19 Start time: 12:56 Status: Acute Asessment and Plan: Continue to assess readiness (4) HAMZAH (acute kidney injury): Start date: 11/03/19 Start time: 12:56 Status: Acute Asessment and Plan: Baseline. (5) Hypothyroidism: Status: Chronic (6) Hypertension: Status: Chronic (7) QT prolongation: Status: Acute (8) Chronic pain: Status: Chronic (9) DVT prophylaxis: Status: Acute (10) Discharge planning issues: Status: Acute Discharge Plan Disposition Patient Disposition: HOME Condition: Improving Discharge Details Chief Complaint: SOB Clinical Impression: COPD with acute exacerbation Reason For Visit: COPD EXACERBATION Admit Date/Time: 11/01/19 06:51 Admit Provider: Rod Mcguire Attending Provider: Rod Mcguire Primary Care Provider: August Inman ED Provider: [facility] Course Hospital Course: 64 y.o female with PMH COPD (nonoxygen dependent), Cardiomyopathy, CKD, and HTN admitted from [facility] ED for acute exacerbation of COPD after failing outpatient treatment. She was seen in the ED prior to admission given neb treatments and steroids felt better and discharged home. She returned a couple days later with worsening symptoms, at this time she was admitted for further management. She continues to smoke but has not smoked since 2 days prior to admission. Imaging from ED negative for pneumonia, mild bronchitis can not be excluded, however no sputum changes, will hold off on antibiotics. On admissions labs revealed HAMZAH, which has resolved, she appears to be baseline at her kidney function; labs otherwise unremarkable. She is feeling better, and would like to go home. She is being discharged home with nebulizer treatments and steroid taper. Oxygen level on RA 100%, afebrile without a WBC. She denies CP, SOB, N/V/D. Home Meds and New Rx's Prescriptions: New ipratropium-albuterol 0.5 mg-3 mg(2.5 mg base)/3 mL Solution For Nebulization 3 ml UPD QID Qty: 15 RF: 0 prednisone 10 mg tablet 10 mg PO DAILY Qty: 26 RF: 0 Continued Incruse Ellipta 62.5 mcg/actuation blister with device 1 inh IH DAILY RF: 0 losartan 50 mg tablet 50 mg PO DAILY 90 Days Qty: 90 RF: 3 methadone 10 MG/ML concentrate 80 mg PO DAILY RF: 0 aspirin 81 mg Tablet,Chewable 81 mg PO DAILY Qty: 30 RF: 0 furosemide 20 mg Tablet 20 mg PO DAILY Qty: 30 RF: 0 gabapentin 100 mg Capsule 300 mg PO TID Qty: 60 RF: 0 potassium chloride 10 mEq capsule, extended release 10 meq PO DAILY Qty: 30 RF: 0 Nicotrol 10 mg Cartridge 30 cartridge inhalation Q2H PRN PRNQty: 60 RF: 0 atorvastatin [Lipitor] 10 MG tablet 10 mg PO DAILY RF: 0 levothyroxine 25 MCG tablet 25 mcg PO DAILY@0600 Qty: 90 RF: 0 albuterol sulfate [Proventil HFA] 200 PUFF HFA aerosol inhaler 2 puff Inhalation Q4H PRN PRNQty: 1 RF: 0 Discontinued prednisone 10 mg tablet See Rx Instructions .ROUTE .COMPLEX Qty: 30 RF: 0 Discharge Instructions Instructions: Acute Kidney Injury (DC), COPD (Chronic Obstructive Pulmonary Disease) (DC) Additional Instructions: Take all meds as prescribed. Give yourself a nebulizer treatment up to 4 times a day if needed. Follow up with your primary provider in 1 week. Call your primary provider if you have color change in sputum (mucus). Stand Alone Forms: Nursing Discharge Form Referrals: August Inman [Primary Care Provider] - 11/07/19 11:30 am (` ) Activity:: Activity as Tolerated Equipment/Supplies:: No Equipment Needed Diet:: As Tolerated Discharge Orders Discharge Orders: Discharge Order (Routine); Ordered 11/03/19 Ordered By: Marlen Armstrong DS: Summary Status at Discharge Functional status at discharge: independent ambulation Overall status at discharge: patient is back to baseline Mental Status: mental status grossly normal Speech and Movement: speech and movement normal Mood: congruent mood Affect: normal affect Exam Narrative Exam Narrative: General: Alert and oriented, sitting comfortably in chair on RA, speaking in full sentences. HEENT: Normocephalic atraumatic. Pupils equal round reactive to light, pupils 4 to 5 mm in room light. Conjunctive are clear, no icterus. Back membranes clear bilaterally. No rhinorrhea. Mucous membranes moist with oropharynx benign. Neck is supple with no lymphadenopathy, thyromegaly, or other masses. Lungs: Expiratory wheezing intermittently. No rales. No increased work of breathing Cardiovascular: Regular rate and rhythm no murmurs gallops or rubs. Abdomen: Active bowel sounds, soft, nontender nondistended with no masses organomegaly. Extremities: No cyanosis, clubbing, or edema. Legs nontender to palpation. Skin: No rashes or other skin lesions Neurologic: Cranial nerves grossly intact. Moving 4 extremities with normal coordination. Normal speech. No tremor. Psychiatric: Normal mood and affect. Not nodding off or showing other signs of oversedation. Psych Mental Status: mental status grossly normal Speech and Movement: speech and movement normal Mood: congruent mood Affect: normal affect DS: Data Vitals/I&O Vitals and I&O: Vital Signs Temperature 36.8 C 11/03/19 08:00 Temperature Source Tympanic 11/03/19 08:00 Pulse 89 11/03/19 11:07 Pulse Rhythm Regular 11/03/19 11:06 Pulse 81 11/01/19 08:01 Respiratory Rate 18 11/03/19 11:07 Respiratory Effort Non-Labored 11/03/19 11:06 Respiratory Depth Normal 11/03/19 11:06 Respiratory Pattern Normal 11/03/19 11:06 Blood Pressure 190/92 H 11/03/19 08:00 Blood Pressure Mean 70 11/01/19 08:01 Blood Pressure Position Supine 11/01/19 04:37 Pulse Oximetry 100 11/03/19 11:07 Oxygen Delivery Method Room Air 11/03/19 11:01 Oxygen Flow Rate 0 11/03/19 11:01 Pain Level 3 11/03/19 09:15 Intake & Output 11/02/19 11/03/19 11/03/19 23:59 11:59 23:59 Intake Total 480 / 930 240 / 240 Balance 480 / 930 240 / 240 Weight 59.6 kg Intake: Oral 480 / 930 240 / 240 Other: Urine Appearance Clear Comment pt voiding ad regina in toilet; urine not assessed at this time Voiding Methods Toilet Toilet Data Completed and Pending Completed studies during hospitalization [Text1]: Patient Name: Ash PEÑA #: [id number]: ER Ordering Provider: Richar Martinez M.D. : REG ER Primary Care Provider: August Inman GDate of Exam: 11/01/19ex: F Admission Date: 11/01/19 : 1955 Age: 64 Exam(s) a RAD:XR chest 2V PA & lateral EXAM: XR CHEST 2V PA LATERAL INDICATION: cough/SOB. COMPARISON: XR PORTABLE CHEST AP from 10/15/2019 TECHNIQUE: 2D digital imaging was performed. FINDINGS: The heart size is within normal limits. The lungs appear clear. No infiltrate, effusion or pulmonary edema is seen. IMPRESSION: Negative chest x-ray. PROCEDURE INFORMATION: Exam: XR Chest, 2 Views Exam date and time: 11/01/2019 4:48 AM Age: 64 years old Clinical indication: Cough and shortness of breath and wheezing; Patient HX: Cough, SOB , copd TECHNIQUE: Imaging protocol: XR of the chest Views: 2 views. COMPARISON: XR PORTABLE CHEST AP 10/15/2019 10:40 PM FINDINGS: Lungs: Mild interstitial prominence/peribronchial thickening redemonstrated No consolidation. Pleural space: Unremarkable. No pleural effusion. No pneumothorax. Heart/Mediastinum: Unremarkable. No cardiomegaly. Bones/joints: Unremarkable. IMPRESSION: No radiographic evidence for pneumonia Mild bronchitis cannot be completely excluded [facility] Medical History Acute diastolic CHF (congestive heart failure) (Resolved) Acute respiratory failure with hypoxia (Acute) Cardiomyopathy (Acute ~12/2018) Chronic pain (Chronic) COPD (chronic obstructive pulmonary disease) (Chronic) Hyperglycemia (Resolved) Hypertension (Chronic) Hypothyroidism (Chronic) Prediabetes (Chronic) QT prolongation (Acute) Surgical History H/O section (Chronic) Family History Mother Heart disease Social History Smoking/Tobacco Use Status: Current, status unknown Tobacco Type: cigarettes Smoking packs per day: 1 Smoking cigarettes per day: 20.0 Years smoked: 46 Smoking pack-years: 46.00 Quit status: considering quitting Counseling given: provider counseling, support medications, support program and other Alcohol Intake: never Drug use: Never Substance use type: does not use Current gender identity: female Do you feel safe at home: Yes Do you feel safe in your relationship?: Yes Additional Social history: Originally from [place]. 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 Currently disabled. Living in [facility] with daughter and her daughter's boyfriend, both smoke. She also has 2 cats and reports old carpet in her hotel room. She denies alcohol or other drug use.
--- NOTE | 2019-11-03 16:56 | PDOC.CMDIS ---
LACE Index Scoring Tool - Questions: Length of Stay (in days): 2 Acuity (Admit via E.D.?): Yes Comorbidities: Congestive Heart Failure, Chronic Pulmonary Disease E.D. Visits: 7 - Answers: Total Score: 14 Risk of Readmission: High Risk Care Management Discharge Reason for Hospitalization: COPD Exacerbation Discharge Plan: Concepcion will discharge home with no new services. ADAM faxed prescriptions to [facility] in [facility]-notified Concepcion that she will need to provide MCR card to [facility] [employer] to process [facility] prescription as Randy reports not having her MCR Part B information. ADAM coordinated [facility] transport funded by [facility] to enable Concepcion to retrieve her prescriptions prior to returning to [facility]. Concepcion will follow up with her PCP and discharge plan of care as prescribed. Patient/Family Education Needs: Review discharge instructions, discuss Ask Me Three. Services Needed at Discharge: DME Agency ([facility] ), Transportation ([facility] )
== END 2019-11-03 14:54 | disposition home or self-care (01) | DRG 191 ==
LOC: ER 07:37 → MS 08:23
PROVIDERS: Admitting Provider Family Medicine; Emergency Provider Emergency Medicine; PCP Family Medicine; Visit Provider Family Medicine
DX: J44.1 Chronic obstructive pulmonary disease with (acute) exacerbation (principal); I42.9 Cardiomyopathy, unspecified; N17.9 Acute kidney failure, unspecified; F17.210 Nicotine dependence, cigarettes, uncomplicated; Z71.6 Tobacco abuse counseling; E03.9 Hypothyroidism, unspecified; R94.31 Abnormal electrocardiogram [ECG] [EKG]; G89.29 Other chronic pain; N18.9 Chronic kidney disease, unspecified; I12.9 Hypertensive chronic kidney disease with stage 1 through stage 4 chronic kidney disease, or unspecified chronic kidney disease; Z79.891 Long term (current) use of opiate analgesic; E83.42 Hypomagnesemia; Z59.1 Inadequate housing
CPT/HCPCS: 36415; 80048; 80053; 82805; 84145; 94640; 99222; 99233; 99239; 71046; 83735; 83880; 84484; 85025; 93005; 93010; J1650; J2930; J3490; J7512; J7613; J7620

== ENCOUNTER → 2019-12-26 13:52 | Outpatient (BNVA) | payer MEDICARE, MEDICAID, SELFPAY | PROVIDERS: PCP Family Medicine; Referring Provider Family Medicine; Visit Provider Internal Medicine Cardiovascular Disease | DX: I34.0 Nonrheumatic mitral (valve) insufficiency (principal); I42.9 Cardiomyopathy, unspecified | CPT/HCPCS: 99203; 99443 ==

== ENCOUNTER 2020-04-01 17:28 | Emergency (ER) | payer MEDICARE, MEDICAID, SELFPAY ==
[2020-04-01] VITALS (20 sets, daily range): BP systolic 149–201; BP diastolic 53–72; PULSE 83–120; RESP 11–28; TEMP 36.6–36.8; O2SAT 89–100
--- NOTE | 2020-04-01 17:36 | ED.GENADUL_ITS ---
Discharge Plan Disposition Patient Disposition: HOME Condition: Improving Discharge Details Chief Complaint: SOB Clinical Impression: COPD with acute exacerbation Primary Care Provider: August Inman ED Provider: Larissa Hanson Home Meds and New Rx's Prescriptions: New prednisone 20 mg tablet See Rx Instructions .ROUTE .COMPLEX Qty: 12 RF: 0 doxycycline hyclate 100 mg tablet 100 mg PO BID 7 Days Qty: 14 RF: 0 benzonatate [Tessalon Perles] 100 mg capsule 100 mg PO TID PRN (Reason: cough) Qty: 14 RF: 0 Continued Incruse Ellipta 62.5 mcg/actuation blister with device 1 inh IH DAILY RF: 0 losartan 50 mg tablet 50 mg PO DAILY 90 Days Qty: 90 RF: 3 gabapentin 100 mg capsule 400 mg PO TID RF: 0 methadone 10 MG/ML concentrate 80 mg PO DAILY RF: 0 aspirin 81 mg Tablet,Chewable 81 mg PO DAILY Qty: 30 RF: 0 furosemide 20 mg Tablet 20 mg PO DAILY Qty: 30 RF: 0 potassium chloride 10 mEq capsule, extended release 10 meq PO DAILY Qty: 30 RF: 0 Nicotrol 10 mg Cartridge 30 cartridge inhalation Q2H PRN PRNQty: 60 RF: 0 ipratropium-albuterol 0.5 mg-3 mg(2.5 mg base)/3 mL Solution For Nebulization 3 ml UPD QID Qty: 15 RF: 0 atorvastatin [Lipitor] 10 MG tablet 10 mg PO DAILY RF: 0 levothyroxine 25 MCG tablet 25 mcg PO DAILY@0600 Qty: 90 RF: 0 albuterol sulfate [Proventil HFA] 200 PUFF HFA aerosol inhaler 2 puff Inhalation Q4H PRN PRNQty: 1 RF: 0 Discharge Instructions Instructions: COPD (Chronic Obstructive Pulmonary Disease) (ED) Additional Instructions: Drink plenty of fluids and get plenty of rest. Use your albuterol inhaler and nebulizer as needed and directed for shortness of breath, wheezing or cough. Take the steroids and antibiotics until finished. Take the cough medication as needed and directed. Follow-up with your primary care doctor in 1 week. Return to the emergency department with any worsening or new concerning symptoms. Discharge Data Discharge Date/Time-TO BE ENTERED AT DEPARTURE: 04/01/20 19:25 Discharge Physician: Larissa Hanson Medical Decision Making 1739 -- 65-year-old female with a history of COPD, CHF, cardiomyopathy, hypertension, hyperlipidemia and chronic tobacco smoker presents with cough with yellow sputum, shortness of breath and wheezing for the past 5 days. She is speaking in full sentences. Airway intact. She has wheezing and rhonchi throughout. No lower extremity edema. No crackles or rales. EKG notes a rate of 119, suspect sinus versus atrial flutter, with left bundle branch block which is seen in previous EKG, but no obvious acute ST ischemic changes. Differential diagnosis includes acute COPD exacerbation, acute bronchitis, pneumonia, CHF, ACS. History and presentation not consistent with PE. Will check screening labs, chest x-ray, give Solu-Medrol DuoNeb and fluids and reassess. 1899 --labs and imaging reviewed. White blood cell count 17. Troponin negative. Chest x-ray notes minimal interstitial prominence in the bases bilaterally, not significantly different from previous chest x-ray. Patient reassessed --she still has scattered wheezing throughout but overall improvement in air movement. Heart rate 90s. Repeat EKG notes a rate of 93, sinus without acute change from previous. She is requesting to go home. As patient is a smoker, with leukocytosis and prominence in the bases bilaterally, will treat for possible pneumonia. She was given a dose of doxycycline here as well as prescription for home. She has plenty of albuterol at home. Advised to follow up with the primary care doctor for re-evaluation. Usual and customary return precautions given prior to discharge. Medical Records Medical records reviewed: Yes I reviewed the patient's medical records. Imaging Data Radiologic Study: Radiologist's impression: XR Chest, 1 View Exam date and time: 04/01/2020 6:04 PM Age: 65 years old Clinical indication: Shortness of breath; Patient HX: SOB; Additional info: R/O acute disease TECHNIQUE: Imaging protocol: XR of the chest Views: 1 view. COMPARISON: CR XR CHEST 2V PA LATERAL 11/01/2019 5:55 AM FINDINGS: Lungs: There is minimal interstitial prominence particularly in the lung bases, though not definitely changed compared to the prior study of 11/01/2019. Pleural space: Unremarkable. No pleural effusion. No pneumothorax. Heart/Mediastinum: Unremarkable. No cardiomegaly. Vasculature: There is minimal atherosclerotic calcification of the aortic arch. Bones/joints: There are multilevel minimal osteophytic degenerative changes of the thoracic spine. IMPRESSION: There is minimal interstitial prominence particularly in the lung bases, though not definitely changed compared to the prior study of 11/01/2019. Follow-up study in several days may be helpful to exclude any evolving interstitial infiltrate. Lab Data Lab results reviewed: Yes I reviewed the patient's lab results. Labs: Laboratory Tests Range/Units 04/01/20 04/01/20 04/01/20 17:45 17:45 17:45 WBC (4.4-10.8) k/cumm 17.94 H RBC (4.00-5.20) m/cumm 3.87 L Hgb (12.0-15.5) g/dL 10.7 L Hct (36.0-46.0) % 32.3 L MCV (80-95) fL 83.5 MCH (27.0-33.0) pg 27.6 MCHC (32.0-36.0) g/dL 33.1 RDW (11.7-14.6) % 15.5 H Plt Count (130-400) x1000/uL 276 MPV (8.0-11.0) fL 10.6 Immature Gran % % 2.1 Neutrophils % 84.8 Lymphocytes % 6.7 Monocytes % 6.1 Eosinophils % 0.1 Basophils % 0.2 Absolute Neutrophils (1.2-6.7) k/cumm 15.21 H Absolute Lymphocytes (1.2-3.4) k/cumm 1.20 Absolute Monocytes (0.11-0.7) k/cumm 1.09 H Absolute Eosinophils (0.0-0.7) k/cumm 0.02 Absolute Basophils (0.0-0.2) k/cumm 0.04 PT (9.3-11.0) sec 9.9 INR (0.9-1.1) 1.0 APTT (21.0-31.4) sec 23.4 Sodium (136-145) mmol/L 135 L Potassium (3.5-5.1) mmol/L 3.8 Chloride (98-107) mmol/L 99 Carbon Dioxide (21.0-32.0) mmol/L 21.3 Anion Gap (3-11) mmol/L 14.7 H BUN (7-18) mg/dL 21 H Creatinine (0.55-1.02) mg/dL 1.23 H Estimated GFR/1.73 m2 (mL/min/1.73m2) 44.10 Glucose (74-106) mg/dL 125 H Calcium (8.5-10.1) mg/dL 9.6 Magnesium (1.8-2.4) mg/dL 1.8 Total Bilirubin (0.2-1.0) mg/dL 0.3 AST (15-37) U/L 27 ALT (14-59) U/L 41 Alkaline Phosphatase (46-116) U/L 176 H Troponin I (<0.06) ng/mL < 0.05 Total Protein (6.4-8.2) g/dL 8.5 H Albumin (3.4-5.0) g/dL 3.4 TSH (0.36-3.74) uIU/mL Range/Units 04/01/20 17:45 WBC (4.4-10.8) k/cumm RBC (4.00-5.20) m/cumm Hgb (12.0-15.5) g/dL Hct (36.0-46.0) % MCV (80-95) fL MCH (27.0-33.0) pg MCHC (32.0-36.0) g/dL RDW (11.7-14.6) % Plt Count (130-400) x1000/uL MPV (8.0-11.0) fL Immature Gran % % Neutrophils % Lymphocytes % Monocytes % Eosinophils % Basophils % Absolute Neutrophils (1.2-6.7) k/cumm Absolute Lymphocytes (1.2-3.4) k/cumm Absolute Monocytes (0.11-0.7) k/cumm Absolute Eosinophils (0.0-0.7) k/cumm Absolute Basophils (0.0-0.2) k/cumm PT (9.3-11.0) sec INR (0.9-1.1) APTT (21.0-31.4) sec Sodium (136-145) mmol/L Potassium (3.5-5.1) mmol/L Chloride (98-107) mmol/L Carbon Dioxide (21.0-32.0) mmol/L Anion Gap (3-11) mmol/L BUN (7-18) mg/dL Creatinine (0.55-1.02) mg/dL Estimated GFR/1.73 m2 (mL/min/1.73m2) Glucose (74-106) mg/dL Calcium (8.5-10.1) mg/dL Magnesium (1.8-2.4) mg/dL Total Bilirubin (0.2-1.0) mg/dL AST (15-37) U/L ALT (14-59) U/L Alkaline Phosphatase (46-116) U/L Troponin I (<0.06) ng/mL Total Protein (6.4-8.2) g/dL Albumin (3.4-5.0) g/dL TSH (0.36-3.74) uIU/mL 0.91 ECG Data Attestation: I personally reviewed and interpreted this ECG (s) as follows: Interpretation: #1 -- Rate of 119, atrial flutter or sinus, left bundle branch block which is seen in previous EKG. QTc 44. QRS 162. No acute ST elevation or depression. #2 -- Rate of 93, sinus, left bundle branch block, no acute change from previous EKG. NC 150 8P QTc 40. QRS 162. HPI General Mode of arrival: ambulatory . Date/Time Provider Initiated Documentation: 04/01/20 17:31 . Limitations to Documentation: no limitations . Information obtained by: patient . HPI Narrative: Patient is a 65-year-old female with a history of COPD, CHF, hypertension, hyperlipidemia and chronic tobacco smoker who presents with cough with yellow sputum, shortness of breath and wheezing for the past 5 days. She states presentation appears consistent with her usual COPD exacerbation. She states she is mainly here for antibiotics and steroids. She denies any fever, recent travel, chest pain, known sick contacts. Related Data Home Medications Medication Instructions Recorded Confirmed atorvastatin [Lipitor] 10 mg PO DAILY 06/21/17 12/26/19 albuterol sulfate [Proventil HFA] 2 puff INHALATION Q4H PRN PRN #1 06/24/17 12/26/19 inh levothyroxine 25 mcg PO DAILY@0600 #90 tab 06/24/17 12/26/19 methadone 80 mg PO DAILY 12/02/18 12/26/19 aspirin 81 mg PO DAILY #30 tab 12/09/18 12/26/19 furosemide 20 mg PO DAILY #30 tab 12/09/18 12/26/19 losartan 50 mg tablet 50 mg PO DAILY 90 Days #90 tab 06/30/19 12/26/19 umeclidinium 62.5 mcg/actuation 1 inh IH DAILY 06/30/19 12/26/19 blister powder for inhalation potassium chloride 10 meq PO DAILY #30 cap 09/04/19 12/26/19 Nicotrol 30 cartridge INHALATION Q2H PRN 09/26/19 12/26/19 PRN #60 ea ipratropium-albuterol 3 ml UPD QID #15 ml 11/03/19 12/26/19 gabapentin 100 mg capsule 400 mg PO TID cap 12/26/19 benzonatate [Tessalon Perles] 100 mg PO TID PRN #14 cap 04/01/20 doxycycline hyclate 100 mg PO BID 7 Days #14 tab 04/01/20 prednisone See Rx Instructions .ROUTE 04/01/20 .COMPLEX #12 tab Previous Rx's Medication Instructions Recorded albuterol sulfate [Proventil HFA] 2 puff INHALATION Q4H PRN PRN #1 06/24/17 inh levothyroxine 25 mcg PO DAILY@0600 #90 tab 06/24/17 aspirin 81 mg PO DAILY #30 tab 12/09/18 furosemide 20 mg PO DAILY #30 tab 12/09/18 losartan 50 mg tablet 50 mg PO DAILY 90 Days #90 tab 06/30/19 potassium chloride 10 meq PO DAILY #30 cap 09/04/19 Nicotrol 30 cartridge INHALATION Q2H PRN 09/26/19 PRN #60 ea ipratropium-albuterol 3 ml UPD QID #15 ml 11/03/19 benzonatate [Tessalon Perles] 100 mg PO TID PRN #14 cap 04/01/20 doxycycline hyclate 100 mg PO BID 7 Days #14 tab 04/01/20 prednisone See Rx Instructions .ROUTE 04/01/20 .COMPLEX #12 tab Allergies Allergy/AdvReac Type Severity Reaction Status Date / Time Penicillins Allergy Unverified 04/01/20 17:39 General JAYCE: 3 Review of Systems All systems reviewed & are unremarkable except as noted in HPI and below Constitutional Constitutional: Reports as per HPI, Denies chills and Denies fever(s) Eyes Eyes: Denies blurry vision ENT Ears, Nose, Mouth, and Throat: Denies dizziness, Denies sore throat and Denies throat swelling Cardiovascular Cardiovascular: Denies chest pain and Reports dyspnea Respiratory Respiratory: Reports cough and Reports dyspnea Gastrointestinal Gastrointestinal: Denies abdominal pain, Denies diarrhea and Denies vomiting Genitourinary Genitourinary: Denies hematuria and Denies dysuria Musculoskeletal Musculoskeletal: Denies back pain and Denies numbness Integumentary/Breasts Skin/Breast: Denies lesions and Denies rash Neurologic Neurologic: Denies dizziness, Denies localized weakness and Denies numbness Allergic/Immunologic Allergic/Immunologic: Denies throat swelling [facility] Social History Smoking/Tobacco Use Status: Current, status unknown Tobacco Type: cigarettes Smoking packs per day: 1 Smoking cigarettes per day: 20.0 Years smoked: 46 Smoking pack-years: 46.00 Quit status: considering quitting Counseling given: provider counseling, support medications, support program and other Alcohol Intake: never Drug use: Daily Substance use type: marijuana Current gender identity: female What type of physical activity do you participate in: walking Do you feel safe at home: Yes Do you feel safe in your relationship?: Yes Additional Social history: Originally from [place]. 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 Living in [facility] with daughter and her daughter's boyfriend, both smoke. She also has 2 cats and reports old carpet in her hotel room. She denies alcohol or other drug use. Exam Const General: cooperative and no acute distress Orientation: alert, awake and oriented x3 HENMT Head: normal to inspection Face and sinus: normal facial exam Eyes General: appearance normal, both eyes and all related structures Pupils: PERRL EOM: EOM intact bilaterally Neck Neck: normal visual inspection and No submandibular swelling Lymphatic: no lymphadenopathy noted Chest Chest: normal inspection of the chest and no tenderness Resp Effort & Inspection: normal respiratory effort and able to speak in complete sentences Auscultation: rhonchi upper bilaterally and lower bilaterally and wheezes expiratory wheezes and inspiratory wheezes Cardio Rate: tachycardic Rhythm: regular rhythm GI Inspection: normal to inspection Palpation: soft, not firm, not rigid and nontender Auscultation: normal bowel sounds Skin General skin exam: no rashes or lesions noted Neuro General: patient alert, patient awake and patient oriented x3 Cognition: normal cognition Speech: speech normal Motor: muscle tone normal throughout Sensory Exam: no sensory deficits noted Extrem General: normal to inspection, full ROM, capillary refill normal, no calf tenderness bilaterally and no edema Psych Appearance: grossly normal Mental Status: mental status grossly normal Speech and Movement: speech and movement normal Affect: normal affect
[2020-04-01] MEDS: Normal Saline 500 ML IV (17:45)
--- NOTE | 2020-04-01 17:45 | DI.RAD_ITS ---
EXAM: XR PORTABLE CHEST AP CLINICAL HISTORY: r/o acute disease TECHNIQUE: 2D digital imaging was performed. COMPARISON: CR,XR XR PORTABLE CHEST AP from 10/15/2019 FINDINGS: MEDIASTINUM: Normal. HEART: Normal. PULMONARY VASCULATURE: Normal. LUNGS: Mild increased interstitial markings are seen in the lung bases compared to the prior examinat ion. No focal consolidating infiltrates are present. PLEURAL SPACE: No pleural effusion or pneumothorax. BONE:Degenerative changes are seen in the spine. OTHER FINDINGS:Atherosclerosis of the thoracic aorta is noted. IMPRESSION: Increased interstitial prominence in the lung bases. A developing interstitial infiltrate should be considered. Please correlate clinically. DATA REPOSITORY: RADIATION DOSE DELIVERED:
[2020-04-01 17:51] LABS: Abs Immature Grans 0.38 k/cumm (0.0-0.09); Absolute Basophil Count 0.04 k/cumm (0.0-0.2); Absolute Eosinophil Count 0.02 k/cumm (0.0-0.7); Absolute Monocyte Count 1.09 k/cumm (0.11-0.7); Absolute Neutrophil Count 15.21 k/cumm (1.2-6.7); Basophils % 0.2; Eosinophils % 0.1; HCT 32.3 % (36.0-46.0); HGB 10.7 g/dL (12.0-15.5); Immature Grans % 2.1 %; Lymphocytes % 6.7; Mean Corp. HGB Concentration 33.1 g/dL (32.0-36.0); Mean Corpuscular Hemoglobin 27.6 pg (27.0-33.0); Mean Corpuscular Volume 83.5 fL (80-95); Mean Platelet Volume 10.6 fL (8.0-11.0); Monocytes % 6.1; Neutrophils % 84.8; Platelet Count 276 x1000/uL (130-400); RBC 3.87 m/cumm (4.00-5.20); RBC Distribution Width 15.5 % (11.7-14.6); White Blood Cell Count 17.94 k/cumm (4.4-10.8)
[2020-04-01 18:03] LABS: PTT Activated 23.4 sec (21.0-31.4); Prothrombin Time 9.9 sec (9.3-11.0)
[2020-04-01 18:06] LABS: ALT 41 U/L (14-59); AST 27 U/L (15-37); Albumin 3.4 g/dL (3.4-5.0); Alkaline Phosphatase 176 U/L (46-116); Anion Gap 14.7 mmol/L (3-11); BUN 21 mg/dL (7-18); Bilirubin, Total 0.3 mg/dL (0.2-1.0); CO2 21.3 mmol/L (21.0-32.0); CREATININE 1.23 mg/dL (0.55-1.02); Calcium 9.6 mg/dL (8.5-10.1); Chloride 99 mmol/L (98-107); Glucose 125 mg/dL (74-106); Magnesium 1.8 mg/dL (1.8-2.4); Potassium 3.8 mmol/L (3.5-5.1); Sodium 135 mmol/L (136-145); Total Protein 8.5 g/dL (6.4-8.2); Troponin I < 0.05 ng/mL (<0.06)
[2020-04-01 18:14] LABS: TSH (W/Ref FT4) 0.91 uIU/mL (0.36-3.74)
[2020-04-01] MEDS: Albuterol/Ipratropium 3 ML UPD VIAL UPD (18:25)
[2020-04-01] MEDS: methylPREDNISolone SUCC 125 MG VIAL IVP (18:25)
--- NOTE | 2020-04-01 18:34 | DI.VRAD_ITS ---
PROCEDURE INFORMATION: Exam: XR Chest, 1 View Exam date and time: 04/01/2020 6:04 PM Age: 65 years old Clinical indication: Shortness of breath; Patient HX: SOB; Additional info: R/O acute disease TECHNIQUE: Imaging protocol: XR of the chest Views: 1 view. COMPARISON: CR XR CHEST 2V PA LATERAL 11/01/2019 5:55 AM FINDINGS: Lungs: There is minimal interstitial prominence particularly in the lung bases, though not definitely changed compared to the prior study of 11/01/2019. Pleural space: Unremarkable. No pleural effusion. No pneumothorax. Heart/Mediastinum: Unremarkable. No cardiomegaly. Vasculature: There is minimal atherosclerotic calcification of the aortic arch. Bones/joints: There are multilevel minimal osteophytic degenerative changes of the thoracic spine. IMPRESSION: There is minimal interstitial prominence particularly in the lung bases, though not definitely changed compared to the prior study of 11/01/2019. Follow-up study in several days may be helpful to exclude any evolving interstitial infiltrate. Dictated and Authenticated by: Sergo Marroquin MD. Ordering:TAMY Dias MD
[2020-04-01] MEDS: Doxycycline Hyclate 100 MG CAP PO (19:13)
== END 2020-04-01 19:25 | disposition home or self-care (01) ==
PROVIDERS: Emergency Provider Physician Assistant; PCP Family Medicine
DX: J44.1 Chronic obstructive pulmonary disease with (acute) exacerbation (principal); R05 Cough; D72.829 Elevated white blood cell count, unspecified; I11.0 Hypertensive heart disease with heart failure; I50.9 Heart failure, unspecified; I42.9 Cardiomyopathy, unspecified; F17.200 Nicotine dependence, unspecified, uncomplicated
CPT/HCPCS: 36415; 80053; 93005; 94640; 96361; 96374; 99285; 71045; 83735; 84443; 84484; 85025; 85610; 85730; 93010; J2930; J7620

== ENCOUNTER → 2020-10-28 13:30 | Outpatient (BNVA) | payer MEDICARE, MEDICAID, SELFPAY | PROVIDERS: PCP Family Medicine; Referring Provider Family Medicine; Visit Provider Internal Medicine Cardiovascular Disease | DX: I42.9 Cardiomyopathy, unspecified (principal); J44.1 Chronic obstructive pulmonary disease with (acute) exacerbation; Z71.6 Tobacco abuse counseling; I42.8 Other cardiomyopathies; F17.210 Nicotine dependence, cigarettes, uncomplicated | CPT/HCPCS: 99443; 99213 ==

== ENCOUNTER 2020-11-09 16:06 | Emergency (ER) | payer MEDICARE, MEDICAID, SELFPAY ==
--- NOTE | 2020-11-09 16:21 | NUR.NOTE ---
Pt brought to room8, states she is just here for outpt xrays. Pt brought back to waiting room, not ED visit. Called DI, they state no order in DI. Pt states she is here with daughter being seen in ED, and will call her doctor on wednesday to clarify.
== END 2020-11-09 16:21 | disposition other institution (70) ==
LOC: ER 16:41
PROVIDERS: PCP Family Medicine
DX: Z53.21 Procedure and treatment not carried out due to patient leaving prior to being seen by health care provider (principal)

== ENCOUNTER 2021-04-10 05:53 | Emergency (ER) | payer MEDICARE, MEDICAID, SELFPAY ==
[2021-04-10 05:59] VITALS: PULSE 99; RESP 16; TEMP 36.8; O2SAT 98
[2021-04-10 06:02] VITALS: BP 100/79
--- NOTE | 2021-04-10 06:05 | W.ED.GENAD ---
Discharge Plan Disposition Patient Disposition: HOME Condition: Stable Discharge Details Clinical Impression: Septic olecranon bursitis of right elbow Primary Care Provider: August Inman ED Provider: Richar Martinez [place] Meds and New Rx's Prescriptions: New clindamycin HCl [Cleocin HCl] 300 mg capsule 300 mg PO Q6H Qty: 28 RF: 0 Continued Incruse Ellipta 62.5 mcg/actuation blister with device 1 inh IH DAILY RF: 0 losartan 50 mg tablet 50 mg PO DAILY 90 Days Qty: 90 RF: 3 gabapentin 100 mg capsule 400 mg PO TID RF: 0 methadone 10 MG/ML concentrate 80 mg PO DAILY RF: 0 aspirin 81 mg Tablet,Chewable 81 mg PO DAILY Qty: 30 RF: 0 furosemide 20 mg Tablet 20 mg PO DAILY Qty: 30 RF: 0 potassium chloride 10 mEq capsule, extended release 10 meq PO DAILY Qty: 30 RF: 0 Nicotrol 10 mg Cartridge 30 cartridge inhalation Q2H PRN PRNQty: 60 RF: 0 ipratropium-albuterol 0.5 mg-3 mg(2.5 mg base)/3 mL Solution For Nebulization 3 ml UPD QID Qty: 15 RF: 0 atorvastatin [Lipitor] 10 MG tablet 10 mg PO DAILY RF: 0 levothyroxine 25 MCG tablet 25 mcg PO DAILY@0600 Qty: 90 RF: 0 albuterol sulfate [Proventil HFA] 200 PUFF HFA aerosol inhaler 2 puff Inhalation Q4H PRN PRNQty: 1 RF: 0 prednisone 20 mg tablet See Rx Instructions .ROUTE .COMPLEX Qty: 12 RF: 0 benzonatate [Tessalon Perles] 100 mg capsule 100 mg PO TID PRN (Reason: cough) Qty: 14 RF: 0 Discharge Instructions Instructions: Elbow Bursitis (ED) Additional Instructions: This appears to be an infection of the bursa of the elbow. It should respond to the antibiotic within the next couple of days. Follow up with your PCP if not improving next week. Return to the ED if worsening with fever, chills, increasing pain/swelling. Be sure to take all of the antibiotic as prescribed. Referrals: August Inman [Primary Care Provider] - Medical Decision Making This appears to be septic olecranon bursitis that has self drained. Culture of the pus obtained and sent. Given the chronicity, i.e. over 2 weeks, consider MSSA, MRSA and strep. Patient reports allergy to PCN but unable to verify. However, given concern for MRSA clindamycin reasonable first line drug. Patient given a first dose here and referred to PCP next week if no improvement. Return to ED if worse. HPI General Mode of arrival: ambulatory. Date/Time Provider Initiated Documentation: 04/10/21 06:04. Limitations to Documentation: no limitations. Information obtained by: patient and RN notes reviewed. HPI Narrative: Patient presents with right elbow pain and swelling. Patient reports that swelling started a couple weeks ago. It started draining but is not getting better. It is painful but she is able to continue to use the arm. She can fully flex but is unable to fully extend. She denies fever or chills. There is redness associated with the swelling. She has to change her dressing frequently because of the drainage. Related Data Home Medications Medication Instructions Recorded Confirmed atorvastatin [Lipitor] 10 mg PO DAILY 06/21/17 04/10/21 albuterol sulfate [Proventil HFA] 2 puff INHALATION Q4H PRN PRN #1 06/24/17 04/10/21 inh levothyroxine 25 mcg PO DAILY@0600 #90 tab 06/24/17 04/10/21 methadone 80 mg PO DAILY 12/02/18 04/10/21 aspirin 81 mg PO DAILY #30 tab 12/09/18 04/10/21 furosemide 20 mg PO DAILY #30 tab 12/09/18 04/10/21 losartan 50 mg tablet 50 mg PO DAILY 90 Days #90 tab 06/30/19 04/10/21 umeclidinium 62.5 mcg/actuation 1 inh IH DAILY 06/30/19 04/10/21 blister powder for inhalation potassium chloride 10 meq PO DAILY #30 cap 09/04/19 04/10/21 Nicotrol 30 cartridge INHALATION Q2H PRN 09/26/19 04/10/21 PRN #60 ea ipratropium-albuterol 3 ml UPD QID #15 ml 11/03/19 04/10/21 gabapentin 100 mg capsule 400 mg PO TID cap 12/26/19 04/10/21 benzonatate [Tessalon Perles] 100 mg PO TID PRN #14 cap 04/01/20 04/10/21 prednisone See Rx Instructions .ROUTE 04/01/20 04/10/21 .COMPLEX #12 tab clindamycin HCl [Cleocin HCl] 300 mg PO Q6H #28 cap 04/10/21 Previous Rx's Medication Instructions Recorded albuterol sulfate [Proventil HFA] 2 puff INHALATION Q4H PRN PRN #1 06/24/17 inh levothyroxine 25 mcg PO DAILY@0600 #90 tab 06/24/17 aspirin 81 mg PO DAILY #30 tab 12/09/18 furosemide 20 mg PO DAILY #30 tab 12/09/18 losartan 50 mg tablet 50 mg PO DAILY 90 Days #90 tab 06/30/19 potassium chloride 10 meq PO DAILY #30 cap 09/04/19 Nicotrol 30 cartridge INHALATION Q2H PRN 09/26/19 PRN #60 ea ipratropium-albuterol 3 ml UPD QID #15 ml 11/03/19 benzonatate [Tessalon Perles] 100 mg PO TID PRN #14 cap 04/01/20 prednisone See Rx Instructions .ROUTE 04/01/20 .COMPLEX #12 tab clindamycin HCl [Cleocin HCl] 300 mg PO Q6H #28 cap 04/10/21 Allergies Allergy/AdvReac Type Severity Reaction Status Date / Time Penicillins Allergy Unverified 10/28/20 10:17 General Stated Complaint: RashLesion JAYCE: 5 Review of Systems Narrative: As documented in HPI otherwise negative as below. Const: no fever, chills, weakness Resp: no cough, SOB, pleuritic pain CV: no CP, diaphoresis, edema, syncope GI: no abdominal pain, nausea, vomiting, diarrhea Neuro: no headache, numbness, focal weakness, confusion [facility] Medical History (Updated 04/10/21 @ 06:28 by Richar Martinez MD) Acute diastolic CHF (congestive heart failure) Acute respiratory failure with hypoxia Cardiomyopathy (~12/2018) Chronic pain COPD (chronic obstructive pulmonary disease) Hyperglycemia Hypertension Hypothyroidism Prediabetes QT prolongation Surgical History H/O section Family History Mother Heart disease Social History Smoking/Tobacco Use Status: Current, status unknown Tobacco Type: cigarettes Smoking packs per day: 1 Smoking cigarettes per day: 20.0 Years smoked: 46 Smoking pack-years: 46.00 Quit status: considering quitting Counseling given: provider counseling, support medications, support program and other Smoking risk assessment performed?: Yes Alcohol Intake: never Drug use: Daily Substance use type: marijuana Current gender identity: female What type of physical activity do you participate in: walking Do you feel safe at home: Yes Do you feel safe in your relationship?: Yes Additional Social history: Originally from [place]. 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 Currently disabled. Living in [facility] with daughter and her daughter's boyfriend, both smoke. She also has 2 cats and reports old carpet in her hotel room. She denies alcohol or other drug use. Exam Narrative Exam Narrative: Const: [facility]DW[facility] female in [facility]. HEENT: NC/AT. Normal facial exam. Eyes: Normal conjunctiva and sclera. Neck: Supple. Trachea midline. Lungs: Normal respiratory effort. Cor: RRR. Good radial pulses. Neuro: A+O x 3. Normal speech, mentation, gait. Cranial nerves II - XII grossly intact. No gross motor or sensory deficit. Ext: RUE with erythema and purulent drainage from the olecranon area. No significant swelling now. Decent ROM without pain in all planes but unable to fully extend. NVI distal. Skin: Erythema and drainage as described above. No discreet abscess as wound is draining on own. Course Vital Signs Vital signs: Vital Signs Temperature 98.2 F 04/10/21 05:59 Pulse 99 H 04/10/21 05:59 Respiratory Rate 16 04/10/21 05:59 Pulse Oximetry 98 04/10/21 05:59 Temperature 98.2 F 04/10/21 05:59 Temperature Source Temporal Artery Scan 04/10/21 05:59 Pulse 99 H 04/10/21 05:59 Respiratory Rate 16 04/10/21 05:59 Respiratory Effort 04/10/21 06:03 Blood Pressure 100/79 04/10/21 06:02 Blood Pressure Position Sitting 04/10/21 05:59 Pulse Oximetry 98 04/10/21 05:59 Oxygen Delivery Method Room Air 04/10/21 05:59 Oxygen Flow Rate 0 04/10/21 05:59 Pain Level 8 04/10/21 05:59
[2021-04-10] MEDS: Clindamycin 150 MG CAP 300 MG PO (06:31)
--- NOTE | 2021-04-11 10:29 | NUR.NOTE ---
Nursing Note: Referral faxed to care management to follow up with PCP About a + MRSA of the elbow. 04/11/21 10:30 - libl
--- NOTE | 2021-04-11 14:07 | PDOC.ERCMPRO ---
- If Service Date Differs Date of service: 04/11/21 Time of Service: 14:07 Care Management Progress Note Carolin is seen in the ED for septic olecranon bursitis of her right elbow. At the request of ED provider, ADAM contacts Carolin's PCP, Dr. August Inman DO, at [phone], to assist Carolin in obtaining a follow up appointment as soon as possible. ADAM speaks with Louise who advises their rehabilitation aide/scheduler will review Dr. Inman's schedule and will contact Carolin directly to schedule a follow up appointment.
--- NOTE | 2021-04-17 08:15 | W.ED.FU ---
Patient placed on clindamycin, wound culture returned and clindamycin was not specifically tested, however hospital antibiogram shows 82% sensitivity for MRSA, I did contact patient and her rash is very much improved so we will not change his antibiotic at this time.
== END 2021-04-10 07:01 | disposition home or self-care (01) ==
PROVIDERS: Emergency Provider Emergency Medicine; PCP Family Medicine
DX: M71.121 Other infective bursitis, right elbow (principal); B95.62 Methicillin resistant Staphylococcus aureus infection as the cause of diseases classified elsewhere
CPT/HCPCS: 87077; 99283; 87070; 87186; 87205; 99284

== ENCOUNTER 2021-05-15 04:31 | Outpatient (CLI) | payer MEDICARE, MEDICAID, SELFPAY ==
[2021-05-15 14:26] LABS: ALT 29 U/L (14-59); AST 22 U/L (15-37); Albumin 3.5 g/dL (3.4-5.0); Alkaline Phosphatase 145 U/L (46-116); Anion Gap 7.3 mmol/L (3-11); BUN 24 mg/dL (7-18); Bilirubin, Total 0.2 mg/dL (0.2-1.0); CO2 24.7 mmol/L (21.0-32.0); CREATININE 1.3 mg/dL (0.55-1.02); Calcium 8.8 mg/dL (8.5-10.1); Calculated LDL 103 mg/dL (<100); Chloride 102 mmol/L (98-107); Cholesterol 189 mg/dL (<200); Estimated GFR 41.24 (mL/min/1.73m2); Glucose 103 mg/dL (74-106); HDL Cholesterol 70 mg/dL (40-60); Potassium 4.2 mmol/L (3.5-5.1); Sodium 134 mmol/L (136-145); TSH 2.72 uIU/mL (0.36-3.74); Total Protein 7.5 g/dL (6.4-8.2); Triglyceride 81 mg/dL (<150)
== END 2021-05-15 04:32 | disposition home or self-care (01) ==
LOC: LBO 04:32
PROVIDERS: PCP Family Medicine; Visit Provider Family Medicine
DX: E03.9 Hypothyroidism, unspecified (principal); I25.10 Atherosclerotic heart disease of native coronary artery without angina pectoris
CPT/HCPCS: 36415; 80053; 80061; 84443

== ENCOUNTER 2021-06-23 08:56 | Emergency (ER) | payer MEDICARE, MEDICAID, SELFPAY ==
[2021-06-23 09:05] VITALS: BP 186/73; PULSE 98; TEMP 36.9; O2SAT 98
--- NOTE | 2021-06-23 09:30 | DI.CT_ITS ---
Exam(s) CT UPPER EXTREMITY RT WO EXAM: CT UPPER EXTREMITY RT WO CLINICAL HISTORY: elbow with large abscesses since April,. TECHNIQUE: Imaging Protocol: Axial computed tomography images with coronal and sagittal reformatted images were created and reviewed. COMPARISON: No exams were available for comparison FINDINGS: There is a large 4 x 3 cm soft tissue mass on the lateral aspect of the elbow which is contiguous wit h the elbow joint space. There is an elbow joint effusion and there is complete disruption of the el bow joint. There is lytic destruction of the olecranon fossa and there is also cortical loss in the lateral epicondyle-trochlea region. Lytic involvement also extends slightly down the diaphysis of th e ulna. Also appears to be involvement of the radial head. The posterior aspect of the lack row non -triceps attachment is also involved and avulsed. IMPRESSION: 1. Large probable 4 x 3 millimeter abscess on the lateral aspect of the elbow with significant destru ctive involvement of the osseous elbow joint components, consistent with septic joint sequelae and os teomyelitis. Correlation with clinical findings recommended. 2. Differential diagnosis would include neoplasm but given the stated history here most probably all related to infectious etiology. Findings discussed with ER provider. RADIATION DOSE DELIVERED: 224.59mGy.cm Total DLP 224.59mGy.cm Total DLP DATA REPOSITORY: All CT scans at this facility are submitted to the National Radiology Data Registry (NRDR) Dose Index Registry (DIR) with the [employer] (ACR). RADIATION OPTIMIZATION: All CT scans at this facility use at least one of these dose optimization te chniques: automated exposure control; mA and/or kV adjustment per patient size (includes targeted exa ms where dose is matched to clinical indication); or iterative reconstruction.
[2021-06-23 10:57] LABS: Abs Immature Grans 0.04 10^3/uL (0.0-0.06); Absolute Basophil Count 0.05 10^3/uL (0.0-0.2); Absolute Eosinophil Count 0.14 10^3/uL (0.0-0.7); Absolute Lymphocyte Count 1.28 10^3/uL (1.2-3.4); Absolute Monocyte Count 0.57 10^3/uL (0.1-0.8); Absolute Neutrophil Count 5.84 10^3/uL (1.2-6.7); Basophils % 0.6; Eosinophils % 1.8; HCT 27.9 % (36.0-46.0); HGB 8.8 g/dL (11.2-15.7); Immature Grans % 0.5; Lymphocytes % 16.2; MCH 25.1 pg (27.0-33.0); MCHC 31.5 % (32.0-36.0); MCV 79.7 fL (80-95); MPV 9.9 fL (8.0-11.0); Monocytes % 7.2; Neutrophils % 73.7; Nucleated RBC 0 %; Platelet Count 291 10^3/uL (130-400); RDW 17.3 % (11.7-14.6); RDW-SD 50.6 fL; WBC 7.92 10^3/uL (4.4-10.8)
[2021-06-23 11:12] LABS: ESR 69 mm/hr (0-30)
[2021-06-23 11:17] LABS: C-Reactive Protein 4.88 mg/dL (0.0-0.3)
[2021-06-23 11:25] LABS: Anisocytosis 1+; Diff Comment Diff Reviewed
[2021-06-23 11:26] LABS: Microcytosis 1+
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
[2021-06-23] MEDS: ACETAMINOPHEN 1,000 MG/100 ML BTL 400 MG IVPB (12:12)
[2021-06-23 12:21] VITALS: BP 183/63; PULSE 84; RESP 18; TEMP 36.2; O2SAT 97
[2021-06-23] MEDS: VANCOMYCIN 1,250 MG in Normal Saline 250 ML 166.6666 MG IVPB (12:26)
--- NOTE | 2021-06-23 13:09 | NUR.NOTE ---
Ambulates to restroom with steady gait.Nursing Note:
--- NOTE | 2021-06-23 13:35 | NUR.NOTE ---
[facility] arrives for transport to [place] ED. Patient ambulates to restroom with steady gait.Nursing Note:
== END 2021-06-23 13:40 ==
LOC: ER 09:02
PROVIDERS: Emergency Provider Physician Assistant; PCP Family Medicine
DX: M25.421 Effusion, right elbow (principal); L02.413 Cutaneous abscess of right upper limb; M86.131 Other acute osteomyelitis, right radius and ulna
CPT/HCPCS: 36415; 85652; 87040; 96365; 96368; 99285; 73200; 83605; 85025; 86140; J0131

== ENCOUNTER 2021-07-04 12:58 | Outpatient (REF) | payer MEDICARE, MEDICAID, SELFPAY ==
[2021-07-04 14:39] LABS: ALT 29 U/L (14-59); AST 23 U/L (15-37); Albumin 3.7 g/dL (3.4-5.0); Alkaline Phosphatase 139 U/L (46-116); Anion Gap 18.3 mmol/L (3-11); BUN 28 mg/dL (7-18); Bilirubin, Total 0.1 mg/dL (0.2-1.0); CO2 17.7 mmol/L (21.0-32.0); CREATININE 1.5 mg/dL (0.55-1.02); Calcium 8.9 mg/dL (8.5-10.1); Chloride 100 mmol/L (98-107); Estimated GFR 34.96 (mL/min/1.73m2); Glucose 137 mg/dL (74-106); Potassium 3.7 mmol/L (3.5-5.1); Sodium 136 mmol/L (136-145)
== END 2021-07-04 12:59 | disposition home or self-care (01) ==
LOC: LBN 12:58
PROVIDERS: PCP Family Medicine; Visit Provider Family Medicine
DX: E11.9 Type 2 diabetes mellitus without complications (principal); E78.49 Other hyperlipidemia; N17.9 Acute kidney failure, unspecified; D50.9 Iron deficiency anemia, unspecified; F90.0 Attention-deficit hyperactivity disorder, predominantly inattentive type
CPT/HCPCS: 80053

== ENCOUNTER 2021-08-27 11:34 | Emergency (ER) | payer MEDICARE, MEDICAID, SELFPAY ==
[2021-08-27 11:46] VITALS: RESP 16
[2021-08-27 12:54] LABS: Abs Immature Grans 0.01 10^3/uL (0.0-0.06); Absolute Basophil Count 0.05 10^3/uL (0.0-0.2); Absolute Eosinophil Count 0.04 10^3/uL (0.0-0.7); Absolute Lymphocyte Count 0.92 10^3/uL (1.2-3.4); Absolute Monocyte Count 0.35 10^3/uL (0.1-0.8); Basophils % 1.2; HCT 26.7 % (36.0-46.0); HGB 8.2 g/dL (11.2-15.7); Immature Grans % 0.2; Lymphocytes % 22.1; MCH 26.9 pg (27.0-33.0); MCHC 30.7 % (32.0-36.0); MCV 87.5 fL (80-95); MPV 9.6 fL (8.0-11.0); Monocytes % 8.4; Neutrophils % 67.1; Nucleated RBC 0 %; Platelet Count 289 10^3/uL (130-400); RBC 3.05 10^6/uL (3.93-5.22); RDW 18.6 % (11.7-14.6); RDW-SD 59.8 fL; WBC 4.17 10^3/uL (4.4-10.8)
[2021-08-27 13:14] LABS: ALT 20 U/L (14-59); AST 18 U/L (15-37); Albumin 3.6 g/dL (3.4-5.0); Alkaline Phosphatase 112 U/L (46-116); Anion Gap 13.7 mmol/L (3-11); BUN 15 mg/dL (7-18); Bilirubin, Total 0.2 mg/dL (0.2-1.0); CO2 23.3 mmol/L (21.0-32.0); CREATININE 0.8 mg/dL (0.55-1.02); Calcium 9.6 mg/dL (8.5-10.1); Chloride 105 mmol/L (98-107); Glucose 109 mg/dL (74-106); Lipase 112 U/L (73-393); Potassium 3.1 mmol/L (3.5-5.1); Sodium 142 mmol/L (136-145); Total Protein 8.3 g/dL (6.4-8.2)
[2021-08-27] MEDS: Potassium Chloride 20 MEQ TABCR 40 MEQ PO (13:37)
[2021-08-27 13:54] LABS: Bilirubin Negative (Negative); Blood Trace-intact (Negative); Clarity Cloudy (Clear); Glucose Negative (Negative); Ketones Negative (Negative); Leukocyte Esterase Moderate (Negative); Nitrite Positive (Negative); Specific Gravity 1.025 (1.005-1.025); Urobilinogen 0.2 EU/dL (Up TO 0.2); pH 6.5 (5-8)
[2021-08-27 14:00] LABS: Bacteria Many HPF (Negative); C & S Indicated? Yes; Casts 0-2 Hyaline LPF (Negative); Crystals Negative HPF (Negative); Epithelial Cells Few HPF (Negative); Mucus Negative (Negative); WBC >50 HPF (0-5)
--- NOTE | 2021-08-27 14:36 | W.ED.GENAD ---
Discharge Plan Disposition Patient Disposition: HOME Condition: Stable Discharge Details Clinical Impression: UTI (urinary tract infection), Anemia Primary Care Provider: August Inman ED Provider: Jeffery Khan Home Meds and New Rx's Prescriptions: New cephalexin 500 mg capsule 500 mg PO BID Qty: 14 RF: 0 No Action Incruse Ellipta 62.5 mcg/actuation blister with device 1 inh IH DAILY RF: 0 losartan 50 mg tablet 50 mg PO DAILY 90 Days Qty: 90 RF: 3 gabapentin 100 mg capsule 400 mg PO TID RF: 0 methadone 10 MG/ML concentrate 80 mg PO DAILY RF: 0 aspirin 81 mg Tablet,Chewable 81 mg PO DAILY Qty: 30 RF: 0 furosemide 20 mg Tablet 20 mg PO DAILY Qty: 30 RF: 0 Nicotrol 10 mg Cartridge 30 cartridge inhalation Q2H PRN PRNQty: 60 RF: 0 ipratropium-albuterol 0.5 mg-3 mg(2.5 mg base)/3 mL Solution For Nebulization 3 ml UPD QID Qty: 15 RF: 0 atorvastatin [Lipitor] 10 MG tablet 10 mg PO DAILY RF: 0 levothyroxine 25 MCG tablet 25 mcg PO DAILY@0600 Qty: 90 RF: 0 albuterol sulfate [Proventil HFA] 200 PUFF HFA aerosol inhaler 2 puff Inhalation Q4H PRN PRNQty: 1 RF: 0 buspirone 5 mg tablet 5 mg PO BID RF: 0 methylphenidate HCl 10 mg tablet 10 mg PO QPM RF: 0 methylphenidate HCl 20 mg tablet 20 mg PO QAM RF: 0 cyclobenzaprine 5 mg tablet 5 mg PO TID PRNRF: 0 Breo Ellipta 100-25 mcg/dose blister with device 1 inh INHALATION DAILY RF: 0 potassium chloride 10 mEq capsule, extended release 10 meq PO BID RF: 0 Discharge Instructions Instructions: Urinary Tract Infection in Women (ED), Anemia (ED) Additional Instructions: Cephalexin as directed for your UTI. Continue clindamycin for your septic bursitis, follow-up with infectious disease at [facility] as scheduled. Please contact your primary care provider regarding your ER visit today and need for outpatient reevaluation. As we discussed you do have anemia and this is to be followed carefully as well. Watch for new or worsening symptoms and return to the ER for any concerns. Discharge Data Discharge Date/Time-TO BE ENTERED AT DEPARTURE: 08/27/21 15:08 Medical Decision Making 66-year-old female presents with her daughter who is concerned she may have a UTI. Clinically patient appears well, denies any abdominal pain, fever, nausea, vomiting, dysuria or hematuria. She is being treated for a right elbow olecranon bursitis, on clindamycin. She reports this appears to be improving. She is afebrile, no evidence of lymphangitic streaking or septic joint. Plan is to obtain IV access, CBC, CMP, urinalysis and reassess. Patient will continue taking her clindamycin and follow-up with ID as already set forth through her orthopedic team Laboratory values reveal a nitrite positive, moderate leuk esterase, 5-10 red cells and greater than 50 white cells in her urine. No evidence of leukocytosis. Anemia appears to be slightly worse than baseline. She is hemodynamically stable. Denies any hematuria, black tarry stools or bright blood in her stools. We discussed the importance of outpatient follow-up for her acute on chronic anemia requiring likely larger work-up. Discussed work-up both with patient and daughter. Urinalysis consistent with infection, will place on Keflex and give first dose now. She will continue her clindamycin therapy for her right arm infection. We did discuss her anemia and the importance of outpatient follow-up. Strict discharge and return precautions provided. This documentation was generated using [employer] dictation system, please disregard any oddities of phrase or misspellings. Medical Records Medical records reviewed: Yes I reviewed the patient's medical records. Lab Data Lab results reviewed: Yes I reviewed the patient's lab results. Labs: 08/27/21 13:45 Urine - Reflex from Ua Urine Culture - Preliminary Gram Negative Manny Laboratory Tests Range/Units 08/27/21 08/27/21 08/27/21 12:44 12:57 13:45 WBC (4.4-10.8) 10^3/uL 4.17 L RBC (3.93-5.22) 10^6/uL 3.05 L Hgb (11.2-15.7) g/dL 8.2 L Hct (36.0-46.0) % 26.7 L MCV (80-95) fL 87.5 MCH (27.0-33.0) pg 26.9 L MCHC (32.0-36.0) % 30.7 L RDW (11.7-14.6) % 18.6 H Plt Count (130-400) 10^3/uL 289 MPV (8.0-11.0) fL 9.6 Immature Gran % 0.2 Neutrophils % 67.1 Lymphocytes % 22.1 Monocytes % 8.4 Eosinophils % 1.0 Basophils % 1.2 Nucleated RBC % % 0 Absolute Neutrophils (1.2-6.7) 10^3/uL 2.80 Absolute Lymphocytes (1.2-3.4) 10^3/uL 0.92 L Absolute Monocytes (0.1-0.8) 10^3/uL 0.35 Absolute Eosinophils (0.0-0.7) 10^3/uL 0.04 Absolute Basophils (0.0-0.2) 10^3/uL 0.05 Sodium (136-145) mmol/L 142 Potassium (3.5-5.1) mmol/L 3.1 L Chloride (98-107) mmol/L 105 Carbon Dioxide (21.0-32.0) mmol/L 23.3 Anion Gap (3-11) mmol/L 13.7 H BUN (7-18) mg/dL 15 Creatinine (0.55-1.02) mg/dL 0.8 Estimated GFR/1.73 m2 (mL/min/1.73m2) >= 60.00 Glucose (74-106) mg/dL 109 H Calcium (8.5-10.1) mg/dL 9.6 Total Bilirubin (0.2-1.0) mg/dL 0.2 AST (15-37) U/L 18 ALT (14-59) U/L 20 Alkaline Phosphatase (46-116) U/L 112 Total Protein (6.4-8.2) g/dL 8.3 H Albumin (3.4-5.0) g/dL 3.6 Lipase (73-393) U/L 112 Urine Color (Yellow) Yellow Urine Clarity (Clear) Cloudy Urine pH (5-8) 6.5 Ur Specific [place] (1.005-1.025) 1.025 Urine Protein (Negative) mg/dL 30 H Urine Ketones (Negative) mg/dL Negative Urine Blood (Negative) Trace-intact H Urine Nitrite (Negative) Positive H Urine Bilirubin (Negative) Negative Urine Urobilinogen (Up TO 0.2) EU/dL 0.2 Ur Leukocyte Esterase (Negative) Moderate H Urine RBC (0-2) HPF 5-10 H Urine WBC (0-5) HPF >50 H Ur Epithelial Cells (Negative) HPF Few Urine Crystals (Negative) HPF Negative Urine Bacteria (Negative) HPF Many Urine Casts (Negative) LPF 0-2 Hyaline Urine Mucus (Negative) Negative Ur Culture Indicated? Yes Urine Glucose (Negative) mg/dL Negative HPI General Mode of arrival: ambulatory. Date/Time Provider Initiated Documentation: 08/27/21 11:46. Limitations to Documentation: no limitations. Information obtained by: patient and family. HPI Narrative: This is a 66-year-old female presenting to the ER today with her daughter who is also her improvement spec whom she lives with, past medical history of COPD, cardiomyopathy, HAMZAH, hypothyroidism, chronic pain, hypertension, presenting to the ER today for concern of a potential UTI. Daughter reports that she forgot to feed the cats which is not like her mother, has been more forgetful with a UTI in the past. Patient denies any abdominal pain, dysuria, hematuria, fever. She is also being treated for a right elbow septic bursitis, switched from doxycycline to clindamycin on August 18 and is scheduled to be seen by a infectious disease specialist at [facility] for her ongoing right elbow infection. Patient reports that overall she feels like her elbow infection is improving. Patient states that she is feeling fairly well today. No acute medical concerns or complaints. Related Data Home Medications Medication Instructions Recorded Confirmed atorvastatin [Lipitor] 10 mg PO DAILY 06/21/17 08/27/21 albuterol sulfate [Proventil HFA] 2 puff INHALATION Q4H PRN PRN #1 06/24/17 08/27/21 inh levothyroxine 25 mcg PO DAILY@0600 #90 tab 06/24/17 08/27/21 methadone 80 mg PO DAILY 12/02/18 08/27/21 aspirin 81 mg PO DAILY #30 tab 12/09/18 08/27/21 furosemide 20 mg PO DAILY #30 tab 12/09/18 08/27/21 losartan 50 mg tablet 50 mg PO DAILY 90 Days #90 tab 06/30/19 08/27/21 umeclidinium 62.5 mcg/actuation 1 inh IH DAILY 06/30/19 08/27/21 blister powder for inhalation Nicotrol 30 cartridge INHALATION Q2H PRN 09/26/19 08/27/21 PRN #60 ea ipratropium-albuterol 3 ml UPD QID #15 ml 11/03/19 08/27/21 gabapentin 100 mg capsule 400 mg PO TID cap 12/26/19 08/27/21 buspirone 5 mg PO BID 06/23/21 08/27/21 cyclobenzaprine 5 mg PO TID PRN 06/23/21 08/27/21 fluticasone furoate-vilanterol 1 inh INHALATION DAILY 06/23/21 08/27/21 [Breo [place]] methylphenidate HCl 10 mg PO QPM 06/23/21 08/27/21 methylphenidate HCl 20 mg PO QAM 06/23/21 08/27/21 potassium chloride 10 meq PO BID 06/23/21 08/27/21 cephalexin 500 mg PO BID #14 cap 08/27/21 Previous Rx's Medication Instructions Recorded albuterol sulfate [Proventil HFA] 2 puff INHALATION Q4H PRN PRN #1 06/24/17 inh levothyroxine 25 mcg PO DAILY@0600 #90 tab 06/24/17 aspirin 81 mg PO DAILY #30 tab 12/09/18 furosemide 20 mg PO DAILY #30 tab 12/09/18 losartan 50 mg tablet 50 mg PO DAILY 90 Days #90 tab 06/30/19 Nicotrol 30 cartridge INHALATION Q2H PRN 09/26/19 PRN #60 ea ipratropium-albuterol 3 ml UPD QID #15 ml 11/03/19 cephalexin 500 mg PO BID #14 cap 08/27/21 Allergies Allergy/AdvReac Type Severity Reaction Status Date / Time Penicillins Allergy Unverified 08/27/21 11:55 amoxicillin [From Augmentin] AdvReac Mild Nausea Unverified 08/27/21 12:14 clavulanic acid AdvReac Mild Nausea Unverified 08/27/21 12:14 [From Augmentin] doxycycline AdvReac Mild Nausea Unverified 08/27/21 12:14 lisinopril AdvReac Mild Nausea Unverified 08/27/21 12:14 morphine AdvReac Mild Nausea Unverified 08/27/21 12:14 General Stated Complaint: GenMedical JAYCE: 3 Review of Systems Constitutional Constitutional: Denies fever(s) and Denies weakness ENT Ears, Nose, Mouth, and Throat: Denies neck pain Cardiovascular Cardiovascular: Denies chest pain and Denies dyspnea Respiratory Respiratory: Denies cough and Denies dyspnea Gastrointestinal Gastrointestinal: Denies abdominal pain, Denies nausea and Denies vomiting Genitourinary Genitourinary: Denies dysuria Musculoskeletal Musculoskeletal: Denies back pain, Denies neck pain, Denies numbness and Denies tingling Integumentary/Breasts Skin/Breast: Reports erythema Neurologic Neurologic: Denies numbness, Denies tingling and Denies weakness [facility] Active Problem List Septic olecranon bursitis of right elbow (Acute) UTI (urinary tract infection) (Acute) Anemia (Chronic) Hypomagnesemia (Acute) COPD with exacerbation (Acute) Asymptomatic bacteriuria (Acute) Discharge planning issues (Acute) DVT prophylaxis (Acute) Demand ischemia (Acute) Acute exacerbation of chronic obstructive pulmonary disease (COPD) (Acute) Lactic acidosis (Acute) Cardiomyopathy (Acute ~12/2018) Acute on chronic respiratory failure with hypoxia and hypercapnia (Acute) Mitral regurgitation (Chronic) Abnormal stress test (Acute) QT prolongation (Acute) Prediabetes (Chronic) COPD with acute exacerbation (Acute) Tobacco abuse counseling (Acute) Acute respiratory failure with hypoxia (Acute) HAMZAH (acute kidney injury) (Acute) Hypothyroidism (Chronic) Chronic pain (Chronic) Hypertension (Chronic) Community acquired pneumonia (Acute) Medical History Acute diastolic CHF (congestive heart failure) COPD (chronic obstructive pulmonary disease) Hyperglycemia Surgical History H/O section Family History Mother Heart disease Social History Smoking/Tobacco Use Status: Current, status unknown Tobacco Type: cigarettes Smoking packs per day: 1 Smoking cigarettes per day: 20.0 Years smoked: 46 Smoking pack-years: 46.00 Quit status: considering quitting Counseling given: provider counseling, support medications, support program and other Smoking risk assessment performed?: Yes Alcohol Intake: never Drug use: Daily Substance use type: marijuana Current gender identity: female What type of physical activity do you participate in: walking Do you feel safe at home: Yes Do you feel safe in your relationship?: Yes Additional Social history: Originally from [place]. Previously worked in housekeeping and factory work, as well as a [employer] in [place]. Currently disabled. Living in [facility] with daughter and her daughter's boyfriend, both smoke. She also has 2 cats and reports old carpet in her hotel room. She denies alcohol or other drug use. Exam Const General: cooperative, healthy appearing, comfortable and no acute distress Orientation: alert and awake HENSC Head: normal to inspection, normocephalic and atraumatic Mouth: moist mucous membranes Eyes General: appearance normal, both eyes and all related structures Conjunctivae: conjunctivae normal Neck Neck: normal visual inspection, full ROM, trachea midline and supple Resp Effort & Inspection: normal respiratory effort and able to speak in complete sentences Auscultation: clear to auscultation bilaterally Cardio Rate: regular rate Rhythm: regular rhythm GI Palpation: soft, not firm, no guarding, no pulsatile masses and nontender Auscultation: normal bowel sounds Back/Spine/Pelvis Back: No back tenderness Skin Lesions: no lesions Neuro General: patient alert, patient awake, moves all extremities and no focal motor deficits Cognition: normal cognition Speech: speech normal Gait: normal gait Motor: muscle tone normal throughout Sensory Exam: no sensory deficits noted Extrem General: full ROM and capillary refill normal Shoulder/upper arm images: 1. Patient had a dressing in place. Dressing removed. Underneath the dressing there was mild erythema. There is no swelling, warmth, tenderness, induration or fluctuance. 5-5 strength. Full range of motion. Normal radial pulse and capillary refill. Psych Appearance: grossly normal Mental Status: mental status grossly normal Course Vital Signs Vital signs: Vital Signs Respiratory Rate 16 08/27/21 11:46 Respiratory Rate 16 08/27/21 11:46 Respiratory Effort Non-Labored 08/27/21 13:00 Respiratory Depth Normal 08/27/21 11:46 Respiratory Pattern Normal 08/27/21 11:46 Lab/Test Results Lab/Test Results: 08/27/21 13:45 Urine - Reflex from Ua Urine Culture - Pending Laboratory Tests Range/Units 08/27/21 08/27/21 08/27/21 12:44 12:57 13:45 WBC (4.4-10.8) 10^3/uL 4.17 L RBC (3.93-5.22) 10^6/uL 3.05 L Hgb (11.2-15.7) g/dL 8.2 L Hct (36.0-46.0) % 26.7 L MCV (80-95) fL 87.5 MCH (27.0-33.0) pg 26.9 L MCHC (32.0-36.0) % 30.7 L RDW (11.7-14.6) % 18.6 H Plt Count (130-400) 10^3/uL 289 MPV (8.0-11.0) fL 9.6 Immature Gran % 0.2 Neutrophils % 67.1 Lymphocytes % 22.1 Monocytes % 8.4 Eosinophils % 1.0 Basophils % 1.2 Nucleated RBC % % 0 Absolute Neutrophils (1.2-6.7) 10^3/uL 2.80 Absolute Lymphocytes (1.2-3.4) 10^3/uL 0.92 L Absolute Monocytes (0.1-0.8) 10^3/uL 0.35 Absolute Eosinophils (0.0-0.7) 10^3/uL 0.04 Absolute Basophils (0.0-0.2) 10^3/uL 0.05 Sodium (136-145) mmol/L 142 Potassium (3.5-5.1) mmol/L 3.1 L Chloride (98-107) mmol/L 105 Carbon Dioxide (21.0-32.0) mmol/L 23.3 Anion Gap (3-11) mmol/L 13.7 H BUN (7-18) mg/dL 15 Creatinine (0.55-1.02) mg/dL 0.8 Estimated GFR/1.73 m2 (mL/min/1.73m2) >= 60.00 Glucose (74-106) mg/dL 109 H Calcium (8.5-10.1) mg/dL 9.6 Total Bilirubin (0.2-1.0) mg/dL 0.2 AST (15-37) U/L 18 ALT (14-59) U/L 20 Alkaline Phosphatase (46-116) U/L 112 Total Protein (6.4-8.2) g/dL 8.3 H Albumin (3.4-5.0) g/dL 3.6 Lipase (73-393) U/L 112 Urine Color (Yellow) Yellow Urine Clarity (Clear) Cloudy Urine pH (5-8) 6.5 Ur Specific [place] (1.005-1.025) 1.025 Urine Protein (Negative) mg/dL 30 H Urine Ketones (Negative) mg/dL Negative Urine Blood (Negative) Trace-intact H Urine Nitrite (Negative) Positive H Urine Bilirubin (Negative) Negative Urine Urobilinogen (Up TO 0.2) EU/dL 0.2 Ur Leukocyte Esterase (Negative) Moderate H Urine RBC (0-2) HPF 5-10 H Urine WBC (0-5) HPF >50 H Ur Epithelial Cells (Negative) HPF Few Urine Crystals (Negative) HPF Negative Urine Bacteria (Negative) HPF Many Urine Casts (Negative) LPF 0-2 Hyaline Urine Mucus (Negative) Negative Ur Culture Indicated? Yes Urine Glucose (Negative) mg/dL Negative
[2021-08-27] MEDS: Cephalexin 500 MG CAP PO (14:43)
[2021-08-27 15:48] VITALS: BP 164/87; PULSE 90; RESP 16; TEMP 36.4; O2SAT 100
--- NOTE | 2021-08-31 07:58 | NUR.NOTE ---
Nursing Note: Lab called stating that the patient's urine culture had a multi drug resistant organism in urine. Darlin Colon
--- NOTE | 2021-08-31 09:28 | NUR.NOTE ---
Nursing Note:ED visit information from 08/27/21 along with the urine culture result was left for Alvaro Andrea to fax on Wednesday once she gets the fax number to PCP August Inman DO, [place]. Darlin Colon
== END 2021-08-27 15:08 | disposition home or self-care (01) ==
PROVIDERS: Emergency Provider Physician Assistant; PCP Family Medicine
DX: N39.0 Urinary tract infection, site not specified (principal); B96.20 Unspecified Escherichia coli [E. coli] as the cause of diseases classified elsewhere; D64.9 Anemia, unspecified
CPT/HCPCS: 36415; 80053; 83690; 87077; 99283; 81003; 81015; 85025; 87086; 87186

== ENCOUNTER 2022-05-27 11:57 | Emergency (ER) | payer MEDICARE, MEDICAID, SELFPAY ==
[2022-05-27 11:55] VITALS: BP 183/74; PULSE 95; RESP 28; TEMP 37.3; O2SAT 99
[2022-05-27 14:15] VITALS: BP 172/75; PULSE 92; O2SAT 90
[2022-05-27] MEDS: Azithromycin 250 MG TAB 500 MG PO (14:58)
--- NOTE | 2022-05-27 14:58 | ED.GENADUL_ITS ---
Discharge Plan Disposition Patient Disposition: HOME Condition: Good Discharge Details Clinical Impression: Community acquired pneumonia Primary Care Provider: August Inman ED Provider: Abner Doshi Home Meds and New Rx's Prescriptions: New azithromycin 250 mg tablet 250 mg PO DAILY 4 Days Qty: 4 0RF Rx Instructions: start on day 2 of therapy No Action Incruse Ellipta 62.5 mcg/actuation blister with device 1 inh IH DAILY losartan 50 mg tablet 50 mg PO DAILY 90 Days Qty: 90 3RF gabapentin 100 mg capsule 400 mg PO TID Rx Instructions: takes 400 TID methadone 10 MG/ML concentrate 80 mg PO DAILY aspirin 81 mg Tablet,Chewable 81 mg PO DAILY Qty: 30 0RF furosemide 20 mg Tablet 20 mg PO DAILY Qty: 30 0RF Nicotrol 10 mg Cartridge 30 cartridge inhalation Q2H PRN PRNQty: 60 0RF ipratropium-albuterol 0.5 mg-3 mg(2.5 mg base)/3 mL Solution For Nebulization 3 ml UPD QID Qty: 15 0RF cephalexin 500 mg capsule 500 mg PO BID Qty: 14 0RF atorvastatin [Lipitor] 10 MG tablet 10 mg PO DAILY levothyroxine 25 MCG tablet 25 mcg PO DAILY@0600 Qty: 90 0RF albuterol sulfate [Proventil HFA] 200 PUFF HFA aerosol inhaler 2 puff Inhalation Q4H PRN PRNQty: 1 0RF Rx Instructions: dispense with spacer, please buspirone 5 mg tablet 5 mg PO BID Label Comments: TAKE ONE TABLET BY MOUTH EVERY DAY FOR 7 DAYS THEN TAKE ONE TABLET TWICE CAILIN LY methylphenidate HCl 10 mg tablet 10 mg PO QPM Label Comments: TAKE 1 TABLET BY MOUTH ON AN EMPTY STOMACH IN THE EVENING DAILY methylphenidate HCl 20 mg tablet 20 mg PO QAM Label Comments: TAKE 1 TABLET BY MOUTH ON AN EMPTY STOMACH IN THE MORNING DAILY cyclobenzaprine 5 mg tablet 5 mg PO TID PRN Label Comments: TAKE ONE TABLET BY MOUTH THREE TIMES A DAY NEEDED FOR MUSCLE SPASMS Breo Ellipta 100-25 mcg/dose blister with device 1 inh INHALATION DAILY Label Comments: INHALE ONE PUFF BY MOUTH EVERY DAY potassium chloride 10 mEq capsule, extended release 10 meq PO BID Discharge Instructions Instructions: Community Acquired Pneumonia (ED) Additional Instructions: You have evidence of mild pneumonia on your left-hand side. The prescription for azithromycin has been sent to your pharmacy, please start this tomorrow. Please use your nebulizer at home, the new one that we gave you. Use your albuterol every 6 hours as needed for shortness of breath. If you notice any worsening of your symptoms, or any new symptoms such as vomiting, diarrhea, fever, chills, shortness of breath, chest pain, numbness, weakness, or fainting , please return immediately to the emergency department for reevaluation. Please follow up with your primary care provider as soon as possible for reassessment and reevaluation. As always, it was a pleasure participating in your medical care today. Referrals: August Inman [Primary Care Provider] - Medical Decision Making This is a pleasant 67-year-old female with a past medical history of COPD, previous congestive heart failure, hyperglycemia, who presents today for evaluation of increased cough. Patient states that her nebulizer machine at home recently stopped working. She has not been able to get a new nebulizer. Because of this she has not been taking any of her nebulized medications. She has also noticed an increased cough as of late. She admits to some slight shortness of breath because of this morning coughing. Symptoms are not made worse when she lies flat. She denies any increase in weight gain or swelling in her lower extremities. No other complaints at this time. No other modifying factors Physical exam demonstrates well-appearing female, no acute distress. She did receive 1 nebulizer via EMS, and feels much better after that. Minimal wheezes throughout. Patient does have crackles in the left midlung field. Bedside ultrasound shows evidence of B-lines and a small amount of consolidation there as well. No effusion in the bases. Oxygen is stable. Patient has been given a new nebulizer, she does have the medications already at home. Suspect community-acquired pneumonia with the evidence on the ultrasound as well as her increased cough and symptoms. We will give a dose of azithromycin here and a prescription for home. Discussed red flags for which to return. I have extensively reviewed the treatment plan and discharge instructions with the patient. I have addressed all patient concerns at this time. The patient was made aware of what symptoms to monitor for that would warrant a return to the emergency department. Discussed the plan with the patient, they demonstrate verbal understanding and agreement with our assessment and plan at this time. The documentation in this chart was dictated using [employer] dictation software. Please excuse any dictation errors. HPI General Date/Time Provider Initiated Documentation: 05/27/22 11:59 . HPI Narrative: This is a pleasant 67-year-old female with a past medical history of COPD, previous congestive heart failure, hyperglycemia, who presents today for evaluation of increased cough. Patient states that her nebulizer machine at home recently stopped working. She has not been able to get a new nebulizer. Because of this she has not been taking any of her nebulized medications. She has also noticed an increased cough as of late. She admits to some slight shortness of breath because of this morning coughing. Symptoms are not made worse when she lies flat. She denies any increase in weight gain or swelling in her lower extremities. No other complaints at this time. No other modifying factors Related Data Home Medications Medication Instructions Recorded Confirmed atorvastatin 10 mg tablet (Lipitor) 10 mg PO DAILY 06/21/17 08/27/21 albuterol sulfate 90 mcg/actuation 2 puff inhalation Q4H PRN PRN #1 06/24/17 08/27/21 aerosol inhaler (Proventil HFA) inh levothyroxine 25 mcg tablet 25 mcg PO DAILY@0600 #90 tabs 06/24/17 08/27/21 methadone 10 mg/mL oral concentrate 80 mg PO DAILY 12/02/18 08/27/21 aspirin 81 mg chewable tablet 81 mg PO DAILY #30 tabs 12/09/18 08/27/21 furosemide 20 mg tablet 20 mg PO DAILY #30 tabs 12/09/18 08/27/21 losartan 50 mg tablet 50 mg PO DAILY 90 days #90 tabs 06/30/19 08/27/21 umeclidinium 62.5 mcg/actuation 1 inh inhalation DAILY 06/30/19 08/27/21 blister powder for inhalation (Incruse Ellipta) nicotine 10 mg inhalation 30 cartridge inhalation Q2H PRN 09/26/19 08/27/21 cartridge (Nicotrol) PRN #60 ea ipratropium 0.5 mg-albuterol 3 mg 3 ml UPD QID #15 mL 11/03/19 08/27/21 (2.5 mg base)/3 mL nebulization soln gabapentin 100 mg capsule 400 mg PO TID 12/26/19 08/27/21 buspirone 5 mg tablet 5 mg PO BID 06/23/21 08/27/21 cyclobenzaprine 5 mg tablet 5 mg PO TID PRN 06/23/21 08/27/21 fluticasone furoate 100 1 inh inhalation DAILY 06/23/21 08/27/21 mcg-vilanterol 25 mcg/dose inhalation powder (Breo Ellipta) methylphenidate HCl 10 mg tablet 10 mg PO QPM 06/23/21 08/27/21 methylphenidate HCl 20 mg tablet 20 mg PO QAM 06/23/21 08/27/21 potassium chloride 10 mEq 10 meq PO BID 06/23/21 08/27/21 capsule,extended release cephalexin 500 mg capsule 500 mg PO BID #14 caps 08/27/21 azithromycin 250 mg tablet 250 mg PO DAILY 4 days #4 tabs 05/27/22 Previous Rx's Medication Instructions Recorded albuterol sulfate 90 mcg/actuation 2 puff inhalation Q4H PRN PRN #1 06/24/17 aerosol inhaler (Proventil HFA) inh levothyroxine 25 mcg tablet 25 mcg PO DAILY@0600 #90 tabs 06/24/17 aspirin 81 mg chewable tablet 81 mg PO DAILY #30 tabs 12/09/18 furosemide 20 mg tablet 20 mg PO DAILY #30 tabs 12/09/18 losartan 50 mg tablet 50 mg PO DAILY 90 days #90 tabs 06/30/19 nicotine 10 mg inhalation 30 cartridge inhalation Q2H PRN 09/26/19 cartridge (Nicotrol) PRN #60 ea ipratropium 0.5 mg-albuterol 3 mg 3 ml UPD QID #15 mL 11/03/19 (2.5 mg base)/3 mL nebulization soln cephalexin 500 mg capsule 500 mg PO BID #14 caps 08/27/21 azithromycin 250 mg tablet 250 mg PO DAILY 4 days #4 tabs 05/27/22 Allergies Allergy/AdvReac Type Severity Reaction Status Date / Time Penicillins Allergy Unverified 08/27/21 11:55 amoxicillin [From Augmentin] AdvReac Mild Nausea Unverified 08/27/21 12:14 clavulanic acid AdvReac Mild Nausea Unverified 08/27/21 12:14 [From Augmentin] doxycycline AdvReac Mild Nausea Unverified 08/27/21 12:14 lisinopril AdvReac Mild Nausea Unverified 08/27/21 12:14 morphine AdvReac Mild Nausea Unverified 08/27/21 12:14 General Stated Complaint: Anxiety JAYCE: 3 Review of Systems All systems reviewed & are unremarkable except as noted in HPI and below PFSH All Active Problems Septic olecranon bursitis of right elbow (Acute) UTI (urinary tract infection) (Acute) Anemia (Chronic) Hypomagnesemia (Acute) COPD with exacerbation (Acute) Asymptomatic bacteriuria (Acute) not requiring treatment - not a UTI Discharge planning issues (Acute) DVT prophylaxis (Acute) Demand ischemia (Acute) Acute exacerbation of chronic obstructive pulmonary disease (COPD) (Acute) Lactic acidosis (Acute) Cardiomyopathy (Acute ~12/2018) Acute on chronic respiratory failure with hypoxia and hypercapnia (Acute) Mitral regurgitation (Chronic) Abnormal stress test (Acute) QT prolongation (Acute) Prediabetes (Chronic) COPD with acute exacerbation (Acute) Tobacco abuse counseling (Acute) Acute respiratory failure with hypoxia (Acute) HAMZAH (acute kidney injury) (Acute) Hypothyroidism (Chronic) Chronic pain (Chronic) Hypertension (Chronic) Community acquired pneumonia (Acute) Medical History Acute diastolic CHF (congestive heart failure) COPD (chronic obstructive pulmonary disease) Hyperglycemia Surgical History H/O section Family History Mother Heart disease Social History Smoking/Tobacco Use Status: Current, status unknown Tobacco Type: cigarettes Smoking packs per day: 1 Smoking cigarettes per day: 20.0 Years smoked: 46 S moking pack-years: 46.00 Quit status: considering quitting Counseling given: provider counseling, support medications, support program and other Smoking risk assessment performed?: Yes Alcohol Intake: never Drug use: Daily Substance use type: marijuana Current gender identity: female What type of physical activity do you participate in: walking Do you feel safe at home: Yes Do you feel safe in your relationship?: Yes Additional Social history: Originally from [place]. Previously worked in housekeeping and factory work, as well as a [employer] in [place]. Currently disabled. Living in [facility] with daughter and her daughter's boyfriend, both smoke. She also has 2 cats and reports old carpet in her hotel room. She denies alcohol or other drug use. Exam Narrative Exam Narrative: 1.Const: Well-nourished, Well-developed, appearing stated age 2.Eyes: PERRL, no conjunctival injection, and symmetrical lids. 3.ENT: Atraumatic external nose and ears. Moist MM. Neck: Symmetric, trachea midline, No thyromegaly. 4.CVS: +S1/S2, No murmurs or gallops. Peripheral pulses 2+ and equal in all extremities. Brisk capillary refill in all extremities. 5.RESP: Unlabored respiratory effort. Patient demonstrates crackles in the left mid lung field. Mild wheezes. No crackles in the bases. 6.GI: Soft, Nontender/Nondistended, No hepatosplenomegaly. No guarding or rebound. 7.MSK: Normocephalic/Atraumatic, Extremities w/o deformity or ttp No cyanosis or clubbing, Normal movement of all extremities. No pitting edema in the lower extremities 8.Skin: Warm, Dry. No rashes or lesions. 9.Neuro: [employer] II-XII grossly intact. Sensation grossly intact, no focal neurologic deficits. 10.Psych: (AAO) x3. Appropriate mood and affect Course Vital Signs Vital signs: Vital Signs Temperature 37.3 C 05/27/22 11:55 Pulse 95 H 05/27/22 11:55 Respiratory Rate 28 H 05/27/22 11:55 Blood Pressure 183/74 H 05/27/22 11:55 Pulse Oximetry 99 05/27/22 11:55 Temperature 37.3 C 05/27/22 11:55 Temperature Source Temporal Artery Scan 05/27/22 11:55 Pulse 92 H 05/27/22 14:15 Respiratory Rate 28 H 05/27/22 11:55 Blood Pressure 172/75 H 05/27/22 14:15 Blood Pressure Position Sitting 05/27/22 11:55 Pulse Oximetry 90 L 08/24/22 14:15 Oxygen Delivery Method Room Air 05/27/22 14:15 Oxygen Flow Rate 0 05/27/22 14:15 Pain Level 10 05/27/22 11:55
[2022-05-27 14:59] VITALS: RESP 20
== END 2022-05-27 15:15 | disposition home or self-care (01) ==
PROVIDERS: Emergency Provider Student in an Organized Health Care Education/Training Program; PCP Family Medicine
DX: J18.9 Pneumonia, unspecified organism (principal); J44.9 Chronic obstructive pulmonary disease, unspecified; I50.31 Acute diastolic (congestive) heart failure; F17.210 Nicotine dependence, cigarettes, uncomplicated; Z79.82 Long term (current) use of aspirin; Z79.51 Long term (current) use of inhaled steroids
CPT/HCPCS: 99284

== ENCOUNTER 2022-06-15 09:11 | Inpatient (IN) | payer MEDICARE, MEDICAID, SELFPAY ==
[2022-06-15] VITALS (72 sets, daily range): BP systolic 114–198; BP diastolic 64–102; PULSE 78–99; RESP 4–44; TEMP 36.6–37.2; O2SAT 87–100
--- NOTE | 2022-06-15 09:30 | DI.RAD_ITS ---
Exam(s) XR PORTABLE CHEST AP EXAM: XR PORTABLE CHEST AP CLINICAL HISTORY: SOB, PUI. TECHNIQUE: 2D digital imaging was performed. COMPARISON: CR,XR XR CHEST 2V PA LATERAL from 11/01/2019 CR,XR XR PORTABLE CHEST AP from 04/01/2020 FINDINGS: Single AP portable view. Chest leads in place. Cardiomegaly again noted. Mediastinum not widened. Increasing markings in both lungs. There appears to be some infiltrate in the left parahilar region. Also left lower lobe retrocardiac region. No pleural effusions evident. No pneumothorax. Incidentally noted is absence of the distal aspect of the right humerus. IMPRESSION: As above. Recommend nonportable PA and lateral views when clinically possible. DATA REPOSITORY: RADIATION DOSE DELIVERED: All CT scans at this facility use at least one of these dose optimization techniques: automated exposure control; mA and/or kV adjustment per patient size (includes targeted e xams where dose is matched to clinical indication); or iterative reconstruction.
--- NOTE | 2022-06-15 09:30 | RT.EKG_ITS ---
APPROVED REPORT Exam: Resting ECG Reason for Exam: SOB Patient Location: E HR:84 bpm ECG Measurements Heart Rate 84 AXIS OR 145 P 69 QRSd 164 QRS -45 QT 386 T 117 QTc 456 Conclusion Sinus rhythm...normal P axis, V-rate 60- 99 Probable left atrial enlargement...P >50mS, <-0.10mV V1 Left bundle branch block...QRSd>120, broad/notched R ST elevation secondary to IVCD...Multiple VCG criteria no STEMI, does not meet LBBB modified STEMI criteria I have reviewed and interpreted ECG and agree with software generated interpretation.
--- NOTE | 2022-06-15 09:39 | ED.GENADUL_ITS ---
Discharge Plan Disposition Patient Disposition: [facility] INPATIENT Condition: Serious Discharge Details Chief Complaint: SOB Clinical Impression: Community acquired pneumonia, COPD with acute exacerbation, QT prolongation, Hypertension, Anemia, Acute non-ST elevation myocardial infarction (NSTEMI), A bnormal transaminases Admit Date/Time: 06/15/22 16:01 Admit Provider: Wili Johnson Attending Provider: Wili Johnson Primary Care Provider: August Inman ED Provider: Leighann Silvestre Medical Decision Making Yes patient is a pleasant 67-year-old female presenting today with chief complaint of shortness of breath. Patient brought in via EMS. EMS noted the patient to be hypoxic and diffusely wheezing. She received 125 of Solu-Medrol and a DuoNeb with marked improvement. She comes is currently on 2 L satting 98%. She was seen here about 2.5 weeks ago and was diagnosed with pneumonia, treated with azithromycin. She reports that overall her cough has improved although she states that she is still reporting some sputum up. However, states that the shortness of breath has increased. Past medical history is pertinent for COPD, patient is an active smoker smokes about 1 pack/day, cardiomyopathy, mitral regurgitation, QT prolongation, hypothyroidism, hypertension. Patient has been using her at home nebulizer and inhaler with slight improvement of her symptoms after each. She denies any known sick contacts. No recent travel. She has not been tested for COVID-19. Patient is fully vaccinated. On exam, patient appears slightly jaundiced and very anxious and tachypneic. Respiratory rate in the 20s. Patient hypertensive at 198/86. Pulse of 99. She was 90% when I went into the room I did turn this down to pressure on room air and she is remaining at 95%. She is diffusely wheezy, she is expiration, will give another DuoNeb. No abdominal discomfort, lower extremity edema or calf pain. Of note, patient does have significant pain in the right elbow and reports that she is scheduled to have surgery for symptoms of cyst in the elbow. Also of note, patient's blood pressure is historically very elevated as it is today. Prior to giving any antihypertensives, will treat her pain and anxiety. Patient does acknowledge her significant anxiety and. Would like an anxiety lytic. EKG obtained and reviewed by Dr. Valdes. Patient does have a wide QRS but this does appear to be baseline and unchanged from her previous. She does have T wave inversions in V5 V6 but she describes this is not consistent with acute coronary syndrome at this time. COVID vital lab, hemoglobin of 6.5. On chart review, patient has been chr onically anemic COVID hemoglobin in the eights but this is a acutely change for her and much lower than her typical. We will type and screen the patient, obtain coagulation studies. Patient reports feeling improved after the Ativan. She still has tachypnea, this could be associated with the anemia certainly. However, I did put her back on the oxygen as she just appears fatigued and tachypneic. Rectal exam is Hemoccult negative. She is not noted any change in easy bruising. No blood noted in her stool at home or in her urine. She denies having ever had a colonoscopy. Patient I discussed risk/benefits of receiving blood products, patient consents to 1 unit of packed red blood cells. Reviewed the patient's portable chest x-ray, COVID is negative, and I am concerned that she does have some abnormal markings, particularly in the left upper lung. I am concerned, particularly with the patient's abnormal anemia, but potentially disease anemia of chronic disease and patient may have a malignancy. D-dimer elevated at 3215. Patient does have a transaminitis, she does have a history of chronically elevated alk phos but the elevation of AST and ALT are new. We will move forward with CTA for PE as well as CT with of chest, abdomen pelvis. Contacted by lab, troponin is elevated at 557. She continues to have no chest pain. Only exertional shortness of breath which may be associated with her anemia. Alternatively patient could be having ACS but I find this more likely to be a type II demand ischemia and will continue to trend troponins. With the anemia patient receiving blood products, will hold off on heparinization at this point. Will obtain CT as above and consult with cardiology. Contacted by radiologistt. they reviewed the CT, concerned for infiltrate, possible mass as well as effusions bilaiterally. Fluid around GB. No abdominal pain on exam, obtained lipase as result which was WNL. US not available secondary to time of day. Again, no hx or exam to suggest acute cholecysitis. However, she does have new transaminitis. consulted with hospitalist. Discussed admission for anemia, NSTEMI, pneumonia, effusions, possible lung mass, transaminitis, COPD exacerbation. She has reviewed solumedrol prior to arrival, total of 3 duo nebs, 1PRBCs, ativan. Discussed abx, particularly given her prolonged QT and allergies, will give Rocephin. Again, patient had reported improved lack of cough and resolution of previous pneumonia. We discussed heprinizing the patient, he agrees with holding off at this time, particularly given the signficant anemia. Still awaiting call from cardiology. At the time patient was admitted, she was feeling improved, drinking, breathing comfortably, no CP. After patient was admitted, spoke with cardiology, Dr. Shea. They advised to hold off on heparinizing the patient. Recommend echo tomorrow, continue to trend the troponin over night. HPI General Date/Time Provider Initiated Documentation: 06/15/22 09:14 . Limitations to Documentation: no limitations . Information obtained by: patient, EMS, RN notes reviewed and old records reviewed . History of Present Illness 67 year old F presents to the emergency department with the chief complaint of SOB, anxiety, cough, wheezing, described as severe and similar to prior episodes, Quality is described as other (denies CP, has non-related pain in right elbow which is chronic and unchangd), Patient reports no radiation. Patient started experiencing this day(s) and it has been constant. Immobilization improves symptom(s), Movement worsens symptoms . Patient notes cough, loss of appetite (reports weight loss over several months), malaise and shortness of breath; denies chest pain, diaphoresis, fever/chills, headaches, nausea/vomiting, rash, syncope and weakness. Patient did receive the following treatments prior to arrival, other (azithromycin, duoneb, solumedrol) Related Data Home Medications Medication Instructions Recorded Confirmed atorvastatin 10 mg tablet (Lipitor) 10 mg PO DAILY 06/21/17 06/15/22 albuterol sulfate 90 mcg/actuation 2 puff inhalation Q4H PRN PRN #1 06/24/17 06/15/22 aerosol inhaler (Proventil HFA) inh levothyroxine 25 mcg tablet 25 mcg PO DAILY@0600 #90 tabs 06/24/17 06/15/22 methadone 10 mg/mL oral concentrate 80 mg PO DAILY 12/02/18 06/15/22 aspirin 81 mg chewable tablet 81 mg PO DAILY #30 tabs 12/09/18 06/15/22 furosemide 20 mg tablet 20 mg PO DAILY #30 tabs 12/09/18 06/15/22 losartan 50 mg tablet 50 mg PO DAILY 90 days #90 tabs 06/30/19 06/15/22 umeclidinium 62.5 mcg/actuation 1 inh inhalation DAILY 06/30/19 06/15/22 blister powder for inhalation (Incruse Ellipta) ipratropium 0.5 mg-albuterol 3 mg 3 ml UPD QID #15 mL 11/03/19 06/15/22 (2.5 mg base)/3 mL nebulization soln gabapentin 100 mg capsule 400 mg PO TID 12/26/19 06/15/22 buspirone 5 mg tablet 5 mg PO BID 06/23/21 08/27/21 cyclobenzaprine 5 mg tablet 5 mg PO TID PRN 06/23/21 06/15/22 fluticasone furoate 100 1 inh inhalation DAILY 06/23/21 06/15/22 mcg-vilanterol 25 mcg/dose inhalation powder (Breo Ellipta) methylphenidate HCl 10 mg tablet 10 mg PO QPM 06/23/21 06/15/22 methylphenidate HCl 20 mg tablet 20 mg PO QAM 06/23/21 06/15/22 potassium chloride 10 mEq 10 meq PO BID 06/23/21 06/15/22 capsule,extended release Previous Rx's Medication Instructions Recorded albuterol sulfate 90 mcg/actuation 2 puff inhalation Q4H PRN PRN #1 06/24/17 aerosol inhaler (Proventil HFA) inh levothyroxine 25 mcg tablet 25 mcg PO DAILY@0600 #90 tabs 06/24/17 aspirin 81 mg chewable tablet 81 mg PO DAILY #30 tabs 12/09/18 furosemide 20 mg tablet 20 mg PO DAILY #30 tabs 12/09/18 losartan 50 mg tablet 50 mg PO DAILY 90 days #90 tabs 06/30/19 ipratropium 0.5 mg-albuterol 3 mg 3 ml UPD QID #15 mL 11/03/19 (2.5 mg base)/3 mL nebulization soln Allergies Allergy/AdvReac Type Severity Reaction Status Date / Time Penicillins Allergy Unverified 06/15/22 09:21 amoxicillin [From Augmentin] AdvReac Mild Nausea Unverified 06/15/22 09:22 clavulanic acid AdvReac Mild Nausea Unverified 06/15/22 09:22 [From Augmentin] doxycycline AdvReac Mild Nausea Unverified 06/15/22 09:22 lisinopril AdvReac Mild Nausea Unverified 06/15/22 09:22 morphine AdvReac Mild Nausea Unverified 06/15/22 09:22 General Stated Complaint: SOB JAYCE: 3 Review of Systems Constitutional Constitutional: Reports as per HPI, Denies chills, Denies fever(s) and Denies headache(s) Eyes Eyes: Denies change in vision ENT Ears, Nose, Mouth, and Throat: Denies dizziness and Denies headache(s) Cardiovascular Cardiovascular: Reports as per HPI Respiratory Respiratory: Reports as per HPI, Denies pain on inspiration and Denies pain with cough Gastrointestinal Gastrointestinal: Reports as per HPI, Denies abdominal pain, Denies diarrhea, Denies nausea and Denies vomiting Musculoskeletal Musculoskeletal: Reports as per HPI and Denies back pain Integumentary/Breasts Skin/Breast: Reports as per HPI and Denies rash Neurologic Neurologic: Reports as per HPI, Denies dizziness and Denies headache(s) PFSH All Active Problems (Updated 06/15/22 @ 21:38 by TEDDY Estevez) Septic olecranon bursitis of right elbow (Acute) UTI (urinary tract infection) (Acute) Anemia (Chronic) Anemia (Chronic) Acute non-ST elevation myocardial infarction (NSTEMI) (Acute) Abnormal transaminases (Acute) Hypomagnesemia (Acute) COPD with exacerbation (Acute) Asymptomatic bacteriuria (Acute) not requiring treatment - not a UTI Discharge planning issues (Acute) DVT prophylaxis (Acute) Demand ischemia (Acute) Acute exacerbation of chronic obstructive pulmonary disease (COPD) (Acute) Lactic acidosis (Acute) Cardiomyopathy (Acute ~12/2018) Acute on chronic respiratory failure with hypoxia and hypercapnia (Acute) Mitral regurgitation (Chronic) Abnormal stress test (Acute) QT prolongation (Acute) Prediabetes (Chronic) COPD with acute exacerbation (Acute) Tobacco abuse counseling (Acute) Acute respiratory failure with hypoxia (Acute) HAMZAH (acute kidney injury) (Acute) Hypothyroidism (Chronic) Chronic pain (Chronic) Hypertension (Chronic) Community acquired pneumonia (Acute) Medical History (Updated 06/15/22 @ 21:38 by TEDDY Estevez) Acute diastolic CHF (congestive heart failure) COPD (chronic obstructive pulmonary disease) Hyperglycemia Surgical History H/O section Family History Mother Heart disease Social History Smoking/Tobacco Use Status: Current, status unknown Tobacco Type: cigarettes Smoking packs per day: 1 Smoking cigarettes per day: 20.0 Years smoked: 46 Smoking pack-years: 46.00 Quit status: considering quitting Counseling given: provider counseling, support medications, support program and other Smoking risk assessment performed?: Yes Alcohol Intake: never Drug use: Daily Substance use type: marijuana Current gender identity: female What type of physical activity do you participate in: walking Do you feel safe at home: Yes Do you feel safe in your relationship?: Yes Exam Const General: cooperative, no acute distress, well developed, anxious and ill appearing acutely and chronically Nutritional Appearance: thin Orientation: alert, awake and oriented x3 HENMT Head: normal to inspection Ears: hearing grossly normal bilaterally Mouth: mucous membranes dry (appears dry) Chest Chest: normal inspection of the chest, normal palpation of entire chest wall and no crepitus Resp Effort & Inspection: normal respiratory effort, able to speak in complete sentences, no respiratory distress, no retractions and tachypneic Auscultation: no rales, no rhonchi and wheezes expiratory wheezes (diffuse) Cardio Rate: tachycardic Rhythm: regular rhythm Heart Sounds: S1 normal and S2 normal GI Inspection: normal to inspection, no edema and non-distended Palpation: soft, no hepatosplenomegaly, not firm, no guarding, not rigid and nontender Auscultation: normal bowel sounds Rectal Exam - female: visual inspection normal, normal sphincter tone and heme negative stool Back/Spine/Pelvis Back: no CVA tenderness Thoracic/Lumbar Spine: thoracic and lumbar spine normal to inspection Skin General skin exam: no rashes or lesions noted Trauma: no lacerations or abrasions Neuro General: patient alert, patient awake and patient oriented x3 Cognition: normal cognition Speech: speech normal Gait: normal gait Extrem General: normal to inspection, capillary refill normal, no pedal edema and no calf tenderness Psych Appearance: grossly normal and well kempt Mental Status: mental status grossly normal Speech and Movement: speech and movement normal Course Vital Signs Vital signs: Vital Signs Temperature 37.0 C 06/15/22 09:13 Pulse 99 H 06/15/22 09:13 Respiratory Rate 18 06/15/22 09:13 Blood Pressure 198/86 H 06/15/22 09:13 Pulse Oximetry 93 06/15/22 09:13 Temperature 37.0 C 06/15/22 09:13 Temperature Source Skin 06/15/22 09:13 Pulse 99 H 06/15/22 09:13 Respiratory Rate 18 06/15/22 09:13 Blood Pressure 198/86 H 06/15/22 09:13 Blood Pressure Position Supine 06/15/22 09:13 Pulse Oximetry 93 06/15/22 09:13 Oxygen Delivery Method Nasal Cannula 06/15/22 09:13 Oxygen Flow Rate 3 06/15/22 09:13 Pain Level 10 06/15/22 09:13 Comment 06/15/22 09:13
[2022-06-15 09:52] LABS: Source Nasal/Nares
[2022-06-15] MEDS: ACETAMINOPHEN 1,000 MG/100 ML BTL 400 MG IVPB (09:52)
[2022-06-15] MEDS: Normal Saline 1,000 ML 500 ML IV (09:53)
[2022-06-15] MEDS: LORazepam 20 MG/10 ML VIAL IVP ×2 (09:54→13:09)
[2022-06-15 09:55] LABS: Abs Immature Grans 0.06 10^3/uL (0.0-0.06); Absolute Basophil Count 0.06 10^3/uL (0.0-0.2); Absolute Eosinophil Count 0.07 10^3/uL (0.0-0.7); Absolute Lymphocyte Count 0.97 10^3/uL (1.2-3.4); Absolute Monocyte Count 0.47 10^3/uL (0.1-0.8); Absolute Neutrophil Count 8.25 10^3/uL (1.2-6.7); Basophils % 0.6; Eosinophils % 0.7; HCT 23.3 % (36.0-46.0); Immature Grans % 0.6; Lymphocytes % 9.8; MCH 20.1 pg (27.0-33.0); MCHC 27.9 % (32.0-36.0); MCV 72 fL (80-95); MPV 10.7 fL (8.0-11.0); Monocytes % 4.8; Neutrophils % 83.5; Nucleated RBC 0.5 % (0.0-0.3); Platelet Count 294 10^3/uL (130-400); RBC 3.23 10^6/uL (3.93-5.22); RDW-SD 57.6 fL; WBC 9.88 10^3/uL (4.4-10.8)
[2022-06-15 10:08] LABS: HGB 6.5 g/dL (11.2-15.7)
[2022-06-15 10:09] LABS: Anisocytosis 2+; Basophilic Stippling Present; Hypochromasia 1+; Macrocytosis 1+; Microcytosis 2+; Polychromasia Present; Schistocytes 1+
[2022-06-15 10:24] LABS: COVID-19 PCR Negative (Negative); D-Dimer 3215 ng/mlFEU (<500)
[2022-06-15 10:38] LABS: ALT 115 U/L (14-59); AST 56 U/L (15-37); Albumin 2.7 g/dL (3.4-5.0); Alkaline Phosphatase 145 U/L (46-116); Anion Gap 11.8 mmol/L (3-11); BUN 14 mg/dL (7-18); Bilirubin, Total 0.3 mg/dL (0.2-1.0); CO2 22.2 mmol/L (21.0-32.0); CREATININE 0.9 mg/dL (0.55-1.02); Calcium 8.8 mg/dL (8.5-10.1); Chloride 104 mmol/L (98-107); Estimated GFR 70.95 (mL/min/1.73m2); Glucose 183 mg/dL (74-106); Magnesium 1.8 mg/dL (1.8-2.4); Potassium 3.6 mmol/L (3.5-5.1); Sodium 138 mmol/L (136-145)
[2022-06-15] MEDS: Albuterol/Ipratropium 3 ML UPD VIAL UPD ×2 (10:38→13:09)
[2022-06-15 10:40] LABS: Troponin I 557 ng/L (<or=60)
[2022-06-15 10:49] LABS: PTT Activated 21.5 sec (21.0-27.5); Prothrombin Time 10.3 sec (9.3-11.0)
--- NOTE | 2022-06-15 11:00 | DI.CT_ITS ---
Exam(s) CT CHEST PE ABD PELVIS W EXAM: CT CHEST PE ABD PELVIS W CLINICAL HISTORY: tranaminitis, anemia, hypoxemia, elevated d-dimer. TECHNIQUE: Imaging Protocol: Axial CT angiography was performed with multi-slice acquisition and m ulti-planar and/or 3D reconstructions. CONTRAST MATERIAL: Intravenous: Omnipaque 350 Contrast volume:100 ml Oral: None COMPARISON: CT CHEST FOR PULMONARY EMBOLUS from 06/23/2017 CR XR PORTABLE CHEST AP from 06/15/2022 FINDINGS: CHEST: There is lack of opacification of the brachiocephalic trunk off the aortic arch as well of as the rig ht common carotid artery. Left common carotid arteries opacified as is the left subclavian artery. PULMONARY ARTERIES: There are no obvious intra-arterial filling defects to suggest the presence of ac manish pulmonary emboli. LUNGS: Bilateral moderate size pleural effusions..There is infiltrate in both upper lobes, most promi nent in the posterior segment of the right upper lobe. Also in the apical posterior segment of the l eft upper lobe. In addition, there is somewhat spiculated infiltrate in the left lower lobe. Atelec tasis in the lung bases noted related to the bilateral pleural effusions. MEDIASTINUM: No obvious hilar nor mediastinal adenopathy. Partially visualized thyroid unremarkable. CARDIAC: Mild cardiomegaly. No pericardial effusion. Caliber of the thoracic aorta is normal but th e the thoracic aorta is atherosclerotic and as described above there is no opacification of the brach iocephalic trunk and right common carotid artery. OSSEOUS: No significant osseous lesions.. ABDOMEN: LIVER: There are no focal hepatic lesions nor dilatation of intrahepatic ducts. GALLBLADDER/BILIARY: There is fluid around the gallbladder. Small gallstones noted. CBD diameter up per normal. No obvious calculi in the lower CBD. PANCREAS: No evidence of pancreatic mass nor dilatation of the pancreatic duct. SPLEEN: Spleen size upper normal. No intrasplenic lesions. Splenic and portal veins are patent. ADRENALS: There are no significant adrenal masses. KIDNEYS:Left kidney is somewhat atrophic. Right kidney unremarkable. No masses in the kidneys. No cysts. No calculi. No hydronephrosis.. ABDOMINAL AORTA: Heavily calcified and atherosclerotic. LYMPH NODES: There is no retroperitoneal or para-aortic adenopathy. ABDOMINAL WALL/GI: No evidence of significant anterior abdominal wall hernia. No bowel obstruction. PELVIS: LYMPH NODES: There is no intrapelvic nor inguinal adenopathy. GI: No evidence of appendicitis.Subtle evidence of probable colitis pattern sigmoid.No significant si gmoid diverticular disease. URINARY BLADDER: No calculi nor masses evident REPRODUCTIVE: Uterus and adnexal regions unremarkable. No free fluid in the pelvis OSSEOUS: No significant osseous lesions. Multilevel chronic disc disease. No fractures. IMPRESSION: 1. Extensive bilateral pulmonary infiltrates. Also moderate size bilateral pleural effusions. Also spiculated infiltrate in the left lower lobe. Extensive pneumonitis but also recommend close follow- up to rule out malignancy, particularly with respect of the left lower lobe infiltrate. 2. No obvious intrathoracic adenopathy. 3. Cholelithiasis and fluid around the gallbladder. Suspicious for acute cholecystitis. Ultrasound recommended. Report called to ER physician RADIATION DOSE DELIVERED: 754.81mGy.cm Total DLP DATA REPOSITORY: All CT scans at this facility are submitted to the National Radiology Data Registry (NRDR) Dose Index Registry (DIR) with the [employer] ([employer]). RADIATION OPTIMIZATION: All CT scans at this facility use at least one of these dose optimization te chniques: automated exposure control; mA and/or kV adjustment per patient size (includes targeted exa ms where dose is matched to clinical indication); or iterative reconstruction.
--- NOTE | 2022-06-15 13:10 | NUR.NOTE ---
Nursing Note: patient got up to use the bedside commode, patient started panicking stating she can not breath, O2 level was 94% at 2L NC. tried to calm patient, patient continued to panic yelling for help. provider ordered Ativan and duoneb. patient is starting to relax using duoneb.
[2022-06-15 13:22] LABS: Troponin I 690 ng/L (<or=60)
--- NOTE | 2022-06-15 14:15 | RT.EKG_ITS ---
APPROVED REPORT Exam: Resting ECG Reason for Exam: repeat troponin, elevated Patient Location: E HR:88 bpm ECG Measurements Heart Rate 88 AXIS WI 154 P 69 QRSd 162 QRS -46 QT 423 T 115 QTc 511 Conclusion Sinus rhythm...normal P axis, V-rate 60- 99 Probable left atrial enlargement...P >50mS, <-0.10mV V1 Left bundle branch block...QRSd>120, broad/notched R PHysician: LBBB, negative sgarbossa
[2022-06-15] MEDS: Omnipaque 350 MG/ML 100 ML BTL IJ (14:37)
[2022-06-15] MEDS: Normal Saline Flush 10 ML SYR IVP ×2 (14:38→17:18)
[2022-06-15 15:04] LABS: Lipase 206 U/L (73-393)
[2022-06-15] MEDS: LORazepam 0.5 MG TAB PO (17:17)
[2022-06-15] MEDS: Furosemide 40 MG/4 ML VIAL IVP (17:17)
[2022-06-15] MEDS: Enoxaparin 40 MG/0.4 ML SYR SC (17:18)
[2022-06-15] MEDS: Albuterol 2.5 MG/3 ML INH SOLN VIAL UPD (17:55)
--- NOTE | 2022-06-15 18:20 | HPE_ITS ---
Date of service: 06/15/22 Time of Service: 18:20 Assessment and Plan Assessment and plan (1) Anemia: Status: Chronic Assessment and plan: Hgb 6.5. Low MCV of 7.2. Likely iron deficiency. Likely etiology of acute CHF / demand ischemia. No current evidence of GI blood loss. Questionable pulmonary lesion/malignancy that could be contributing. Nutritional component? Iron studies ordered. Transfused 1 unit of pRBCs. Monitor and continue to investigate source. Nutrition consult. (2) Acute non-ST elevation myocardial infarction (NSTEMI): Status: Acute Assessment and plan: Troponin of 557. ED physician discussed case with Dr Shea at [facility] [place]. Likely demand ischemia from anemia and COPD exacerbation. Echocardiogram ordered. Trend troponins. No heparinization recommended particularly in background of significant anemia. (3) COPD with exacerbation: Status: Acute Assessment and plan: Cont Duonebs, Breo Ellipta, prn albuterol. Holding Incruse Ellipta while receiving Duonebs. Prednisone 40mg po Daily. Now on no supplemental oxygen. (4) Cardiomyopathy: Status: Acute Assessment and plan: Echocardiogram in 2019 showed an EF of 50-55% with moderately dilated left atrium Echocardiogram ordered. On Losartan. (5) QT prolongation: Status: Acute Assessment and plan: May be d/t methadone. Be vigilant of drug interactions that could worsened QT interval. (6) Tobacco abuse counseling: Status: Acute Assessment and plan: 1 PPD smoker. Nicotine patch. (7) Hypothyroidism: Status: Chronic Assessment and plan: Cont replacement tx. Qualifiers: Hypothyroidism type: acquired Qualified Code(s): E03.9 - Hypothy roidism, unspecified (8) Hypertension: Status: Chronic Assessment and plan: Cont Losartan 50mg daily. Give losartan 25mg po now x 1. Qualifiers: Hypertension type: essential hypertension Qualified Code(s): I10 - Essential (primary) hypertension (9) Community acquired pneumonia: Status: Acute Assessment and plan: Extensive infiltrates. S/P azithromycin. Rocephin 1 gram IV Q24 hours. Qualifiers: Laterality: unspecified laterality Qualified Code(s): J18.9 - Pneumonia, unspecified organism (10) Acute diastolic CHF (congestive heart failure): (11) Chronic pain: Status: Chronic Qualifiers: Chronic pain type: chronic pain syndrome Qualified Code(s): G89.4 - Chronic pain syndrome (12) Cholecystitis: Status: Acute Assessment and plan: Biliary US. No fever, elevated WBC count. Surgery consult. History of Present Illness History of Present Illness Chief Complaint: Shortness of air Narrative: This is a 67 yo female with a PMH of COPD, tobacco abuse syndrome, cardio myopathy, hypothyroidism, HTN. She was brought to the ED via EMS d/t c/o SOA. She was noted to be hypoxic and wheezing per EMS; DuoNeb tx and IV solumedrol administered and she endorsed significant improvement. Upon arrival to the ED her O2 saturation on 2L NC was 98%. Of note, she was seen in the ED appx 2 1/2 weeks ago and dxd with PNA and treated as outpt with Azithromycin. Her cough improved but did not resolve and does now have some sputum production. Denied fever/chills. No abd pain, N/V. Initial Vital signs: Temperature ?37.0 C ?06/15/22 09:13 C Pulse ?99 H ?06/15/22 09:13 Respiratory Rate ?18 ?06/15/22 09:13 Blood Pressure ?198/86 H ?06/15/22 09:13 Pulse Oximetry ?93 ?06/15/22 09:13 She was noted to be fully vaccinated for Covid-19. Her initial exam in the ED per physician found her to have diffuse wheezes. Abd was nontender. No pedal edema or calf tenderness. EKG showed T-wave inversion in V5 and V6. No indication of ACS. Hgb was low at 6.5. WBC count and platelets normal. INR 1.0. Stool heme nega tive. D-dimer 3215. Lytes normal. BUN and Creatinine normal. ALT 115, AST 56. Bilirubin 0.4. Troponin 557 > 690. NTProBNAP [address]. CT C/A/P: Extensive bilateral pulmonary infiltrates.? Also moderate size bilateral pleural effusions.? Also spiculated infiltrate in the left lower lobe.? Extensive pneumonitis but also recommend close follow-up to rule out malignancy, particularly with respect of the left lower lobe infiltrate. No obvious intrathoracic adenopathy. Cholelithiasis and fluid around the gallbladder.? Suspicious for acute cholecystitis.? Ultrasound recommended. Rocephin initiated in the ED. One unit pRBCs transfused. Review of Systems All systems reviewed & are unremarkable except as noted in HPI and below PFSH All Active Problems (Updated 06/16/22 @ 08:02 by Wili Johnson MD) Cholecystitis (Acute) Septic olecranon bursitis of right elbow (Acute) UTI (urinary tract infection) (Acute) Anemia (Chronic) Anemia (Chronic) Acute non-ST elevation myocardial infarction (NSTEMI) (Acute) Abnormal transaminases (Acute) Hypomagnesemia (Acute) COPD with exacerbation (Acute) Asymptomatic bacteriuria (Acute) not requiring treatment - not a UTI Discharge planning issues (Acute) DVT prophylaxis (Acute) Demand ischemia (Acute) Acute exacerbation of chronic obstructive pulmonary disease (COPD) (Acute) Lactic acidosis (Acute) Cardiomyopathy (Acute ~12/2018) Acute on chronic respiratory failure with hypoxia and hypercapnia (Acute) Mitral regurgitation (Chronic) Abnormal stress test (Acute) QT prolongation (Acute) Prediabetes (Chronic) COPD with acute exacerbation (Acute) Tobacco abuse counseling (Acute) Acute respiratory failure with hypoxia (Acute) HAMZAH (acute kidney injury) (Acute) Hypothyroidism (Chronic) Chronic pain (Chronic) Hypertension (Chronic) Community acquired pneumonia (Acute) Medical History (Updated 06/16/22 @ 08:02 by Wili Johnson MD) Acute diastolic CHF (congestive heart failure) COPD (chronic obstructive pulmonary disease) Hyperglycemia Surgical History H/O section Family History Mother Heart disease Social History Smoking/Tobacco Use Status: Current, status unknown Tobacco Type: cigarettes Smoking packs per day: 1 Smoking cigarettes per day: 20.0 Years smoked: 46 Smoking pack-years: 46.00 Quit status: considering quitting Counseling given: provider counseling, support medications, support program and other Smoking risk assessment performed?: Yes Alcohol Intake: never Drug use: Daily Substance use type: marijuana Current gender identity: female What type of physical activity do you participate in: walking Do you feel safe at home: Yes Do you feel safe in your relationship?: Yes Meds Allergies and Home Medications Allergies Allergy/AdvReac Type Severity Reaction Status Date / Time Penicillins Allergy Unverified 06/15/22 09:21 amoxicillin [From Augmentin] AdvReac Mild Nausea Unverified 06/15/22 09:22 clavulanic acid AdvReac Mild Nausea Unverified 06/15/22 09:22 [From Augmentin] doxycycline AdvReac Mild Nausea Unverified 06/15/22 09:22 lisinopril AdvReac Mild Nausea Unverified 06/15/22 09:22 morphine AdvReac Mild Nausea Unverified 06/15/22 09:22 Home Medications Medication Instructions Recorded Confirmed Type atorvastatin 10 mg tablet (Lipitor) 10 mg PO DAILY 06/21/17 06/15/22 History albuterol sulfate 90 mcg/actuation 2 puff inhalation Q4H PRN PRN #1 06/24/17 06/15/22 Rx aerosol inhaler (Proventil HFA) inh levothyroxine 25 mcg tablet 25 mcg PO DAILY@0600 #90 tabs 06/24/17 06/15/22 Rx methadone 10 mg/mL oral concentrate 80 mg PO DAILY 12/02/18 06/15/22 History aspirin 81 mg chewable tablet 81 mg PO DAILY #30 tabs 12/09/18 06/15/22 Rx furosemide 20 mg tablet 20 mg PO DAILY #30 tabs 12/09/18 06/15/22 Rx losartan 50 mg tablet 50 mg PO DAILY 90 days #90 tabs 06/30/19 06/15/22 Rx umeclidinium 62.5 mcg/actuation 1 inh inhalation DAILY 06/30/19 06/15/22 History blister powder for inhalation (Incruse Ellipta) ipratropium 0.5 mg-albuterol 3 mg 3 ml UPD QID #15 mL 11/03/19 06/15/22 Rx (2.5 mg base)/3 mL nebulization soln gabapentin 100 mg capsule 400 mg PO TID 12/26/19 06/15/22 History buspirone 5 mg tablet 5 mg PO BID 06/23/21 08/27/21 History cyclobenzaprine 5 mg tablet 5 mg PO TID PRN 06/23/21 06/15/22 History fluticasone furoate 100 1 inh inhalation DAILY 06/23/21 06/15/22 History mcg-vilanterol 25 mcg/dose inhalation powder (Breo Ellipta) methylphenidate HCl 10 mg tablet 10 mg PO QPM 06/23/21 06/15/22 History methylphenidate HCl 20 mg tablet 20 mg PO QAM 06/23/21 06/15/22 History potassium chloride 10 mEq 10 meq PO BID 06/23/21 06/15/22 History capsule,extended release Exam Narrative Exam Narrative: Anxious and frail appearing female. Conversant and pleasant. Const General: cooperative and no acute distress Nutritional Appearance: thin Orientation: alert and oriented x3 Eyes General: appearance normal, both eyes and all related structures Sclera: sclerae normal Neck Neck: normal visual inspection and no JVD Resp Effort & Inspection: normal respiratory effort Auscultation: diminished lung sounds and wheezes (soft, diffuse) Cardio Rate: regular rate Rhythm: regular rhythm Heart Sounds: S1 normal, S2 normal and no murmurs GI Palpation: soft and nontender Auscultation: normal bowel sounds Skin General skin exam: no rashes or lesions noted Neuro General: no focal motor deficits Cranial Nerves: facial strength normal Cognition: normal cognition Speech: speech normal Extrem General: no pedal edema and no calf tenderness Psych Appearance: grossly normal Affect: anxious affect Thought Process: normal Thought Content: normal Results Labs Result diagrams: 06/16/22 05:42 06/16/22 05:42 Labs: Laboratory Results - last 24 hr 06/15/22 06/15/22 06/15/22 09:40 09:40 09:40 WBC 9.88 RBC 3.23 L Hgb 6.5 L* Hct 23.3 L MCV 72 L MCH 20.1 L MCHC 27.9 L RDW 22.0 H Plt Count 294 MPV 10.7 Immature Gran % 0.6 Neutrophils % 83.5 Lymphocytes % 9.8 Monocytes % 4.8 Eosinophils % 0.7 Basophils % 0.6 Nucleated RBC % 0.5 H Absolute Neutrophils 8.25 H Absolute Lymphocytes 0.97 L Absolute Monocytes 0.47 Absolute Eosinophils 0.07 Absolute Basophils 0.06 RBC Morphology See Below Polychromasia Present Hypochromasia 1+ Basophilic Stippling Present Anisocytosis 2+ Microcytosis 2+ Macrocytosis 1+ Schistocytes 1+ PT INR APTT D-Dimer 3215 H Sodium 138 Potassium 3.6 Chloride 104 Carbon Dioxide 22.2 Anion Gap 11.8 H BUN 14 Creatinine 0.9 Est GFR (CKD-EPI 2020) 70.95 Glucose 183 H Calcium 8.8 Magnesium 1.8 Iron TIBC Transferrin % Sat Total Bilirubin 0.3 AST 56 H ALT 115 H Alkaline Phosphatase 145 H Troponin I 557 H* Total Protein 8.0 Albumin 2.7 L Lipase COVID-19 Source SARS-CoV-2 (PCR) Patient ABO/Rh Antibody Screen Crossmatch 06/15/22 06/15/22 06/15/22 09:40 09:40 09:40 WBC RBC Hgb Hct MCV MCH MCHC RDW Plt Count MPV Immature Gran % Neutrophils % Lymphocytes % Monocytes % Eosinophils % Basophils % Nucleated RBC % Absolute Neutrophils Absolute Lymphocytes Absolute Monocytes Absolute Eosinophils Absolute Basophils RBC Morphology Polychromasia Hypochromasia Basophilic Stippling Anisocytosis Microcytosis Macrocytosis Schistocytes PT 10.3 INR 1.0 APTT 21.5 D-Dimer Sodium Potassium Chloride Carbon Dioxide Anion Gap BUN Creatinine Est GFR (CKD-EPI 2020) Glucose Calcium Magnesium Iron TIBC Transferrin % Sat Total Bilirubin AST ALT Alkaline Phosphatase Troponin I Total Protein Albumin Lipase 206 COVID-19 Source Nasal/Nares SARS-CoV-2 (PCR) Negative Patient ABO/Rh Antibody Screen Crossmatch 06/15/22 06/15/22 06/15/22 10:50 12:40 16:13 WBC RBC Hgb Hct MCV MCH MCHC RDW Plt Count MPV Immature Gran % Neutrophils % Lymphocytes % Monocytes % Eosinophils % Basophils % Nucleated RBC % Absolute Neutrophils Absolute Lymphocytes Absolute Monocytes Absolute Eosinophils Absolute Basophils RBC Morphology Polychromasia Hypochromasia Basophilic Stippling Anisocytosis Microcytosis Macrocytosis Schistocytes PT INR APTT D-Dimer Sodium Potassium Chloride Carbon Dioxide Anion Gap BUN Creatinine Est GFR (CKD-EPI 2020) Glucose Calcium Magnesium Iron Cancelled TIBC Cancelled Transferrin % Sat Cancelled Total Bilirubin AST ALT Alkaline Phosphatase Troponin I 690 H* Total Protein Albumin Lipase COVID-19 Source SARS-CoV-2 (PCR) Patient ABO/Rh B Negative Antibody Screen NEGATIVE Crossmatch See Detail Last Vital Signs Temp 37.0 C 06/15/22 17:00 Pulse 96 H 06/15/22 17:00 Resp 16 06/15/22 17:00 BP 114/82 06/15/22 17:00 Pulse Ox 96 06/15/22 17:00
[2022-06-15 18:47] LABS: Lab Add On Test DONE
[2022-06-15 19:35] LABS: NT-proBNP 12524 pg/mL (<300)
[2022-06-15] MEDS: Methylphenidate 10 MG TAB PO (19:37)
[2022-06-15] MEDS: Gabapentin 400 MG CAP PO (19:37)
[2022-06-15] MEDS: Losartan 25 MG TAB PO (19:37)
[2022-06-15] MEDS: Potassium Chloride 10 MEQ CAPCR PO (19:37)
[2022-06-15] MEDS: Acetaminophen 325 MG TAB PO (19:41)
[2022-06-15] MEDS: Budesonide/Formoterol 80/4.5 6.9 GM 60 PUFF INH IH (19:43)
[2022-06-15 20:01] LABS: HCT 26.5 % (36.0-46.0); HGB 8.1 g/dL (11.2-15.7)
[2022-06-15 20:50] LABS: Iron 18 ug/dL (50-170); Total Iron Binding Capacity 479 ug/dL (250-450); Transferrin Sat 4 % (15-50)
[2022-06-15] MEDS: Magnesium Oxide 400 MG TAB PO (22:15)
[2022-06-15] MEDS: Zolpidem 5 MG TAB PO (22:15)
[2022-06-15] MEDS: Cyclobenzaprine 10 MG TAB 5 MG PO (22:15)
[2022-06-16] VITALS (22 sets, daily range): BP systolic 100–178; BP diastolic 60–93; PULSE 75–91; RESP 2–18; TEMP 35.5–37.3; O2SAT 93–96
--- NOTE | 2022-06-16 | DI.US_ITS ---
Exam(s) US ABDOMEN LIMITED EXAM: US ABDOMEN LIMITED CLINICAL HISTORY: Concern for cholecystitis TECHNIQUE: Ultrasound abdomen performed using standard protocol. COMPARISON: CT CT CHEST PE ABD PELVIS W from 06/15/2022 FINDINGS: LIVER: Normal size and echogenicity. No focal liver lesions are seen.. GALLBLADDER: Multiple gallstones are noted. There is a stone which appears lodged in the neck of the gallbladder or cystic duct.. wall thickening is present.. No pericholecystic fluid identified. MELARA'S SIGN: Positive BILIARY SYSTEM: No intrahepatic or extrahepatic biliary ductal dilation. RIGHT KIDNEY: Normal size. No evidence of renal calculi. No evidence of hydronephrosis. No suspicious renal mass. No cyst identified. PANCREAS: Normal where visualized. ABDOMINAL AORTA AND IVC: Visualized portions normal caliber. ASCITES: None seen. IMPRESSION: Findings concerning for acute cholecystitis. DATA REPOSITORY:
[2022-06-16 05:53] LABS: Abs Immature Grans 0.03 10^3/uL (0.0-0.06); Absolute Lymphocyte Count 0.79 10^3/uL (1.2-3.4); Absolute Monocyte Count 0.27 10^3/uL (0.1-0.8); Absolute Neutrophil Count 4.19 10^3/uL (1.2-6.7); HCT 25.3 % (36.0-46.0); HGB 7.5 g/dL (11.2-15.7); Immature Grans % 0.6; MCH 21.6 pg (27.0-33.0); MCHC 29.6 % (32.0-36.0); MCV 73 fL (80-95); MPV 10.1 fL (8.0-11.0); Monocytes % 5.1; Neutrophils % 79.3; Nucleated RBC 1.3 % (0.0-0.3); Platelet Count 214 10^3/uL (130-400); RBC 3.48 10^6/uL (3.93-5.22); RDW 22.8 % (11.7-14.6); RDW-SD 59.3 fL; WBC 5.28 10^3/uL (4.4-10.8)
[2022-06-16] MEDS: Normal Saline Flush 10 ML SYR IVP ×4 (05:53→15:42)
[2022-06-16] MEDS: Levothyroxine 25 MCG TAB PO (05:53)
[2022-06-16 06:14] LABS: ALT 84 U/L (14-59); AST 41 U/L (15-37); Albumin 2.6 g/dL (3.4-5.0); Alkaline Phosphatase 129 U/L (46-116); Anion Gap 12.9 mmol/L (3-11); BUN 15 mg/dL (7-18); Bilirubin, Total 0.4 mg/dL (0.2-1.0); CO2 23.1 mmol/L (21.0-32.0); CREATININE 0.8 mg/dL (0.55-1.02); Calcium 8.5 mg/dL (8.5-10.1); Chloride 103 mmol/L (98-107); Estimated GFR 81.72 (mL/min/1.73m2); Glucose 126 mg/dL (74-106); Potassium 3.3 mmol/L (3.5-5.1); Sodium 139 mmol/L (136-145); Total Protein 7.6 g/dL (6.4-8.2)
[2022-06-16 06:34] LABS: Anisocytosis 2+; Diff Comment RBC Morph Reviewed; Microcytosis 2+
[2022-06-16 08:01] LABS: Troponin I 1084 ng/L (<or=60)
[2022-06-16] MEDS: Furosemide 40 MG/4 ML VIAL IVP ×2 (08:18→15:37)
[2022-06-16] MEDS: Aspirin 81 MG CHEW PO (08:18)
[2022-06-16] MEDS: cefTRIAXone 1 GM/50 ML BAG IVPB (08:18)
[2022-06-16] MEDS: Acetaminophen 325 MG TAB PO (08:19)
[2022-06-16] MEDS: predniSONE 20 MG TAB 40 MG PO (08:19)
[2022-06-16] MEDS: Losartan 50 MG TAB PO (08:20)
[2022-06-16] MEDS: Methylphenidate 10 MG TAB 20 MG PO (08:20)
[2022-06-16] MEDS: Potassium Chloride 10 MEQ CAPCR PO ×2 (08:20→19:50)
[2022-06-16] MEDS: LORazepam 0.5 MG TAB PO ×2 (08:20→15:36)
[2022-06-16] MEDS: Gabapentin 400 MG CAP PO ×3 (08:20→19:50)
[2022-06-16] MEDS: Atorvastatin 10 MG TAB PO (08:21)
[2022-06-16] MEDS: Methadone Liquid 10 MG/ML 80 MG PO (08:40)
[2022-06-16] MEDS: Budesonide/Formoterol 80/4.5 6.9 GM 60 PUFF INH IH ×2 (08:43→19:50)
[2022-06-16] MEDS: Albuterol/Ipratropium 3 ML UPD VIAL UPD ×4 (08:43→19:51)
[2022-06-16 10:21] LABS: Procalcitonin 1.4 ng/mL
[2022-06-16 11:41] LABS: Troponin I 1011 ng/L (<or=60)
--- NOTE | 2022-06-16 12:40 | W.NUTCONSULT ---
Date of service: 06/16/22 Time of Service: 12:40 Nutritional Consult ASSESSMENT: Met with Carolin at bedside today. She is a 74 yo female admitted with end stage COPD. BMI on low end of normal, appears very frail. Current weight at baseline per medical chart review. Carolin would like referral to meals on wheels at discharge as cooking meals is difficult for her. She does not drink ensure however, enjoys chocolate milk. At high nutritional risk in view of low weight and malnourished appearance. Estimated Needs: 6704-0038 kcal, 55-60 g protein. Following regular meal plan and meeting caloric and macronutrient needs at this time. NUTRITIONAL DIAGNOSIS: Malnutrition in view of low weight and malnourished appearance with muscle wasting. INTERVENTION: Continue regular meal plan. Will provide chocolate milk on all trays Meals on WHeels referral at discharge MONITORING AND EVALUATION: will monitor po intake, labs, weight Time Spent in Nutritional Counseling and Treatment: 10
--- NOTE | 2022-06-16 12:47 | W.NUTCONSULT ---
Date of service: 06/16/22 Time of Service: 12:47 Nutritional Consult ASSESSMENT: Meet with Carolin today. Carolin is 67 yo female admitted with Folate and iron deficient anemia with long standing hx of COPD, CHF. Continues to smoke at home. Medical chart review indicates 20 lbs weight loss in last year. Current BMI on low end of normal. Estimated Needs: [id number] kcal, 55-65 g protein Following regular meal plan and currently meeting caloric and macro nutrient needs. Carolin reports that she would like referral to Meals on Wheels on discharge as cooking is difficult for her. She also requests chocolate milk at meals. Will not drink Ensure. NUTRITIONAL DIAGNOSIS: Malnutrition in view of significant weight loss in last year and low BMI, cachexic appearance INTERVENTION: Continue regular meal plan, provide chocolate milk TID MONITORING AND EVALUATION: weight, po intake, labs Time Spent in Nutritional Counseling and Treatment: 10
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
[2022-06-16] MEDS: metroNIDAZOLE 500 MG/100 ML BAG 100 MG IVPB ×2 (14:15→22:27)
[2022-06-16] MEDS: Methylphenidate 10 MG TAB PO (14:16)
[2022-06-16] MEDS: busPIRone 5 MG TAB PO ×2 (14:16→19:50)
--- NOTE | 2022-06-16 16:14 | W.PM.PROGNOT ---
Date of Service Date of service: 06/16/22 Time of Service: 16:14 Assessment and Plan Assessment and plan (1) Anemia: Status: Chronic Assessment and plan: Hgb 6.5. Low MCV of 7.2. Fe low at 18. Venofer 500mg IV infused. Likely etiology of acute CHF / demand ischemia. No current evidence of GI blood loss. Questionable pulmonary lesion/malignancy that could be contributing. Will need f/u as outpt once current PNA resolved. Nutritional component? Transfused 1 unit of pRBCs. Monitor and continue to investigate source. Nutrition consult appreciated. (2) Acute non-ST elevation myocardial infarction (NSTEMI): Status: Acute Assessment and plan: Troponin of 557. ED physician discussed case with Dr Shea at [facility] [place]. Likely demand ischemia from anemia and COPD exacerbation. Repeat troponins: 690 > 1084 > 1011 Echocardiogram obtained; result pending. No heparinization recommended particularly in background of significant anemia. (3) COPD with exacerbation: Status: Acute Assessment and plan: Cont Duonebs, Breo Ellipta, prn albuterol. Holding Incruse Ellipta while receiving Duonebs. Prednisone 40mg po Daily. Now on no supplemental oxygen. Much improved. (4) Cardiomyopathy: Status: Acute Assessment and plan: Echocardiogram in 2019 showed an EF of 50-55% with moderately dilated left atrium Echocardiogram results pending. On Losartan. (5) QT prolongation: Status: Acute Assessment and plan: May be d/t methadone. Be vigilant of drug interactions that could worsened QT interval. (6) Tobacco abuse counseling: Status: Acute Assessment and plan: 1 PPD smoker. Nicotine patch. (7) Hypothyroidism: Status: Chronic Assessment and plan: Cont replacement tx. Qualifiers: Hypothyroidism type: acquired Qualified Code(s): E03.9 - Hypothyroidism, unspecified (8) Hypertension: Status: Chronic Assessment and plan: Cont Losartan 50mg daily. Give losartan 25mg po now x 1. Qualifiers: Hypertension type: essential hypertension Qualified Code(s): I10 - Essential (primary) hypertension (9) Community acquired pneumonia: Status: Acute Assessment and plan: Extensive infiltrates. S/P azithromycin. Rocephin 1 gram IV Q24 hours. Qualifiers: Laterality: unspecified laterality Qualified Code(s): J18.9 - Pneumonia, unspecified organism (10) Acute diastolic CHF (congestive heart failure): Assessment and plan: Echocardiogram results pending. Lasix 40mg IV BID; end today and start 40mg po in AM. (11) Chronic pain: Status: Chronic Assessment and plan: On Methadone. Qualifiers: Chronic pain type: chronic pain syndrome Qualified Code(s): G89.4 - Chronic pain syndrome (12) Cholecystitis: Status: Acute Assessment and plan: Biliary US. No fever, elevated WBC count. Surgery consult. Subjective Subjective Patient reports: no new complaints, nausea and afebrile; denies vomiting or shortness of breath Interval history since last seen: She denies abd pain. Exam Narrative Exam Narrative: Becomes anxious when she talks about her current place of residence; she doesn't like the person she lives with and doesn't want to go back there. Appears comfortable. On no supplemental O2. Const General: cooperative and no acute distress Nutritional Appearance: thin Orientation: alert and oriented x3 Eyes General: appearance normal, both eyes and all related structures Sclera: sclerae normal Neck Neck: normal visual inspection and no JVD Resp Effort & Inspection: normal respiratory effort Auscultation: diminished lung sounds and wheezes (soft, diffuse) Cardio Rate: regular rate Rhythm: regular rhythm Heart Sounds: S1 normal, S2 normal and no murmurs GI Palpation: soft and nontender Auscultation: normal bowel sounds Skin General skin exam: no rashes or lesions noted Neuro General: no focal motor deficits Cranial Nerves: facial strength normal Cognition: normal cognition Speech: speech normal Extrem General: no pedal edema and no calf tenderness Psych Appearance: grossly normal Affect: anxious affect Thought Process: normal Thought Content: normal Objective Last Vital Signs Temp 37.3 C 06/16/22 15:50 Pulse 90 06/16/22 15:50 Resp 16 06/16/22 15:50 BP 178/72 H 06/16/22 15:52 Pulse Ox 94 06/16/22 15:50 Laboratory Results - last 24 hr 06/15/22 06/15/22 06/15/22 14:57 14:57 16:13 WBC RBC Hgb Hct MCV MCH MCHC RDW Plt Count MPV Immature Gran % Neutrophils % Lymphocytes % Monocytes % Eosinophils % Basophils % Nucleated RBC % Absolute Neutrophils Absolute Lymphocytes Absolute Monocytes Absolute Eosinophils Absolute Basophils RBC Morphology Anisocytosis Microcytosis Sodium Potassium Chloride Carbon Dioxide Anion Gap BUN Creatinine Est GFR (CKD-EPI 2020) Glucose Calcium Iron Cancelled TIBC Cancelled Transferrin % Sat Cancelled Total Bilirubin AST ALT Alkaline Phosphatase Troponin I NT-Pro-B Natriuret Pep 44035 H Total Protein Albumin Procalcitonin Add-On Test Request DONE 06/15/22 06/15/22 06/16/22 19:37 19:37 05:42 WBC RBC Hgb 8.1 L Hct 26.5 L MCV MCH MCHC RDW Plt Count MPV Immature Gran % Neutrophils % Lymphocytes % Monocytes % Eosinophils % Basophils % Nucleated RBC % Absolute Neutrophils Absolute Lymphocytes Absolute Monocytes Absolute Eosinophils Absolute Basophils RBC Morphology Anisocytosis Microcytosis Sodium 139 Potassium 3.3 L Chloride 103 Carbon Dioxide 23.1 Anion Gap 12.9 H BUN 15 Creatinine 0.8 Est GFR (CKD-EPI 2020) 81.72 Glucose 126 H Calcium 8.5 Iron 18 L TIBC 479 H Transferrin % Sat 4 L Total Bilirubin 0.4 AST 41 H ALT 84 H Alkaline Phosphatase 129 H Troponin I NT-Pro-B Natriuret Pep Total Protein 7.6 Albumin 2.6 L Procalcitonin Add-On Test Request 06/16/22 06/16/22 06/16/22 05:42 05:42 05:42 WBC 5.28 RBC 3.48 L Hgb 7.5 L Hct 25.3 L MCV 73 L MCH 21.6 L MCHC 29.6 L RDW 22.8 H Plt Count 214 MPV 10.1 Immature Gran % 0.6 Neutrophils % 79.3 Lymphocytes % 15.0 Monocytes % 5.1 Eosinophils % 0.0 Basophils % 0.0 Nucleated RBC % 1.3 H Absolute Neutrophils 4.19 Absolute Lymphocytes 0.79 L Absolute Monocytes 0.27 Absolute Eosinophils 0.00 Absolute Basophils 0.00 RBC Morphology See Below Anisocytosis 2+ Microcytosis 2+ Sodium Potassium Chloride Carbon Dioxide Anion Gap BUN Creatinine Est GFR (CKD-EPI 2020) Glucose Calcium Iron TIBC Transferrin % Sat Total Bilirubin AST ALT Alkaline Phosphatase Troponin I 1084 H* NT-Pro-B Natriuret Pep Total Protein Albumin Procalcitonin 1.4 Add-On Test Request 06/16/22 11:13 WBC RBC Hgb Hct MCV MCH MCHC RDW Plt Count MPV Immature Gran % Neutrophils % Lymphocytes % Monocytes % Eosinophils % Basophils % Nucleated RBC % Absolute Neutrophils Absolute Lymphocytes Absolute Monocytes Absolute Eosinophils Absolute Basophils RBC Morphology Anisocytosis Microcytosis Sodium Potassium Chloride Carbon Dioxide Anion Gap BUN Creatinine Est GFR (CKD-EPI 2020) Glucose Calcium Iron TIBC Transferrin % Sat Total Bilirubin AST ALT Alkaline Phosphatase Troponin I 1011 H* NT-Pro-B Natriuret Pep Total Protein Albumin Procalcitonin Add-On Test Request
[2022-06-16 17:49] LABS: Legionella Ag Detection Urine Negative (Negative)
[2022-06-16] MEDS: Enoxaparin 40 MG/0.4 ML SYR SC (18:29)
[2022-06-16] MEDS: Zolpidem 5 MG TAB PO (21:38)
[2022-06-16] MEDS: Magnesium Oxide 400 MG TAB PO (21:38)
--- NOTE | 2022-06-16 23:06 | W.SURGCON ---
Date of service: 06/16/22 Time of Service: 15:00 Assessment and Plan Assessment and plan (1) Cholecystitis: Status: Acute Assessment and plan: continue to treat w/ abx and low fat diet (2) Septic olecranon bursitis of right elbow: Status: Acute (3) UTI (urinary tract infection): Status: Acute (4) Anemia: Status: Chronic Assessment and plan: unclear etiology of this is GI loss. pt needs egd/ce. However, unclear if her heart is stable for procedures currently. ? Cath?? (5) Anemia: Status: Chronic Assessment and plan: PPI/carafate (6) Acute non-ST elevation myocardial infarction (NSTEMI): Status: Acute (7) Abnormal transaminases: Status: Acute (8) Hypomagnesemia: Status: Acute (9) COPD with exacerbation: Status: Acute (10) Asymptomatic bacteriuria: Status: Acute (11) Acute exacerbation of chronic obstructive pulmonary disease (COPD): Status: Acute (12) Subclavian arterial stenosis: Status: Suspected (13) Cardiomyopathy: Status: Acute (14) Chronic pain: Status: Chronic Qualifiers: Chronic pain type: chronic pain syndrome Qualified Code(s): G89.4 - Chronic pain syndrome (15) Hypertension: Status: Chronic Qualifiers: Hypertension type: essential hypertension Qualified Code(s): I10 - Essential (primary) hypertension (16) Tobacco abuse counseling: Status: Acute Assessment and plan: stop smoking (17) COPD with acute exacerbation: Status: Acute (18) Abnormal stress test: Status: Acute (19) Demand ischemia: Status: Acute (20) Mass of upper lobe of left lung: Status: Acute Assessment and plan: [place] [facility] [place] Acute diastolic CHF (congestive heart failure): (22) COPD (chronic obstructive pulmonary disease): (23) Hyperglycemia: History of Present Illness Narrative: I did review her admission with Dr. Torres. She has multiple issues including pneumonia. Spiculated mass in her left lung that is suspicious for cancer. She has a pretty profound anemia her hemoglobin was 6.5 when she was admitted it was 7.5 today. She was transfused 1 unit of blood last night. She is having right upper quadrant pain and nausea. It is unclear if she is throwing up because of her gallstones or if because she is so upset about her housing situation which currently seems to be causing panic attacks. She also has a [address] Correia feels is demand ischemia. However surgery is also demand ischemia and there would need to be some type of interrogation of this and possibly stent placement before she would be stable for surgery at [facility] When I interviewed her she was very tearful and very upset about her domicile situation. I cannot really get any other history out of her. She says she does not have any abdominal pain and she is not throwing up. Nursing states she threw up twice this morning and is not eating much other than clear liquids they have not noticed any blood in her stools or in her vomitus. Review of Systems Unobtainable due to mental status PFSH All Active Problems (Updated 06/16/22 @ 23:14 by Ching Coto DO) Mass of upper lobe of left lung (Acute) needs emergent bx Cholecystitis (Acute) Septic olecranon bursitis of right elbow (Acute) UTI (urinary tract infection) (Acute) Anemia (Chronic) Anemia (Chronic) Acute non-ST elevation myocardial infarction (NSTEMI) (Acute) Abnormal transaminases (Acute) Hypomagnesemia (Acute) COPD with exacerbation (Acute) Asymptomatic bacteriuria (Acute) not requiring treatment - not a UTI Discharge planning issues (Acute) DVT prophylaxis (Acute) Demand ischemia (Acute) Acute exacerbation of chronic obstructive pulmonary disease (COPD) (Acute) Lactic acidosis (Acute) Cardiomyopathy (Acute ~12/2018) Acute on chronic respiratory failure with hypoxia and hypercapnia (Acute) Mitral regurgitation (Chronic) Abnormal stress test (Acute) QT prolongation (Acute) Prediabetes (Chronic) COPD with acute exacerbation (Acute) Tobacco abuse counseling (Acute) Acute respiratory failure with hypoxia (Acute) HAMZAH (acute kidney injury) (Acute) Hypothyroidism (Chronic) Chronic pain (Chronic) Hypertension (Chronic) Community acquired pneumonia (Acute) Medical History (Updated 06/16/22 @ 23:14 by Ching Coto DO) Acute diastolic CHF (congestive heart failure) COPD (chronic obstructive pulmonary disease) Hyperglycemia Surgical History H/O section Family History Mother Heart disease Social History Smoking/Tobacco Use Status: Current, status unknown Tobacco Type: cigarettes Smoking packs per day: 1 Smoking cigarettes per day: 20.0 Years smoked: 46 Smoking pack-years: 46.00 Quit status: considering quitting Counseling given: provider counseling, support medications, support program and other Smoking risk assessment performed?: Yes Alcohol Intake: never Drug use: Daily Substance use type: marijuana Current gender identity: female What type of physical activity do you participate in: walking Do you feel safe at home: Yes Do you feel safe in your relationship?: Yes Exam Narrative Exam Narrative: Patient currently declined physical exam. She said she did not have any abdominal pain she appears much older than her stated age. She appears very pale and very frail Results Last Vital Signs Temp 36.7 C 06/16/22 19:52 Pulse 90 06/16/22 19:52 Resp 16 06/16/22 19:52 BP 110/62 06/16/22 19:52 Pulse Ox 94 06/16/22 19:52 Labs Result diagrams: 06/16/22 05:42 06/16/22 05:42 Labs: Laboratory Results - last 24 hr 06/16/22 06/16/22 06/16/22 05:42 05:42 05:42 WBC 5.28 RBC 3.48 L Hgb 7.5 L Hct 25.3 L MCV 73 L MCH 21.6 L MCHC 29.6 L RDW 22.8 H Plt Count 214 MPV 10.1 Immature Gran % 0.6 Neutrophils % 79.3 Lymphocytes % 15.0 Monocytes % 5.1 Eosinophils % 0.0 Basophils % 0.0 Nucleated RBC % 1.3 H Absolute Neutrophils 4.19 Absolute Lymphocytes 0.79 L Absolute Monocytes 0.27 Absolute Eosinophils 0.00 Absolute Basophils 0.00 RBC Morphology See Below Anisocytosis 2+ Microcytosis 2+ Sodium 139 Potassium 3.3 L Chloride 103 Carbon Dioxide 23.1 Anion Gap 12.9 H BUN 15 Creatinine 0.8 Est GFR (CKD-EPI 2020) 81.72 Glucose 126 H Calcium 8.5 Total Bilirubin 0.4 AST 41 H ALT 84 H Alkaline Phosphatase 129 H Troponin I 1084 H* Total Protein 7.6 Albumin 2.6 L Procalcitonin Urine Legionella Ag 06/16/22 06/16/22 06/16/22 05:42 10:02 11:13 WBC RBC Hgb Hct MCV MCH MCHC RDW Plt Count MPV Immature Gran % Neutrophils % Lymphocytes % Monocytes % Eosinophils % Basophils % Nucleated RBC % Absolute Neutrophils Absolute Lymphocytes Absolute Monocytes Absolute Eosinophils Absolute Basophils RBC Morphology Anisocytosis Microcytosis Sodium Potassium Chloride Carbon Dioxide Anion Gap BUN Creatinine Est GFR (CKD-EPI 2020) Glucose Calcium Total Bilirubin AST ALT Alkaline Phosphatase Troponin I 1011 H* Total Protein Albumin Procalcitonin 1.4 Urine Legionella Ag Negative
[2022-06-17] VITALS (7 sets, daily range): BP systolic 92–175; BP diastolic 60–89; PULSE 77–96; RESP 8–16; TEMP 36.6–36.9; O2SAT 95–98
[2022-06-17] MEDS: Levothyroxine 25 MCG TAB PO (06:25)
[2022-06-17] MEDS: metroNIDAZOLE 500 MG/100 ML BAG 100 MG IVPB ×2 (06:26→13:33)
[2022-06-17] MEDS: Normal Saline Flush 10 ML SYR IVP (06:26)
[2022-06-17 08:24] LABS: Absolute Basophil Count 0.01 10^3/uL (0.0-0.2); Absolute Eosinophil Count 0.01 10^3/uL (0.0-0.7); Absolute Lymphocyte Count 1.79 10^3/uL (1.2-3.4); Absolute Monocyte Count 0.95 10^3/uL (0.1-0.8); Absolute Neutrophil Count 9.93 10^3/uL (1.2-6.7); Basophils % 0.1; Eosinophils % 0.1; HCT 26.5 % (36.0-46.0); HGB 7.9 g/dL (11.2-15.7); Immature Grans % 0.8; MCH 21.8 pg (27.0-33.0); MCHC 29.8 % (32.0-36.0); MCV 73 fL (80-95); MPV 10.2 fL (8.0-11.0); Monocytes % 7.4; Neutrophils % 77.6; Nucleated RBC 1.7 % (0.0-0.3); Platelet Count 247 10^3/uL (130-400); RBC 3.63 10^6/uL (3.93-5.22); RDW 22.9 % (11.7-14.6); RDW-SD 59.3 fL; WBC 12.79 10^3/uL (4.4-10.8)
[2022-06-17 08:35] LABS: Anisocytosis 2+; Diff Comment RBC Morph Reviewed; Hypochromasia 2+
[2022-06-17 08:37] LABS: ALT 60 U/L (14-59); AST 21 U/L (15-37); Albumin 2.6 g/dL (3.4-5.0); Alkaline Phosphatase 114 U/L (46-116); Anion Gap 9.1 mmol/L (3-11); BUN 22 mg/dL (7-18); Bilirubin, Total 0.2 mg/dL (0.2-1.0); CO2 26.9 mmol/L (21.0-32.0); CREATININE 0.9 mg/dL (0.55-1.02); Calcium 8.5 mg/dL (8.5-10.1); Chloride 102 mmol/L (98-107); Estimated GFR 70.95 (mL/min/1.73m2); Glucose 102 mg/dL (74-106); Potassium 3.4 mmol/L (3.5-5.1); Sodium 138 mmol/L (136-145); Total Protein 7.3 g/dL (6.4-8.2)
[2022-06-17] MEDS: busPIRone 5 MG TAB PO ×2 (08:38→13:32)
[2022-06-17] MEDS: Gabapentin 400 MG CAP PO ×2 (08:38→13:32)
[2022-06-17] MEDS: cefTRIAXone 1 GM/50 ML BAG IVPB ×2 (08:38→12:08)
[2022-06-17] MEDS: Atorvastatin 10 MG TAB PO (08:38)
[2022-06-17] MEDS: Furosemide 40 MG TAB PO (08:38)
[2022-06-17] MEDS: Sacubitril/Valsartan 24 mg/26 mg TAB 1 EACH PO (08:38)
[2022-06-17] MEDS: Potassium Chloride 10 MEQ CAPCR PO (08:38)
[2022-06-17] MEDS: predniSONE 20 MG TAB 40 MG PO (08:39)
[2022-06-17] MEDS: Methylphenidate 10 MG TAB 20 MG PO (08:39)
[2022-06-17] MEDS: Aspirin 81 MG CHEW PO (08:39)
[2022-06-17] MEDS: Albuterol/Ipratropium 3 ML UPD VIAL UPD ×2 (08:46→12:17)
[2022-06-17] MEDS: Budesonide/Formoterol 80/4.5 6.9 GM 60 PUFF INH IH (08:46)
[2022-06-17] MEDS: Methadone Liquid 10 MG/ML 80 MG PO (09:17)
[2022-06-17 12:26] LABS: Hepatitis C Ab w Rflx HCV PCR Reactive (Negative)
--- NOTE | 2022-06-17 13:30 | W.PM.DS.N ---
Date of service: 06/17/22 Time of Service: 13:30 DS: Diagnosis Discharge Diagnosis (1) Cholecystitis: Status: Acute Asessment and Plan: Ultrasound obtained and verified concern for cholecystitis. Gallstones present. General surgery consulted. No acute need for surgical intervention, particularly in background of her other acute problems. She will discharge on Flagyl and Cephalexin for 5 more days. Re-evaluate clinically at f/u with PCP. (2) Anemia: Status: Chronic Asessment and Plan: Hgb on presentation was 6.5; likely the etiology of heart failure and subsequent demand ischemia. She was transfused 1 unit of pRBCs and Hgb improved to 7.9. Fe level low at 18. Venofer 500mg IV infused. There was no evidence of GI loss. There may be a nutritional component to her anemia but there is also the concern for a lung mass that could be contributing. CBC recommended when follows up with PCP. (3) Acute non-ST elevation myocardial infarction (NSTEMI): Status: Acute Asessment and Plan: She presented with c/o shortness of breath, no chest pain. No EKG changes. Troponin initially elevated at 557. It trended upward to 690, then 1084 > 1011. Echocardiogram showed an EF of 40% with apical and anterior akinesis with other segments showeing hypokinesis. However, the study was w/o contrast and a difficult study. The reading physician stated it was not entirely clear as to whether the regional wall motions abnormalities are all global or regional. Suspection is that the apical akinesis is real. Echo contrast would be helpful. Discuss[place] this case with [place] [facility] [place] recommended outpt ischemic workup after her current acute issues, anemia/cholecystitis/likely pneumonia, are resolved. NM stress testing recommended. (4) Abnormal transaminases: Status: Acute Asessment and Plan: She does have a h/o hepatitis C antibody detection on lab in 2017. Repeat lab with reflex PCR pending. However, the mild elevations were likely d/t hepatic congestion from CHF. AST normalized and ALT trended from 115 to 60. (5) Hypomagnesemia: Status: Acute Asessment and Plan: Repleted. (6) COPD with exacerbation: Status: Acute Asessment and Plan: Mild exacerbation that improved readily with nebs and steroids. Initially required supplemental O2 but on the day of admission was transitioned to RA only. (7) Cardiomyopathy: Status: Acute Asessment and Plan: Echo results detailed above. Losartan stopped and Entresto initiated. (8) Chronic pain: Status: Chronic Asessment and Plan: Continued her home methadone. No pain flare-up during hospitalization. (9) Hypertension: Status: Chronic Asessment and Plan: BP varied fairly widely. Was on Losartan. Now on Entresto. Outpt f/u. (10) Tobacco abuse counseling: Status: Acute Asessment and Plan: Nicoderm patch administered. (11) Demand ischemia: Status: Acute Asessment and Plan: As above. (12) Mass of upper lobe of left lung: Status: Acute Asessment and Plan: CT chest findings: Extensive bilateral pulmonary infiltrates.? Also moderate size bilateral pleural effusions.? Also spiculated infiltrate in the left lower lobe.? Extensive pneumonitis but also recommend close follow-up to rule out malignancy, particularly with respect of the left lower lobe infiltrate. Repeat CT in 2-4 weeks. (13) Acute diastolic CHF (congestive heart failure): Asessment and Plan: Demand ischemic likely d/t anemia. Diuresed well on IV lasix. Transitioned to RA from supplemental O2 readily. Now prescribed entresto. Consider BB if blood pressure would adequately tolerate. Discharge Plan Disposition Patient Disposition: HOME W/HOME HEALTH SERVICE Condition: Serious Discharge Details Reason For Visit: Pneumonia,Anemia, NSTEMI, Cholecystitis Admit Date/Time: 06/15/22 16:01 Admit Provider: Wili Johnson Attending Provider: Wili Johnson Primary Care Provider: August Inman Hospital Course Hospital Course: This is a 67 yo female with a PMH of COPD, tobacco abuse syndrome, cardiomyopathy, hypothyroidism, HTN.? She was brought to the ED via EMS d/t c/o SOA. She was noted to be hypoxic and wheezing per EMS; DuoNeb tx and IV solumedrol administered and she endorsed significant improvement.? Upon arrival to the ED her O2 saturation on 2L NC was 98%.? Of note, she was seen in the ED appx 2 1/2 weeks ago and dxd with PNA and treated as outpt with Azithromycin.? Her cough improved but did not resolve and does now have some sputum production.? Denied fever/chills.? No abd pain, N/V.? Initial Vital signs: Temperature? ?37.0 C? ?06/15/22 09:13 Pulse? ?99 H? ?06/15/22 09:13 Respiratory Rate? ?18? ?06/15/22 09:13 Blood Pressure? ?198/86 H? ?06/15/22 09:13 Pulse Oximetry? ?93? ?06/15/22 09:13 She was noted to be fully vaccinated for Covid-19. Her initial exam in the ED per physician found her to have diffuse wheezes.? Abd was nontender.? No pedal edema or calf tenderness.? EKG showed T-wave inversion in V5 and V6.? No indication of ACS. Hgb was low at 6.5.? WBC count and platelets normal. INR 1.0.? Stool heme negative.? D-dimer 3215. Lytes normal.? BUN and Creatinine normal.? ALT 115, AST 56. Bilirubin 0.4. Troponin 557 > 690. NTProBNAP [id number]. CT C/A/P: Extensive bilateral pulmonary infiltrates.? Also moderate size bilateral pleural effusions.? Also spiculated infiltrate in the left lower lobe.? Extensive pneumonitis but also recommend close follow-up to rule out malignancy, particularly with respect of the left lower lobe infiltrate. No obvious intrathoracic adenopathy. Cholelithiasis and fluid around the gallbladder.? Suspicious for acute cholecystitis.? Rocephin initiated in the ED. One unit pRBCs transfused. *See Diagnosis for details of hospital stay* F/U with PCP in 1-2 weeks. PCP to schedule outpt NM cardiac stress testing. Home Meds and New Rx's Prescriptions: New Entresto 24-26 mg Tablet 1 ea PO BID Qty: 30 0RF metronidazole 500 mg tablet 500 mg PO BID Qty: 10 0RF cephalexin 500 mg capsule 500 mg PO TID Qty: 15 0RF Continued Incruse Ellipta 62.5 mcg/actuation blister with device 1 inh IH DAILY losartan 50 mg tablet 50 mg PO DAILY 90 Days Qty: 90 3RF gabapentin 100 mg capsule 400 mg PO TID Rx Instructions: takes 400 TID methadone 10 MG/ML concentrate 80 mg PO DAILY aspirin 81 mg Tablet,Chewable 81 mg PO DAILY Qty: 30 0RF furosemide 20 mg Tablet 20 mg PO DAILY Qty: 30 0RF ipratropium-albuterol 0.5 mg-3 mg(2.5 mg base)/3 mL Solution For Nebulization 3 ml UPD QID Qty: 15 0RF atorvastatin [Lipitor] 10 MG tablet 10 mg PO DAILY levothyroxine 25 MCG tablet 25 mcg PO DAILY@0600 Qty: 90 0RF albuterol sulfate [Proventil HFA] 200 PUFF HFA aerosol inhaler 2 puff Inhalation Q4H PRN PRNQty: 1 0RF Rx Instructions: dispense with spacer, please buspirone 5 mg tablet 5 mg PO BID Label Comments: TAKE ONE TABLET BY MOUTH EVERY DAY FOR 7 DAYS THEN TAKE ONE TABLET TWICE DAILY methylphenidate HCl 10 mg tablet 10 mg PO QPM Label Comments: TAKE 1 TABLET BY MOUTH ON AN EMPTY STOMACH IN THE EVENING DAILY methylphenidate HCl 20 mg tablet 20 mg PO QAM Label Comments: TAKE 1 TABLET BY MOUTH ON AN EMPTY STOMACH IN THE MORNING DAILY cyclobenzaprine 5 mg tablet 5 mg PO TID PRN Label Comments: TAKE ONE TABLET BY MOUTH THREE TIMES A DAY NEEDED FOR MUSCLE SPASMS fluticasone furoate-vilanterol [Breo Ellipta] 100-25 mcg/dose blister with device 1 inh INHALATION DAILY Label Comments: INHALE ONE PUFF BY MOUTH EVERY DAY potassium chloride 10 mEq capsule, extended release 10 meq PO BID Discharge Instructions Instructions: Cholecystitis (DC), Anemia (DC) Additional Instructions: Daily weight. Take an extra lasix daily for 3 days for any wt gain of 2 pounds in the course of 2-5 days. Stand Alone Forms: Nursing Discharge Form Referrals: August Inman [Primary Care Provider] - 06/23/22 3:15 pm Activity:: Activity as Tolerated Equipment/Supplies:: No Equipment Needed Diet:: Low Sodium Discharge Orders Discharge Orders: Discharge Order (Routine); Ordered 06/17/22 Ordered By: Wili Johnson DS: Summary Time Spent with Patient providing and/or coordinating discharge services: Greater than 30 minutes Status at Discharge Functional status at discharge: independent ambulation Overall status at discharge: patient is progressing back to baseline Mental Status: mental status grossly normal Speech and Movement: speech clear Mood: anxious mood Affect: anxious affect Exam Narrative Exam Narrative: Lying in bed. No acute distress. Const General: cooperative and no acute distress Nutritional Appearance: thin Orientation: alert and oriented x3 Eyes General: appearance normal, both eyes and all related structures Sclera: sclerae normal Neck Neck: normal visual inspection and no JVD Resp Effort & Inspection: normal respiratory effort Auscultation: diminished lung sounds and wheezes (soft, diffuse) Cardio Rate: regular rate Rhythm: regular rhythm Heart Sounds: S1 normal, S2 normal and no murmurs GI Palpation: soft and nontender Auscultation: normal bowel sounds Skin General skin exam: no rashes or lesions noted Neuro General: no focal motor deficits Cranial Nerves: facial strength normal Cognition: normal cognition Speech: speech normal Extrem General: no pedal edema and no calf tenderness Psych Appearance: grossly normal Mental Status: mental status grossly normal Speech and Movement: speech clear Mood: anxious mood Affect: anxious affect Thought Process: normal Thought Content: normal DS: Data Vitals/I&O Vitals and I&O: Vital Signs Temperature 36.9 C 06/17/22 08:30 Temperature Source Tympanic 06/17/22 08:30 Pulse 86 06/17/22 08:46 Pulse Rhythm Regular 06/17/22 10:09 Pulse 91 H 06/15/22 16:30 Respiratory Rate 16 06/17/22 12:17 Respiratory Effort Non-Labored 06/17/22 10:09 Respiratory Depth Normal 06/17/22 10:09 Respiratory Pattern Normal 06/17/22 10:09 Blood Pressure 100/66 06/17/22 10:21 Blood Pressure Mean 106 06/15/22 16:30 Blood Pressure Position Supine 06/15/22 09:13 Pulse Oximetry 96 06/17/22 12:17 Oxygen Delivery Method Room Air 06/17/22 12:17 Oxygen Flow Rate 0 06/17/22 12:17 Pain Level 0 06/17/22 08:30 Comment 06/17/22 03:00 Intake & Output 06/16/22 06/17/22 06/17/22 23:59 11:59 23:59 Intake Total 725 / 1135 390 / 390 Output Total 1300 / 3000 400 / 1200 800 / 1200 Balance -575 / -1865 -10 / -810 -800 / -810 Weight 41.9 kg Intake: IV 485 / 535 150 / 150 Oral 240 / 600 240 / 240 Output: Urine 1300 / 3000 400 / 1200 800 / 1200 Other: Urine Color Dark Caryl Pale Yellow Brown Urine Appearance Cloudy Clear Clear Urine Odor None None Voiding Methods Bedside Commode Toilet Data Completed and Pending Labs on day of discharge: Labs from last 24 hours 06/17/22 06/17/22 06/16/22 08:15 08:15 10:02 WBC 12.79 H RBC 3.63 L Hgb 7.9 L Hct 26.5 L MCV 73 L MCH 21.8 L MCHC 29.8 L RDW 22.9 H Plt Count 247 MPV 10.2 Immature Gran % 0.8 Neutrophils % 77.6 Lymphocytes % 14.0 Monocytes % 7.4 Eosinophils % 0.1 Basophils % 0.1 Nucleated RBC % 1.7 H Absolute Neutrophils 9.93 H Absolute Lymphocytes 1.79 Absolute Monocytes 0.95 H Absolute Eosinophils 0.01 Absolute Basophils 0.01 RBC Morphology See Below Hypochromasia 2+ Anisocytosis 2+ Sodium 138 Potassium 3.4 L Chloride 102 Carbon Dioxide 26.9 Anion Gap 9.1 BUN 22 H Creatinine 0.9 Est GFR (CKD-EPI 2020) 70.95 Glucose 102 Calcium 8.5 Total Bilirubin 0.2 AST 21 ALT 60 H Alkaline Phosphatase 114 Total Protein 7.3 Albumin 2.6 L Hepatitis C Antibody Urine Legionella Ag Negative 06/15/22 19:37 WBC RBC Hgb Hct MCV MCH MCHC RDW Plt Count MPV Immature Gran % Neutrophils % Lymphocytes % Monocytes % Eosinophils % Basophils % Nucleated RBC % Absolute Neutrophils Absolute Lymphocytes Absolute Monocytes Absolute Eosinophils Absolute Basophils RBC Morphology Hypochromasia Anisocytosis Sodium Potassium Chloride Carbon Dioxide Anion Gap BUN Creatinine Est GFR (CKD-EPI 2020) Glucose Calcium Total Bilirubin AST ALT Alkaline Phosphatase Total Protein Albumin Hepatitis C Antibody Pending Urine Legionella Ag [facility] All Active Problems Mass of upper lobe of left lung (Acute) needs emergent bx Cholecystitis (Acute) Septic olecranon bursitis of right elbow (Acute) UTI (urinary tract infection) (Acute) Anemia (Chronic) Anemia (Chronic) Acute non-ST elevation myocardial infarction (NSTEMI) (Acute) Abnormal transaminases (Acute) Hypomagnesemia (Acute) COPD with exacerbation (Acute) Asymptomatic bacteriuria (Acute) not requiring treatment - not a UTI Discharge planning issues (Acute) DVT prophylaxis (Acute) Demand ischemia (Acute) Acute exacerbation of chronic obstructive pulmonary disease (COPD) (Acute) Lactic acidosis (Acute) Cardiomyopathy (Acute ~12/2018) Acute on chronic respiratory failure with hypoxia and hypercapnia (Acute) Mitral regurgitation (Chronic) Abnormal stress test (Acute) QT prolongation (Acute) Prediabetes (Chronic) COPD with acute exacerbation (Acute) Tobacco abuse counseling (Acute) Acute respiratory failure with hypoxia (Acute) HAMZAH (acute kidney injury) (Acute) Hypothyroidism (Chronic) Chronic pain (Chronic) Hypertension (Chronic) Community acquired pneumonia (Acute) Medical History Acute diastolic CHF (congestive heart failure) COPD (chronic obstructive pulmonary disease) Hyperglycemia Surgical History H/O section Family History Mother Heart disease Social History Smoking/Tobacco Use Status: Current, status unknown Tobacco Type: cigarettes Smoking packs per day: 1 Smoking cigarettes per day: 20.0 Years smoked: 46 Smoking pack-years: 46.00 Quit status: considering quitting Counseling given: provider counseling, support medications, support program and other Smoking risk assessment performed?: Yes Alcohol Intake: never Drug use: Daily Substance use type: marijuana Current gender identity: female What type of physical activity do you participate in: walking Do you feel safe at home: Yes Do you feel safe in your relationship?: Yes
[2022-06-17] MEDS: Cyclobenzaprine 10 MG TAB 5 MG PO (13:31)
[2022-06-17] MEDS: Methylphenidate 10 MG TAB PO (13:32)
--- NOTE | 2022-06-17 14:42 | PDOC.HHF2F ---
Home Health Certification Home Health Certification: 1. Encounter Date and Reason I certify that Carolin Lake was seen by Wili Johnson MD on 06/17/22 and that I had a [id number] encounter with this patient that meets the physician face to face encounter requirements. 2. Clinical Findings Supporting Skilled Need and Homebound Status I certify that home health services are medically necessary, include either intermittent senior living and/or physical/speech therapy, and that this patient is homebound in that absences from the home require considerable and taxing effort and are infrequent or of short duration, or are attributable to the need to receive medical care. [X] (a) Attached documentation from encounter provides clinical findings supporting skilled need and homebound status (including what assistance patient requires to leave the home). The encounter with the patient was in whole, or in part, for the following medical condition, which is the primary reason for home health care: Pneumonia,Anemia, NSTEMI, Cholecystitis Residential:Monitor patient's medical condition, instruct on medication regimen and signs and symptoms to report. Physical Therapy: Speech Therapy: Homebound: He is unable to leave home without assistance and ambulation is severely limited due to decreased lower extremity strength and endurance. 3. Certification and Authentication I certify that I composed the above information based on my clinical judgement relating to this patient's medical condition and, if applicable, clinical findings communicated to me by the NPP or inpatient physician who performed the Home Health Referral. All further orders will be obtained through August Inman (Community Based Physician - PCP)
--- NOTE | 2022-06-17 17:00 | PDOC.CMDIS ---
- If Service Date Differs Date of service: 06/17/22 Time of Service: 17:00 LACE Index Scoring Tool - Questions: Length of Stay (in days): 2 Acuity (Admit via E.D.?): Yes Comorbidities: Chronic Pulmonary Disease E.D. Visits: 4 - Answers: Total Score: 11 Risk of Readmission: High Risk Care Management Discharge Reason for Hospitalization: Pneumonia, Anemia Discharge Plan: Carolin continues to be monitored and treated. LAURO consulted for options for Carolin regarding housing concerns. She will follow up with JUDITH and her plan of care as prescribed and transport via private vehicle with RCT, or natural supports. New orders for home health completed and faxed to [facility] as well. Patient/Family Education Needs: Review discharge instructions, discuss Ask Me Three. Services Needed at Discharge: Home Health Care Services
[2022-06-18 11:40] LABS: HCV RNA Qualitative Undetected (Undetected)
[2022-06-18 13:49] LABS: Streptococcus Pneumoniae Ag, U Negative (Negative)
== END 2022-06-17 15:17 | disposition home health service (06) | DRG 280 ==
LOC: ER 16:22 → MS 16:44
PROVIDERS: Admitting Provider Family Medicine; Emergency Provider Physician Assistant; PCP Family Medicine; Visit Provider Family Medicine
DX: I21.A1 Myocardial infarction type 2 (principal); I50.31 Acute diastolic (congestive) heart failure; J18.9 Pneumonia, unspecified organism; J44.1 Chronic obstructive pulmonary disease with (acute) exacerbation; N17.9 Acute kidney failure, unspecified; J44.0 Chronic obstructive pulmonary disease with (acute) lower respiratory infection; I42.9 Cardiomyopathy, unspecified; I34.0 Nonrheumatic mitral (valve) insufficiency; I11.0 Hypertensive heart disease with heart failure; E03.9 Hypothyroidism, unspecified; D64.9 Anemia, unspecified; R74.01 Elevation of levels of liver transaminase levels; E83.42 Hypomagnesemia; R73.03 Prediabetes; R94.31 Abnormal electrocardiogram [ECG] [EKG]; F12.90 Cannabis use, unspecified, uncomplicated; R79.1 Abnormal coagulation profile; F17.210 Nicotine dependence, cigarettes, uncomplicated; R09.02 Hypoxemia; G89.4 Chronic pain syndrome; K80.00 Calculus of gallbladder with acute cholecystitis without obstruction; J98.4 Other disorders of lung; F41.9 Anxiety disorder, unspecified; M71.121 Other infective bursitis, right elbow
CPT/HCPCS: 36415; 71275; 74177; 80053; 83690; 84145; 86803; 86850; 86900; 86901; 86920; 87449; 87522; 87635; 93005; 94640; 96361; 96365; 96375; 96376; 99285; J1650; 71045; 76705; 83540; 83550; 83735; 83880; 84484; 85014; 85018; 85025; 85379; 85610; 85730; 87899; 93010; 93306; 99223; 99233; 99239; J0131; J0696; J1756; J1940; J3490; J7512; J7613; J7620; P9016